=== PATIENT | male | born 1935 | race Hispanic/Latino ===

== ENCOUNTER 2017-04-03 15:21 | Inpatient (IN) | payer MEDICARE, MEDICAID ==
[2017-04-03 15:21] VITALS: PULSE 78; BMI 31.5
--- NOTE | 2017-04-03 15:27 | C.PDOC ---
History Of Present Illness 81 year old male with previous Hx of heart disease, lung disease, coronary stent and AAA repair is brought in by ALS for evaluation of AMS. Daughter states that 2 days ago at his home while standing up he lost his balance and fell down on his left side against an old cast iron stove. Patient's daughter deny that he hit his head or LOC but state that since he fell down he has been acting confused, disoriented, talking to people not in the room, and has urinary incontinence. Patient is also c/o a mild headache and abdominal discomfort with bilious vomit stating that he has not been eating, drinking or walking since he fell down. Upon arrival to the ED Pt in awake, cooperative, answering questions. Patient denies CP SOB, weakens, numbness. Time Seen by Provider: 04/03/17 15:23 Chief Complaint (Nursing): Altered Mental Status History Per: EMS, Family History/Exam Limitations: None Onset/Duration Of Symptoms: Days Current Symptoms Are (Timing): Gone Usual Baseline: Alert Oriented Use Of Anticoag/Antiplatelets: No Speech Is: Normal Severity: Mild Recent travel outside of the [place]: No Additional History Per: Patient, Family Associated Symptoms: Disoriented, Not Eating, Not Drinking, Vomiting Past Medical History Reviewed: Historical Data, Nursing Documentation, Vital Signs Vital Signs: Last Vital Signs Temp 99.3 F 04/03/17 18:14 Pulse 110 H 04/03/17 18:14 Resp 24 04/03/17 18:14 BP 149/68 04/03/17 18:14 Pulse Ox 96 04/03/17 18:14 - Medical History PMH: Anxiety, Arthritis, Asthma, Bronchitis, CAD, CHF, COPD, Diverticulitis (HX PARTIAL COLECTOMY), Emphysema, Gastritis, Hiatal Hernia, HTN, Hypercholesterolemia, Hypothyroidism, Kidney Stones, Peripheral Edema, Pneumonia , Chronic Kidney Disease, Sleep Apnea (NO C PAP), TIA (1988) Denies: Atrial Fibrillation, Cardia Arrhythmia Surgical History: CABG (1986), Cholecystectomy (1974), Coronary Stent, Endoscopy , Pacemaker - [facility] Procedures BRONCH/TRACH LAVAGE NEC (08/19/14) DRAINAGE OF LEFT MAIN BRONCHUS, ENDO, DIAGN (04/01/16) ENDOSCOPIC BRONCHIAL BX (08/19/14) INTRODUCTION OF SERUM/TOX/VACCINE INTO MUSCLE, PERC APPROACH (02/05/15) Family History: States: Unknown Family Hx - Social History Hx Tobacco Use: Yes Hx Alcohol Use: No Hx Substance Use: No - Immunization History Hx Tetanus Toxoid Vaccination: No Hx Influenza Vaccination: No Hx Pneumococcal Vaccination: No Review Of Systems Constitutional: Negative for: Fever, Chills Eyes: Negative for: Vision Change Cardiovascular: Negative for: Chest Pain Gastrointestinal: Positive for: Vomiting, Abdominal Pain Musculoskeletal: Positive for: Leg Pain Neurological: Positive for: Altered Mental Status, Headache. Negative for: Weakness, Numbness Physical Exam - Physical Exam Appears: Non-toxic, No Acute Distress Skin: Normal Color, Warm, Dry Head: Atraumatic, Normacephalic Eye(s): bilateral: Normal Inspection, PERRL, EOMI Nose: No Discharge, No Deformity Oral Mucosa: Dry Tongue: Other (Dry) Throat: Normal, No Erythema, No Exudate Neck: Normal ROM, Supple Chest: Symmetrical Cardiovascular: Rhythm Regular, Murmur Respiratory: Decreased Breath Sounds (B/L) Gastrointestinal/Abdominal: Bowel Sounds (Active), Soft, Tenderness (Diffuse), No Guarding, No Rebound Back: No CVA Tenderness Extremity: Tenderness (movement of left leg), No Pedal Edema, No Calf Tenderness , No Deformity, No Swelling Neurological/Psych: Oriented x3, Normal Speech, Normal Cognition ED Course And Treatment - Laboratory Results Result Diagrams: 04/03/17 17:17 04/03/17 16:41 Lab Interpretation: Abnormal (WBC 13.2 with left shift, LFTs and electrolytes normal. Troponin normal) ECG: Interpreted By Me, Viewed By Me ECG Rhythm: L BBB ECG Interpretation: Abnormal Interpretation Of ECG: EKG LBBB 107 BPM with wide QRS rhythm. Rate From EC Pulse Ox Interpretation: Normal - Radiology CXR: Interpreted by Me, Viewed By Me CXR Interpretation: Yes: Cardiomegaly (Stable), Other (Reticular markings somewhat increased which may be a function of early CHF although pneumonitis is not excluded and further clinical correlation is advised. Stable cardiomegaly. No pulmonary vascular prominence at this time.) - Other Rad Abdomen Obstructive series X-Ray X-Ray: Interpreted by Me, Viewed By Me, Read By Radiologist Interpretation: PROCEDURE: Radiographs of the chest and abdomen (obstructive series). HISTORY: vomiting, abdominal pain. COMPARISON: No prior. TECHNIQUE : AP radiograph of the chest, with upright and supine radiographs of the abdomen. FINDINGS: ABDOMEN AND PELVIS: Bowel: Gassiness and numerous large bowel loops which is nonspecific. Retained food material is relatively prominent within the large bowel. No bowel obstruction is not favored. Clinically correlate further. Free air: None. Bones: Unremarkable. Other findings: Paired iliac stent graft is identified in position as well as anterior abdominal wall nga at the mid inferior abdomen. Surgical sulci in the right upper quadrant abdomen. IMPRESSION: No definite bowel obstruction pattern appreciable. Gases however seen distending numerous large-bowel loops which also contained retained fecal material. Interposed aerated iliac stent graft placement. Surgical clips right upper quadrant and abdominal wall nga identified at the mid to inferior abdominal wall near the midline. - CT Scan/US Head CT Other Rad Studies (CT/US): Interpreted By Me, Read By Radiologist, Radiology Report Reviewed CT/US Interpretation: PROCEDURE: CT HEAD WITHOUT CONTRAST. HISTORY: AMS. COMPARISON: Unenhanced head CT 04/03/2016. TECHNIQUE: Axial computed tomography images were obtained through the head/brain without intravenous contrast. Radiation dose: Total exam DLP = 807.30 mGy-cm. This CT exam was performed using one or more of the following dose reduction techniques: Automated exposure control, adjustment of the mA and/or kV according to patient size, and/or use of iterative reconstruction technique. FINDINGS: HEMORRHAGE: No intracranial hemorrhage. BRAIN: Diffuse expansion of the ventriculosulcal and cisternal spaces is appreciated with white matter lucency compatible with diffuse cerebral atrophy and chronic microangiopathy. Bilateral full lamina lucencies are appreciate which could reflect interval chronic lacunar infarctions but indeterminate. There not clearly seen on the prior exam. No suspicious extra-axial fluid collection. No mass effect. VENTRICLES: Unremarkable. No hydrocephalus. CALVARIUM: Unremarkable. PARANASAL SINUSES: Unremarkable as visualized. No significant inflammatory changes. MASTOID AIR CELLS: Unremarkable as visualized. No inflammatory changes. OTHER FINDINGS: None. IMPRESSION: Small by thalamic lucencies are appreciated which are indeterminate. They could reflect interval but chronic lacunar infarctions though subacute lacunes are not excluded. No additional interval findings. Stable age related neuro degenerative changes are appreciated. Follow-up CT or MRI is advised. Reevaluation Time: 18:23 Reassessment Condition: Unchanged - Physician Consult Information Time Consulting Physician Contacted: 18:23 Physician Contacted: Johan Jamison Outcome Of Conversation: Patient is well known to him. Most of these changes are chronic. He will keep him on observation for rehydration Medical Decision Making Medical Decision Making: Plan: * Blood work ordered * EKG ordered * CXR ordered * Obstructive series X-Ray ordered * UA ordered On arrival patient was AOx3, answering questions with no gross deformities or apparent injuries. Disposition Counseled Patient/Family Regarding: Studies Performed, Diagnosis - Disposition Disposition: HOSPITALIZED Disposition Time: 18:26 Condition: STABLE - Clinical Impression Clinical Impression: Altered mental status, Abdominal pain with vomiting, Back contusion - Scribe Statement The provider has reviewed the documentation as recorded by the Scribe Dilip Hartman All medical record entries made by the Scribe were at my direction and personally dictated by me. I have reviewed the chart and agree that the record accurately reflects my personal performance of the history, physical exam, medical decision making, and the department course for this patient. I have also personally directed, reviewed, and agree with the discharge instructions and disposition.
--- NOTE | 2017-04-03 15:33 | C.PDOC ---
Time Seen by Provider: 04/03/17 15:23 Chief Complaint (Nursing): Altered Mental Status Past Medical History - Medical History PMH: Anxiety, Arthritis, Asthma, Bronchitis, CAD, CHF, COPD, Diverticulitis (HX PARTIAL COLECTOMY), Emphysema, Gastritis, Hiatal Hernia, HTN, Hypercholesterolemia, Hypothyroidism, Kidney Stones, Peripheral Edema, Pneumonia , Chronic Kidney Disease, Sleep Apnea (NO C PAP), TIA (1988) Denies: Atrial Fibrillation, Cardia Arrhythmia Surgical History: CABG (1986), Cholecystectomy (1974), Coronary Stent, Endoscopy , Pacemaker - [facility] Procedures BRONCH/TRACH LAVAGE NEC (08/19/14) DRAINAGE OF LEFT MAIN BRONCHUS, ENDO, DIAGN (04/01/16) ENDOSCOPIC BRONCHIAL BX (08/19/14) INTRODUCTION OF SERUM/TOX/VACCINE INTO MUSCLE, PERC APPROACH (02/05/15) Family History: States: Unknown Family Hx - Social History Hx Tobacco Use: Yes Hx Alcohol Use: No Hx Substance Use: No - Immunization History Hx Tetanus Toxoid Vaccination: No Hx Influenza Vaccination: No Hx Pneumococcal Vaccination: No Disposition - Disposition
--- NOTE | 2017-04-03 16:55 | CT ---
PROCEDURE: CT HEAD WITHOUT CONTRAST. HISTORY: AMS COMPARISON: Unenhanced head CT 04/03/2016 TECHNIQUE: Axial computed tomography images were obtained through the head/brain without intravenous contrast. Radiation dose: Total exam DLP = 807.30 mGy-cm. This CT exam was performed using one or more of the following dose reduction techniques: Automated exposure control, adjustment of the mA and/or kV according to patient size, and/or use of iterative reconstruction technique. FINDINGS: HEMORRHAGE: No intracranial hemorrhage. BRAIN: Diffuse expansion of the ventriculosulcal and cisternal spaces is appreciated with white matter lucency compatible with diffuse cerebral atrophy and chronic microangiopathy. Bilateral full lamina lucencies are appreciate which could reflect interval chronic lacunar infarctions but indeterminate. There not clearly seen on the prior exam. No suspicious extra-axial fluid collection. No mass effect. VENTRICLES: Unremarkable. No hydrocephalus. CALVARIUM: Unremarkable. PARANASAL SINUSES: Unremarkable as visualized. No significant inflammatory changes. MASTOID AIR CELLS: Unremarkable as visualized. No inflammatory changes. OTHER FINDINGS: None. IMPRESSION: Small by thalamic lucencies are appreciated which are indeterminate. They could reflect interval but chronic lacunar infarctions though subacute lacunes are not excluded. No additional interval findings. Stable age related neuro degenerative changes are appreciated. Follow-up CT or MRI is advised.
[2017-04-03 16:57] LABS: ALB/GLOB RATIO 1.2 (1.0-2.1); ALT/SGPT 35 U/L (21-72); AST/SGOT 21 U/L (17-59); BLOOD UREA NITROGEN 17 mg/dL (9-20); CALCIUM 8.2 mg/dl (8.6-10.4); GFR AFRICAN-AMERICAN > 60; GFR NON-AFRICAN AMERICAN > 60
--- NOTE | 2017-04-03 17:07 | RAD ---
PROCEDURE: CHEST RADIOGRAPH, 1 VIEW HISTORY: AMS COMPARISON: Portable chest 04/05/2016. FINDINGS: LUNGS: Reticular markings appear increased slightly potentially reflecting CHF. Clinically correlate. This is not definite. Alternately, there may be an element of limited but diffuse interstitial pneumonitis. PLEURA: No pneumothorax or pleural fluid seen. CARDIOVASCULAR: Cardiac size is stable with permanent cardiac pacemaker/defibrillator again evident. OSSEOUS STRUCTURES: No significant abnormalities. VISUALIZED UPPER ABDOMEN: Normal. OTHER FINDINGS: None. IMPRESSION: Reticular markings somewhat increased which may be a function of early CHF although pneumonitis is not excluded and further clinical correlation is advised. Stable cardiomegaly. No pulmonary vascular prominence at this time.
--- NOTE | 2017-04-03 17:10 | RAD ---
PROCEDURE: Radiographs of the chest and abdomen (obstructive series) HISTORY: vomiting, abdominal pain COMPARISON: No prior. TECHNIQUE: AP radiograph of the chest, with upright and supine radiographs of the abdomen. FINDINGS: ABDOMEN AND PELVIS: Bowel: Gassiness and numerous large bowel loops which is nonspecific. Retained food material is relatively prominent within the large bowel. No bowel obstruction is not favored. Clinically correlate further. Free air: None. Bones: Unremarkable. Other findings: Paired iliac stent graft is identified in position as well as anterior abdominal wall nga at the mid inferior abdomen. Surgical sulci in the right upper quadrant abdomen. IMPRESSION: No definite bowel obstruction pattern appreciable. Gases however seen distending numerous large-bowel loops which also contained retained fecal material. Interposed aerated iliac stent graft placement. Surgical clips right upper quadrant and abdominal wall nga identified at the mid to inferior abdominal wall near the midline.
[2017-04-03 17:20] LABS: BASO % 0.4 % (0.0-2.0); HEMOGLOBIN 13.5 g/dL (12.0-18.0); LYMPH # 1.1 K/uL (1.0-4.3); LYMPH % 8.3 % (20.0-40.0); MEAN CELL VOLUME 89.5 fL (80.0-94.0); MEAN CORPUSCULAR HEMOGLOBIN 29.8 pg (27.0-31.0); MEAN CORPUSCULAR HGB CONC 33.3 g/dL (33.0-37.0); MEAN PLATELET VOLUME 6.2 fL (7.2-11.7); MONO # 0.8 K/uL (0.0-0.8); NEUT # 11.3 K/uL (1.8-7.0); NEUT % 85.3 % (50.0-75.0); PLATELET COUNT 196 K/uL (130-400); RBC 4.52 Mil/uL (4.40-5.90); RED CELL DISTRIBUTION WIDTH 13.8 % (11.5-14.5); WHITE BLOOD COUNT 13.2 K/uL (4.8-10.8)
[2017-04-03 18:09] LABS: LARGE PLATELETS PRESENT; LYMPHOCYTE 6 % (20-40); MONOCYTE 3 % (0-10); NEUTROPHIL 91 % (50-75); PLATELET ESTIMATE SLIGHTLY DECREASED (NORMAL); TOTAL CELLS COUNTED 100
[2017-04-03 18:25] LABS: URINE BACTERIA RARE (<OCC); URINE BILIRUBIN NEGATIVE (NEGATIVE); URINE BLOOD 1+ (NEGATIVE); URINE CLARITY Clear (Clear); URINE COLOR Yellow (YELLOW); URINE GLUCOSE (UA) NORMAL (Normal); URINE LEUKOCYTE ESTERASE NEG Leu/uL (Negative); URINE NITRATE NEGATIVE (NEGATIVE); URINE PROTEIN 1+ mg/dL (NEGATIVE)
[2017-04-03] MEDS: Albuterol-Ipratrop 3 mg / 0.5 (3 ml) UD INH SCH (20:40)
[2017-04-03] MEDS: Acetylcysteine 20% Inhal Soln (4ml) INH SCH (20:44)
[2017-04-03] MEDS: Budesonide 0.5 mg/2 ml Inhal Susp UD INH SCH (20:44)
[2017-04-04] MEDS: Acetylcysteine 20% Inhal Soln (4ml) INH SCH ×4 (01:35→19:49)
[2017-04-04] MEDS: Albuterol-Ipratrop 3 mg / 0.5 (3 ml) UD INH SCH ×4 (01:35→19:49)
[2017-04-04 04:14] LABS: BASO # 0.1 K/uL (0.0-0.2); BASO % 0.7 % (0.0-2.0); EOS % 0.4 % (0.0-4.0); HEMOGLOBIN 12.7 g/dL (12.0-18.0); LYMPH # 1.4 K/uL (1.0-4.3); LYMPH % 14.9 % (20.0-40.0); MEAN CELL VOLUME 89.4 fL (80.0-94.0); MEAN CORPUSCULAR HEMOGLOBIN 30.5 pg (27.0-31.0); MEAN CORPUSCULAR HGB CONC 34.2 g/dL (33.0-37.0); MEAN PLATELET VOLUME 7.3 fL (7.2-11.7); MONO # 0.5 K/uL (0.0-0.8); MONO % 5.1 % (0.0-10.0); NEUT # 7.4 K/uL (1.8-7.0); NEUT % 78.9 % (50.0-75.0); NRBC % 0.1 % (0.0-2.0); RBC 4.14 Mil/uL (4.40-5.90); RED CELL DISTRIBUTION WIDTH 13.8 % (11.5-14.5); WHITE BLOOD COUNT 9.4 K/uL (4.8-10.8)
[2017-04-04 04:57] LABS: ALB/GLOB RATIO 0.9 (1.0-2.1); ALBUMIN 3.6 g/dL (3.5-5.0); ALT/SGPT 25 U/L (21-72); AST/SGOT 40 U/L (17-59); BLOOD UREA NITROGEN 17 mg/dL (9-20); CK-MB 0.76 ng/mL (0.0-3.38); GFR AFRICAN-AMERICAN > 60; GFR NON-AFRICAN AMERICAN > 60
[2017-04-04] MEDS: Budesonide 0.5 mg/2 ml Inhal Susp UD INH SCH ×2 (07:31→19:49)
[2017-04-04] MEDS: Oxycodone/Acetaminophen 5/325 mg Tab PO PRN (08:15)
[2017-04-04] MEDS: Pantoprazole 20 mg EC Tab PO SCH (09:56)
--- NOTE | 2017-04-04 18:56 | CP.PCM.HP ---
History of Present Illness - History of Present Illness History of Present Illness: Chief complaint: Altered mental status and fall History of present illness: 81 year-old male with history of severe COPD, hypertension, hypercholesterolemia , CAD, status post ACD implantation, history of possible COPD with the obstructive sleep apnea brought by the today with the frequent fall and seeing things and hallucinations. Patient had many episodes of fall prior to this evening. according to the , he was not feeling well, he started hallucinating, and the family was not able to walk, incontinence, and also frequent falls. He has not eating well. And he was not by himselfso patient's brought him to the emergency room. Recently patient was also not able to walk and not able to get up from the bed for 3 full days. Is also complaining of some constipation. He does not have any chills but the complaining of fever, according to the patient's he is having worsening cough, recently, congested lungs. And associated with that he had a frequent falls, and he recently had a small head injury. He was walking and fell on his back Past medical history: CAD, hypertension, stent, ACD, COPD and obstructive sleep apnea Past surgical history: Patient has a AICD implantation and also had a frequent bronchoscopy Allergies: Allergic to ciprofloxacin and penicillin tetanus antitoxin Personal history patient is to be heavy smoker, denies any drugs, currently not a smoker. Using a brace at home Review of system: Patient is currently having increasing headache, episodes of anxiety, episodes of confusion, and also sometimes disorientation present, according to the patient's he is having progressively worsening cough, wheezing, associated with shortness of breath. Also had a fever. On examination: Vital signs reviewed, patient is sitting up No neck vein distention noted diffuse bilateral decreased air entry noted CVS regular heart sound, no murmur noted Abdomen soft, nontender. Extremities no pedal edema patient is alert,confused. CAT scan of the head no evidence of any bleeding. Chest x-ray nonspecific. Labs nonspecific. Assessment/recommendation: 81 year-old male with a history of CAD hypertension hypercholesterolemia ACD implantation COPD possible obstructive sleep apnea recurrent chronic bronchitis now came to the emergency room for worsening altered mental status, recent frequent falls. We'll place the patient on corticosteroid bronchodilators antibiotic. We will get a repeat CAT scan of the head in the morning. DVT and GI prophylaxis will follow the patient. we'll rule out any fractures. Pain control. DVT and GI prophylaxis. Physical therapy. I will follow the patient Frequent falls, ambulation training Present on Admission - Present on Admission Any Indicators Present on Admission: No History of DVT/PE: No History of Uncontrolled Diabetes: No Urinary Catheter: No Decubitus Ulcer Present: No Past Patient History - Infectious Disease Hx of Infectious Diseases: None - Past Medical History & Family History Past Medical History?: Yes - Past Social History Smoking Status: Light Smoker < 10 Cigarettes Daily - CARDIAC Hx Congestive Heart Failure: Yes Hx Hypercholesterolemia: Yes Hx Hypertension: Yes - PULMONARY Hx Chronic Obstructive Pulmonary Disease (COPD): Yes - NEUROLOGICAL Hx Transient Ischemic Attacks (TIA): Yes (1988) - HEENT Hx HEENT Problems: Yes Hx Cataracts: Yes 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) Hx Difficulty Chewing: No - RENAL Hx Chronic Kidney Disease: Yes Hx Kidney Stones: Yes - ENDOCRINE/METABOLIC Hx Hypothyroidism: Yes - HEMATOLOGICAL/ONCOLOGICAL Hx Blood Disorders: Yes Other/Comment: polycythemia vera - INTEGUMENTARY Hx Dermatological Problems: Yes Other/Comment: PRURITIS - MUSCULOSKELETAL/RHEUMATOLOGICAL Hx Arthritis: Yes (B/L KNEES) - GASTROINTESTINAL Hx Diverticulitis: Yes (HX PARTIAL COLECTOMY) Hx Gastritis: Yes - GENITOURINARY/GYNECOLOGICAL Hx Genitourinary Disorders: Yes Hx Incontinence: Yes Hx Prostate Problems: Yes - PSYCHIATRIC Hx Anxiety: Yes Hx Substance Use: No - SURGICAL HISTORY Hx Cholecystectomy: Yes (1974) Hx Coronary Artery Bypass Graft: Yes (1986) Hx Coronary Stent: Yes - ANESTHESIA Hx Anesthesia: Yes Hx Anesthesia Reactions: No Hx Malignant Hyperthermia: No Meds Allergies/Adverse Reactions: Allergies Allergy/AdvReac Type Severity Reaction Status Date / Time ciprofloxacin HCl Allergy Severe ITCHING Verified 02/24/16 21:20 [From Cipro] Penicillins Allergy Severe ITCHING Verified 02/24/16 21:19 tetanus and diphtheria Allergy Severe hives Verified 02/24/16 21:20 toxoids Results - Vital Signs Recent Vital Signs: Last Vital Signs Temp 98.1 F 04/04/17 16:00 Pulse 100 H 04/04/17 16:00 Resp 20 04/04/17 16:00 BP 136/78 04/04/17 16:00 Pulse Ox 93 L 04/04/17 16:00 - Labs Result Diagrams: 04/04/17 04:11 04/04/17 04:11 Labs: Laboratory Results - last 24 hr 04/04/17 04/04/17 04:11 04:11 WBC 9.4 RBC 4.14 L Hgb 12.7 Hct 37.0 MCV 89.4 MCH 30.5 MCHC 34.2 RDW 13.8 Plt Count 171 MPV 7.3 Neut % (Auto) 78.9 H Lymph % (Auto) 14.9 L Bureau % (Auto) 5.1 Eos % (Auto) 0.4 Baso % (Auto) 0.7 Neut # 7.4 H Lymph # 1.4 Bureau # 0.5 Eos # 0.0 Baso # 0.1 Sodium 138 Potassium 4.1 Chloride 101 Carbon Dioxide 31 H Anion Gap 10 BUN 17 Creatinine 0.7 L Est GFR ( Amer) > 60 Est GFR (Non-Af Amer) > 60 Random Glucose 107 Calcium 8.0 L Total Bilirubin 1.4 H AST 40 ALT 25 Alkaline Phosphatase 121 Total Creatine Kinase 67 CK-MB (Mass) 0.76 Troponin I 0.0190 Total Protein 7.7 Albumin 3.6 Globulin 4.1 H Albumin/Globulin Ratio 0.9 L
--- NOTE | 2017-04-04 23:15 | CARD ---
APPROVED REPORT EKG Measurement Heart [id number] <Conclusion> Sinus rhythm Left bundle branch block Abnormal ECG
[2017-04-05] MEDS: Acetylcysteine 20% Inhal Soln (4ml) INH SCH ×4 (01:21→20:52)
[2017-04-05] MEDS: Albuterol-Ipratrop 3 mg / 0.5 (3 ml) UD INH SCH ×4 (01:21→20:52)
[2017-04-05] MEDS: Budesonide 0.5 mg/2 ml Inhal Susp UD INH SCH ×2 (07:42→20:53)
--- NOTE | 2017-04-05 08:26 | RAD ---
PROCEDURE: HISTORY: s/p fall at home COMPARISON: 02/24/2016 TECHNIQUE: AP view of the pelvis and applicable frog leg views obtained. FINDINGS: Generalized osteopenia. Bilateral superolateral hip joint space narrowing. Bilateral superolateral and bilateral inferomedial osseous hypertrophic changes -each hip. Sclerotic osseous hypertrophy inferior lumbar spine with intervening disc space narrowing. Left marginal osteophytosis predominates. Multiple midline asked distends aorto bi femoral inferred. A pelvic embolization coils similar-appearing right hemipelvic surgical vfcge-[id number] insert midline lflowue-dmdklla-kxwocbygm left hemipelvic clip similar-appearing Extensive bilateral groin arterial vascular calcifications. SI joints and pubic symphysis unremarkable. Gross fracture or dislocation appreciated IMPRESSION: No gross fracture or dislocation appreciated. Osteopenia and bilateral hip osteoarthrosis. If clinically indicated, consider more sensitive evaluation with CT or MRI
--- NOTE | 2017-04-05 08:29 | RAD ---
PROCEDURE: HISTORY: s/p fall COMPARISON: None TECHNIQUE: Three views FINDINGS: Battery pack projects over the left axilla. Midline sternal wires partially visualized. Generalized osteopenia. Acromioclavicular and glenohumeral joint space narrowing with mild osseous hypertrophy Humeral head high-riding. No fracture or dislocation appreciated. Eft extra-articular soft tissues on IMPRESSION: No fracture or dislocation. Generalized osteopenia Acromioclavicular and glenohumeral arthrosis High-riding humeral head - rotator cuff pathology inferred
--- NOTE | 2017-04-05 09:14 | RAD ---
PROCEDURE: Radiographs of the Lumbar Spine. HISTORY: s/p fall COMPARISON: [employer] image and from a CT lumbar spine study 04/03/2016 FINDINGS: BONES: Interval L1 vertebral body compression deformity suggested since 04/03/2016. The low current loss of height is estimated at 50 percent of patient's prior normal height. The other diffuse lumbar spondylotic changes mixed osteopenic and subchondral sclerotic changes and marginal osteophytes of the more inferior lumbar spine are similar appearing a diffuse disc space narrowing and Schmorl's node indentations are also similar-appearing DISC SPACES: Diffuse disc space narrowing OTHER FINDINGS: Extensive vascular stents aorta and each common iliac. Right hemipelvic coils extensive postsurgical clips nga suggested -postsurgical changes appear similar. Moderate stool retention IMPRESSION: Interval L1 vertebral body compression deformity suggested since 04/03/2016. The low current loss of height is estimated at 50 percent of patient's prior normal height. Other pathologies -findings similar .
[2017-04-05] MEDS: Pantoprazole 20 mg EC Tab PO SCH (10:44)
[2017-04-05] MEDS: Oxycodone/Acetaminophen 5/325 mg Tab PO PRN ×2 (10:47→21:51)
[2017-04-05 23:42] VITALS: RESP 20
[2017-04-06] MEDS: Albuterol-Ipratrop 3 mg / 0.5 (3 ml) UD INH SCH ×4 (02:45→19:23)
[2017-04-06] MEDS: Acetylcysteine 20% Inhal Soln (4ml) INH SCH ×3 (02:45→19:24)
[2017-04-06] MEDS: Budesonide 0.5 mg/2 ml Inhal Susp UD INH SCH ×2 (07:32→19:23)
[2017-04-06 07:33] LABS: BASO % 0.2 % (0.0-2.0); EOS % 0.3 % (0.0-4.0); HEMOGLOBIN 13.1 g/dL (12.0-18.0); LYMPH % 11.1 % (20.0-40.0); MEAN CELL VOLUME 89.4 fL (80.0-94.0); MEAN CORPUSCULAR HEMOGLOBIN 30.2 pg (27.0-31.0); MEAN CORPUSCULAR HGB CONC 33.8 g/dL (33.0-37.0); MEAN PLATELET VOLUME 6.9 fL (7.2-11.7); MONO # 0.5 K/uL (0.0-0.8); MONO % 5.7 % (0.0-10.0); NEUT # 7.1 K/uL (1.8-7.0); NEUT % 82.7 % (50.0-75.0); RBC 4.33 Mil/uL (4.40-5.90); RED CELL DISTRIBUTION WIDTH 13.5 % (11.5-14.5); WHITE BLOOD COUNT 8.6 K/uL (4.8-10.8)
[2017-04-06 08:01] LABS: ALB/GLOB RATIO 1.2 (1.0-2.1); ALBUMIN 3.4 g/dL (3.5-5.0); ALT/SGPT 29 U/L (21-72); AST/SGOT 15 U/L (17-59); BLOOD UREA NITROGEN 12 mg/dL (9-20); CALCIUM 8.3 mg/dl (8.6-10.4); GFR AFRICAN-AMERICAN > 60; GFR NON-AFRICAN AMERICAN > 60
--- NOTE | 2017-04-06 08:38 | RAD ---
HISTORY: pna COMPARISON: No prior. FINDINGS: LUNGS: Trace atelectasis likely at the left base laterally with remaining lung hamilton history of airspace disease. Reticular markings of diminished bilaterally. PLEURA: No significant pleural effusion identified, no pneumothorax apparent. CARDIOVASCULAR: Cardiomegaly again evident with pacemaker/ implanted defibrillator again noted in position. Mild CHF pattern appears diminished. OSSEOUS STRUCTURES: No significant abnormalities. VISUALIZED UPPER ABDOMEN: Upper portion of an aortic stent graft is appreciated OTHER FINDINGS: None. IMPRESSION: Improving CHF pattern. Limited atelectasis left base laterally. No definite additional airspace disease in the interval.
[2017-04-06] MEDS: Oxycodone/Acetaminophen 5/325 mg Tab PO PRN (09:47)
[2017-04-06] MEDS: Tolterodine 2 mg ER Cap PO SCH (09:48)
[2017-04-06] MEDS: Pantoprazole 20 mg EC Tab PO SCH (09:48)
[2017-04-06] MEDS ORDERED: Potassium Chloride 20 mEq/15 ml LIQ UD PO ONE (18:00)
[2017-04-07] MEDS: Acetylcysteine 20% Inhal Soln (4ml) INH SCH ×3 (02:53→13:43)
[2017-04-07] MEDS: Albuterol-Ipratrop 3 mg / 0.5 (3 ml) UD INH SCH ×3 (02:53→13:43)
[2017-04-07] MEDS: Budesonide 0.5 mg/2 ml Inhal Susp UD INH SCH (07:38)
[2017-04-07 07:39] LABS: SQUAMOUS EPITHIAL < 1 /hpf (0-5); URINE BACTERIA RARE (<OCC); URINE BILIRUBIN NEGATIVE (NEGATIVE); URINE BLOOD NEGATIVE (NEGATIVE); URINE CLARITY Hazy (Clear); URINE COLOR Amber (YELLOW); URINE GLUCOSE (UA) NORMAL (Normal); URINE HYALINE CAST 0-2 /lpf (0-2); URINE LEUKOCYTE ESTERASE TRACE Leu/uL (Negative); URINE NITRATE NEGATIVE (NEGATIVE); URINE PROTEIN 1+ mg/dL (NEGATIVE)
[2017-04-07] MEDS: Pantoprazole 20 mg EC Tab PO SCH (11:35)
[2017-04-07] MEDS: Tolterodine 2 mg ER Cap PO SCH (12:08)
[2017-04-07 15:32] VITALS: BP 123/70; PULSE 102; TEMP 98; O2SAT 97
--- NOTE | 2017-04-07 17:43 | PCM.HF ---
Heart Failure Core Measure - Heart Failure Ejection Fraction: Less Than 40 % (EF 30-35%) JANINE Inhibitor Prescribed: No Contraindication/Reason for not providing: CKD Beta-Donal Prescribed: Metoprolol Succinate Angiotensin II Receptor Donal Prescribed: No Contraindication/Reason for not providing: CKD AnticoagulationTherapy for Atrial Fibrillation/Atrialflutter: No Contraindication/Reason for not providing: SR Aldosterone Antagonist Prescribed: No Contraindication/Reason for not providing: CKD Hydralazine Nitrate Prescribed: No Contraindication/Reason for not providing: ckd Implantable Cardioverter Defibrillator Therapy: Yes Cardiac Resynchronization Therapy Prescribed: No Contraindication/Reason for not providing: has pacemaker - Follow up Will be discharged to: Home Follow Up Date (must be within 7 days from discharge): 04/11/17 Follow Up Time: 09:00
--- NOTE | 2017-04-07 17:44 | CP.PCM.PN ---
Subjective - Date & Time of Evaluation Date of Evaluation: 04/07/17 Time of Evaluation: 11:00 - Subjective Subjective: Awake, alert, has difficulty with ambulation, NAD. Objective - Vital Signs/Intake and Output Vital Signs (last 24 hours): Temp Pulse Resp BP Pulse Ox 98 F 102 H 20 123/70 97 04/07/17 15:29 04/07/17 15:29 04/07/17 15:29 04/07/17 15:29 04/07/17 15:29 Intake and Output: 04/07/17 04/07/17 06:59 18:59 Intake Total 240 Balance 240 - Medications Medications: Current Medications Acetylcysteine (Acetylcysteine 20%) 4 ml INH RQ6 [facility] Last Admin: 04/07/17 13:43 Dose: 4 ml Albuterol/Ipratropium (Duoneb 3 Mg/0.5 Mg (3 Ml) Ud) 3 ml INH RQ6 NATALIE Last Admin: 04/07/17 13:43 Dose: 3 ml Alprazolam (Xanax) 1 mg PO DAILY [facility] Last Admin: 04/07/17 12:08 Dose: 1 mg Budesonide (Pulmicort Respules) 0.5 mg INH RQ12 NATALIE Last Admin: 04/07/17 07:38 Dose: Not Given Gabapentin (Neurontin) 100 mg PO TID [facility] Last Admin: 04/07/17 14:33 Dose: 100 mg Heparin Sodium (Porcine) (Heparin) 5,000 units SC Q8 NATALIE Last Admin: 04/07/17 14:34 Dose: 5,000 units Lactulose (Enulose) 20 gm PO HS [facility] Last Admin: 04/06/17 21:21 Dose: 20 gm Pantoprazole Sodium (Protonix Ec Tab) 20 mg PO DAILY [facility] Last Admin: 04/07/17 11:35 Dose: 20 mg Pramipexole Dihydrochloride (Mirapex) 0.125 mg PO HS [facility] Last Admin: 04/06/17 21:30 Dose: 0.125 mg Roflumilast (Daliresp) 500 mcg PO DAILY [facility] Last Admin: 04/07/17 11:34 Dose: 500 mcg Rosuvastatin Calcium (Crestor) 10 mg PO HS [facility] Last Admin: 04/06/17 21:28 Dose: 10 mg Tolterodine Tartrate (Detrol La) 2 mg PO DAILY [facility] Last Admin: 04/07/17 12:08 Dose: 2 mg - Labs Labs: 04/06/17 07:10 04/06/17 07:10 Assessment and Plan - Assessment and Plan (Free Text) Assessment: Patient is seen and examined. Awake, alert , with difficulty with ambulation. Has chronic breathing difficulties secondary to COPD. Patient is refusing to go to rehab. Discussed with DR Jamison, plan to discharge home with spouse. Advised to follow up in the office in 1 week. Home care and home PT is arranged. Continue with nebulizer treatments at home.
--- NOTE | 2017-05-02 17:23 | CP.PCM.PN ---
Subjective - Date & Time of Evaluation Date of Evaluation: 04/05/17 Time of Evaluation: 17:28 - Subjective Subjective: Patient is currently awake and responding He is able to eat Family of bedside He able to stand up. Having an hard time, for miving Denies any chest pain Vital signs reviewed No neck vein distention noted Chest bilateral rales CVS regular heart sound, no murmur noted Abdomen soft, nontender. 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 History of surgical, AICD COPD exacerbation. Continue with bronchodilator, inhaled corticosteroid. Antibiotic. Follow-up the patient Objective - Vital Signs/Intake and Output Vital Signs (last 24 hours): Temp Pulse Resp BP Pulse Ox 98 F 102 H 20 123/70 97 04/07/17 15:29 04/07/17 15:29 04/07/17 15:29 04/07/17 15:29 04/07/17 15:29 - Labs Labs: 04/06/17 07:10 04/06/17 07:10
--- NOTE | 2017-05-02 17:23 | CP.PCM.PN ---
Subjective - Date & Time of Evaluation Date of Evaluation: 04/06/17 Time of Evaluation: 17:29 - Subjective Subjective: Patient is currently awake and responding He is able to eat Family of bedside He able to stand up. Having an hard time, for miving Denies any chest pain Vital signs reviewed No neck vein distention noted Chest bilateral rales CVS regular heart sound, no murmur noted Abdomen soft, nontender. 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 History of surgical, AICD COPD exacerbation. Continue with bronchodilator, inhaled corticosteroid. Antibiotic. Follow-up the patient Objective - Vital Signs/Intake and Output Vital Signs (last 24 hours): Temp Pulse Resp BP Pulse Ox 98 F 102 H 20 123/70 97 04/07/17 15:29 04/07/17 15:29 04/07/17 15:29 04/07/17 15:29 04/07/17 15:29 - Labs Labs: 04/06/17 07:10 04/06/17 07:10
--- NOTE | 2017-05-02 17:24 | CP.PCM.DIS ---
Provider - Provider Date of Admission: 04/04/17 16:11 Attending physician: Johan Jamison MD Time Spent in preparation of Discharge (in minutes): 45 Hospital Course - Lab Results Lab Results: Micro Results 04/07/17 06:30 Urine Urine Culture - Final Coagulase Neg Staphylococcus Most Recent Lab Values WBC 8.6 K/uL (4.8-10.8) 04/06/17 07:10 RBC 4.33 Mil/uL (4.40-5.90) L 04/06/17 07:10 Hgb 13.1 g/dL (12.0-18.0) 04/06/17 07:10 Hct 38.7 % (35.0-51.0) 04/06/17 07:10 MCV 89.4 fL (80.0-94.0) 04/06/17 07:10 MCH 30.2 pg (27.0-31.0) 04/06/17 07:10 MCHC 33.8 g/dL (33.0-37.0) 04/06/17 07:10 RDW 13.5 % (11.5-14.5) 04/06/17 07:10 Plt Count 211 K/uL (130-400) 04/06/17 07:10 MPV 6.9 fL (7.2-11.7) L 04/06/17 07:10 Neut % (Auto) 82.7 % (50.0-75.0) H 04/06/17 07:10 Lymph % (Auto) 11.1 % (20.0-40.0) L 04/06/17 07:10 [place] % (Auto) 5.7 % (0.0-10.0) 04/06/17 07:10 Eos % (Auto) 0.3 % (0.0-4.0) 04/06/17 07:10 Baso % (Auto) 0.2 % (0.0-2.0) 04/06/17 07:10 Neut # 7.1 K/uL (1.8-7.0) H 04/06/17 07:10 Lymph # 1.0 K/uL (1.0-4.3) 04/06/17 07:10 [place] # 0.5 K/uL (0.0-0.8) 04/06/17 07:10 Eos # 0.0 K/uL (0.0-0.7) 04/06/17 07:10 Baso # 0.0 K/uL (0.0-0.2) 04/06/17 07:10 Neutrophils % (Manual) 91 % (50-75) H 04/03/17 17:17 Lymphocytes % (Manual) 6 % (20-40) L 04/03/17 17:17 Monocytes % (Manual) 3 % (0-10) 04/03/17 17:17 Platelet Estimate Slightly decreased (NORMAL) L 04/03/17 17:17 Large Platelets Present 04/03/17 17:17 Sodium 139 mmol/L (132-148) 04/06/17 07:10 Potassium 3.4 mmol/L (3.6-5.2) L 04/06/17 07:10 Chloride 101 mmol/L (98-107) 04/06/17 07:10 Carbon Dioxide 29 mmol/L (22-30) 04/06/17 07:10 Anion Gap 12 (10-20) 04/06/17 07:10 BUN 12 mg/dL (9-20) 04/06/17 07:10 Creatinine 0.8 mg/dL (0.8-1.5) 04/06/17 07:10 Est GFR ( Amer) > 60 04/06/17 07:10 Est GFR (Non-Af Amer) > 60 04/06/17 07:10 Random Glucose 109 mg/dL (75-110) 04/06/17 07:10 Calcium 8.3 mg/dl (8.6-10.4) L 04/06/17 07:10 Total Bilirubin 0.7 mg/dL (0.2-1.3) 04/06/17 07:10 AST 15 U/L (17-59) L D 04/06/17 07:10 ALT 29 U/L (21-72) 04/06/17 07:10 Alkaline Phosphatase 118 U/L (38-126) 04/06/17 07:10 Total Creatine Kinase 67 U/L (55-170) 04/04/17 04:11 CK-MB (Mass) 0.76 ng/mL (0.0-3.38) 04/04/17 04:11 Troponin I 0.0190 ng/mL (0.00-0.120) 04/04/17 04:11 Total Protein 6.2 g/dL (6.3-8.3) L 04/06/17 07:10 Albumin 3.4 g/dL (3.5-5.0) L 04/06/17 07:10 Globulin 2.9 gm/dL (2.2-3.9) 04/06/17 07:10 Albumin/Globulin Ratio 1.2 (1.0-2.1) 04/06/17 07:10 Urine Color Kathy (YELLOW) 04/07/17 07:17 Urine Clarity Hazy (Clear) 04/07/17 07:17 Urine pH 6.0 (5.0-8.0) 04/07/17 07:17 Ur Specific [place] 1.026 (1.003-1.030) 04/07/17 07:17 Urine Protein 1+ mg/dL (NEGATIVE) H 04/07/17 07:17 Urine Glucose (UA) Normal mg/dL (Normal) 04/07/17 07:17 Urine Ketones Negative mg/dL (NEGATIVE) 04/07/17 07:17 Urine Blood Negative (NEGATIVE) 04/07/17 07:17 Urine Nitrate Negative (NEGATIVE) 04/07/17 07:17 Urine Bilirubin Negative (NEGATIVE) 04/07/17 07:17 Urine Urobilinogen 4.0 mg/dL (0.2-1.0) 04/07/17 07:17 Ur Leukocyte Esterase Trace [place]/uL (Negative) 04/07/17 07:17 Urine WBC (Auto) 17 /hpf (0-5) H 04/07/17 07:17 Urine RBC (Auto) 1 /hpf (0-3) 04/07/17 07:17 Ur Squamous Epith Cells < 1 /hpf (0-5) 04/07/17 07:17 Ur Transition Epith Cell < 1 /hpf (0-3) 04/03/17 18:09 Urine Bacteria Rare (<OCC) 04/07/17 07:17 Hyaline Casts 0-2 /lpf (0-2) 04/07/17 07:17 - Hospital Course Hospital Course: Chief complaint: Altered mental status and fall History of present illness: 81 year-old male with history of severe COPD, hypertension, hypercholesterolemia , CAD, status post ACD implantation, history of possible COPD with the obstructive sleep apnea brought by the today with the frequent fall and seeing things and hallucinations. Patient had many episodes of fall prior to this evening. according to the , he was not feeling well, he started hallucinating, and the family was not able to walk, incontinence, and also frequent falls. He has not eating well. And he was not by himselfso patient's brought him to the emergency room. Recently patient was also not able to walk and not able to get up from the bed for 3 full days. Is also complaining of some constipation. He does not have any chills but the complaining of fever, according to the patient's he is having worsening cough, recently, congested lungs. And associated with that he had a frequent falls, and he recently had a small head injury. He was walking and fell on his back Past medical history: CAD, hypertension, stent, ACD, COPD and obstructive sleep apnea Past surgical history: Patient has a AICD implantation and also had a frequent bronchoscopy Allergies: Allergic to ciprofloxacin and penicillin tetanus antitoxin Personal history patient is to be heavy smoker, denies any drugs, currently not a smoker. Using a brace at home Review of system: Patient is currently having increasing headache, episodes of anxiety, episodes of confusion, and also sometimes disorientation present, according to the patient's he is having progressively worsening cough, wheezing, associated with shortness of breath. Also had a fever. On examination: Vital signs reviewed, patient is sitting up No neck vein distention noted diffuse bilateral decreased air entry noted CVS regular heart sound, no murmur noted Abdomen soft, nontender. Extremities no pedal edema patient is alert,confused. CAT scan of the head no evidence of any bleeding. Chest x-ray nonspecific. Labs nonspecific. Assessment/recommendation: 81 year-old male with a history of CAD hypertension hypercholesterolemia ACD implantation COPD possible obstructive sleep apnea recurrent chronic bronchitis now came to the emergency room for worsening altered mental status, recent frequent falls. We'll place the patient on corticosteroid bronchodilators antibiotic. We will get a repeat CAT scan of the head in the morning. DVT and GI prophylaxis will follow the patient. we'll rule out any fractures. Pain control. DVT and GI prophylaxis. Physical therapy. Course in the hospital pt placed on 1:1 observation placed on antibiotic, bipap nebulizers slowly got better multiple skeletal xrays showing no acute fracture, except L1 vertebral compression fracture noted. Pain medication. Patient was advised to go for rehabilitation, but the patient refused. Patient is adamant in going home. He will be discharged home. Will follow the patient. Final diagnosis: COPD exacerbation. Recurrent fall, acute lumbar fracture, Coronary artery disease, heart failure. She'll continue the current treatment Discharge Plan - Discharge Medications Prescriptions: Albuterol/Ipratropium [Duoneb 3 mg/0.5 mg (3 ml) UD] 3 ml INH RQ6 #50 neb - Follow Up Plan Condition: STABLE Disposition: HOME/ ROUTINE Instructions: Albuterol (By breathing), Acetylcysteine (By breathing), Heart Failure (DC), Acute Abdominal Pain (DC), Altered Mental Status (GEN) Referrals: Johan Jamison MD [Staff Provider] -
== END 2017-04-07 18:01 | disposition home or self-care (01) | DRG 191 ==
LOC: C.ER 15:21 → C.9E 18:20 → C.3T 19:08 → OBSVTOIN 04-04 16:11
PROVIDERS: ADMIT Internal Medicine; ATTEND Internal Medicine
DX: J44.1 Chronic obstructive pulmonary disease with (acute) exacerbation (principal); I13.0 Hypertensive heart and chronic kidney disease with heart failure and stage 1 through stage 4 chronic kidney disease, or unspecified chronic kidney disease; I50.9 Heart failure, unspecified; S32.019A Unspecified fracture of first lumbar vertebra, initial encounter for closed fracture; Z95.1 Presence of aortocoronary bypass graft; R41.82 Altered mental status, unspecified; E03.9 Hypothyroidism, unspecified; E78.00 Pure hypercholesterolemia, unspecified; G47.33 Obstructive sleep apnea (adult) (pediatric); I25.10 Atherosclerotic heart disease of native coronary artery without angina pectoris; K59.00 Constipation, unspecified; L29.9 Pruritus, unspecified; N18.9 Chronic kidney disease, unspecified; R29.6 Repeated falls; Z86.73 Personal history of transient ischemic attack (TIA), and cerebral infarction without residual deficits; Z87.442 Personal history of urinary calculi; Z87.891 Personal history of nicotine dependence; Z95.5 Presence of coronary angioplasty implant and graft; Z95.810 Presence of automatic (implantable) cardiac defibrillator; W19.XXXA Unspecified fall, initial encounter; Y93.01 Activity, walking, marching and hiking

== ENCOUNTER 2017-04-11 17:07 | Inpatient (IN) | payer MEDICARE, MEDICAID ==
[2017-04-11 17:07] VITALS: PULSE 78
--- NOTE | 2017-04-11 17:17 | C.PDOC ---
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 Patient is poor historian, history per family. Patient is on oxygen 2L at home. Patient has had chronic complaints of lower back pain for several months. Chronic back pain is unchanged from prior. Family notes increased swelling to the right hand since recent hospital discharge. Patient also had chills and subjective fever. Family denies vomiting, diarrhea, or other complaints at this time. LIMITED DUE TO POOR HISTORIAN HX PER FAMILY, PT INCR SOB TODAY. ON HOME O2 2L. DENIES CP, COUGH, ABD PAIN. CO CHRONIC LOWER BACK PAIN X SEV MONTHS, CURRENT BACK PAIN UNCH FROM PRIOR. history of severe COPD, hypertension, hypercholesterolemia, CAD, status post ACD implantation, history of possible COPD with the obstructive sleep apnea FAMILY NOTES INCR SWELLING R HAND SINCE RECENT HOSPITAL DC. +REDNESS ON HAND. + CHILLS, SUBJ FEVER EXAM MILD DIST NONTOXIC HEENT NEG LUNGS +TACHYPNEA +BRONCHIAL CONGESTION ?BASILAR RALES, POOR EFFORT CV RRR BACK ATRAUM NO FOCAL TEND. ABD NEG NEURO NO FOCAL DEF. (SesarSuma) History Per: Family History/Exam Limitations: other (patient is poor historian ) Current Symptoms Are (Timing): Still Present Associated Symptoms: Fever (subjective) Reports Recently: Treated By A Physician Recent travel outside of the [place]: No Additional History Per: Prior Records <Suma Kaba - Last Filed: 04/11/17 18:42> <Francesco Connolly - Last Filed: 04/12/17 04:16> Time Seen by Provider: 04/11/17 17:16 Past Medical History Reviewed: Historical Data, Nursing Documentation, Vital Signs - Medical History PMH: Anxiety, Arthritis (B/L KNEES), Asthma, Bronchitis, CAD, CHF, COPD, Diverticulitis (HX PARTIAL COLECTOMY), Emphysema, Gastritis, Hiatal Hernia, HTN , Hypercholesterolemia, Hypothyroidism, Kidney Stones, Peripheral Edema, Pneumonia, Chronic Kidney Disease, Sleep Apnea (NO C PAP), TIA (1988) Surgical History: CABG (1986), Cholecystectomy (1974), Coronary Stent, Endoscopy , Pacemaker Family History: States: Unknown Family Hx - Social History Hx Tobacco Use: Yes Hx Alcohol Use: No Hx Substance Use: No - Immunization History Hx Tetanus Toxoid Vaccination: No Hx Influenza Vaccination: No Hx Pneumococcal Vaccination: No <SesarSuma Pleitez Last Filed: 04/11/17 18:42> Vital Signs: Last Vital Signs Temp 99.1 F 04/12/17 00:00 Pulse 95 H 04/12/17 00:00 Resp 20 04/12/17 00:00 BP 113/64 04/12/17 00:00 Pulse Ox 94 L 04/12/17 00:00 - [facility] Procedures BRONCH/TRACH LAVAGE NEC (08/19/14) DRAINAGE OF LEFT MAIN BRONCHUS, ENDO, DIAGN (04/01/16) ENDOSCOPIC BRONCHIAL BX (08/19/14) INTRODUCTION OF SERUM/TOX/VACCINE INTO MUSCLE, PERC APPROACH (02/05/15) Review Of Systems Review Of Systems: ROS cannot be obtained secondary to pt's inabilty to answer questions. (patient poor historian) <SesarSuma - Last Filed: 04/11/17 18:42> Physical Exam - Physical Exam Appears: Non-toxic, In Acute Distress (mild distress) Skin: Warm, Dry, No Rash Head: Atraumatic, Normacephalic, No Tenderness Eye(s): bilateral: Normal Inspection, PERRL, EOMI Ear(s): Bilateral: Normal Oral Mucosa: Moist Throat: Normal, No Erythema, No Exudate Neck: Supple Chest: Symmetrical, No Deformity Cardiovascular: Rhythm Regular, No Murmur Respiratory: Rales (basilar), Other (poor effort, tachypnea, +bronchial congestion? ) Gastrointestinal/Abdominal: Soft, No Tenderness, No Distention, No Guarding, No Rebound Back: Other (atrumatic with no focal deficits) Neurological/Psych: Other (no focal deficits) <Suma Kaba Maik Last Filed: 04/11/17 18:42> ED Course And Treatment - Laboratory Results Result Diagrams: 04/11/17 17:59 04/11/17 17:59 ECG: Interpreted By Me, Viewed By Me ECG Rhythm: L BBB ECG Interpretation: No Acute Changes Interpretation Of ECG: UNCH 04/03/17 Rate From EC <Suma Kaba - Last Filed: 04/11/17 18:42> - Laboratory Results Result Diagrams: 04/11/17 17:59 04/11/17 17:59 <Juan Miguel Connollyrosita Duane - Last Filed: 04/12/17 04:16> Progress - Data Reviewed Data Reviewed: Lab, Diagnostic imaging, EKG, Old records <Suma Kaba - Last Filed: 04/11/17 18:42> <ConnollyJuan Miguelrosita Duane - Last Filed: 04/12/17 04:16> - Re-Evaluation Re-evaluation Note: 04/11/17 17:30 D/W DR PEÑA AWARE OF ER FINDINGS WILL ADMIT (Suma Kaba) Disposition Counseled Patient/Family Regarding: Studies Performed, Diagnosis - Disposition Disposition Time: 18:43 - POA Present On Arrival: None <Suma Kaba - Last Filed: 04/11/17 18:42> <ConnollyFrancesco stevens Duane - Last Filed: 04/12/17 04:16> - Disposition Disposition: HOSPITALIZED Condition: STABLE - Clinical Impression Clinical Impression: Cellulitis, Chronic back pain, Pneumonia - Scribe Statement The provider has reviewed the documentation as recorded by the Scribe <Suma Kaba - Last Filed: 04/11/17 18:42> <Connolly,Tomreno Zepeda - Last Filed: 04/12/17 04:16> - Scribe Statement Fariha Rubalcava All medical record entries made by the Scribe were at my direction and personally dictated by me. I have reviewed the chart and agree that the record accurately reflects my personal performance of the history, physical exam, medical decision making, and the department course for this patient. I have also personally directed, reviewed, and agree with the discharge instructions and disposition. (Suma Kaba) Decision To Admit - Pt Status Changed To: Hospital Disposition Of: Inpatient - Admit Certification Admit to Inpatient:: After my assessment, the patient will require hospitalization for at least two midnights. This is because of the severity of symptoms shown, intensity of services needed, and/or the medical risk in this patient being treated as an outpatient. - InPatient: Physician Admission Certification: I certify that this patient requires 2 or more midnights of care for the following reason:: see note - . Bed Request Type: Regular Admitting Physician: Johan Peña <Suma Kaba - Last Filed: 04/11/17 18:42> <Francesco Connolly - Last Filed: 04/12/17 04:16> - . Patient Diagnosis: Cellulitis, Chronic back pain, Pneumonia
[2017-04-11 17:31] VITALS: BMI 29.0
[2017-04-11] MEDS ORDERED: Oxycodone/Acetaminophen 5/325 mg Tab PO STA (17:33)
[2017-04-11] MEDS ORDERED: Lidocaine 5% Patch TD STA (17:33)
[2017-04-11] MEDS ORDERED: Lidocaine 5% Patch TD ONE (17:42)
[2017-04-11 18:02] LABS: VENOUS BLOOD GAS BASE EXCESS 4.7 mmol/L (0.0-2.0); VENOUS BLOOD GAS PCO2 51 mmHg (40-60); VENOUS BLOOD PH 7.39 (7.32-7.43)
[2017-04-11 18:04] LABS: BASO % 0.5 % (0.0-2.0); EOS # 0.1 K/uL (0.0-0.7); EOS % 1.2 % (0.0-4.0); HEMATOCRIT 39.5 % (35.0-51.0); LYMPH # 1.3 K/uL (1.0-4.3); LYMPH % 15.4 % (20.0-40.0); MEAN CELL VOLUME 88.8 fL (80.0-94.0); MEAN CORPUSCULAR HEMOGLOBIN 30.5 pg (27.0-31.0); MEAN CORPUSCULAR HGB CONC 34.4 g/dL (33.0-37.0); MEAN PLATELET VOLUME 7.1 fL (7.2-11.7); MONO # 0.5 K/uL (0.0-0.8); MONO % 5.5 % (0.0-10.0); NRBC % 0.1 % (0.0-2.0); RED CELL DISTRIBUTION WIDTH 13.1 % (11.5-14.5); WHITE BLOOD COUNT 8.5 K/uL (4.8-10.8)
[2017-04-11 18:26] LABS: BLOOD UREA NITROGEN 15 mg/dL (9-20); CALCIUM 8.7 mg/dl (8.6-10.4); CARBON DIOXIDE 30 mmol/L (22-30); CHLORIDE 97 mmol/L (98-107); GFR AFRICAN-AMERICAN > 60; GLUCOSE,RANDOM 104 mg/dL (75-110); SODIUM 133 mmol/L (132-148)
[2017-04-11] MEDS ORDERED: Azithromycin 500 MG in Sodium Chloride 0.9% 250 ML IV STA (18:40)
--- NOTE | 2017-04-11 19:04 | RAD ---
HISTORY: SOB COMPARISON: Chest x-ray performed 04/06/17 TECHNIQUE: Chest, one view. FINDINGS: The patient's chin obscures evaluation of the right lung apex. Examination limited by habitus. LUNGS: Bilateral interstitial markings may reflect infection or edema. Right hilar/ infrahilar patchy opacities may reflect pneumonia. Correlate clinically. Please note that chest x-ray has limited sensitivity for the detection of pulmonary masses. PLEURA: No significant pleural effusion identified. No definite pneumothorax . CARDIOVASCULAR: Median sternotomy wires. Cardiomegaly. Single lead left-sided AICD. OSSEOUS STRUCTURES: Degenerative changes. VISUALIZED UPPER ABDOMEN: Unremarkable. OTHER FINDINGS: None. IMPRESSION: Bilateral interstitial markings may reflect infection or edema. Right hilar/ infrahilar patchy opacities may reflect pneumonia. Correlate clinically. Median sternotomy wires. Cardiomegaly. Single lead left-sided AICD.
[2017-04-11] MEDS: MethylPREDNISolone 40 mg Vial IVP SCH ×2 (19:53→22:10)
[2017-04-11] MEDS ORDERED: Albuterol-Ipratrop 3 mg / 0.5 (3 ml) UD INH SCH (20:00)
--- NOTE | 2017-04-11 20:26 | CT ---
EXAM: CT Chest Without Intravenous Contrast EXAM DATE/TIME: 04/11/2017 7:17 PM CLINICAL HISTORY: 81 years old, male; Condition or disease; Lung condition and disease; Pneumonia; Additional info: Pneumnonia TECHNIQUE: Axial computed tomography images of the chest without intravenous contrast. All CT scans at this facility use one or more dose reduction techniques, viz.: automated exposure control; ma/kV adjustment per patient size (including targeted exams where dose is matched to indication; i.e. head); or iterative reconstruction technique. Coronal and sagittal reformatted images were created and reviewed. COMPARISON: Prior images are not available for review. FINDINGS: Artifacts: Motion artifact degrades image quality. Lungs and pleural spaces: Trachea and main bronchi are patent.There is minimal apical pleural thickening bilaterally. There is no pneumothorax. There is cyst formation and scarring in the right middle lobe. There are patchy opacities at both lung bases. There is dependent atelectasis bilaterally. There are calcified pleural plaques at the left base. There is pleural thickening bilaterally. There are no effusions. Heart and vasculature: Heart size is at the upper limits of normal. There is pericardial calcification. There are coronary artery calcifications and/or stents.Aorta and main pulmonary artery are normal in caliber.There are vascular calcifications. Mediastinum: Thyroid is not optimally demonstrated. There is a calcification in the left lobe. There are incompletely imaged nodules in the right lobe. Gland extends into the upper mediastinum. The esophagus is unremarkable. There is a hiatal hernia. There are mildly prominent mediastinal nodes.Estefani are not optimally evaluated without contrast material. Bones/joints: There are degenerative changes in the osseus structures. There are postsurgical changes of median sternotomy. There is a subcutaneous lower right rib fracture. There are compression deformities C7, T1, T2, T4, T7 and T12. There is mild superior endplate deformity L1. There are bridging osteophytes and syndesmophytes greatest in the lower thoracic spine. Soft tissues: See above. Upper abdomen: There are no acute abnormalities in the visualized portion of the abdomen. Pancreas is atrophic. Portion of an endograft is seen in the infrarenal abdominal aorta. Gallbladder is absent. There is a left renal cyst Tubes, lines and devices: There is streak artifact from a pacemaker in the left chest wall. There is streak artifact from pacemaker leads. IMPRESSION: Mild cardiomegaly and atherosclerotic disease status post bypass surgery; patchy airspace disease at both lung bases infiltrate and/or atelectasis/scarring; calcified and noncalcified pleural plaques left greater than right; thyroid nodules, similar findings described in prior report
[2017-04-11] MEDS: Albuterol-Ipratrop 3 mg / 0.5 (3 ml) UD INH SCH (21:04)
--- NOTE | 2017-04-11 22:09 | CP.PCM.CON ---
History of Present Illness - History of Present Illness History of Present Illness: Infectious disease consultation; HPI; 81 year old male with a history pf severe COPD, HTN, hypercholestrerolemia, CAD , status post ACD implantation, history of possible COPD with obstructive sleep apnea presents to the ED with complaints of increased shortness of breath today. Patient is on oxygen 2L at home. Patient has had chronic complaints of lower back pain for several months. Chronic back pain is unchanged from prior. Family Pt also noted to have increased swelling to the right hand since recent hospital discharge. As reported patient also had chills and subjective fever. Family denies vomiting, diarrhea, or other complaints at this time. Patient a poor historian. 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 PATIENT WAS GIVEN iv ZITHROMAX 500 MG ONCE , AND CLINDAMYCIN 600 MG ONCE ,AND VANCOMYCIN 1 G EVERY 24 HOURLY STARTED NOTED INFECTIOUS DISEASE CONSULTATION REQUESTED BY PMD, FOR THE ABOVE COMPLAINTS PATIENT HAS MULTIPLE ALLERGIES. PATIENT UNDERWENT CT CHEST WITHOUT CONTRAST IN THE ER AND WAS FOUND TO HAVE PATCHY AIRSPACE DISEASE AT BOTH LUNG BASES/INFILTRATE AND/OR ATELECTASIS/ SCARRING. CALCIFIED PLEURAL PLAQUE L>R. THYROID NODULES ALSO SEEN. CHEST X-RAY SHOWS RIGHT HILAR/INFRAHILARG OPACITIES REFLECTING PNEUMONIA. PMH: Anxiety, Arthritis (B/L KNEES), Asthma, Bronchitis, CAD, CHF, COPD, Diverticulitis (HX PARTIAL COLECTOMY), Emphysema, Gastritis, Hiatal Hernia, HTN , Hypercholesterolemia, Hypothyroidism, Kidney Stones, Peripheral Edema, Pneumonia, Chronic Kidney Disease, Sleep Apnea (NO C PAP), TIA (1988) Surgical History: CABG (1986), Cholecystectomy (1974), Coronary Stent, Endoscopy , Pacemaker ALLERGY; CIPROFLOXACIN, PENICILLIN, TETANUS AND DIPHTHERIA RIGHT TOXOIDS. PATIENT HAS TOLERATED MAXIPEME IN JUNE 2016 REPORTED BY PHARMACY. - [facility] Procedures BRONCH/TRACH LAVAGE NEC (08/19/14) DRAINAGE OF LEFT MAIN BRONCHUS, ENDO, DIAGN (04/01/16) ENDOSCOPIC BRONCHIAL BX (08/19/14) INTRODUCTION OF SERUM/TOX/VACCINE INTO MUSCLE, PERC APPROACH (02/05/15) Family History: States: Unknown Family Hx - Social History Hx Tobacco Use: Yes Hx Alcohol Use: No Hx Substance Use: No - Immunization History Hx Tetanus Toxoid Vaccination: No Hx Influenza Vaccination: No Hx Pneumococcal Vaccination: No Review Of Systems Review Of Systems: ROS cannot be obtained secondary to pt's inabilty to answer questions. (patient poor historian) Review of Systems - Constitutional Constitutional: Chills, Fever - EENT Eyes: absent: Change in Vision - Cardiovascular Cardiovascular: Dyspnea, Dyspnea on Exertion. absent: Chest Pain - Respiratory Respiratory: Cough, Chest Congestion - Gastrointestinal Gastrointestinal: absent: Abdominal Pain, Nausea, Vomiting - Genitourinary Genitourinary: absent: Dysuria - Musculoskeletal Musculoskeletal: Joint Swelling (RT. HAND PAIN AND SWELLING WITH CELLULITUS.) - Neurological Neurological: absent: Headaches, Paresthesias - Hematologic/Lymphatic Hematologic: As Per HPI. absent: Easy Bruising Past Patient History - Infectious Disease Hx of Infectious Diseases: None - Past Medical History & Family History Past Medical History?: Yes - Past Social History Smoking Status: Light Smoker < 10 Cigarettes Daily - CARDIAC Hx Cardiac Disorders: Yes Hx Congestive Heart Failure: Yes Hx Hypercholesterolemia: Yes Hx Hypertension: Yes Hx Pacemaker: Yes Hx Peripheral Edema: Yes - PULMONARY Hx Respiratory Disorders: Yes Hx Asthma: Yes Hx Bronchitis: Yes Hx Chronic Obstructive Pulmonary Disease (COPD): Yes Hx Emphysema: Yes Hx Pneumonia: Yes Hx Sleep Apnea: Yes (NO C PAP) - NEUROLOGICAL Hx Neurological Disorder: Yes Hx Transient Ischemic Attacks (TIA): Yes (1988) - HEENT Hx HEENT Problems: Yes Hx Cataracts: Yes 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) Hx Difficulty Chewing: No - RENAL Hx Chronic Kidney Disease: Yes Hx Kidney Stones: Yes - ENDOCRINE/METABOLIC Hx Endocrine Disorders: Yes Hx Hypothyroidism: Yes - HEMATOLOGICAL/ONCOLOGICAL Hx Blood Disorders: Yes Other/Comment: polycythemia vera - INTEGUMENTARY Hx Dermatological Problems: Yes Other/Comment: PRURITIS - MUSCULOSKELETAL/RHEUMATOLOGICAL Hx Musculoskeletal Disorders: Yes Hx Arthritis: Yes (B/L KNEES) Hx Falls: Yes - GASTROINTESTINAL Hx Gastrointestinal Disorders: Yes Hx Diverticulitis: Yes (HX PARTIAL COLECTOMY) Hx Gastritis: Yes - GENITOURINARY/GYNECOLOGICAL Hx Genitourinary Disorders: Yes Hx Incontinence: Yes Hx Prostate Problems: Yes - PSYCHIATRIC Hx Psychophysiologic Disorder: Yes Hx Anxiety: Yes Hx Substance Use: No - SURGICAL HISTORY Hx Surgeries: Yes Hx Cholecystectomy: Yes (1974) Hx Coronary Artery Bypass Graft: Yes (1986) Hx Coronary Stent: Yes - ANESTHESIA Hx Anesthesia: Yes Hx Anesthesia Reactions: No Hx Malignant Hyperthermia: No Has any member of the family had a problem w/ anesthesia?: No Meds Allergies/Adverse Reactions: Allergies Allergy/AdvReac Type Severity Reaction Status Date / Time ciprofloxacin HCl Allergy Severe ITCHING Verified 04/11/17 17:31 [From Cipro] Penicillins Allergy Severe ITCHING Verified 04/11/17 17:31 tetanus and diphtheria Allergy Severe hives Verified 04/11/17 17:31 toxoids - Medications Medications: Current Medications Albuterol/Ipratropium (Duoneb 3 Mg/0.5 Mg (3 Ml) Ud) 3 ml INH RQ6 [facility] Last Admin: 04/11/17 21:04 Dose: 3 ml Albuterol/Ipratropium (Duoneb 3 Mg/0.5 Mg (3 Ml) Ud) 3 ml INH RQ6 [facility] Alprazolam (Xanax) 1 mg PO DAILY [facility] Home Med (Acetaminophen/Oxycodone Hydr [Percocet 10/325 Mg Tab]) 1 tab PO BID [facility] Vancomycin/Sodium Chloride (Vancomycin 1 Gm/Ns 200 Ml) 1 gm in 200 mls @ 133 mls/hr IVPB ONCE ONE Stop: 04/12/17 11:30 Ketorolac Tromethamine (Toradol) 30 mg IVP Q12 [facility] Stop: 04/13/17 22:01 Methylprednisolone (Solu-Medrol) 40 mg IVP Q12 [facility] Last Admin: 04/11/17 19:53 Dose: 40 mg Metoprolol Succinate (Toprol Xl) 50 mg PO DAILY [facility] Pantoprazole Sodium (Protonix Ec Tab) 40 mg PO DAILY [facility] Pramipexole Dihydrochloride (Mirapex) 0.125 mg PO DAILY [facility] Roflumilast (Daliresp) 500 mcg PO DAILY [facility] Rosuvastatin Calcium (Crestor) 10 mg PO HS [facility] Last Admin: 04/11/17 22:08 Dose: 10 mg Tolterodine Tartrate (Detrol La) 2 mg PO DAILY [facility] Physical Exam - Head Exam Head Exam: NORMAL INSPECTION - Eye Exam Eye Exam: EOMI, PERRL - ENT Exam ENT Exam: Normal Oropharynx - Neck Exam Neck exam: Positive for: Normal Inspection - Respiratory Exam Respiratory Exam: Rhonchi (BILATERALLY.) - Cardiovascular Exam Cardiovascular Exam: REGULAR RHYTHM, +S1, +S2 - GI/Abdominal Exam GI & Abdominal Exam: Normal Bowel Sounds, Soft. absent: Organomegaly - Extremities Exam Extremities exam: Positive for: pedal edema, pedal pulses present. Negative for : calf tenderness - Neurological Exam Neurological exam: Alert, CN II-XII Intact, Oriented x3, Reflexes Normal - Psychiatric Exam Psychiatric exam: Normal Mood - Skin Skin Exam: Normal Color, Warm Results - Vital Signs Recent Vital Signs: Last Vital Signs Temp 98.2 F 04/11/17 20:00 Pulse 76 04/11/17 21:09 Resp 18 04/11/17 20:00 BP 143/83 04/11/17 20:00 Pulse Ox 96 04/11/17 20:00 - Labs Result Diagrams: 04/12/17 06:51 04/12/17 06:51 Labs: Laboratory Results - last 24 hr 04/11/17 04/11/17 04/11/17 17:59 17:59 18:00 WBC 8.5 RBC 4.45 Hgb 13.6 Hct 39.5 MCV 88.8 MCH 30.5 MCHC 34.4 RDW 13.1 Plt Count 357 D MPV 7.1 L Neut % (Auto) 77.4 H Lymph % (Auto) 15.4 L [place] % (Auto) 5.5 Eos % (Auto) 1.2 Baso % (Auto) 0.5 Neut # 6.6 Lymph # 1.3 [place] # 0.5 Eos # 0.1 Baso # 0.0 pO2 21 L VBG pH 7.39 VBG pCO2 51 VBG HCO3 26.9 VBG Total CO2 32.5 H VBG O2 Sat (Calc) 36.2 L VBG Base Excess 4.7 H VBG Potassium 4.1 Glucose 101 Lactate 1.1 Sodium 133 134.0 Potassium 4.0 Chloride 97 L 101.0 Carbon Dioxide 30 Anion Gap 9 L BUN 15 Creatinine 0.8 Est GFR ( Amer) > 60 Est GFR (Non-Af Amer) > 60 Random Glucose 104 Calcium 8.7 Troponin I 0.0320 NT-Pro-B Natriuret Pep 337 Venous Blood Potassium 4.1 - Imaging and Cardiology Chest x-ray Status: Report reviewed by me (CHEST X-RAY RIGHT HILAR/INFRAHILAR PATCHY CONSOLIDATIONS REFLECT PNEUMONIA.) Assessment & Plan (1) Pneumonia Assessment and Plan: PANCULTURES. sPUTUM gRAM STAIN AND CULTURE.. CONTINUE iv VANCOMYCIN 1 G EVERY 24 HOURLY ORDERED. 04/11/17. ADD iv mAXIPIME 1 G EVERY 12 HOURLY FOR GRAM-NEGATIVE COVERAGE. 04/11/17. REPORTED BY PHARMACIST PATIENT HAS TOLERATED iv mAXIPIME IN june 2016. DISCUSSED WITH STAFF TO GIVE THE FIRST DOSE OVER 90 MINUTES AND OBSERVE FOR ANY REACTIONS, ITCHING, RASH, HYPOTENSION, OR SEIZURES. nOTIFY SOON POSSIBLE AND DISCONTINUED DRUG IT HAPPENS. Status: Acute (2) Cellulitis Assessment and Plan: PATIENT DOES HAVE CELLULITIS OF THE RIGHT HAND WHICH IS SWOLLEN AND TENDER TO TOUCH. ? VENIPUNCTURE SITE VS GOUTY ARTHRITIS. MONITOR URIC ACID LEVELS.. aGREE WITH STARTING iv VANCOMYCIN 1 G EVERY 24 HOURLY. vANCO TROUGH LEVEL PRIOR TO THE FOURTH DOSE. mONITOR RENAL FUNCTIONS. Status: Acute (3) Chronic back pain Assessment and Plan: PATIENT HAS HISTORY OF CHRONIC BACK PAIN. PER PMD Status: Acute
[2017-04-11] MEDS ORDERED: Cefepime IV 1 gm in Dextrose 1 GM/50 ML BAG IVPB ONE (23:00)
[2017-04-12] MEDS: Albuterol-Ipratrop 3 mg / 0.5 (3 ml) UD INH SCH ×4 (01:42→19:19)
[2017-04-12 06:51] LABS: ABG ALLEN TEST POS; ARTERIAL BLOOD HGB O2 SAT 95.2 % (95.0-98.0); CARBOXYHEMOGLOBIN 1.7 % (0.5-1.5); DRAW SITE LR; HHB 1.8 % (0.0-5.0); METHEMOGLOBIN 1.3 % (0.0-3.0)
--- NOTE | 2017-04-12 07:20 | CP.PCM.CON ---
History of Present Illness - History of Present Illness History of Present Illness: CONSULT DICTATED CAUDA EQUANA vS PARASAGITTAL PATHOLOGY CAT THX AND L/S SPINE CAT HEAD BLADDER SONO EEG DVT PROPHYLAXIS Past Patient History - Infectious Disease Hx of Infectious Diseases: None - Past Medical History & Family History Past Medical History?: Yes - Past Social History Smoking Status: Light Smoker < 10 Cigarettes Daily - CARDIAC Hx Cardiac Disorders: Yes Hx Congestive Heart Failure: Yes Hx Hypercholesterolemia: Yes Hx Hypertension: Yes Hx Pacemaker: Yes Hx Peripheral Edema: Yes - PULMONARY Hx Respiratory Disorders: Yes Hx Asthma: Yes Hx Bronchitis: Yes Hx Chronic Obstructive Pulmonary Disease (COPD): Yes Hx Emphysema: Yes Hx Pneumonia: Yes Hx Sleep Apnea: Yes (NO C PAP) - NEUROLOGICAL Hx Neurological Disorder: Yes Hx Transient Ischemic Attacks (TIA): Yes (1988) - HEENT Hx HEENT Problems: Yes Hx Cataracts: Yes 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) Hx Difficulty Chewing: No - RENAL Hx Chronic Kidney Disease: Yes Hx Kidney Stones: Yes - ENDOCRINE/METABOLIC Hx Endocrine Disorders: Yes Hx Hypothyroidism: Yes - HEMATOLOGICAL/ONCOLOGICAL Hx Blood Disorders: Yes Other/Comment: polycythemia vera - INTEGUMENTARY Hx Dermatological Problems: Yes Other/Comment: PRURITIS - MUSCULOSKELETAL/RHEUMATOLOGICAL Hx Musculoskeletal Disorders: Yes Hx Arthritis: Yes (B/L KNEES) Hx Falls: Yes - GASTROINTESTINAL Hx Gastrointestinal Disorders: Yes Hx Diverticulitis: Yes (HX PARTIAL COLECTOMY) Hx Gastritis: Yes - GENITOURINARY/GYNECOLOGICAL Hx Genitourinary Disorders: Yes Hx Incontinence: Yes Hx Prostate Problems: Yes - PSYCHIATRIC Hx Psychophysiologic Disorder: Yes Hx Anxiety: Yes Hx Substance Use: No - SURGICAL HISTORY Hx Surgeries: Yes Hx Cholecystectomy: Yes (1974) Hx Coronary Artery Bypass Graft: Yes (1986) Hx Coronary Stent: Yes - ANESTHESIA Hx Anesthesia: Yes Hx Anesthesia Reactions: No Hx Malignant Hyperthermia: No Has any member of the family had a problem w/ anesthesia?: No Meds Allergies/Adverse Reactions: Allergies Allergy/AdvReac Type Severity Reaction Status Date / Time ciprofloxacin HCl Allergy Severe ITCHING Verified 04/11/17 17:31 [From Cipro] Penicillins Allergy Severe ITCHING Verified 04/11/17 17:31 tetanus and diphtheria Allergy Severe hives Verified 04/11/17 17:31 toxoids - Medications Medications: Current Medications Albuterol/Ipratropium (Duoneb 3 Mg/0.5 Mg (3 Ml) Ud) 3 ml INH RQ6 [facility] Last Admin: 04/12/17 01:42 Dose: Not Given Alprazolam (Xanax) 1 mg PO DAILY [facility] Vancomycin/Sodium Chloride (Vancomycin 1 Gm/Ns 200 Ml) 1 gm in 200 mls @ 133 mls/hr IVPB ONCE ONE Stop: 04/12/17 11:30 Cefepime HCl (Maxipime Iv 1 Gm Premix) 1 gm in 50 mls @ 100 mls/hr IVPB Q12H [facility] Ketorolac Tromethamine (Toradol) 30 mg IVP Q12 [facility] Stop: 04/13/17 22:01 Last Admin: 04/11/17 22:08 Dose: 30 mg Methylprednisolone (Solu-Medrol) 40 mg IVP Q12 [facility] Last Admin: 04/11/17 22:10 Dose: 40 mg Metoprolol Succinate (Toprol Xl) 50 mg PO DAILY [facility] Oxycodone/Acetaminophen (Percocet 5/325 Mg Tab) 1 tab PO Q8 PRN Stop: 04/14/17 22:29 Pantoprazole Sodium (Protonix Ec Tab) 40 mg PO DAILY [facility] Pramipexole Dihydrochloride (Mirapex) 0.125 mg PO DAILY [facility] Roflumilast (Daliresp) 500 mcg PO DAILY [facility] Rosuvastatin Calcium (Crestor) 10 mg PO HS [facility] Last Admin: 04/11/17 22:08 Dose: 10 mg Tolterodine Tartrate (Detrol La) 2 mg PO DAILY [facility] Results - Vital Signs Recent Vital Signs: Last Vital Signs Temp 97.6 F 04/12/17 07:10 Pulse 82 04/12/17 07:10 Resp 18 04/12/17 07:10 BP 154/85 H 04/12/17 07:10 Pulse Ox 95 04/12/17 07:10 - Labs Result Diagrams: 04/11/17 17:59 04/11/17 17:59 Labs: Laboratory Results - last 24 hr 04/11/17 04/11/17 04/11/17 17:59 17:59 18:00 WBC 8.5 RBC 4.45 Hgb 13.6 Hct 39.5 MCV 88.8 MCH 30.5 MCHC 34.4 RDW 13.1 Plt Count 357 D MPV 7.1 L Neut % (Auto) 77.4 H Lymph % (Auto) 15.4 L [place] % (Auto) 5.5 Eos % (Auto) 1.2 Baso % (Auto) 0.5 Neut # 6.6 Lymph # 1.3 Putnam # 0.5 Eos # 0.1 Baso # 0.0 Puncture Site pCO2 pO2 21 L HCO3 ABG pH ABG Total CO2 ABG O2 Saturation ABG Base Excess ABG Hemoglobin ABG Carboxyhemoglobin POC ABG HHb (Measured) ABG Methemoglobin Hua Test VBG pH 7.39 VBG pCO2 51 VBG HCO3 26.9 VBG Total CO2 32.5 H VBG O2 Sat (Calc) 36.2 L VBG Base Excess 4.7 H VBG Potassium 4.1 A-a O2 Difference Respiratory Index Hgb O2 Saturation Glucose 101 Lactate 1.1 Liter Flow FiO2 Sodium 133 134.0 Potassium 4.0 Chloride 97 L 101.0 Carbon Dioxide 30 Anion Gap 9 L BUN 15 Creatinine 0.8 Est GFR ( Amer) > 60 Est GFR (Non-Af Amer) > 60 Random Glucose 104 Calcium 8.7 Troponin I 0.0320 NT-Pro-B Natriuret Pep 337 Venous Blood Potassium 4.1 04/12/17 06:45 WBC RBC Hgb Hct MCV MCH MCHC RDW Plt Count MPV Neut % (Auto) Lymph % (Auto) [place] % (Auto) Eos % (Auto) Baso % (Auto) Neut # Lymph # Putnam # Eos # Baso # Puncture Site Lr pCO2 36 pO2 112 H HCO3 24.3 ABG pH 7.42 ABG Total CO2 24.5 ABG O2 Saturation 98.1 H ABG Base Excess -0.7 ABG Hemoglobin 12.8 ABG Carboxyhemoglobin 1.7 H POC ABG HHb (Measured) 1.8 ABG Methemoglobin 1.3 Hua Test Pos VBG pH VBG pCO2 VBG HCO3 VBG Total CO2 VBG O2 Sat (Calc) VBG Base Excess VBG Potassium A-a O2 Difference 71.0 Respiratory Index 0.6 Hgb O2 Saturation 95.2 Glucose Lactate Liter Flow 3.0 FiO2 32.0 Sodium Potassium Chloride Carbon Dioxide Anion Gap BUN Creatinine Est GFR ( Amer) Est GFR (Non-Af Amer) Random Glucose Calcium Troponin I NT-Pro-B Natriuret Pep Venous Blood Potassium
[2017-04-12 07:21] LABS: ALB/GLOB RATIO 0.8 (1.0-2.1); ALKALINE PHOSPHATASE 130 U/L (38-126); ALT/SGPT 32 U/L (21-72); AST/SGOT 18 U/L (17-59); BASO % 0.2 % (0.0-2.0); BILIRUBIN,TOTAL 0.5 mg/dL (0.2-1.3); BLOOD UREA NITROGEN 19 mg/dL (9-20); CALCIUM 8.8 mg/dl (8.6-10.4); CARBON DIOXIDE 28 mmol/L (22-30); CHLORIDE 102 mmol/L (98-107); GFR AFRICAN-AMERICAN > 60; GLUCOSE,RANDOM 159 mg/dL (75-110); HEMATOCRIT 40.3 % (35.0-51.0); LYMPH # 0.7 K/uL (1.0-4.3); LYMPH % 10.6 % (20.0-40.0); MEAN CELL VOLUME 88.4 fL (80.0-94.0); MEAN CORPUSCULAR HEMOGLOBIN 30.2 pg (27.0-31.0); MEAN CORPUSCULAR HGB CONC 34.2 g/dL (33.0-37.0); MEAN PLATELET VOLUME 7.1 fL (7.2-11.7); MONO # 0.1 K/uL (0.0-0.8); NRBC % 0.1 % (0.0-2.0); POTASSIUM 4.4 mmol/L (3.6-5.2); RED CELL DISTRIBUTION WIDTH 13.2 % (11.5-14.5); SODIUM 140 mmol/L (132-148); TOTAL PROTEIN 7.9 g/dL (6.3-8.3)
[2017-04-12 07:44] LABS: PROSTATE SPECIFIC ANTIGEN 0.174 ng/mL (0.00-4.0)
--- NOTE | 2017-04-12 09:57 | CT ---
PROCEDURE: CT HEAD WITHOUT CONTRAST. HISTORY: ROMMEL STROKE COMPARISON: None available. TECHNIQUE: Axial computed tomography images were obtained through the head/brain without intravenous contrast. Three-dimensional volume rendering Radiation dose: Total exam DLP = 1009.71 mGy-cm. This CT exam was performed using one or more of the following dose reduction techniques: Automated exposure control, adjustment of the mA and/or kV according to patient size, and/or use of iterative reconstruction technique. FINDINGS: HEMORRHAGE: No intracranial hemorrhage. BRAIN: No mass effect or edema. Cortical atrophy, periventricular small vessel disease evidence of old distal laminectomy and lacune or infarcts identified. Cerebellar atrophy noted. VENTRICLES: Unremarkable. No hydrocephalus. CALVARIUM: Unremarkable. PARANASAL SINUSES: Unremarkable as visualized. No significant inflammatory changes. MASTOID AIR CELLS: Unremarkable as visualized. No inflammatory changes. OTHER FINDINGS: None. IMPRESSION: No acute intracranial abnormalities. No significant findings to account for the clinical presentation. No significant interval change compared to the prior examination(s).
[2017-04-12] MEDS ORDERED: Vancomycin 1 gm/NS 200 ml 1 GM/200 ML BAG IVPB ONE (10:00)
--- NOTE | 2017-04-12 10:06 | CT ---
PROCEDURE: CT Thoracic Spine without contrast HISTORY: met COMPARISON: None. TECHNIQUE: Axial computed tomography images were obtained of the thoracic spine without intravenous contrast. Coronal and sagittal reformatted images were created and reviewed. Radiation dose: Total exam DLP = 1153.94 mGy-cm. This CT exam was performed using one or more of the following dose reduction techniques: Automated exposure control, adjustment of the mA and/or kV according to patient size, and/or use of iterative reconstruction technique. FINDINGS: VERTEBRAE: Incompletely visualized fracture L1 vertebral body. No evidence of thoracic vertebral body fracture. DISCS/SPINAL CANAL/NEURAL FORAMINA: Multilevel degenerative changes primarily disc space narrowing, marginal and to lesser extent non marginal osteophyte formation lower lumbar spine.. PARASPINAL SOFT TISSUES: No significant paravertebral soft tissue masses. Simple cyst left kidney measures 2.2 cm.. OTHER FINDINGS: Incompletely visualized left lower lobe infiltrate, of right lower lobe and right upper lobe infiltrates.. 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 IMPRESSION: Multilevel degenerative change without thoracic vertebral body fracture. Loss of height of the L1 vertebral body age indeterminate fracture without appreciable impression upon the spinal canal. Bilateral pulmonary infiltrates consistent with clinically suspected pneumonia. Additional benign and/or incidental findings described above.
[2017-04-12] MEDS: Pantoprazole 40 mg EC Tab PO SCH (10:43)
[2017-04-12] MEDS: Tolterodine 2 mg ER Cap PO SCH (10:44)
[2017-04-12] MEDS: Metoprolol Succinate 50 mg XL Tab PO SCH (10:44)
[2017-04-12] MEDS: MethylPREDNISolone 40 mg Vial IVP SCH ×2 (10:45→21:47)
[2017-04-12] MEDS: Cefepime IV 1 gm in Dextrose 1 GM/50 ML BAG IVPB SCH ×2 (12:54→22:00)
--- NOTE | 2017-04-12 14:35 | CT ---
PROCEDURE: CT Lumbar Spine without contrast HISTORY: met COMPARISON: Lumbar spine radiographs 04/04/2017. TECHNIQUE: Axial computed tomography images were obtained of the lumbar spine without the use of intravenous contrast. Coronal and sagittal reformatted images were created and reviewed. Radiation dose: Total exam DLP = 1643.41 mGy-cm. This CT exam was performed using one or more of the following dose reduction techniques: Automated exposure control, adjustment of the mA and/or kV according to patient size, and/or use of iterative reconstruction technique. FINDINGS: VERTEBRAE: A dextroscoliotic lumbar spinal deformity is again appreciated with advanced multilevel degenerative disc changes appreciated diffusely. Marked disc height loss is seen at L3-4 and L5-S1 once again with vacuum disc changes seen at all levels. There is a mild anterior wedge compression fracture L1 with likely limited herniation of the intervertebral disc through the inferior endplate somewhat. Diffuse osteopenia suggests osteoporosis. This leads to a mild inhomogeneity the bone density throughout the exam with no definite focal lytic or blastic destructive bony lesion appreciated. MRI or nuclear bone scan are more sensitive for metastatic disease than CT an should be considered if there is clinical concern for bony metastatic disease. No spondylolisthesis is appreciated once again with multilevel facet joint degenerative arthropathy again evident. An aortic iliac stent graft is seen in the abdominal aorta once again with embolic material identified at the right internal iliac arterial system as well. A markedly distended urinary bladder is partially captured in the pelvis with an enlarged prostate gland. Incidental note is also made of left renal cysts. Direct prevertebral paraspinal soft tissues appear unremarkable. DISCS/SPINAL CANAL/NEURAL FORAMINA: L1-2: Limited disc bulging is encountered without significant stenosis. Mild facet arthropathy appears symmetric. No neural foraminal stenosis. L2-3: The lateral recesses are encroached, slightly greater the left and right sides, by limited disc bulging and moderate facet joint degenerative change. [id number] bilateral degenerative neural foraminal stenoses are identified. L3-4: A moderate to severe central canal stenosis results from a disc osteophyte complex combining with prominent facet joint degenerative arthropathy with the stenosis slightly greater the right than left sides due to scoliosis. Mild right and moderate severe left neural foraminal stenoses are identified on degenerative basis. L4-5: A moderate central canal stenosis (greater at the right than left sides) results from [id number] generalized disc bulging combining with gross facet arthropathy. Severe right and moderate to severe left neural foraminal stenoses are degenerative. L5-S1: A mild central canal stenosis is degenerative caused by disc osteophyte complex combining with facet joint arthropathy with moderate to severe right but mild left degenerative neural foraminal stenoses identified. OTHER FINDINGS: None. IMPRESSION: 1. Stable mild compression fracture of L1 is again appreciated previously demonstrated prior lumbar spine radiographs of 04/04/2017 but not apparent in lumbar spine CT 04/03/2016. No significant stenosis results from this fracture. Diffuse osteopenia suggests osteoporosis. No focal bony destructive lesion appreciable. If metastatic disease remains of clinical question follow-up nuclear bone scan or MRI is recommended for further characterization as both of more sensitive than CT for identifying bony metastases. 2. Multilevel degenerative central canal stenoses and neural foraminal stenoses which are variable in part due to dextroscoliotic lumbar spinal deformity and seen worst at the L3-4 level where there is a moderate to severe central canal stenosis once again.
--- NOTE | 2017-04-12 16:01 | CON ---
DATE: 04/12/2017 LOCATION: The patient's room number 356, bed A. ATTENDING PHYSICIAN: Johan Jamison MD. REASON FOR THE CONSULTATION: Back pain and leg weakness. CHIEF COMPLAINT: The patient was brought in to [facility] with history of lower back pain. From neurological point of view, I was called in to evaluate him for further management. HISTORY OF PRESENT ILLNESS: Mr. Johnathan Zuniga is an 81-year-old right-handed male presenting with lower back pain and leg weakness. No history of fall. No history of trauma. Following admission, the patient did have CT of the chest, which showed evidence of some structural damage of the lumbar spine. From neurological point of view, I was called in. From the history, no witnessed fall. No history of involuntary movement. No history of bowel and bladder incontinence at home. PAST MEDICAL HISTORY: Significant for coronary artery disease, status post defibrillator; hypertension; COPD. REVIEW OF SYSTEMS: A 12-point systems had been reviewed. From neuro, back pain and leg weakness. MEDICATIONS: Crestor, Daliresp, Detrol, Maxipime, Mirapex, Percocet, Solu-Medrol, Toprol. PHYSICAL EXAMINATION: VITAL SIGNS: Blood pressure 154/85, mean arterial pressure of 108, respiratory rate 18, temperature 97.6. NECK: Supple. No carotid bruits. HEART: Heart sounds are tachycardic. EXTREMITIES: Both lower extremities are externally rotated. NEUROLOGICAL EXAMINATION: The patient is examined in the presence of a mobile heavy equipment mechanic. The patient is lethargic, tachypneic. Perspiration is also noted all over his body. The patient verbally sluggishly respond to his name. Respond to pain symmetrically on both sides. Eyes are closed. On opening the eyelid, pupils reactive to light. Extraocular movement, rolling conjugate gaze noted. No facial asymmetry. No facial sensory deficit. Motor examination: He moves all 4 extremities. Respond to pain appropriately. Deep tendon reflexes are absent. Plantars are mute. Both legs are externally rotated. Sensory examination: As stated, responds to pain symmetrically on both sides. Coordination and gait deferred at this time. WORKUP: WBC 8.5, hemoglobin 13.6, hematocrit 39.5, platelet 357. Blood gas done with pH 7.42, pO2 112 with 2 L nasal cannula and pCO2 of 36, oxygen saturation was 98.1, bicarbonate of 24.5. Sodium 133, potassium 4.0, chloride 97, bicarbonate 30, anion gap 9, BUN 15, creatinine 0.8, GFR more than 60, glucose 104, BNP 3137. EKG shows right bundle-branch block. CAT scan showed pathological fracture over L1 and the thoracic vertebra as well. CONCLUSION: 1. Mr. Johnathan Zuniga is presenting with global cerebral dysfunction manifesting with new onset of increasing lethargicness with both the legs were externally rotated with possible urinary incontinence, all suggestive of bilateral cerebral dysfunction. This is probably a parasagittal or anterior cerebral artery distributed ischemic process versus space-occupying lesion. 2. 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 3. The patient also showed evidence of significant peripheral neuropathy. RECOMMENDATIONS: 1. The patient should have a CT of the thoracic spine and lumbosacral spine. 2. Bladder sonogram. 3. DVT prophylaxis. The patient's condition gets worse, critical care evaluation is needed because of his new lethargicness. The patient will be followed closely with you. Omar Alvares MD
--- NOTE | 2017-04-12 16:23 | NM ---
PROCEDURE: Whole Body Bone Scan HISTORY: Pneumonia, cellulitis. COMPARISON: April 12, 2017. CT lumbar spine TECHNIQUE: Following administration of 24.6 miCu of Tc MDP multiplanar whole body images were obtained. FINDINGS: Evidence for bony metastatic disease: Abnormal increased uptake is L1 consistent with previously documented L1 fracture. Degenerative uptake: Degenerative changes mid thoracic spine. Degenerative changes thoracic spine. Thoracolumbar scoliosis likely accounts for the degenerative changes. Degenerative changes both knees. Osteoarthritic changes both wrists. Physiologic uptake: Normal physiologic activity in the kidneys. Other findings: None. IMPRESSION: No evidence of bony metastatic disease. Increased uptake L1 consistent with previously identified fracture L1 vertebral body. Multilevel degenerative changes thoracolumbar spine.
--- NOTE | 2017-04-12 17:46 | CP.PCM.HP ---
History of Present Illness - History of Present Illness History of Present Illness: Chief complaint: shortness of breath, cough. History of present illness: 81 year-old male with history of severe COPD, hypertension, hypercholesterolemia , CAD, status post ACD implantation, history of possible COPD with the obstructive sleep apnea brought by Came to the emergency room today with increasing shortness of breath, and also congested lungs. Patient in the house was seen by visiting nurse, who recommended to go to the emergency room because of increasing SOB. Patient was having increasing cough, increasing shortness of breath, and also confusion. Currently, no emergency room patient is having increasing cough, congested lungs , and not able to cough it out. Patient also not feeling well, complaining of pain in the lower back, radiating to the left hip. Severe pain noted. He was also having some difficulty in going to the bathroom. Patient was not able to stand up and walk, increasing weakness noted. This was recently hospitalized, and he did not want to stay at the time, he was adamant to go home, and he was also given option to go to the rehabitation, but the patient refused Also complaining of right hand pain, swelling, and tenderness pain Past medical history: CAD, hypertension, stent, ACD, COPD and obstructive sleep apnea Past surgical history: Patient has a AICD implantation and also had a frequent bronchoscopy Allergies: Allergic to ciprofloxacin and penicillin tetanus antitoxin Personal history patient is to be heavy smoker, denies any drugs, currently not a smoker. Using a brace at home Review of system: Patient is currently having increasing headache, episodes of anxiety, episodes of confusion, and also sometimes disorientation present, according to the patient's he is having progressively worsening cough, wheezing, associated with shortness of breath. Also had a fever. On examination: Vital signs reviewed, patient is sitting up No neck vein distention noted diffuse bilateral decreased air entry noted CVS regular heart sound, no murmur noted Abdomen soft, nontender. Extremities no pedal edema patient is alert,confused. Patient is having right thumb tenderness, swelling and redness, also tenderness in the index finger MTP joint, associate with the redness. Patient underwent a multiple imaging studies. Labs reviewed. X-ray congested lungs noted, prominent bronchopneumonia changes noted Assessment/recommendation: 81 year-old male with a history of CAD hypertension hypercholesterolemia ACD implantation COPD possible obstructive sleep apnea recurrent chronic bronchitis now came to the emergency room for worsening altered mental status, recent frequent falls. We'll place the patient on corticosteroid bronchodilators antibiotic. We will get a repeat CAT scan of the head in the morning. DVT and GI prophylaxis will follow the patient. we'll rule out any fractures. Pain control. DVT and GI prophylaxis. Physical therapy. I will follow the patient Frequent falls, ambulation training underlaying cellulitis, right hand cannot be ruled out, possible gouty attack. to start the patient NSAIDs, prednisone, uric acid level Present on Admission - Present on Admission Any Indicators Present on Admission: No History of DVT/PE: No History of Uncontrolled Diabetes: No Urinary Catheter: No Decubitus Ulcer Present: No Past Patient History - Infectious Disease Hx of Infectious Diseases: None - Past Medical History & Family History Past Medical History?: Yes - Past Social History Smoking Status: Light Smoker < 10 Cigarettes Daily - CARDIAC Hx Cardiac Disorders: Yes Hx Congestive Heart Failure: Yes Hx Hypercholesterolemia: Yes Hx Hypertension: Yes Hx Pacemaker: Yes Hx Peripheral Edema: Yes - PULMONARY Hx Respiratory Disorders: Yes Hx Asthma: Yes Hx Bronchitis: Yes Hx Chronic Obstructive Pulmonary Disease (COPD): Yes Hx Emphysema: Yes Hx Pneumonia: Yes Hx Sleep Apnea: Yes (NO C PAP) - NEUROLOGICAL Hx Neurological Disorder: Yes Hx Transient Ischemic Attacks (TIA): Yes (1988) - HEENT Hx HEENT Problems: Yes Hx Cataracts: Yes 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) Hx Difficulty Chewing: No - RENAL Hx Chronic Kidney Disease: Yes Hx Kidney Stones: Yes - ENDOCRINE/METABOLIC Hx Endocrine Disorders: Yes Hx Hypothyroidism: Yes - HEMATOLOGICAL/ONCOLOGICAL Hx Blood Disorders: Yes Other/Comment: polycythemia vera - INTEGUMENTARY Hx Dermatological Problems: Yes Other/Comment: PRURITIS - MUSCULOSKELETAL/RHEUMATOLOGICAL Hx Musculoskeletal Disorders: Yes Hx Arthritis: Yes (B/L KNEES) Hx Falls: Yes - GASTROINTESTINAL Hx Gastrointestinal Disorders: Yes Hx Diverticulitis: Yes (HX PARTIAL COLECTOMY) Hx Gastritis: Yes - GENITOURINARY/GYNECOLOGICAL Hx Genitourinary Disorders: Yes Hx Incontinence: Yes Hx Prostate Problems: Yes - PSYCHIATRIC Hx Psychophysiologic Disorder: Yes Hx Anxiety: Yes Hx Substance Use: No - SURGICAL HISTORY Hx Surgeries: Yes Hx Cholecystectomy: Yes (1974) Hx Coronary Artery Bypass Graft: Yes (1986) Hx Coronary Stent: Yes - ANESTHESIA Hx Anesthesia: Yes Hx Anesthesia Reactions: No Hx Malignant Hyperthermia: No Has any member of the family had a problem w/ anesthesia?: No Meds Allergies/Adverse Reactions: Allergies Allergy/AdvReac Type Severity Reaction Status Date / Time ciprofloxacin HCl Allergy Severe ITCHING Verified 04/11/17 17:31 [From Cipro] Penicillins Allergy Severe ITCHING Verified 04/11/17 17:31 tetanus and diphtheria Allergy Severe hives Verified 04/11/17 17:31 toxoids Results - Vital Signs Recent Vital Signs: Last Vital Signs Temp 97.9 F 04/12/17 16:00 Pulse 92 H 04/12/17 16:00 Resp 20 04/12/17 16:00 BP 110/66 04/12/17 16:00 Pulse Ox 97 04/12/17 16:00 - Labs Result Diagrams: 04/12/17 06:51 04/12/17 06:51 Labs: Laboratory Results - last 24 hr 04/11/17 04/11/17 04/11/17 17:59 17:59 18:00 WBC 8.5 RBC 4.45 Hgb 13.6 Hct 39.5 MCV 88.8 MCH 30.5 MCHC 34.4 RDW 13.1 Plt Count 357 D MPV 7.1 L Neut % (Auto) 77.4 H Lymph % (Auto) 15.4 L [place] % (Auto) 5.5 Eos % (Auto) 1.2 Baso % (Auto) 0.5 Neut # 6.6 Lymph # 1.3 [place] # 0.5 Eos # 0.1 Baso # 0.0 Puncture Site pCO2 pO2 21 L HCO3 ABG pH ABG Total CO2 ABG O2 Saturation ABG Base Excess ABG Hemoglobin ABG Carboxyhemoglobin POC ABG HHb (Measured) ABG Methemoglobin Hua Test VBG pH 7.39 VBG pCO2 51 VBG HCO3 26.9 VBG Total CO2 32.5 H VBG O2 Sat (Calc) 36.2 L VBG Base Excess 4.7 H VBG Potassium 4.1 A-a O2 Difference Respiratory Index Hgb O2 Saturation Glucose 101 Lactate 1.1 Liter Flow FiO2 Sodium 133 134.0 Potassium 4.0 Chloride 97 L 101.0 Carbon Dioxide 30 Anion Gap 9 L BUN 15 Creatinine 0.8 Est GFR ( Amer) > 60 Est GFR (Non-Af Amer) > 60 Random Glucose 104 Calcium 8.7 Total Bilirubin AST ALT Alkaline Phosphatase Troponin I 0.0320 NT-Pro-B Natriuret Pep 337 Total Protein Albumin Globulin Albumin/Globulin Ratio Prostate Specific Ag Venous Blood Potassium 4.1 04/12/17 04/12/17 04/12/17 06:45 06:51 06:51 WBC 7.0 RBC 4.56 Hgb 13.8 Hct 40.3 MCV 88.4 MCH 30.2 MCHC 34.2 RDW 13.2 Plt Count 348 MPV 7.1 L Neut % (Auto) 88.2 H Lymph % (Auto) 10.6 L [place] % (Auto) 1.0 Eos % (Auto) 0.0 Baso % (Auto) 0.2 Neut # 6.2 Lymph # 0.7 L [place] # 0.1 Eos # 0.0 Baso # 0.0 Puncture Site Lr pCO2 36 pO2 112 H HCO3 24.3 ABG pH 7.42 ABG Total CO2 24.5 ABG O2 Saturation 98.1 H ABG Base Excess -0.7 ABG Hemoglobin 12.8 ABG Carboxyhemoglobin 1.7 H POC ABG HHb (Measured) 1.8 ABG Methemoglobin 1.3 Hua Test Pos VBG pH VBG pCO2 VBG HCO3 VBG Total CO2 VBG O2 Sat (Calc) VBG Base Excess VBG Potassium A-a O2 Difference 71.0 Respiratory Index 0.6 Hgb O2 Saturation 95.2 Glucose Lactate Liter Flow 3.0 FiO2 32.0 Sodium 140 Potassium 4.4 Chloride 102 Carbon Dioxide 28 Anion Gap 15 BUN 19 Creatinine 0.8 Est GFR ( Amer) > 60 Est GFR (Non-Af Amer) > 60 Random Glucose 159 H Calcium 8.8 Total Bilirubin 0.5 AST 18 ALT 32 Alkaline Phosphatase 130 H Troponin I NT-Pro-B Natriuret Pep Total Protein 7.9 Albumin 3.6 Globulin 4.3 H Albumin/Globulin Ratio 0.8 L Prostate Specific Ag 0.174 Venous Blood Potassium
[2017-04-12 21:49] LABS: RBC URINE 3 /hpf (0-3); URINE BACTERIA RARE (<OCC); URINE BILIRUBIN NEGATIVE (NEGATIVE); URINE BLOOD NEGATIVE (NEGATIVE); URINE COLOR Yellow (YELLOW); URINE GLUCOSE (UA) NORMAL (Normal); URINE KETONE NEGATIVE (NEGATIVE); URINE LEUKOCYTE ESTERASE TRACE Leu/uL (Negative); URINE PROTEIN 1+ mg/dL (NEGATIVE); URINE UROBILINOGEN NORMAL mg/dL (0.2-1.0); WBC URINE 45 /hpf (0-5)
--- NOTE | 2017-04-12 22:14 | CP.PCM.PN ---
Subjective - Date & Time of Evaluation Date of Evaluation: 04/12/17 Time of Evaluation: 22:14 - Subjective Subjective: afebrile, LESS SHORT OF BREATH STATES CANNOT BRING OUT EXPECTORANT BUT FEELS CONGESTED. Still complains of pain right hand which is swollen and cellulitic Patient's right third knuckle swollen and erythematous. Patient unable to make a fist. PATIENT SEEN BY NEUROLOGIST AND MULTIPLE TESTS BEING PERFORMED Objective - Vital Signs/Intake and Output Vital Signs (last 24 hours): Temp Pulse Resp BP Pulse Ox 97.9 F 95 H 20 110/66 97 04/12/17 16:00 04/12/17 17:41 04/12/17 16:00 04/12/17 16:00 04/12/17 17:41 Intake and Output: 04/12/17 04/13/17 18:59 06:59 Intake Total 850 Balance 850 - Medications Medications: Current Medications Acetylcysteine (Acetylcysteine 20%) 4 ml INH RQ6 [facility] Albuterol/Ipratropium (Duoneb 3 Mg/0.5 Mg (3 Ml) Ud) 3 ml INH RQ6 [facility] Last Admin: 04/12/17 19:19 Dose: 3 ml Alprazolam (Xanax) 1 mg PO DAILY [facility] Last Admin: 04/12/17 10:44 Dose: 1 mg Heparin Sodium (Porcine) (Heparin) 5,000 units SC Q12 [facility] Cefepime HCl (Maxipime Iv 1 Gm Premix) 1 gm in 50 mls @ 100 mls/hr IVPB Q12H [facility] Last Admin: 04/12/17 22:00 Dose: 100 mls/hr Ketorolac Tromethamine (Toradol) 30 mg IVP Q12 [facility] Stop: 04/13/17 22:01 Last Admin: 04/12/17 21:48 Dose: 30 mg Methylprednisolone (Solu-Medrol) 40 mg IVP Q12 [facility] Last Admin: 04/12/17 21:47 Dose: 40 mg Metoprolol Succinate (Toprol Xl) 50 mg PO DAILY [facility] Last Admin: 04/12/17 10:44 Dose: 50 mg Oxycodone/Acetaminophen (Percocet 5/325 Mg Tab) 1 tab PO Q8 PRN Stop: 04/14/17 22:29 Pantoprazole Sodium (Protonix Ec Tab) 40 mg PO DAILY [facility] Last Admin: 04/12/17 10:43 Dose: 40 mg Pramipexole Dihydrochloride (Mirapex) 0.125 mg PO DAILY [facility] Last Admin: 04/12/17 14:28 Dose: 0.125 mg Roflumilast (Daliresp) 500 mcg PO DAILY [facility] Last Admin: 04/12/17 10:44 Dose: 500 mcg Rosuvastatin Calcium (Crestor) 10 mg PO HS [facility] Last Admin: 04/12/17 21:56 Dose: 10 mg Tolterodine Tartrate (Detrol La) 2 mg PO DAILY [facility] Last Admin: 04/12/17 10:44 Dose: 2 mg - Labs Labs: 04/12/17 06:51 04/12/17 06:51 - Constitutional Appears: No Acute Distress - Head Exam Head Exam: NORMAL INSPECTION - Eye Exam Eye Exam: EOMI, PERRL - ENT Exam ENT Exam: Normal Oropharynx - Neck Exam Neck Exam: Normal Inspection. absent: Meningismus - Respiratory Exam Respiratory Exam: Rhonchi (BILATERAL RHONCHI.) - Cardiovascular Exam Cardiovascular Exam: Tachycardia, REGULAR RHYTHM, +S1, +S2 - GI/Abdominal Exam GI & Abdominal Exam: Soft, Normal Bowel Sounds. absent: Organomegaly - Extremities Exam Extremities Exam: Pedal Edema (1+). absent: Calf Tenderness Additional comments: RT RIGHT HAND SWOLLEN AND WARM TO TOUCH RIGHT KNUCKLE THIRD FINGER SWOLLEN AND TENDER TO MOVEMENT. UNABLE TO MAKE A FIST. - Neurological Exam Neurological Exam: Awake, CN II-XII Intact, Oriented x3 - Psychiatric Exam Psychiatric exam: Normal Mood - Skin Skin Exam: Normal Color Assessment and Plan (1) Pneumonia Assessment & Plan: CONTINUE iv VANCOMYCIN 1 G EVERY 24 HOURLY ORDERED. 04/11/17. ADD iv mAXIPIME 1 G EVERY 12 HOURLY FOR GRAM-NEGATIVE COVERAGE. 04/11/17. patient tolerating IV Maxipime without any reactions. Patient states he is feeling much better. Patient's was at bedside. Status: Acute (2) Cellulitis Assessment & Plan: right hand cellulitis. Slightly improved from before. Right hand third finger knuckle still swollen with a purplish hue. Patient unable to make a fist. Will get x-rays of the right hand rule out fracture. URIC ACID HAS BEEN ORDERED POSSIBLE GOUTY ARTHRITIS. pATIENT STARTED ON IBUPROFEN BY pmd. Status: Acute (3) Chronic back pain Assessment & Plan: NEURO CONSULT NOTED. PATIENT FOR WHOLE-BODY SCAN, THORACIC O LUMBAR SPINE CT TO RULE OUT CAUDA EQUINA/VS SPINAL CANAL STENOSIS. Status: Acute
[2017-04-13] MEDS: Vancomycin 1 gm/NS 200 ml 1 GM/200 ML BAG IVPB SCH ×2 (00:38→23:55)
[2017-04-13] MEDS: Oxycodone/Acetaminophen 5/325 mg Tab PO PRN (00:39)
[2017-04-13] MEDS: Albuterol-Ipratrop 3 mg / 0.5 (3 ml) UD INH SCH ×4 (01:45→20:00)
[2017-04-13] MEDS: Acetylcysteine 20% Inhal Soln (4ml) INH SCH ×3 (01:45→20:00)
[2017-04-13 08:23] LABS: BASO % 0.3 % (0.0-2.0); HEMATOCRIT 35.6 % (35.0-51.0); LYMPH # 0.9 K/uL (1.0-4.3); LYMPH % 6.9 % (20.0-40.0); MEAN CELL VOLUME 87.9 fL (80.0-94.0); MEAN CORPUSCULAR HEMOGLOBIN 30.2 pg (27.0-31.0); MEAN CORPUSCULAR HGB CONC 34.4 g/dL (33.0-37.0); MONO # 0.3 K/uL (0.0-0.8); MONO % 2.6 % (0.0-10.0); PLATELET COUNT 382 K/uL (130-400); RED CELL DISTRIBUTION WIDTH 13.3 % (11.5-14.5); WHITE BLOOD COUNT 13.2 K/uL (4.8-10.8)
[2017-04-13 08:51] LABS: ALB/GLOB RATIO 1.1 (1.0-2.1); ALKALINE PHOSPHATASE 119 U/L (38-126); ALT/SGPT 31 U/L (21-72); AST/SGOT 16 U/L (17-59); BILIRUBIN,TOTAL 0.4 mg/dL (0.2-1.3); BLOOD UREA NITROGEN 29 mg/dL (9-20); CALCIUM 8.2 mg/dl (8.6-10.4); CARBON DIOXIDE 26 mmol/L (22-30); CHLORIDE 102 mmol/L (98-107); GFR AFRICAN-AMERICAN > 60; GLUCOSE,RANDOM 130 mg/dL (75-110); SODIUM 136 mmol/L (132-148); TOTAL PROTEIN 5.9 g/dL (6.3-8.3); URIC ACID 4.5 mg/dL (3.5-8.5)
[2017-04-13 09:58] LABS: NEUTROPHIL 92 % (50-75); TOTAL CELLS COUNTED 100
[2017-04-13] MEDS: Cefepime IV 1 gm in Dextrose 1 GM/50 ML BAG IVPB SCH ×2 (10:20→22:37)
[2017-04-13] MEDS: Tolterodine 2 mg ER Cap PO SCH (10:21)
[2017-04-13] MEDS: Metoprolol Succinate 50 mg XL Tab PO SCH (10:21)
[2017-04-13] MEDS: Pantoprazole 40 mg EC Tab PO SCH (10:21)
[2017-04-13] MEDS: MethylPREDNISolone 40 mg Vial IVP SCH ×2 (10:21→21:31)
--- NOTE | 2017-04-13 13:56 | RAD ---
PROCEDURE: Right Hand Radiographs. HISTORY: FRACTURE RT HAND. COMPARISON: None. FINDINGS: BONES: There is no acute displaced fracture or bone destruction. Bone alignment is normal. There is diffuse bone demineralization. JOINTS: There is severe degenerative osteoarthrosis at the 1st RESIDENTIAL joint with near complete loss of joint space and subarticular sclerosis. There is moderate degenerative osteoarthrosis at the 1st MCP and interphalangeal joints. SOFT TISSUES: Normal. OTHER FINDINGS: Atherosclerotic vascular calcifications are. IMPRESSION: Present no acute displaced fracture or bone destruction. Severe degenerative osteoarthrosis at the 1st RESIDENTIAL joint and moderate degenerative osteoarthrosis at the 1st MCP and interphalangeal joints.
[2017-04-13 17:53] LABS: INR 1.2
--- NOTE | 2017-04-13 22:45 | CP.PCM.PN ---
Subjective - Date & Time of Evaluation Date of Evaluation: 04/13/17 Time of Evaluation: 22:45 - Subjective Subjective: afebrile, Still congested. Less short of breath. Right hand swelling improving slowly. Cellulitis improving. C/O CHRONIC BACK PAIN. X-ray right hand noted no acute fractures. SEVERE DEGENERATIVE OSTEOARTHROSIS ISTMCC JT AND MODERATE OSTEOARTHROSIS INTERPHALANGEAL JOINTS. Objective - Vital Signs/Intake and Output Vital Signs (last 24 hours): Temp Pulse Resp BP Pulse Ox 98.2 F 84 20 128/75 98 04/13/17 16:00 04/13/17 16:00 04/13/17 16:00 04/13/17 16:00 04/13/17 16:00 Intake and Output: 04/13/17 04/14/17 18:59 06:59 Intake Total 650 Balance 650 - Medications Medications: Current Medications Acetylcysteine (Acetylcysteine 20%) 4 ml INH RQ6 [facility] Last Admin: 04/13/17 20:00 Dose: 4 ml Albuterol/Ipratropium (Duoneb 3 Mg/0.5 Mg (3 Ml) Ud) 3 ml INH RQ6 [facility] Last Admin: 04/13/17 20:00 Dose: 3 ml Alprazolam (Xanax) 1 mg PO DAILY [facility] Last Admin: 04/13/17 10:21 Dose: 1 mg Heparin Sodium (Porcine) (Heparin) 5,000 units SC Q12 [facility] Heparin Sodium (Porcine) (Heparin) 5,000 units SC Q12 [facility] Last Admin: 04/13/17 21:30 Dose: 5,000 units Cefepime HCl (Maxipime Iv 1 Gm Premix) 1 gm in 50 mls @ 100 mls/hr IVPB Q12H [facility] Last Admin: 04/13/17 22:37 Dose: 100 mls/hr Vancomycin/Sodium Chloride (Vancomycin 1 Gm/Ns 200 Ml) 1 gm in 200 mls @ 133.333 mls/hr IVPB Q24H [facility] Stop: 04/17/17 23:46 Last Admin: 04/13/17 00:38 Dose: 133.333 mls/hr Methylprednisolone (Solu-Medrol) 40 mg IVP Q12 [facility] Last Admin: 04/13/17 21:31 Dose: 40 mg Metoprolol Succinate (Toprol Xl) 50 mg PO DAILY [facility] Last Admin: 04/13/17 10:21 Dose: 50 mg Oxycodone/Acetaminophen (Percocet 5/325 Mg Tab) 1 tab PO Q8 PRN Stop: 04/14/17 22:29 Last Admin: 04/13/17 00:39 Dose: 1 tab Pantoprazole Sodium (Protonix Ec Tab) 40 mg PO DAILY [facility] Last Admin: 04/13/17 10:21 Dose: 40 mg Pramipexole Dihydrochloride (Mirapex) 0.125 mg PO DAILY [facility] Last Admin: 04/13/17 10:21 Dose: 0.125 mg Roflumilast (Daliresp) 500 mcg PO DAILY [facility] Last Admin: 04/13/17 10:21 Dose: 500 mcg Rosuvastatin Calcium (Crestor) 10 mg PO HS [facility] Last Admin: 04/13/17 21:29 Dose: 10 mg Tolterodine Tartrate (Detrol La) 2 mg PO DAILY [facility] Last Admin: 04/13/17 10:21 Dose: 2 mg - Labs Labs: 04/13/17 08:10 04/13/17 08:10 PT 13.6 SECONDS (9.7-12.2) H 04/12/17 17:26 INR 1.2 04/12/17 17:26 APTT 26 SECONDS (21-34) 04/12/17 17:26 - Constitutional Appears: No Acute Distress - Head Exam Head Exam: NORMAL INSPECTION - Eye Exam Eye Exam: PERRL - ENT Exam ENT Exam: Normal Oropharynx - Neck Exam Neck Exam: Normal Inspection - Respiratory Exam Respiratory Exam: Rhonchi (BILATERALLY) - Cardiovascular Exam Cardiovascular Exam: REGULAR RHYTHM, +S1, +S2 - GI/Abdominal Exam GI & Abdominal Exam: Soft, Normal Bowel Sounds. absent: Organomegaly - Extremities Exam Extremities Exam: absent: Calf Tenderness, Pedal Edema - Neurological Exam Neurological Exam: Alert, Awake, CN II-XII Intact, Oriented x3 - Psychiatric Exam Psychiatric exam: Normal Mood - Skin Skin Exam: Normal Color Assessment and Plan (1) Pneumonia Assessment & Plan: CONTINUE iv VANCOMYCIN 1 G EVERY 24 HOURLY ORDERED. 04/11/17. ON iv mAXIPIME 1 G EVERY 12 HOURLY FOR GRAM-NEGATIVE COVERAGE. 04/11/17. patient tolerating IV Maxipime without any reactions. Patient states he is feeling much better Status: Acute (2) Cellulitis Assessment & Plan: IMPROVING ON ANTIBIOTICS. Status: Acute (3) Chronic back pain Assessment & Plan: NEUROLOGY WORKUP IN PROGRESS. WE WILL REVIEW RADIOLOGY. Status: Acute
--- NOTE | 2017-04-13 23:11 | CP.PCM.PN ---
Subjective - Date & Time of Evaluation Date of Evaluation: 04/13/17 Time of Evaluation: 23:10 - Subjective Subjective: pt is having cough more no chest pain very weak Objective - Vital Signs/Intake and Output Vital Signs (last 24 hours): Temp Pulse Resp BP Pulse Ox 98.2 F 84 20 128/75 98 04/13/17 16:00 04/13/17 16:00 04/13/17 16:00 04/13/17 16:00 04/13/17 16:00 Intake and Output: 04/13/17 04/14/17 18:59 06:59 Intake Total 650 Balance 650 chest rales noted regular hs - Medications Medications: Current Medications Acetylcysteine (Acetylcysteine 20%) 4 ml INH RQ6 [facility] Last Admin: 04/13/17 20:00 Dose: 4 ml Albuterol/Ipratropium (Duoneb 3 Mg/0.5 Mg (3 Ml) Ud) 3 ml INH RQ6 [facility] Last Admin: 04/13/17 20:00 Dose: 3 ml Alprazolam (Xanax) 1 mg PO DAILY [facility] Last Admin: 04/13/17 10:21 Dose: 1 mg Heparin Sodium (Porcine) (Heparin) 5,000 units SC Q12 [facility] Heparin Sodium (Porcine) (Heparin) 5,000 units SC Q12 [facility] Last Admin: 04/13/17 21:30 Dose: 5,000 units Cefepime HCl (Maxipime Iv 1 Gm Premix) 1 gm in 50 mls @ 100 mls/hr IVPB Q12H [facility] Last Admin: 04/13/17 22:37 Dose: 100 mls/hr Vancomycin/Sodium Chloride (Vancomycin 1 Gm/Ns 200 Ml) 1 gm in 200 mls @ 133.333 mls/hr IVPB Q24H [facility] Stop: 04/17/17 23:46 Last Admin: 04/13/17 00:38 Dose: 133.333 mls/hr Methylprednisolone (Solu-Medrol) 40 mg IVP Q12 [facility] Last Admin: 04/13/17 21:31 Dose: 40 mg Metoprolol Succinate (Toprol Xl) 50 mg PO DAILY [facility] Last Admin: 04/13/17 10:21 Dose: 50 mg Oxycodone/Acetaminophen (Percocet 5/325 Mg Tab) 1 tab PO Q8 PRN Stop: 04/14/17 22:29 Last Admin: 04/13/17 00:39 Dose: 1 tab Pantoprazole Sodium (Protonix Ec Tab) 40 mg PO DAILY [facility] Last Admin: 04/13/17 10:21 Dose: 40 mg Pramipexole Dihydrochloride (Mirapex) 0.125 mg PO DAILY [facility] Last Admin: 04/13/17 10:21 Dose: 0.125 mg Roflumilast (Daliresp) 500 mcg PO DAILY [facility] Last Admin: 04/13/17 10:21 Dose: 500 mcg Rosuvastatin Calcium (Crestor) 10 mg PO HS [facility] Last Admin: 04/13/17 21:29 Dose: 10 mg Tolterodine Tartrate (Detrol La) 2 mg PO DAILY [facility] Last Admin: 04/13/17 10:21 Dose: 2 mg - Labs Labs: 04/13/17 08:10 04/13/17 08:10 PT 13.6 SECONDS (9.7-12.2) H 04/12/17 17:26 INR 1.2 04/12/17 17:26 APTT 26 SECONDS (21-34) 04/12/17 17:26 Assessment and Plan (1) Cellulitis Assessment & Plan: cellulitis continue current treatment Status: Acute (2) Pneumonia Status: Acute
[2017-04-14] MEDS: Oxycodone/Acetaminophen 5/325 mg Tab PO PRN ×2 (01:32→09:52)
[2017-04-14] MEDS: Acetylcysteine 20% Inhal Soln (4ml) INH SCH ×3 (01:50→20:03)
[2017-04-14] MEDS: Albuterol-Ipratrop 3 mg / 0.5 (3 ml) UD INH SCH ×3 (01:50→20:03)
[2017-04-14] MEDS: Pantoprazole 40 mg EC Tab PO SCH (09:43)
[2017-04-14] MEDS: MethylPREDNISolone 40 mg Vial IVP SCH ×2 (09:44→22:50)
[2017-04-14] MEDS: Metoprolol Succinate 50 mg XL Tab PO SCH (09:52)
[2017-04-14] MEDS: Tolterodine 2 mg ER Cap PO SCH (10:41)
[2017-04-14] MEDS: Cefepime IV 1 gm in Dextrose 1 GM/50 ML BAG IVPB SCH ×2 (12:00→22:50)
--- NOTE | 2017-04-14 13:19 | CARD ---
APPROVED REPORT EKG Measurement Heart [id number] <Conclusion> Normal sinus rhythm Left bundle branch block Abnormal ECG
--- NOTE | 2017-04-14 22:53 | CP.PCM.PN ---
Subjective - Date & Time of Evaluation Date of Evaluation: 04/14/17 Time of Evaluation: 22:53 - Subjective Subjective: AFEBRILE, STATES HE FEELS BETTER lESS SHORT OF BREATH. CLINICALLY IMPROVING. ON iv ANTIBIOTICS. Objective - Vital Signs/Intake and Output Vital Signs (last 24 hours): Temp Pulse Resp BP Pulse Ox 98.1 F 79 20 147/72 97 04/14/17 16:00 04/14/17 16:00 04/14/17 16:00 04/14/17 16:00 04/14/17 16:00 Intake and Output: 04/14/17 04/15/17 18:59 06:59 Intake Total 170 Balance 170 - Medications Medications: Current Medications Acetylcysteine (Acetylcysteine 20%) 4 ml INH RQ6 [facility] Last Admin: 04/14/17 20:03 Dose: 4 ml Albuterol/Ipratropium (Duoneb 3 Mg/0.5 Mg (3 Ml) Ud) 3 ml INH RQ6 [facility] Last Admin: 04/14/17 20:03 Dose: 3 ml Alprazolam (Xanax) 1 mg PO DAILY [facility] Last Admin: 04/14/17 09:43 Dose: 1 mg Heparin Sodium (Porcine) (Heparin) 5,000 units SC Q12 [facility] Heparin Sodium (Porcine) (Heparin) 5,000 units SC Q12 [facility] Last Admin: 04/14/17 22:49 Dose: 5,000 units Cefepime HCl (Maxipime Iv 1 Gm Premix) 1 gm in 50 mls @ 100 mls/hr IVPB Q12H [facility] Last Admin: 04/14/17 22:50 Dose: 100 mls/hr Vancomycin/Sodium Chloride (Vancomycin 1 Gm/Ns 200 Ml) 1 gm in 200 mls @ 133.333 mls/hr IVPB Q24H [facility] Stop: 04/17/17 23:46 Last Admin: 04/13/17 23:55 Dose: 133.333 mls/hr Methylprednisolone (Solu-Medrol) 40 mg IVP Q12 [facility] Last Admin: 04/14/17 22:50 Dose: 40 mg Metoprolol Succinate (Toprol Xl) 50 mg PO DAILY [facility] Last Admin: 04/14/17 09:52 Dose: 50 mg Pantoprazole Sodium (Protonix Ec Tab) 40 mg PO DAILY [facility] Last Admin: 04/14/17 09:43 Dose: 40 mg Pramipexole Dihydrochloride (Mirapex) 0.125 mg PO DAILY [facility] Last Admin: 04/14/17 09:45 Dose: 0.125 mg Roflumilast (Daliresp) 500 mcg PO DAILY [facility] Last Admin: 04/14/17 09:45 Dose: 500 mcg Rosuvastatin Calcium (Crestor) 10 mg PO HS [facility] Last Admin: 04/14/17 22:50 Dose: 10 mg Tolterodine Tartrate (Detrol La) 2 mg PO DAILY [facility] Last Admin: 04/14/17 10:41 Dose: 2 mg - Labs Labs: 04/13/17 08:10 04/13/17 08:10 PT 13.6 SECONDS (9.7-12.2) H 04/12/17 17:26 INR 1.2 04/12/17 17:26 APTT 26 SECONDS (21-34) 04/12/17 17:26 - Constitutional Appears: No Acute Distress - Head Exam Head Exam: NORMAL INSPECTION - Eye Exam Eye Exam: EOMI, PERRL - ENT Exam ENT Exam: Normal Oropharynx - Neck Exam Neck Exam: Normal Inspection - Respiratory Exam Respiratory Exam: Rhonchi (BILATERALLY.) - Cardiovascular Exam Cardiovascular Exam: REGULAR RHYTHM, +S1, +S2 - GI/Abdominal Exam GI & Abdominal Exam: Soft, Normal Bowel Sounds - Extremities Exam Extremities Exam: Normal Capillary Refill. absent: Calf Tenderness, Pedal Edema Additional comments: RIGHT HAND SWELLING MUCH IMPROVED AND BETTER. - Neurological Exam Neurological Exam: Awake, CN II-XII Intact, Oriented x3 - Skin Skin Exam: Normal Color, Warm Assessment and Plan (1) Pneumonia Assessment & Plan: CONTINUE iv VANCOMYCIN 1 G EVERY 24 HOURLY ORDERED. 04/11/17. ON iv mAXIPIME 1 G EVERY 12 HOURLY FOR GRAM-NEGATIVE COVERAGE. 04/11/17. patient tolerating IV Maxipime without any reactions. Patient states he is feeling much better Status: Acute (2) Cellulitis Assessment & Plan: improving on antibiotics.. Status: Acute (3) Chronic back pain Assessment & Plan: Patient is chronic back pain w/u as per NEUROLOGY IN PROGRESS Status: Acute
[2017-04-15] MEDS: Vancomycin 1 gm/NS 200 ml 1 GM/200 ML BAG IVPB SCH (00:35)
[2017-04-15] MEDS ORDERED: Oxycodone/Acetaminophen 5/325 mg Tab PO ONE (00:53)
[2017-04-15] MEDS: Albuterol-Ipratrop 3 mg / 0.5 (3 ml) UD INH SCH ×4 (01:24→19:23)
[2017-04-15] MEDS: Acetylcysteine 20% Inhal Soln (4ml) INH SCH ×3 (01:24→19:22)
[2017-04-15] MEDS: MethylPREDNISolone 40 mg Vial IVP SCH (09:43)
[2017-04-15] MEDS: Pantoprazole 40 mg EC Tab PO SCH (09:43)
[2017-04-15] MEDS: Metoprolol Succinate 50 mg XL Tab PO SCH (09:43)
[2017-04-15 09:51] VITALS: RESP 20
[2017-04-15] MEDS: Tolterodine 2 mg ER Cap PO SCH (10:40)
[2017-04-15] MEDS: Cefepime IV 1 gm in Dextrose 1 GM/50 ML BAG IVPB SCH (10:47)
[2017-04-15 16:28] VITALS: BP 128/58; PULSE 86; TEMP 97.4; O2SAT 94
--- NOTE | 2017-04-15 18:06 | CP.PCM.PN ---
Subjective - Date & Time of Evaluation Date of Evaluation: 04/15/17 Time of Evaluation: 18:06 Objective - Vital Signs/Intake and Output Vital Signs (last 24 hours): Temp Pulse Resp BP Pulse Ox 97.4 F L 86 20 128/58 L 94 L 04/15/17 16:27 04/15/17 16:27 04/15/17 16:27 04/15/17 16:27 04/15/17 16:27 Intake and Output: 04/15/17 04/15/17 06:59 18:59 Intake Total 410 670 Balance 410 670 - Medications Medications: Current Medications Acetylcysteine (Acetylcysteine 20%) 4 ml INH RQ6 [facility] Last Admin: 04/15/17 07:35 Dose: Not Given Albuterol/Ipratropium (Duoneb 3 Mg/0.5 Mg (3 Ml) Ud) 3 ml INH RQ6 [facility] Last Admin: 04/15/17 13:34 Dose: 3 ml Alprazolam (Xanax) 1 mg PO DAILY [facility] Last Admin: 04/15/17 10:40 Dose: 1 mg Heparin Sodium (Porcine) (Heparin) 5,000 units SC Q12 [facility] Last Admin: 04/15/17 09:43 Dose: 5,000 units Cefepime HCl (Maxipime Iv 1 Gm Premix) 1 gm in 50 mls @ 100 mls/hr IVPB Q12H [facility] Last Admin: 04/15/17 10:47 Dose: 100 mls/hr Vancomycin/Sodium Chloride (Vancomycin 1 Gm/Ns 200 Ml) 1 gm in 200 mls @ 133.333 mls/hr IVPB Q24H [facility] Stop: 04/17/17 23:46 Last Admin: 04/15/17 00:35 Dose: 133.333 mls/hr Methylprednisolone (Solu-Medrol) 40 mg IVP Q12 [facility] Last Admin: 04/15/17 09:43 Dose: 40 mg Metoprolol Succinate (Toprol Xl) 50 mg PO DAILY [facility] Last Admin: 04/15/17 09:43 Dose: 50 mg Pantoprazole Sodium (Protonix Ec Tab) 40 mg PO DAILY [facility] Last Admin: 04/15/17 09:43 Dose: 40 mg Pramipexole Dihydrochloride (Mirapex) 0.125 mg PO DAILY [facility] Last Admin: 04/15/17 09:43 Dose: 0.125 mg Roflumilast (Daliresp) 500 mcg PO DAILY [facility] Last Admin: 04/15/17 09:43 Dose: 500 mcg Rosuvastatin Calcium (Crestor) 10 mg PO HS [facility] Last Admin: 04/14/17 22:50 Dose: 10 mg Tolterodine Tartrate (Detrol La) 2 mg PO DAILY [facility] Last Admin: 04/15/17 10:40 Dose: 2 mg - Labs Labs: 04/13/17 08:10 04/13/17 08:10 PT 13.6 SECONDS (9.7-12.2) H 04/12/17 17:26 INR 1.2 04/12/17 17:26 APTT 26 SECONDS (21-34) 04/12/17 17:26 Assessment and Plan (1) Pneumonia Status: Acute (2) Cellulitis Status: Acute (3) Chronic back pain Status: Acute
--- NOTE | 2017-04-15 21:38 | CP.PCM.DIS ---
Provider - Provider Date of Admission: 04/11/17 18:44 Attending physician: Johan Jamison MD Diagnosis - Discharge Diagnosis (1) Cellulitis Status: Acute (2) Pneumonia Status: Acute Hospital Course - Lab Results Lab Results: Micro Results 04/11/17 17:30 Blood Blood Culture - Preliminary NO GROWTH AFTER 4 DAYS 04/11/17 18:00 Blood Blood Culture - Preliminary NO GROWTH AFTER 4 DAYS 04/12/17 21:43 Sputum Gram Stain - Final 04/12/17 21:43 Sputum Sputum Culture - Final NORMAL ORAL CANDIS 04/11/17 21:43 Urine Urine Culture - Final Enterococcus Faecalis Most Recent Lab Values WBC 13.2 K/uL (4.8-10.8) H D 04/13/17 08:10 RBC 4.05 Mil/uL (4.40-5.90) L 04/13/17 08:10 Hgb 12.3 g/dL (12.0-18.0) 04/13/17 08:10 Hct 35.6 % (35.0-51.0) 04/13/17 08:10 MCV 87.9 fL (80.0-94.0) 04/13/17 08:10 MCH 30.2 pg (27.0-31.0) 04/13/17 08:10 MCHC 34.4 g/dL (33.0-37.0) 04/13/17 08:10 RDW 13.3 % (11.5-14.5) 04/13/17 08:10 Plt Count 382 K/uL (130-400) 04/13/17 08:10 MPV 7.0 fL (7.2-11.7) L 04/13/17 08:10 Neut % (Auto) 90.2 % (50.0-75.0) H 04/13/17 08:10 Lymph % (Auto) 6.9 % (20.0-40.0) L 04/13/17 08:10 [place] % (Auto) 2.6 % (0.0-10.0) 04/13/17 08:10 Eos % (Auto) 0.0 % (0.0-4.0) 04/13/17 08:10 Baso % (Auto) 0.3 % (0.0-2.0) 04/13/17 08:10 Neut # 11.9 K/uL (1.8-7.0) H 04/13/17 08:10 Lymph # 0.9 K/uL (1.0-4.3) L 04/13/17 08:10 [place] # 0.3 K/uL (0.0-0.8) 04/13/17 08:10 Eos # 0.0 K/uL (0.0-0.7) 04/13/17 08:10 Baso # 0.0 K/uL (0.0-0.2) 04/13/17 08:10 Neutrophils % (Manual) 92 % (50-75) H 04/13/17 08:10 Band Neutrophils % 1 % (0-2) 04/13/17 08:10 Lymphocytes % (Manual) 5 % (20-40) L 04/13/17 08:10 Monocytes % (Manual) 2 % (0-10) 04/13/17 08:10 Platelet Estimate Normal (NORMAL) 04/13/17 08:10 RBC Morphology Normal 04/13/17 08:10 PT 13.6 SECONDS (9.7-12.2) H 04/12/17 17:26 INR 1.2 04/12/17 17:26 APTT 26 SECONDS (21-34) 04/12/17 17:26 Puncture Site Lr 04/12/17 06:45 pCO2 36 mm/Hg (35-45) 04/12/17 06:45 pO2 112 mm/Hg (80-100) H 04/12/17 06:45 HCO3 24.3 mmol/L (21-28) 04/12/17 06:45 ABG pH 7.42 (7.35-7.45) 04/12/17 06:45 ABG Total CO2 24.5 mmol/L (22-28) 04/12/17 06:45 ABG O2 Saturation 98.1 % (95-98) H 04/12/17 06:45 ABG Base Excess -0.7 mmol/L (-2.0-3.0) 04/12/17 06:45 ABG Hemoglobin 12.8 g/dL (11.7-17.4) 04/12/17 06:45 ABG Carboxyhemoglobin 1.7 % (0.5-1.5) H 04/12/17 06:45 POC ABG HHb (Measured) 1.8 % (0.0-5.0) 04/12/17 06:45 ABG Methemoglobin 1.3 % (0.0-3.0) 04/12/17 06:45 Hua Test Pos 04/12/17 06:45 VBG pH 7.39 (7.32-7.43) 04/11/17 18:00 VBG pCO2 51 mmHg (40-60) 04/11/17 18:00 VBG HCO3 26.9 mmol/L 04/11/17 18:00 VBG Total CO2 32.5 mmol/L (22-28) H 04/11/17 18:00 VBG O2 Sat (Calc) 36.2 % (40-65) L 04/11/17 18:00 VBG Base Excess 4.7 mmol/L (0.0-2.0) H 04/11/17 18:00 VBG Potassium 4.1 mmol/L (3.6-5.2) 04/11/17 18:00 A-a O2 Difference 71.0 mm/Hg 04/12/17 06:45 Respiratory Index 0.6 04/12/17 06:45 Hgb O2 Saturation 95.2 % (95.0-98.0) 04/12/17 06:45 Sodium 134.0 mmol/l (132-148) 04/11/17 18:00 Chloride 101.0 mmol/L (98-107) 04/11/17 18:00 Glucose 101 mg/dl (75-110) 04/11/17 18:00 Lactate 1.1 mmol/L (0.7-2.1) 04/11/17 18:00 Liter Flow 3.0 04/12/17 06:45 FiO2 32.0 % 04/12/17 06:45 Sodium 136 mmol/L (132-148) 04/13/17 08:10 Potassium 4.0 mmol/L (3.6-5.2) 04/13/17 08:10 Chloride 102 mmol/L (98-107) 04/13/17 08:10 Carbon Dioxide 26 mmol/L (22-30) 04/13/17 08:10 Anion Gap 11 (10-20) 04/13/17 08:10 BUN 29 mg/dL (9-20) H 04/13/17 08:10 Creatinine 0.8 mg/dL (0.8-1.5) 04/13/17 08:10 Est GFR ( Amer) > 60 04/13/17 08:10 Est GFR (Non-Af Amer) > 60 04/13/17 08:10 Random Glucose 130 mg/dL (75-110) H 04/13/17 08:10 Uric Acid 4.5 mg/dL (3.5-8.5) 04/13/17 08:10 Calcium 8.2 mg/dl (8.6-10.4) L 04/13/17 08:10 Ionized Calcium 5.5 mg/dL (4.80-5.60) 04/12/17 06:51 Total Bilirubin 0.4 mg/dL (0.2-1.3) 04/13/17 08:10 AST 16 U/L (17-59) L 04/13/17 08:10 ALT 31 U/L (21-72) 04/13/17 08:10 Alkaline Phosphatase 119 U/L (38-126) 04/13/17 08:10 Troponin I 0.0320 ng/mL (0.00-0.120) 04/11/17 17:59 NT-Pro-B Natriuret Pep 337 pg/mL (0-900) 04/11/17 17:59 Total Protein 5.9 g/dL (6.3-8.3) L 04/13/17 08:10 Albumin 3.1 g/dL (3.5-5.0) L 04/13/17 08:10 Globulin 2.8 gm/dL (2.2-3.9) 04/13/17 08:10 Albumin/Globulin Ratio 1.1 (1.0-2.1) 04/13/17 08:10 Prostate Specific Ag 0.174 ng/mL (0.00-4.0) 04/12/17 06:51 Venous Blood Potassium 4.1 mmol/L (3.6-5.2) 04/11/17 18:00 Urine Color Yellow (YELLOW) 04/11/17 21:39 Urine Clarity Hazy (Clear) 04/11/17 21:39 Urine pH 6.0 (5.0-8.0) 04/11/17 21:39 Ur Specific [place] 1.025 (1.003-1.030) 04/11/17 21:39 Urine Protein 1+ mg/dL (NEGATIVE) H 04/11/17 21:39 Urine Glucose (UA) Normal mg/dL (Normal) 04/11/17 21:39 Urine Ketones Negative mg/dL (NEGATIVE) 04/11/17 21:39 Urine Blood Negative (NEGATIVE) 04/11/17 21:39 Urine Nitrate Negative (NEGATIVE) 04/11/17 21:39 Urine Bilirubin Negative (NEGATIVE) 04/11/17 21:39 Urine Urobilinogen Normal mg/dL (0.2-1.0) 04/11/17 21:39 Ur Leukocyte Esterase Trace Giovanna/uL (Negative) 04/11/17 21:39 Urine WBC (Auto) 45 /hpf (0-5) H 04/11/17 21:39 Urine RBC (Auto) 3 /hpf (0-3) 04/11/17 21:39 Ur Squamous Epith Cells 10 /hpf (0-5) H 04/11/17 21:39 Urine Bacteria Rare (<OCC) 04/11/17 21:39 Serum Immunofixation Not detected (Not Detected) 04/12/17 06:51 Urine Immunofixation Not detected (Not Detected) 04/12/17 06:59 JANAK 6 Profile Negative (NEGATIVE) 04/13/17 08:10 Anti-Staphylolysin O Negative (NEGATIVE) 04/13/17 08:10 - Hospital Course Hospital Course: pt signed AMA Discharge Exam - Head Exam Head Exam: NORMAL INSPECTION Discharge Plan - Follow Up Plan Condition: STABLE Disposition: AGAINST MEDICAL ADVICE
== END 2017-04-15 20:50 | disposition left against medical advice (07) | DRG 190 ==
LOC: C.ER 17:07 → C.9E 18:44 → C.3T 19:52
PROVIDERS: ADMIT Internal Medicine; ATTEND Internal Medicine
DX: J44.0 Chronic obstructive pulmonary disease with (acute) lower respiratory infection (principal); J18.9 Pneumonia, unspecified organism; I13.0 Hypertensive heart and chronic kidney disease with heart failure and stage 1 through stage 4 chronic kidney disease, or unspecified chronic kidney disease; G62.9 Polyneuropathy, unspecified; G93.89 Other specified disorders of brain; I50.9 Heart failure, unspecified; L03.113 Cellulitis of right upper limb; D45 Polycythemia vera; I25.10 Atherosclerotic heart disease of native coronary artery without angina pectoris; E78.00 Pure hypercholesterolemia, unspecified; G47.33 Obstructive sleep apnea (adult) (pediatric); F17.210 Nicotine dependence, cigarettes, uncomplicated; E03.9 Hypothyroidism, unspecified; N18.9 Chronic kidney disease, unspecified; M10.9 Gout, unspecified; R29.6 Repeated falls; G89.29 Other chronic pain; M54.5 Low back pain; M19.041 Primary osteoarthritis, right hand; Z99.81 Dependence on supplemental oxygen; Z95.1 Presence of aortocoronary bypass graft; Z95.810 Presence of automatic (implantable) cardiac defibrillator; Z90.49 Acquired absence of other specified parts of digestive tract; Z86.73 Personal history of transient ischemic attack (TIA), and cerebral infarction without residual deficits

== ENCOUNTER 2017-04-27 12:03 | Inpatient (IN) | payer MEDICARE, MEDICAID ==
[2017-04-27 12:03] VITALS: PULSE 78
[2017-04-27 12:09] VITALS: BMI 26.6
[2017-04-27 12:27] LABS: VENOUS BLOOD GAS BASE EXCESS 4.1 mmol/L (0.0-2.0); VENOUS BLOOD GAS PCO2 41 mmHg (40-60); VENOUS BLOOD GAS PO2 50 mm/Hg (30-55); VENOUS BLOOD PH 7.45 (7.32-7.43)
[2017-04-27 12:40] LABS: BASO % 0.2 % (0.0-2.0); EOS % 0.1 % (0.0-4.0); LYMPH # 0.7 K/uL (1.0-4.3); LYMPH % 3.8 % (20.0-40.0); MEAN CELL VOLUME 88.8 fL (80.0-94.0); MEAN CORPUSCULAR HEMOGLOBIN 29.9 pg (27.0-31.0); MEAN CORPUSCULAR HGB CONC 33.6 g/dL (33.0-37.0); MEAN PLATELET VOLUME 6.7 fL (7.2-11.7); MONO # 0.4 K/uL (0.0-0.8); MONO % 2.2 % (0.0-10.0); NEUT # 16.5 K/uL (1.8-7.0); NEUT % 93.7 % (50.0-75.0); RBC 4.94 Mil/uL (4.40-5.90); RED CELL DISTRIBUTION WIDTH 14.2 % (11.5-14.5); WHITE BLOOD COUNT 17.6 K/uL (4.8-10.8)
[2017-04-27 12:41] LABS: HEMOGLOBIN 14.8 g/dL (12.0-18.0); PLATELET COUNT 234 K/uL (130-400)
[2017-04-27 12:43] LABS: INR 1.3
[2017-04-27 12:50] LABS: ALB/GLOB RATIO 1.1 (1.0-2.1); ALBUMIN 3.8 g/dL (3.5-5.0); ALT/SGPT 31 U/L (21-72); AST/SGOT 19 U/L (17-59); BLOOD UREA NITROGEN 12 mg/dL (9-20); CALCIUM 8.8 mg/dl (8.6-10.4); GFR AFRICAN-AMERICAN > 60; GFR NON-AFRICAN AMERICAN > 60
[2017-04-27 12:59] LABS: B-TYPE NATRIURETIC PEPTIDE 555 pg/mL (0-900)
[2017-04-27 13:06] LABS: BANDS 1 % (0-2); LYMPHOCYTE 5 % (20-40); MONOCYTE 1 % (0-10); NEUTROPHIL 93 % (50-75); TOTAL CELLS COUNTED 100
[2017-04-27 13:07] LABS: PLATELET ESTIMATE NORMAL (NORMAL)
[2017-04-27 13:32] LABS: SQUAMOUS EPITHIAL < 1 /hpf (0-5); URINE BILIRUBIN NEGATIVE (NEGATIVE); URINE BLOOD NEGATIVE (NEGATIVE); URINE CLARITY Clear (Clear); URINE COLOR Yellow (YELLOW); URINE GLUCOSE (UA) NORMAL (Normal); URINE LEUKOCYTE ESTERASE NEG Leu/uL (Negative); URINE NITRATE NEGATIVE (NEGATIVE); URINE PROTEIN NEGATIVE (NEGATIVE); URINE UROBILINOGEN NORMAL mg/dL (0.2-1.0)
--- NOTE | 2017-04-27 13:43 | RAD ---
PROCEDURE: CHEST RADIOGRAPH, 1 VIEW HISTORY: SOB COMPARISON: Portable chest 04/11/2017. FINDINGS: LUNGS: Reticular markings are further reduced trace probable atelectasis on the medial right base. No left-sided consolidation. PLEURA: No pneumothorax or pleural fluid seen. CARDIOVASCULAR: Pacemaker is again seen with cardiac silhouette stable. No pulmonary vascular derangement appreciated. OSSEOUS STRUCTURES: No significant abnormalities. VISUALIZED UPPER ABDOMEN: Normal. OTHER FINDINGS: None. IMPRESSION: Diminished interstitial pulmonary changes with residual limited patchiness at the right base medially possibly reflective of atelectasis though infiltrate is not excluded here.
--- NOTE | 2017-04-27 14:14 | C.PDOC ---
History Of Present Illness Patient BIBA for evaluation of SOB, generalized weakness, fever/chills x 4 days. As per , patient has not gotten out of bed for the past several days , has decreased PO intake. PMhx of COPD, CHF, CAD with stents, hyperlipidemia, HTN, pneumonia. He denies chest pain, dysuria/hematuria, vomiting/diarrhea. Time Seen by Provider: 04/27/17 12:05 Chief Complaint (Nursing): Shortness Of Breath History Per: Patient, EMS, Family ( at bedside ) History/Exam Limitations: clinical condition Onset/Duration Of Symptoms: Days (4) Current Symptoms Are (Timing): Still Present Current Respiratory Medications: See Home Med List Severity: Moderate Past Medical History Reviewed: Historical Data, Nursing Documentation, Vital Signs Vital Signs: Last Vital Signs Temp 100.1 F H 04/27/17 16:24 Pulse 114 H 04/27/17 17:20 Resp 16 04/27/17 17:20 BP 127/63 04/27/17 17:20 Pulse Ox 96 04/27/17 18:06 - Medical History PMH: Anxiety, Arthritis (B/L KNEES), Asthma, Bronchitis, CAD, CHF, COPD, Diverticulitis (HX PARTIAL COLECTOMY), Emphysema, Gastritis, Hiatal Hernia, HTN , Hypercholesterolemia, Hypothyroidism, Kidney Stones, Peripheral Edema, Pneumonia, Chronic Kidney Disease, Sleep Apnea (NO C PAP), TIA (1988) Surgical History: CABG (1986), Cholecystectomy (1974), Coronary Stent, Endoscopy , Pacemaker - [facility] Procedures BRONCH/TRACH LAVAGE NEC (08/19/14) DRAINAGE OF LEFT MAIN BRONCHUS, ENDO, DIAGN (04/01/16) ENDOSCOPIC BRONCHIAL BX (08/19/14) INTRODUCTION OF SERUM/TOX/VACCINE INTO MUSCLE, PERC APPROACH (02/05/15) Family History: States: No Known Family Hx - Social History Hx Tobacco Use: Yes Hx Alcohol Use: No Hx Substance Use: No - Immunization History Hx Tetanus Toxoid Vaccination: No Hx Influenza Vaccination: No Hx Pneumococcal Vaccination: No Review Of Systems Except As Marked, All Systems Reviewed And Found Negative. Constitutional: Positive for: Fever, Chills, Weakness, Malaise Cardiovascular: Negative for: Chest Pain, Palpitations Respiratory: Positive for: Cough, Shortness of Breath Gastrointestinal: Negative for: Nausea, Vomiting, Abdominal Pain, Diarrhea Genitourinary: Negative for: Dysuria, Hematuria Physical Exam - Physical Exam Appears: Non-toxic, In Acute Distress (in moderate respiratory distress ) Skin: Normal Color, Warm, Dry Eye(s): bilateral: Normal Inspection Oral Mucosa: Moist Cardiovascular: Rhythm Regular (tachycardic ) Respiratory: Accessory Muscle Use (moderate ), Rales (diffuse rales B/L), No Rhonchi, Wheezing (scattered mild wheezing B/L) Gastrointestinal/Abdominal: Normal Exam, Bowel Sounds, Soft, No Tenderness Extremity: Pedal Edema (+ 1 pitting edema B/L LEs), No Calf Tenderness Pulses: Left Dorsalis Pedis: Normal, Right Dorsalis Pedis: Normal Neurological/Psych: Oriented x3 ED Course And Treatment - Laboratory Results Result Diagrams: 04/27/17 12:30 04/27/17 12:30 ECG: Interpreted By Me, Viewed By Me (sinus tachycardia 135 bpm, normal axis, LBBB, no acute ST changes) ECG Interpretation: Abnormal O2 Sat by Pulse Oximetry: 96 (RA) Pulse Ox Interpretation: Normal - Other Rad CXR X-Ray: Viewed By Me, Read By Radiologist Interpretation: Accession No. : [id number]. Patient Name / ID : KATARZYNA LUJAN / [id number]. Exam Date : 04/27/2017 12:34:05 ( Approved ). Study Comment : Sex / Age : M / 81Y. Creator : Filippo Valero MD. Dictator : Filippo Valero MD. Straddle Carrier Operator : Tie Maker : Filippo Valero MD. Approver2 : Report Date : 04/27/2017 13:41:46. My Comment : . PROCEDURE: CHEST RADIOGRAPH, 1 VIEW. HISTORY: SOB. COMPARISON: Portable chest 2016. FINDINGS: LUNGS: Reticular markings are further reduced trace probable atelectasis on the medial right base. No left-sided consolidation. PLEURA: No pneumothorax or pleural fluid seen. CARDIOVASCULAR: Pacemaker is again seen with cardiac silhouette stable. No pulmonary vascular derangement appreciated. OSSEOUS STRUCTURES: No significant abnormalities. VISUALIZED UPPER ABDOMEN: Normal. OTHER FINDINGS: None. IMPRESSION: Diminished interstitial pulmonary changes with residual limited patchiness at the right base medially possibly reflective of atelectasis though infiltrate is not excluded here. Progress Note: Patient placed on Bipap emergently and given SL nitro. Rectal temp elevated, PO tylenol given. Blood work, CXR, EKG, UA ordered and reviewed. IV rocephin, IV azithromycin given for possible pneumonia. Reevaluation Time: 16:00 Reassessment Condition: Improved (Patient appears significantly improved, no longer in respiratory distress/having accessory muscle use. (+) rales B/L on exam.) - Physician Consult Information Physician Contacted: Johan Jamison Outcome Of Conversation: Discussed patient with PMD, agrees with admission for chf/copd exacerbation, dyspnea, pneumonia, leukocytosis, respiratory distress. Disposition - Disposition Disposition: HOSPITALIZED Disposition Time: 16:09 Condition: FAIR - Clinical Impression Clinical Impression: Dyspnea, Respiratory distress, Pneumonia, CHF exacerbation, Leukocytosis, COPD exacerbation Decision To Admit - Pt Status Changed To: Hospital Disposition Of: Inpatient - Admit Certification Admit to Inpatient:: After my assessment, the patient will require hospitalization for at least two midnights. This is because of the severity of symptoms shown, intensity of services needed, and/or the medical risk in this patient being treated as an outpatient. - InPatient: Physician Admission Certification: I certify that this patient requires 2 or more midnights of care for the following reason:: see notes - . Bed Request Type: Telemetry Admitting Physician: Johan Jamison Patient Diagnosis: Dyspnea, Respiratory distress, Pneumonia, CHF exacerbation, Fluid overload, Leukocytosis
[2017-04-27] MEDS ORDERED: cefTRIAXone IV 1 gm in Dextros 50 ML IV STA (14:48)
[2017-04-27] MEDS ORDERED: Azithromycin 500 MG in Sodium Chloride 0.9% 250 ML IVPB STA (14:48)
[2017-04-27] MEDS ORDERED: Albuterol-Ipratrop 3 mg / 0.5 (3 ml) UD INH SCH (20:00)
[2017-04-28] MEDS: Albuterol-Ipratrop 3 mg / 0.5 (3 ml) UD INH SCH ×4 (02:15→19:39)
[2017-04-28] MEDS ORDERED: Metoprolol Succinate 50 mg XL Tab PO SCH (10:00)
[2017-04-28] MEDS: Enoxaparin 40 mg Syringe SC SCH (10:34)
[2017-04-28] MEDS: MethylPREDNISolone 40 mg Vial IVP SCH ×2 (10:35→17:27)
[2017-04-28] MEDS: Tolterodine 4 mg ER Cap PO SCH (10:36)
[2017-04-28] MEDS: Azithromycin 500 MG in Sodium Chloride 0.9% 250 ML IVPB SCH (11:25)
[2017-04-28] MEDS ORDERED: Oxycodone/Acetaminophen 5/325 mg Tab PO PRN (14:54)
--- NOTE | 2017-04-28 15:32 | CP.PCM.HP ---
History of Present Illness - History of Present Illness History of Present Illness: Chief complaint: sob and ams and severe congested lungs History of present illness: 81 year-old male with history of severe COPD, hypertension, hypercholesterolemia , CAD, status post ACD implantation, history of possible COPD with the obstructive sleep apnea brought by Came to the emergency room today with increasing shortness of breath, and also congested lungs and not having BM, not eating well, and in ed pt was sleepy and with congested lungs he was given lasix and bipap and antibiotic as pt was having fever. pt was hospitalised few times with falls and copd exacerbation but refused to go to [facility] and left AMA Past medical history: CAD, hypertension, stent, ACD, COPD and obstructive sleep apnea Past surgical history: Patient has a AICD implantation and also had a frequent bronchoscopy Allergies: Allergic to ciprofloxacin and penicillin tetanus antitoxin Personal history patient is to be heavy smoker, denies any drugs, currently not a smoker. Using a brace at home Review of system: Patient is currently having increasing headache, episodes of anxiety, episodes of confusion, and also sometimes disorientation present, according to the patient's he is having progressively worsening cough, wheezing, associated with shortness of breath. Also had a fever. On examination: Vital signs reviewed, patient is sitting up No neck vein distention noted diffuse bilateral decreased air entry noted CVS regular heart sound, no murmur noted Abdomen soft, nontender. Extremities no pedal edema patient is alert,confused. arm swelling minimal labs reviewed X-ray congested lungs noted, prominent bronchopneumonia changes noted Assessment/recommendation: 81 year-old male with a history of CAD hypertension hypercholesterolemia ACD implantation COPD possible obstructive sleep apnea recurrent chronic bronchitis now came to the emergency room for worsening altered mental status, recent frequent falls. We'll place the patient on corticosteroid bronchodilators antibiotic. continue antibiotic bipap cultures will f/u Past Patient History - Infectious Disease Hx of Infectious Diseases: None - Past Medical History & Family History Past Medical History?: Yes - Past Social History Smoking Status: Former Smoker - CARDIAC Hx Cardiac Disorders: Yes Hx Congestive Heart Failure: Yes Hx Hypercholesterolemia: Yes Hx Hypertension: Yes - PULMONARY Hx Asthma: Yes Hx Bronchitis: Yes Hx Chronic Obstructive Pulmonary Disease (COPD): Yes Hx Emphysema: Yes Hx Pneumonia: Yes Hx Sleep Apnea: Yes (NO C PAP) - NEUROLOGICAL Hx Transient Ischemic Attacks (TIA): Yes (1988) - HEENT Hx HEENT Problems: Yes Hx Cataracts: Yes 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) Hx Difficulty Chewing: No - RENAL Hx Chronic Kidney Disease: Yes Hx Kidney Stones: Yes - ENDOCRINE/METABOLIC Hx Hypothyroidism: Yes - HEMATOLOGICAL/ONCOLOGICAL Hx Blood Disorders: Yes Other/Comment: polycythemia vera - INTEGUMENTARY Hx Dermatological Problems: Yes Other/Comment: PRURITIS - MUSCULOSKELETAL/RHEUMATOLOGICAL Hx Arthritis: Yes (B/L KNEES) - GASTROINTESTINAL Hx Diverticulitis: Yes (HX PARTIAL COLECTOMY) Hx Gastritis: Yes - GENITOURINARY/GYNECOLOGICAL Hx Genitourinary Disorders: Yes Hx Incontinence: Yes Hx Prostate Problems: Yes - PSYCHIATRIC Hx Anxiety: Yes Hx Substance Use: No - SURGICAL HISTORY Hx Cholecystectomy: Yes (1974) Hx Coronary Artery Bypass Graft: Yes (1986) Hx Coronary Stent: Yes - ANESTHESIA Hx Anesthesia: Yes Hx Anesthesia Reactions: No Hx Malignant Hyperthermia: No Has any member of the family had a problem w/ anesthesia?: No Meds Allergies/Adverse Reactions: Allergies Allergy/AdvReac Type Severity Reaction Status Date / Time ciprofloxacin HCl Allergy Severe ITCHING Verified 04/11/17 17:31 [From Cipro] Penicillins Allergy Severe ITCHING Verified 04/11/17 17:31 tetanus and diphtheria Allergy Severe hives Verified 04/11/17 17:31 toxoids Results - Vital Signs Recent Vital Signs: Last Vital Signs Temp 98.2 F 04/28/17 10:00 Pulse 80 04/28/17 10:00 Resp 20 04/28/17 10:00 BP 132/73 04/28/17 10:00 Pulse Ox 96 04/28/17 10:00 - Labs Result Diagrams: 04/27/17 12:30 04/27/17 12:30 Labs: Laboratory Results - last 24 hr 04/27/17 04/28/17 04/28/17 21:19 06:03 11:18 POC Glucose (mg/dL) 119 H 134 H 169 H
--- NOTE | 2017-04-28 15:48 | CARD ---
APPROVED REPORT EKG Measurement Heart [id number] <Conclusion> Wide QRS tachycardia Left bundle branch block Abnormal ECG
[2017-04-28] MEDS ORDERED: Metoprolol Succinate 25 mg XL Tab PO ONE (21:57)
--- NOTE | 2017-04-28 22:39 | CP.PCM.PN ---
Subjective - Date & Time of Evaluation Date of Evaluation: 04/28/17 Time of Evaluation: 22:38 - Subjective Subjective: pt this am awake responding no distress episodes of tachy cardia pt has AICD will watch blood culture GPC stap negative will add vanco id and cardiology eval will keep bipap for rehab eval Objective - Vital Signs/Intake and Output Vital Signs (last 24 hours): Temp Pulse Resp BP Pulse Ox 98.3 F 114 H 22 123/69 95 04/28/17 15:39 04/28/17 17:33 04/28/17 15:39 04/28/17 15:39 04/28/17 17:33 Intake and Output: 04/28/17 04/29/17 18:59 06:59 Intake Total 400 Balance 400 - Medications Medications: Current Medications Albuterol/Ipratropium (Duoneb 3 Mg/0.5 Mg (3 Ml) Ud) 3 ml INH RQ6 [facility] Last Admin: 04/28/17 19:39 Dose: 3 ml Docusate Sodium (Colace) 100 mg PO BID [facility] Last Admin: 04/28/17 17:27 Dose: 100 mg Enoxaparin Sodium (Lovenox) 40 mg SC DAILY [facility] Last Admin: 04/28/17 10:34 Dose: 40 mg Ceftriaxone Sodium 1 gm/ (Sodium Chloride) 100 mls @ 100 mls/hr IVPB DAILY [facility] Last Admin: 04/28/17 10:19 Dose: 100 mls/hr Azithromycin 500 mg/ Sodium (Chloride) 250 mls @ 250 mls/hr IVPB DAILY [facility] Last Admin: 04/28/17 11:25 Dose: 250 mls/hr Methylprednisolone (Solu-Medrol) 40 mg IVP BID [facility] Last Admin: 04/28/17 17:27 Dose: 40 mg Metoprolol Succinate (Toprol Xl) 50 mg PO BID [facility] Oxycodone/Acetaminophen (Percocet 5/325 Mg Tab) 1 tab PO Q6H PRN PRN Reason: Pain, moderate (4-7) Stop: 05/01/17 14:55 Pantoprazole Sodium (Protonix Inj) 40 mg IVP DAILY [facility] Last Admin: 04/28/17 10:35 Dose: 40 mg Pramipexole Dihydrochloride (Mirapex) 0.125 mg PO HS [facility] Last Admin: 04/28/17 21:35 Dose: 0.125 mg Roflumilast (Daliresp) 500 mcg PO DAILY [facility] Last Admin: 04/28/17 10:36 Dose: 500 mcg Rosuvastatin Calcium (Crestor) 10 mg PO HS [facility] Last Admin: 04/28/17 21:35 Dose: 10 mg Tolterodine Tartrate (Detrol La) 4 mg PO DAILY [facility] Last Admin: 04/28/17 10:36 Dose: 4 mg - Labs Labs: 04/27/17 12:30 04/27/17 12:30 PT 15.0 SECONDS (9.7-12.2) H 04/27/17 12:30 INR 1.3 04/27/17 12:30 APTT 28 SECONDS (21-34) 04/27/17 12:30
[2017-04-28 23:49] LABS: CK-MB 0.55 ng/mL (0.0-3.38); TROPONIN I 0.022 ng/mL (0.00-0.120)
[2017-04-29] MEDS: Albuterol-Ipratrop 3 mg / 0.5 (3 ml) UD INH SCH ×4 (02:01→19:15)
[2017-04-29 07:15] LABS: LYMPH # 0.9 K/uL (1.0-4.3); MEAN PLATELET VOLUME 6.9 fL (7.2-11.7); MONO # 0.4 K/uL (0.0-0.8); NEUT # 10.8 K/uL (1.8-7.0)
[2017-04-29 07:32] LABS: BASO % 0.4 % (0.0-2.0); LYMPH % 7.7 % (20.0-40.0); MEAN CORPUSCULAR HEMOGLOBIN 30.6 pg (27.0-31.0); MEAN CORPUSCULAR HGB CONC 34.8 g/dL (33.0-37.0); MONO % 3.1 % (0.0-10.0); NEUT % 88.8 % (50.0-75.0); PLATELET COUNT 201 K/uL (130-400); RBC 3.97 Mil/uL (4.40-5.90); WHITE BLOOD COUNT 12.1 K/uL (4.8-10.8)
[2017-04-29 07:34] LABS: HEMOGLOBIN 12.2 g/dL (12.0-18.0)
[2017-04-29 08:23] LABS: ALB/GLOB RATIO 1.1 (1.0-2.1); ALBUMIN 3.1 g/dL (3.5-5.0); ALT/SGPT 16 U/L (21-72); AST/SGOT 16 U/L (17-59); BLOOD UREA NITROGEN 19 mg/dL (9-20); CALCIUM 7.9 mg/dl (8.6-10.4); GFR AFRICAN-AMERICAN > 60; GFR NON-AFRICAN AMERICAN > 60
[2017-04-29 08:47] VITALS: RESP 20
--- NOTE | 2017-04-29 08:59 | RAD ---
HISTORY: routine COMPARISON: 04/27/2017 FINDINGS: LUNGS: No active pulmonary disease. PLEURA: No significant pleural effusion identified, no pneumothorax apparent. CARDIOVASCULAR: Normal heart size. AICD. Sternotomy wires. OSSEOUS STRUCTURES: No significant abnormalities. VISUALIZED UPPER ABDOMEN: Normal. OTHER FINDINGS: None. IMPRESSION: No active disease.
[2017-04-29 09:06] LABS: LYMPHOCYTE 10 % (20-40); MONOCYTE 6 % (0-10); NEUTROPHIL 84 % (50-75); PLATELET ESTIMATE NORMAL (NORMAL); TOTAL CELLS COUNTED 100
[2017-04-29 09:46] LABS: MAGNESIUM 1.7 mg/dL (1.6-2.3)
[2017-04-29] MEDS ORDERED: Perflutren Lipid Microsphere 1.5 ML SUS IV ONE (10:19)
[2017-04-29] MEDS: Azithromycin 500 MG in Sodium Chloride 0.9% 250 ML IVPB SCH (11:00)
[2017-04-29] MEDS: Enoxaparin 40 mg Syringe SC SCH (11:00)
[2017-04-29] MEDS: Metoprolol Succinate 50 mg XL Tab PO SCH ×2 (11:00→17:48)
[2017-04-29] MEDS: Tolterodine 4 mg ER Cap PO SCH (11:00)
[2017-04-29] MEDS: MethylPREDNISolone 40 mg Vial IVP SCH ×2 (11:00→17:51)
[2017-04-29] MEDS: Potassium Chloride 20 mEq ER Tab PO SCH (11:00)
--- NOTE | 2017-04-29 14:37 | CARD ---
APPROVED REPORT EKG Measurement Heart [id number] <Conclusion> Sinus tachycardia with occasional premature ventricular complexes Left bundle branch block Abnormal ECG
[2017-04-29] MEDS: Oxycodone/Acetaminophen 5/325 mg Tab PO PRN ×2 (14:43→22:26)
[2017-04-29] MEDS ORDERED: Potassium Chloride 20 mEq ER Tab PO ONE (16:00)
[2017-04-29] MEDS ORDERED: Potassium Chloride 20 mEq ER Tab PO SCH (16:00)
--- NOTE | 2017-04-29 17:12 | CP.PCM.PN ---
Subjective - Date & Time of Evaluation Date of Evaluation: 04/29/17 Time of Evaluation: 10:00 - Subjective Subjective: pateint seen today , states sob improved , denies any chest pain, palpitations , dizziness ,N/V/D , c/o back pain and insomnia Objective - Vital Signs/Intake and Output Vital Signs (last 24 hours): Temp Pulse Resp BP Pulse Ox 97.2 F L 109 H 20 128/69 96 04/29/17 15:00 04/29/17 16:00 04/29/17 15:00 04/29/17 15:00 04/29/17 15:00 Intake and Output: 04/29/17 04/29/17 06:59 18:59 Intake Total 400 530 Output Total 700 Balance -300 530 - Medications Medications: Current Medications Albuterol/Ipratropium (Duoneb 3 Mg/0.5 Mg (3 Ml) Ud) 3 ml INH RQ6 [facility] Last Admin: 04/29/17 13:16 Dose: 3 ml Docusate Sodium (Colace) 100 mg PO BID [facility] Last Admin: 04/29/17 11:00 Dose: 100 mg Enoxaparin Sodium (Lovenox) 40 mg SC DAILY [facility] Last Admin: 04/29/17 11:00 Dose: 40 mg Ceftriaxone Sodium 1 gm/ (Sodium Chloride) 100 mls @ 100 mls/hr IVPB DAILY [facility] Last Admin: 04/29/17 11:00 Dose: 100 mls/hr Azithromycin 500 mg/ Sodium (Chloride) 250 mls @ 250 mls/hr IVPB DAILY [facility] Last Admin: 04/29/17 11:00 Dose: 250 mls/hr Methylprednisolone (Solu-Medrol) 40 mg IVP BID [facility] Last Admin: 04/29/17 11:00 Dose: 40 mg Metoprolol Succinate (Toprol Xl) 50 mg PO BID [facility] Last Admin: 04/29/17 11:00 Dose: 50 mg Oxycodone/Acetaminophen (Percocet 5/325 Mg Tab) 1 tab PO Q4 PRN PRN Reason: Pain, moderate (4-7) Stop: 05/02/17 16:01 Last Admin: 04/29/17 14:43 Dose: 1 tab Pantoprazole Sodium (Protonix Inj) 40 mg IVP DAILY [facility] Last Admin: 04/29/17 11:00 Dose: 40 mg Potassium Chloride (K-Dur 20 Meq Er Tab) 40 meq PO DAILY [facility] Stop: 04/30/17 10:01 Last Admin: 04/29/17 11:00 Dose: 40 meq Pramipexole Dihydrochloride (Mirapex) 0.125 mg PO HS [facility] Last Admin: 04/28/17 21:35 Dose: 0.125 mg Roflumilast (Daliresp) 500 mcg PO DAILY [facility] Last Admin: 04/29/17 11:00 Dose: 500 mcg Rosuvastatin Calcium (Crestor) 10 mg PO HS [facility] Last Admin: 04/28/17 21:35 Dose: 10 mg Tamsulosin HCl (Flomax) 0.4 mg PO BID [facility] - Labs Labs: 04/29/17 07:01 04/29/17 07:01 PT 15.0 SECONDS (9.7-12.2) H 04/27/17 12:30 INR 1.3 04/27/17 12:30 APTT 28 SECONDS (21-34) 04/27/17 12:30 Assessment and Plan - Assessment and Plan (Free Text) Assessment: A/P 81 yr old mlae admitted with SOB, generalized weakness, fever/chills x 4 days overnight pt has voiding difficulty and straight cath done Patient hasn,t voids since am, bladder slightly distended, voulme 2 69 ml , pt has no urge to voids As per pateint pt has problems voiding at home and is his urologist D/W Dr. Nielson , recommends to start flomax bid and not to insert owens cath social work refereed patient to [facility] as per Patient request The above plan discussed with Dr. Jamison and agrees
--- NOTE | 2017-04-29 18:45 | CP.PCM.PN ---
Subjective - Date & Time of Evaluation Date of Evaluation: 04/29/17 Time of Evaluation: 18:45 Objective - Vital Signs/Intake and Output Vital Signs (last 24 hours): Temp Pulse Resp BP Pulse Ox 97.2 F L 109 H 20 128/69 96 04/29/17 15:00 04/29/17 16:00 04/29/17 15:00 04/29/17 15:00 04/29/17 15:00 Intake and Output: 04/29/17 04/29/17 06:59 18:59 Intake Total 400 530 Output Total 700 Balance -300 530 - Medications Medications: Current Medications Albuterol/Ipratropium (Duoneb 3 Mg/0.5 Mg (3 Ml) Ud) 3 ml INH RQ6 [facility] Last Admin: 04/29/17 13:16 Dose: 3 ml Aspirin (Ecotrin) 81 mg PO DAILY [facility] Docusate Sodium (Colace) 100 mg PO BID [facility] 234 [facility] Last Admin: 04/29/17 17:48 Dose: 100 mg Enoxaparin Sodium (Lovenox) 40 mg SC DAILY [facility] Last Admin: 04/29/17 11:00 Dose: 40 mg Ceftriaxone Sodium 1 gm/ (Sodium Chloride) 100 mls @ 100 mls/hr IVPB DAILY [facility]S [facility] Last Admin: 04/29/17 11:00 Dose: 100 mls/hr Azithromycin 500 mg/ Sodium (Chloride) 250 mls @ 250 mls/hr IVPB DAILY [facility] 234 [facility]S [facility] Last Admin: 04/29/17 11:00 Dose: 250 mls/hr Losartan Potassium (Cozaar) 25 mg PO DAILY [facility] 234 [facility]S [facility] Methylprednisolone (Solu-Medrol) 40 mg IVP BID [facility] 234 [facility]S [facility] Last Admin: 04/29/17 17:51 Dose: 40 mg Metoprolol Succinate (Toprol Xl) 50 mg PO BID [facility] 234 [facility]S [facility] Last Admin: 04/29/17 17:48 Dose: 50 mg Oxycodone/Acetaminophen (Percocet 5/325 Mg Tab) 1 tab PO Q4 PRN PRN Reason: Pain, moderate (4-7) Stop: 05/02/17 16:01 Last Admin: 04/29/17 14:43 Dose: 1 tab Pantoprazole Sodium (Protonix Inj) 40 mg IVP DAILY [facility] Last Admin: 04/29/17 11:00 Dose: 40 mg Potassium Chloride (K-Dur 20 Meq Er Tab) 40 meq PO DAILY [facility] 234 [facility]S [facility] Stop: 04/30/17 10:01 Last Admin: 04/29/17 11:00 Dose: 40 meq Pramipexole Dihydrochloride (Mirapex) 0.125 mg PO HS [facility] Last Admin: 04/28/17 21:35 Dose: 0.125 mg Roflumilast (Daliresp) 500 mcg PO DAILY [facility] 234 [facility]S [facility] Last Admin: 04/29/17 11:00 Dose: 500 mcg Rosuvastatin Calcium (Crestor) 10 mg PO HS [facility] 234 [facility]S AT [facility] Last Admin: 04/28/17 21:35 Dose: 10 mg Tamsulosin HCl (Flomax) 0.4 mg PO BID [facility] 234 [facility]S [facility] Last Admin: 04/29/17 17:48 Dose: 0.4 mg - Labs Labs: 04/29/17 07:01 04/29/17 07:01 PT 15.0 SECONDS (9.7-12.2) H 04/27/17 12:30 INR 1.3 04/27/17 12:30 APTT 28 SECONDS (21-34) 04/27/17 12:30
--- NOTE | 2017-04-29 20:43 | CARD ---
APPROVED REPORT EXAM: Two-dimensional and M-mode echocardiogram with Doppler and color Doppler. Other Information Quality : GoodRhythm : INDICATION Infection:Rule out subacute bacterial endocarditis 2D DIMENSIONS IVSd0.9 (0.7-1.1cm)LVDd5.1 (3.9-5.9cm) PWd0.8 (0.7-1.1cm)LVDs4.4 (2.5-4.0cm) FS (%) 14.2 %LVEF (%)30.1 (>50%) M-Mode DIMENSIONS Left Atrium (MM)4.15 (2.5-4.0cm)Aortic Root3.69 (2.2-3.7cm) Aortic Cusp Exc.2.26 (1.5-2.0cm) Aortic Valve AI P 1/2 [id number] Mitral Valve MV E Fdnxcamc375.9cm/sE/A ratio0.0 TDI E/Lateral E'0.0E/Medial E'0.0 Tricuspid Valve TR Peak [id number]/sTR Peak Gr.[id number] LEFT VENTRICLE The Left Ventricle is mildly dilated. There is normal left ventricular wall thickness. The systolic function is moderately impaired. The Ejection Fraction is 30-35%. There is global hypokinesis of the left ventricle.more towards apex No left ventricle thrombus noted on this study. There is no ventricular septal defect visualized. There is no left ventricular aneurysm. There is no mass noted in the left ventricle. RIGHT VENTRICLE The right ventricle is normal size. There is normal right ventricular wall thickness. The right ventricular systolic function is normal. There is a pacemaker lead in the right ventricle. ATRIA The left atrium is mildly dilated. The right atrium size is normal. The interatrial septum is intact with no evidence for an atrial septal defect. AORTIC VALVE The aortic valve is normal in structure and function. There is mild aortic regurgitation. There is no aortic valvular stenosis. There is no aortic valvular vegetation. MITRAL VALVE The mitral valve is normal in structure and function. There is no evidence of mitral valve prolapse. There is no mitral valve stenosis. Mitral regurgitation is mild. TRICUSPID VALVE The tricuspid valve is normal in structure and function. There is mild tricuspid regurgitation. Right ventricular systolic pressure is estimated at 30-40 mmHg. There is no tricuspid valve prolapse or vegetation. There is no tricuspid valve stenosis. PULMONIC VALVE The pulmonary valve is normal in structure and function. There is no pulmonic valvular regurgitation. There is no pulmonic valvular stenosis. GREAT VESSELS The aortic root is normal in size. The ascending aorta is normal in size. The pulmonary artery is normal. The IVC is normal in size and collapses >50% with inspiration. PERICARDIAL EFFUSION The pericardium appears normal. There is no pleural effusion. <Conclusion> The systolic function is moderately impaired. The Ejection Fraction is 30-35%. The left atrium is mildly dilated. There is mild aortic regurgitation. Mitral regurgitation is mild.
[2017-04-30] MEDS: Albuterol-Ipratrop 3 mg / 0.5 (3 ml) UD INH SCH ×3 (02:11→13:03)
[2017-04-30] MEDS: Oxycodone/Acetaminophen 5/325 mg Tab PO PRN ×2 (03:55→17:39)
[2017-04-30 06:19] LABS: BASO % 0.3 % (0.0-2.0); HEMOGLOBIN 12.2 g/dL (12.0-18.0); LYMPH # 0.7 K/uL (1.0-4.3); LYMPH % 10.2 % (20.0-40.0); MEAN CELL VOLUME 88.3 fL (80.0-94.0); MEAN CORPUSCULAR HEMOGLOBIN 30.8 pg (27.0-31.0); MEAN CORPUSCULAR HGB CONC 34.9 g/dL (33.0-37.0); MEAN PLATELET VOLUME 6.7 fL (7.2-11.7); MONO # 0.2 K/uL (0.0-0.8); MONO % 3.1 % (0.0-10.0); NEUT # 6.4 K/uL (1.8-7.0); NEUT % 86.4 % (50.0-75.0); RBC 3.96 Mil/uL (4.40-5.90); RED CELL DISTRIBUTION WIDTH 13.5 % (11.5-14.5); WHITE BLOOD COUNT 7.4 K/uL (4.8-10.8)
[2017-04-30 06:45] LABS: BLOOD UREA NITROGEN 24 mg/dL (9-20); CALCIUM 7.9 mg/dl (8.6-10.4); GFR AFRICAN-AMERICAN > 60; GFR NON-AFRICAN AMERICAN > 60
[2017-04-30] MEDS: Enoxaparin 40 mg Syringe SC SCH (09:15)
[2017-04-30] MEDS: MethylPREDNISolone 40 mg Vial IVP SCH (09:15)
[2017-04-30] MEDS: Metoprolol Succinate 50 mg XL Tab PO SCH ×2 (09:16→17:39)
[2017-04-30] MEDS: Potassium Chloride 20 mEq ER Tab PO SCH (09:16)
[2017-04-30] MEDS: Azithromycin 500 MG in Sodium Chloride 0.9% 250 ML IVPB SCH (09:39)
--- NOTE | 2017-04-30 14:30 | CP.PCM.PN ---
Subjective - Date & Time of Evaluation Date of Evaluation: 04/30/17 Time of Evaluation: 14:28 - Subjective Subjective: PT CLEARED FOR D/C TO [facility] TODAY. ALL D/C PLAN DISCUSSED WITH THE PT AND AT BEDSIDE. PT STATES HE FEELS GOOD TODAY AND OFFERS NO COMPLAINTS. CXR REVIEWED WITH PT AND AND NEGATIVE (SEE REPORT) HOWEVER PT CONTINUES TO HAVE MILD RHONCHI B/L. WILL CONTINUE PO ZITHRO; AUGMENTIN HELD 2/2 ALLERGY TO PCN. PREDNISONE TAPER TO BE CONTINUED AT [facility] WELL. TO ARRANGE TRANSPORTATION. NO FURTHER ORDERS AND PT WILL BE FOLLOWED AT [facility] BY DR. NAT. SIMMONS UNDER THE SERVICE OF DR. PEÑA WHILE AT [facility]---CALL DR. PEÑA FOR ADMITTING ORDERS AND WITH BED ASSIGNMENT. CONTINUE MEDICATIONS PER THE MED REC FORM. ZITHROMAX TO BE CONTINUED AT 500 MG PO DAILY X5 DAYS (START 05/01/17 AND LAST DOSE TO BE GIVEN ON 05/05/17). PREDNISONE TAPER FOLLOWS: PREDNISONE 20 MG 1 TAB PO BID X3 DAYS THEN 20 MG PO QD X3 DAYS THEN 10 MG PO QD X3 DAYS. PLEASE ALLOW TO STAY WITH PT DURING NEW YEARS IVONNE IF POSSIBLE. FOR FURTHER ORDERS, CONTACT DR. PEÑA. Objective - Vital Signs/Intake and Output Vital Signs (last 24 hours): Temp Pulse Resp BP Pulse Ox 97.7 F 94 H 20 131/73 100 04/30/17 07:00 04/30/17 13:00 04/30/17 07:00 04/30/17 07:00 04/30/17 07:00 Intake and Output: 04/30/17 04/30/17 06:59 18:59 Intake Total 400 Output Total 250 Balance 150 - Medications Medications: Current Medications Albuterol/Ipratropium (Duoneb 3 Mg/0.5 Mg (3 Ml) Ud) 3 ml INH RQ6 [facility] Last Admin: 04/30/17 13:03 Dose: 3 ml Aspirin (Ecotrin) 81 mg PO DAILY [facility] Last Admin: 04/30/17 09:15 Dose: 81 mg Docusate Sodium (Colace) 100 mg PO BID [facility] Last Admin: 04/30/17 09:16 Dose: 100 mg Enoxaparin Sodium (Lovenox) 40 mg SC DAILY [facility] Last Admin: 04/30/17 09:15 Dose: 40 mg Ceftriaxone Sodium 1 gm/ (Sodium Chloride) 100 mls @ 100 mls/hr IVPB DAILY [facility] Last Admin: 04/30/17 09:00 Dose: 100 mls/hr Azithromycin 500 mg/ Sodium (Chloride) 250 mls @ 250 mls/hr IVPB DAILY [facility] Last Admin: 04/30/17 09:39 Dose: 250 mls/hr Losartan Potassium (Cozaar) 25 mg PO DAILY [facility] Last Admin: 04/30/17 09:16 Dose: 25 mg Methylprednisolone (Solu-Medrol) 40 mg IVP BID [facility] Last Admin: 04/30/17 09:15 Dose: 40 mg Metoprolol Succinate (Toprol Xl) 50 mg PO BID [facility] Last Admin: 04/30/17 09:16 Dose: 50 mg Oxycodone/Acetaminophen (Percocet 5/325 Mg Tab) 1 tab PO Q4 PRN PRN Reason: Pain, moderate (4-7) Stop: 05/02/17 16:01 Last Admin: 04/30/17 03:55 Dose: 1 tab Pantoprazole Sodium (Protonix Ec Tab) 40 mg PO DAILY [facility] Pramipexole Dihydrochloride (Mirapex) 0.125 mg PO HS [facility] Last Admin: 04/29/17 21:28 Dose: 0.125 mg Roflumilast (Daliresp) 500 mcg PO DAILY [facility] Last Admin: 04/30/17 11:00 Dose: 500 mcg Rosuvastatin Calcium (Crestor) 10 mg PO HS [facility] Last Admin: 04/29/17 21:28 Dose: 10 mg Tamsulosin HCl (Flomax) 0.4 mg PO BID [facility] Last Admin: 04/30/17 09:16 Dose: 0.4 mg - Labs Labs: 04/30/17 06:14 04/30/17 06:14 PT 15.0 SECONDS (9.7-12.2) H 04/27/17 12:30 INR 1.3 04/27/17 12:30 APTT 28 SECONDS (21-34) 04/27/17 12:30
--- NOTE | 2017-04-30 14:36 | CP.PCM.CON ---
History of Present Illness - History of Present Illness History of Present Illness: Patient seen and evaluated Consulted for Acute on Chronic systolic CHF Patient feels much better after IV lasix Hx of CAD and s/p AICD Will add ASA 81 and Cozaar 25 daily for the regimen Past Patient History - Infectious Disease Hx of Infectious Diseases: None - Past Medical History & Family History Past Medical History?: Yes - Past Social History Smoking Status: Former Smoker - CARDIAC Hx Cardiac Disorders: Yes Hx Congestive Heart Failure: Yes Hx Hypercholesterolemia: Yes Hx Hypertension: Yes - PULMONARY Hx Asthma: Yes Hx Bronchitis: Yes Hx Chronic Obstructive Pulmonary Disease (COPD): Yes Hx Emphysema: Yes Hx Pneumonia: Yes Hx Sleep Apnea: Yes (NO C PAP) - NEUROLOGICAL Hx Transient Ischemic Attacks (TIA): Yes (1988) - HEENT Hx HEENT Problems: Yes Hx Cataracts: Yes 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) Hx Difficulty Chewing: No - RENAL Hx Chronic Kidney Disease: Yes Hx Kidney Stones: Yes - ENDOCRINE/METABOLIC Hx Hypothyroidism: Yes - HEMATOLOGICAL/ONCOLOGICAL Hx Blood Disorders: Yes Other/Comment: polycythemia vera - INTEGUMENTARY Hx Dermatological Problems: Yes Other/Comment: PRURITIS - MUSCULOSKELETAL/RHEUMATOLOGICAL Hx Arthritis: Yes (B/L KNEES) - GASTROINTESTINAL Hx Diverticulitis: Yes (HX PARTIAL COLECTOMY) Hx Gastritis: Yes - GENITOURINARY/GYNECOLOGICAL Hx Genitourinary Disorders: Yes Hx Incontinence: Yes Hx Prostate Problems: Yes - PSYCHIATRIC Hx Anxiety: Yes Hx Substance Use: No - SURGICAL HISTORY Hx Cholecystectomy: Yes (1974) Hx Coronary Artery Bypass Graft: Yes (1986) Hx Coronary Stent: Yes - ANESTHESIA Hx Anesthesia: Yes Hx Anesthesia Reactions: No Hx Malignant Hyperthermia: No Has any member of the family had a problem w/ anesthesia?: No Meds Home Medications: Home Medication List Medication Instructions Recorded Confirmed Type Aspirin [Ecotrin] 81 mg PO DAILY tabec 04/30/17 Rx Azithromycin [Zithromax] 500 mg PO DAILY 5 Days tablet 04/30/17 Rx Docusate [Colace] 100 mg PO BID cap 04/30/17 Rx Losartan [Cozaar] 25 mg PO DAILY tab 04/30/17 Rx Metoprolol Succinate [Toprol XL] 50 mg PO BID tab 04/30/17 Rx Tamsulosin [Flomax] 0.4 mg PO BID cap 12/30/17 Rx predniSONE [predniSONE Tab] 20 mg PO DAILY 9 Days tab 04/30/17 Rx Allergies/Adverse Reactions: Allergies Allergy/AdvReac Type Severity Reaction Status Date / Time ciprofloxacin HCl Allergy Severe ITCHING Verified 04/11/17 17:31 [From Cipro] Penicillins Allergy Severe ITCHING Verified 04/11/17 17:31 tetanus and diphtheria Allergy Severe hives Verified 04/11/17 17:31 toxoids - Medications Medications: Current Medications Albuterol/Ipratropium (Duoneb 3 Mg/0.5 Mg (3 Ml) Ud) 3 ml INH RQ6 [facility] Last Admin: 04/30/17 13:03 Dose: 3 ml Aspirin (Ecotrin) 81 mg PO DAILY [facility] Last Admin: 04/30/17 09:15 Dose: 81 mg Docusate Sodium (Colace) 100 mg PO BID [facility] Last Admin: 04/30/17 09:16 Dose: 100 mg Enoxaparin Sodium (Lovenox) 40 mg SC DAILY [facility] Last Admin: 04/30/17 09:15 Dose: 40 mg Ceftriaxone Sodium 1 gm/ (Sodium Chloride) 100 mls @ 100 mls/hr IVPB DAILY [facility] Last Admin: 04/30/17 09:00 Dose: 100 mls/hr Azithromycin 500 mg/ Sodium (Chloride) 250 mls @ 250 mls/hr IVPB DAILY [facility] Last Admin: 04/30/17 09:39 Dose: 250 mls/hr Losartan Potassium (Cozaar) 25 mg PO DAILY [facility] Last Admin: 04/30/17 09:16 Dose: 25 mg Methylprednisolone (Solu-Medrol) 40 mg IVP BID [facility] Last Admin: 04/30/17 09:15 Dose: 40 mg Metoprolol Succinate (Toprol Xl) 50 mg PO BID [facility] Last Admin: 04/30/17 09:16 Dose: 50 mg Oxycodone/Acetaminophen (Percocet 5/325 Mg Tab) 1 tab PO Q4 PRN PRN Reason: Pain, moderate (4-7) Stop: 05/02/17 16:01 Last Admin: 04/30/17 03:55 Dose: 1 tab Pantoprazole Sodium (Protonix Ec Tab) 40 mg PO DAILY [facility] Pramipexole Dihydrochloride (Mirapex) 0.125 mg PO HS [facility] Last Admin: 04/29/17 21:28 Dose: 0.125 mg Roflumilast (Daliresp) 500 mcg PO DAILY [facility] Last Admin: 04/30/17 11:00 Dose: 500 mcg Rosuvastatin Calcium (Crestor) 10 mg PO HS [facility] Last Admin: 04/29/17 21:28 Dose: 10 mg Tamsulosin HCl (Flomax) 0.4 mg PO BID [facility] Last Admin: 04/30/17 09:16 Dose: 0.4 mg Results - Vital Signs Recent Vital Signs: Last Vital Signs Temp 97.7 F 04/30/17 07:00 Pulse 94 H 04/30/17 13:00 Resp 20 04/30/17 07:00 BP 131/73 04/30/17 07:00 Pulse Ox 100 04/30/17 07:00 - Labs Result Diagrams: 04/30/17 06:14 04/30/17 06:14 Labs: Laboratory Results - last 24 hr 04/29/17 04/29/17 04/30/17 16:40 21:11 06:12 WBC RBC Hgb Hct MCV MCH MCHC RDW Plt Count MPV Neut % (Auto) Lymph % (Auto) [place] % (Auto) Eos % (Auto) Baso % (Auto) Neut # Lymph # [place] # Eos # Baso # Sodium Potassium Chloride Carbon Dioxide Anion Gap BUN Creatinine Est GFR ( Amer) Est GFR (Non-Af Amer) POC Glucose (mg/dL) 121 H 135 H 110 Random Glucose Calcium 04/30/17 04/30/17 06:14 06:14 WBC 7.4 RBC 3.96 L Hgb 12.2 Hct 35.0 MCV 88.3 MCH 30.8 MCHC 34.9 RDW 13.5 Plt Count 188 MPV 6.7 L Neut % (Auto) 86.4 H Lymph % (Auto) 10.2 L [place] % (Auto) 3.1 Eos % (Auto) 0.0 Baso % (Auto) 0.3 Neut # 6.4 Lymph # 0.7 L [place] # 0.2 Eos # 0.0 Baso # 0.0 Sodium 131 L Potassium 3.8 Chloride 98 Carbon Dioxide 29 Anion Gap 8 L BUN 24 H Creatinine 0.8 Est GFR ( Amer) > 60 Est GFR (Non-Af Amer) > 60 POC Glucose (mg/dL) Random Glucose 118 H Calcium 7.9 L
[2017-04-30 15:58] VITALS: BP 129/73; PULSE 100; TEMP 97.5; O2SAT 95
--- NOTE | 2017-04-30 21:57 | CP.PCM.PN ---
Subjective - Date & Time of Evaluation Date of Evaluation: 04/30/17 Time of Evaluation: 08:10 - Subjective Subjective: Patient seen and evaluated Denies chest pain and dyspnea Chronic systolic CHF CAD s/p CABG s/p AICD To be transferred to Rehab today Objective - Vital Signs/Intake and Output Vital Signs (last 24 hours): Temp Pulse Resp BP Pulse Ox 97.5 F L 100 H 20 129/73 95 04/30/17 15:56 04/30/17 15:56 04/30/17 15:56 04/30/17 15:56 04/30/17 15:56 Intake and Output: 04/30/17 05/01/17 18:59 06:59 Intake Total 400 Output Total 250 Balance 150 - Labs Labs: 04/30/17 06:14 04/30/17 06:14 PT 15.0 SECONDS (9.7-12.2) H 04/27/17 12:30 INR 1.3 04/27/17 12:30 APTT 28 SECONDS (21-34) 04/27/17 12:30
[2017-05-01] MEDS ORDERED: Pantoprazole 40 mg EC Tab PO SCH (10:00)
--- NOTE | 2017-05-03 12:42 | PCM.HF ---
Heart Failure Core Measure - Heart Failure Ejection Fraction: Less Than 40 % JANINE Inhibitor Prescribed: No Contraindication/Reason for not providing: on arb Beta-Donal Prescribed: Metoprolol Succinate Angiotensin II Receptor Donal Prescribed: Yes AnticoagulationTherapy for Atrial Fibrillation/Atrialflutter: No Contraindication/Reason for not providing: no afib Aldosterone Antagonist Prescribed: No Contraindication/Reason for not providing: CKD Hydralazine Nitrate Prescribed: No Contraindication/Reason for not providing: CKD Implantable Cardioverter Defibrillator Therapy: Yes Contraindication/Reason for not providing: HAS PPM Cardiac Resynchronization Therapy Prescribed: No Contraindication/Reason for not providing: HAS PPM - Follow up Will be discharged to: [facility] ([facility] [place] [place]) Follow Up Date (must be within 7 days from discharge): 05/03/17 Follow Up Time: 09:00
== END 2017-04-30 17:55 | DRG 291 ==
LOC: C.ER 12:03 → C.9E 16:09 → C.6T 17:13
PROVIDERS: ADMIT Internal Medicine; ATTEND Internal Medicine
PROC: 5A09457 Assistance with Respiratory Ventilation, 24-96 Consecutive Hours, Continuous Positive Airway Pressure (ICD-10-PCS; principal; 2017-04-27)
DX: I13.0 Hypertensive heart and chronic kidney disease with heart failure and stage 1 through stage 4 chronic kidney disease, or unspecified chronic kidney disease (principal); I50.23 Acute on chronic systolic (congestive) heart failure; J18.9 Pneumonia, unspecified organism; J44.0 Chronic obstructive pulmonary disease with (acute) lower respiratory infection; D45 Polycythemia vera; Z95.1 Presence of aortocoronary bypass graft; I25.10 Atherosclerotic heart disease of native coronary artery without angina pectoris; E78.00 Pure hypercholesterolemia, unspecified; E03.9 Hypothyroidism, unspecified; N18.9 Chronic kidney disease, unspecified; Z87.891 Personal history of nicotine dependence; Z88.0 Allergy status to penicillin; R29.6 Repeated falls; Z86.73 Personal history of transient ischemic attack (TIA), and cerebral infarction without residual deficits

== ENCOUNTER 2018-05-18 14:32 | Inpatient (IN) | payer MEDICARE, MEDICAID | END 2018-05-20 17:30 | disposition left against medical advice (07) | LOC: C.ER 14:32 → C.9E 16:53 → C.5S 19:06 ==

== ENCOUNTER 2018-07-23 01:11 | Inpatient (IN) | payer MEDICARE, MEDICAID ==
[2018-07-23 01:16] VITALS: PULSE 78; BMI 26.6
--- NOTE | 2018-07-23 02:13 | C.PDOC ---
History Of Present Illness 82 year old male with extensive past medical history presents to the emergency department via ambulance, accompanied by , for evaluation of fever and decreased appetite for the last 5 days. As per , patient had fallen two wee ks ago, injuring his right leg and right shoulder. states that patient didn't walk much before the injury but isn't walking at all anymore. She reports vomiting but denies hematemesis and head trauma. Time Seen by Provider: 07/23/18 01:30 Chief Complaint (Nursing): Altered Mental Status History Per: Family () History/Exam Limitations: Clinical Condition Onset/Duration Of Symptoms: Days (5) Current Symptoms Are (Timing): Still Present Usual Baseline: Non-verbal Associated Symptoms: Fever, Not Eating, Vomiting Past Medical History Reviewed: Historical Data, Nursing Documentation, Vital Signs Vital Signs: Last Vital Signs Temp 103.2 F H 07/23/18 01:24 Pulse 118 H 07/23/18 01:22 Resp 20 07/23/18 01:22 BP 129/71 07/23/18 01:22 Pulse Ox 92 L 07/23/18 01:22 - Medical History PMH: Anxiety, Arthritis (B/L KNEES), Asthma, Bronchitis, CAD, CHF, COPD ([place],), Diverticulitis (HX PARTIAL COLECTOMY), Emphysema, Gastritis, Hiatal Hernia, HTN, Hypercholesterolemia, Hypothyroidism, Kidney Stones, Peripheral Edema, Pneumonia, Chronic Kidney Disease, Sleep Apnea (NO C PAP), TIA (1988) Denies: Atrial Fibrillation, Cardia Arrhythmia Surgical History: CABG (1986), Cholecystectomy (1974), Coronary Stent, En doscopy, Pacemaker - [facility] Procedures ASSISTANCE WITH RESPIRATORY VENTILATION, 24-96 HRS, CPAP (04/27/17) BRONCH/TRACH LAVAGE NEC (08/19/14) DRAINAGE OF LEFT MAIN BRONCHUS, ENDO, DIAGN (04/01/16) ENDOSCOPIC BRONCHIAL BX (08/19/14) INTRODUCTION OF SERUM/TOX/VACCINE INTO MUSCLE, PERC APPROACH (02/05/15) Family History: States: No Known Family Hx - Social History Hx Tobacco Use: Yes Hx Alcohol Use: No Hx Substance Use: No - Immunization History Hx Tetanus Toxoid Vaccination: No Hx Influenza Vaccination: No Hx Pneumococcal Vaccination: No Review Of Systems Except As Marked, All Systems Reviewed And Found Negative. Constitutional: Positive for: Fever. Negative for: Chills Gastrointestinal: Positive for: Vomiting, Other (decreased appetite). Negative for: Nausea, Abdominal Pain Genitourinary: Negative for: Dysuria Musculoskeletal: Negative for: Neck Pain Physical Exam - Physical Exam Appears: Chronically Ill Skin: Normal Color, Warm, Dry Head: Atraumatic, Normacephalic Eye(s): bilateral: Normal Inspection, PERRL, EOMI Oral Mucosa: Dry Teeth: Edentulous Neck: Normal, Supple Chest: Symmetrical, No Tenderness Cardiovascular: Rhythm Regular (tachycardic), No Murmur Respiratory: Decreased Breath Sounds, Rhonchi (diffuse rhonchi) Gastrointestinal/Abdominal: Soft, No Tenderness, No Guarding, No Rebound Extremity: No Normal ROM (decreased ROM due to pain at right leg and right shoulder), Tenderness (tenderness to palpation at anterior right shoulder), No Pedal Edema Neurological/Psych: No Normal Speech, Other (awake and alert, nonverbal) ED Course And Treatment - Laboratory Results Result Diagrams: 07/31/18 06:13 07/31/18 06:12 O2 Sat by Pulse Oximetry: 92 (RA) Pulse Ox Interpretation: Abnormal Medical Decision Making Medical Decision Making: Plan: VBG CT Abdomen and Pelvis CT Head EKG Chemistry CBC CXR Glucose POC Tylenol 650mg PO Blood Culture Urine Culture XR Right Hip XR Right Shoulder Urinalysis Spoke to Dr. Jamison 06:00, accepted the patient for admission. Disposition - Disposition Disposition: HOSPITALIZED Disposition Time: 06:00 Condition: STABLE - Clinical Impression Clinical Impression: Altered mental status, Pneumonia - Scribe Statement The provider has reviewed the documentation as recorded by the Scribe (Bandar Boone) Provider Attestation: All medical record entries made by the Scribe were at my direction and personally dictated by me. I have reviewed the chart and agree that the record accurately reflects my personal performance of the history, physical exam, medical decision making, and the department course for this patient. I have also personally directed, reviewed, and agree with the discharge instructions and disposition.
[2018-07-23 02:18] LABS: BASO % 0.3 % (0.0-2.0); HEMOGLOBIN 11.5 g/dL (12.0-18.0); LYMPH # 0.8 K/uL (1.0-4.3); LYMPH % 8.9 % (20.0-40.0); MEAN CELL VOLUME 87.5 fL (80.0-94.0); MEAN CORPUSCULAR HEMOGLOBIN 29.3 pg (27.0-31.0); MEAN CORPUSCULAR HGB CONC 33.5 g/dL (33.0-37.0); MEAN PLATELET VOLUME 6.8 fL (7.2-11.7); MONO # 0.6 K/uL (0.0-0.8); MONO % 7.1 % (0.0-10.0); NEUT # 7.1 K/uL (1.8-7.0); NEUT % 83.7 % (50.0-75.0); PLATELET COUNT 250 K/uL (130-400); RED CELL DISTRIBUTION WIDTH 14.7 % (11.5-14.5); WHITE BLOOD COUNT 8.5 K/uL (4.8-10.8)
[2018-07-23 02:33] LABS: ALB/GLOB RATIO 0.9 (1.0-2.1); ALBUMIN 3.4 g/dL (3.5-5.0); AST/SGOT 16 U/L (17-59); BLOOD UREA NITROGEN 19 mg/dL (9-20); CALCIUM 8.6 mg/dl (8.6-10.4); GFR NON-AFRICAN AMERICAN > 60; LIPASE 37 U/L (23-300)
[2018-07-23 02:34] LABS: ALT/SGPT < 6 U/L (21-72)
[2018-07-23 02:44] LABS: B-TYPE NATRIURETIC PEPTIDE 1430 pg/mL (0-900)
[2018-07-23 03:00] LABS: LYMPHOCYTE 5 % (20-40); MONOCYTE 6 % (0-10); NEUTROPHIL 88 % (50-75); REACTIVE LYMPHOCYTES 1 % (0-0); TOTAL CELLS COUNTED 100
[2018-07-23 03:01] LABS: PLATELET ESTIMATE NORMAL (NORMAL)
[2018-07-23 03:09] LABS: VENOUS BLOOD GAS BASE EXCESS 2.2 mmol/L (0.0-2.0); VENOUS BLOOD GAS PCO2 43 mmHg (40-60); VENOUS BLOOD GAS PO2 54 mm/Hg (30-55); VENOUS BLOOD PH 7.41 (7.32-7.43)
[2018-07-23] MEDS ORDERED: Vancomycin 1 gm/NS 200 ml 1 GM/200 ML BAG IVPB STA (03:27)
[2018-07-23] MEDS ORDERED: Vancomycin 1 GM 1 GM/250 ML BAG IVPB ONE (03:39)
[2018-07-23 04:04] LABS: SQUAMOUS EPITHIAL < 1 /hpf (0-5); URINE BACTERIA MANY (<OCC); URINE BILIRUBIN NEGATIVE (NEGATIVE); URINE BLOOD 1+ (NEGATIVE); URINE CLARITY Hazy (Clear); URINE COLOR Amber (YELLOW); URINE GLUCOSE (UA) NORMAL (Normal); URINE LEUKOCYTE ESTERASE NEG Leu/uL (Negative); URINE PROTEIN 2+ mg/dL (NEGATIVE)
[2018-07-23] MEDS ORDERED: Albuterol 0.083% Inhal Sol (2.5 mg/3 mL) UD ONE (04:19)
[2018-07-23] MEDS ORDERED: Albuterol 0.083% Inhal Sol (2.5 mg/3 mL) UD INH STA (04:25)
[2018-07-23] MEDS: Sodium Chloride 0.9% 1,000 ML IV SCH ×2 (06:02→21:33)
[2018-07-23] MEDS ORDERED: Oxycodone/Acetaminophen 5/325 mg Tab PO PRN (08:59)
[2018-07-23] MEDS ORDERED: ROPINIROLE HCL 0.5 MG PO SCH (10:00)
[2018-07-23] MEDS: Metoprolol Succinate 50 mg XL Tab PO SCH ×2 (10:22→18:00)
[2018-07-23] MEDS: Pantoprazole 40 mg EC Tab PO SCH (10:22)
[2018-07-23] MEDS: Albuterol-Ipratrop 3 mg / 0.5 (3 ml) UD INH SCH ×2 (13:30→19:31)
--- NOTE | 2018-07-23 17:17 | CT ---
Date of service: 07/23/2018 PROCEDURE: CT HEAD WITHOUT CONTRAST. HISTORY: AMS COMPARISON: 04/12/2017 TECHNIQUE: Axial computed tomography images were obtained through the head/brain without intravenous contrast. Radiation dose: Total exam DLP = 1021.54 mGy-cm. This CT exam was performed using one or more of the following dose reduction techniques: Automated exposure control, adjustment of the mA and/or kV according to patient size, and/or use of iterative reconstruction technique. FINDINGS: HEMORRHAGE: No intracranial hemorrhage. BRAIN: No mass effect or edema. Moderate age-appropriate diffuse atrophy. Moderate patchy and confluent periventricular and deep/subcortical white matter lucency consistent with microvascular white matter ischemic change. Old left thalamic lacunar infarct. No evidence of acute infarct. VENTRICLES: Unremarkable. No hydrocephalus. CALVARIUM: Unremarkable. PARANASAL SINUSES: Unremarkable as visualized. No significant inflammatory changes. MASTOID AIR CELLS: Unremarkable as visualized. No inflammatory changes. OTHER FINDINGS: None. IMPRESSION: No intracranial mass, hemorrhage or evidence of acute infarct. Atrophy and chronic white matter ischemic change. Old left thalamic lacunar infarct. The preliminary findings for this examination were reported by [facility] at 3:31 a.m. on 07/23/2018. There is concurrence of this report with the preliminary findings.
--- NOTE | 2018-07-23 17:29 | CT ---
Date of service: 07/23/2018 PROCEDURE: CT Abdomen and Pelvis without intravenous contrast HISTORY: vomiting COMPARISON: None. TECHNIQUE: Without contrast.. Contrast dose: 0 Radiation dose: Total exam DLP = 1138.26 mGy-cm. This CT exam was performed using one or more of the following dose reduction techniques: Automated exposure control, adjustment of the mA and/or kV according to patient size, and/or use of iterative reconstruction technique. FINDINGS: LOWER THORAX: Left lower lobe consolidation. Punctate calcifications are seen in both lower lobes consistent with old granulomatous disease. There is a small pneumatocele in the lateral segment right middle lobe. Small hiatal hernia. Mild cardiomegaly. AICD. LIVER: Unremarkable. No gross lesion or ductal dilatation. GALLBLADDER AND BILE DUCTS: Status post cholecystectomy PANCREAS: Unremarkable. No gross lesion or ductal dilatation. SPLEEN: Normal size, contour. No mass. Calcified granuloma. ADRENALS: Unremarkable. No mass. KIDNEYS AND URETERS: 2.6 cm left upper pole renal cortical cyst. 2.9 cm left lower pole renal cortical cyst. No right renal mass. No renal calculus or hydronephrosis. VASCULATURE: No abdominal aortic aneurysm. Status post aorto bi-iliac stent. There is atheromatous calcification of the abdominal aorta. BOWEL: Unremarkable. No obstruction. No gross mural thickening. APPENDIX: Not identified. No secondary findings. PERITONEUM: Unremarkable. No free fluid. No free air. LYMPH NODES: Unremarkable. No enlarged lymph nodes. BLADDER: Suboptimally distended. Grossly normal. REPRODUCTIVE: Normal prostate. BONES: Compression deformities of the T11 and L1 vertebral bodies, age indeterminate. Fracture right inferior pubic ramus and fracture at junction of inferior pubic ramus with pubic symphysis. Fracture of right superior pubic ramus with the right acetabulum. Small amount of callus seen about these fractures indicating likely not acute. OTHER FINDINGS: None. IMPRESSION: Multiple pelvic fractures, likely nonacute. Compression fractures of T11 and L1 vertebral bodies, indeterminate age. Left lower lobe consolidation. No other acute abnormalities. Minor findings as above. Not identified. No secondary findings. The preliminary findings for this examination were reported by [facility] at 4:21 a.m. on 07/23/2018.. There is discordance of this report with the preliminary findings. Pelvic fractures described above were not described in the preliminary report of this examination.
--- NOTE | 2018-07-23 18:04 | RAD ---
PROCEDURE: Right Hip Radiographs. HISTORY: injury COMPARISON: None. TECHNIQUE: 2 views obtained. FINDINGS: BONES: Normal. No fracture. JOINTS: Normal. SOFT TISSUES: Normal. OTHER FINDINGS: None. IMPRESSION: Normal radiographs of right hip.
--- NOTE | 2018-07-23 18:04 | RAD ---
Date of service: 07/23/2018 PROCEDURE: Radiographs of the Right Shoulder HISTORY: injury COMPARISON: Not available FINDINGS: BONES: No acute fracture. JOINTS: There is superior subluxation of the humeral head at the glenohumeral articulation consistent with chronic rotator cuff insufficiency. There is remodeling of the underside of the acromion. SOFT TISSUES: Normal. OTHER FINDINGS: None. IMPRESSION: No acute fracture.
--- NOTE | 2018-07-23 18:05 | RAD ---
Date of service: 07/23/2018 PROCEDURE: CHEST RADIOGRAPH, 1 VIEW HISTORY: AMS COMPARISON: 05/18/2018 FINDINGS: LUNGS: Extensive opacity at left base, likely lower lobe.. Possible pneumonia. No abnormal right-sided opacity. PLEURA: No pneumothorax or pleural fluid seen. CARDIOVASCULAR: No aortic atherosclerotic calcification present. Normal heart size. AICD. Sternotomy wires. OSSEOUS STRUCTURES: No significant abnormalities. VISUALIZED UPPER ABDOMEN: Normal. OTHER FINDINGS: None. IMPRESSION: Suspected left lower lobe pneumonia.
--- NOTE | 2018-07-23 18:53 | CP.PCM.HP ---
History of Present Illness - History of Present Illness History of Present Illness: Chief complaint: fall and has fever History of present illness: 82 year-old male with history of severe COPD, hypertension, hypercholesterolemia, CAD, status post AICD implantation, history of possible COPD with the obstructive sleep apnea brought by the today with the fever and fall. Pt was trying to reach something at home slipped and fell on the floor. He was unable to get up and called EMS. Patient had many episodes of fall prior to this fall. He was also c/o cough for 10 days, with scanty mucous, rales with cough. 2 days he has intermittant fever, with recent high grade fever on arrival to ER. IN ER evaluated for lactate with normal leve. according to the , he was not feeling well, he was not able to walk, incontinence, and also frequent falls. He has not eating well. And he was not by him self so patient's brought him to the emergency room. Recently patient was also not able to walk and not able to get up from the bed. Is also complaining of some constipation. He does have chills with the fever, according to the patient's he is having worsening cough, recently, congested lungs. Past medical history: CAD, hypertension, stent, ACD, COPD and obstructive sleep apnea Past surgical history: Patient has a AICD implantation and also had a frequent bronchoscopy Allergies: Allergic to ciprofloxacin and penicillin tetanus antitoxin Personal history patient is to be heavy smoker, denies any drugs, currently not a smoker. Using a brace at home Review of system: no appetite Patient is currently having increasing headache, episodes of anxiety, episodes of confusion, and also sometimes disorientation present, according to the patient's he is having progressively worsening cough, wheezing, associated with shortness of breath. Also had a fever. On examination: Vital signs reviewed, fever now better No neck vein distention noted diffuse bilateral decreased air entry noted CVS regular heart sound, no murmur noted Abdomen soft, nontender. Extremities no pedal edema patient is alert,oriented. CAT scan of the head no evidence of any bleeding. Chest x-ray rt LL pna noted pelvic CT negative no fractures noted Labs nonspecific. Assessment/recommendation: 81 year-old male with a history of CAD hypertension hypercholesterolemia ACD implantation COPD possible obstructive sleep apnea recurrent chronic bronchitis now came to the emergency room fall and new PNeumonia non specific with copd exacerbation. We'll place the patient onbronchodilators antibiotic. DVT and GI prophylaxis will follow the patient. we'll rule out any fractures get the official report Pain control. DVT and GI prophylaxis. Physical therapy. I will follow the patient fall precautions, ambulation training Present on Admission - Present on Admission Any Indicators Present on Admission: No History of DVT/PE: No History of Uncontrolled Diabetes: No Urinary Catheter: No Decubitus Ulcer Present: No Decubitus Ulcer Stage: Unstageable (sacrum) Past Patient History - Infectious Disease Hx of Infectious Diseases: None - Past Medical History & Family History Past Medical History?: Yes - Past Social History Smoking Status: Unknown If Ever Smoked - CARDIAC Hx Atrial Fibrillation: No Hx Cardia Arrhythmia: No Hx Congestive Heart Failure: Yes Hx Hypercholesterolemia: Yes Hx Hypertension: Yes Hx Pacemaker: Yes Hx Peripheral Edema: Yes - PULMONARY Hx Asthma: Yes Hx Bronchitis: Yes Hx Chronic Obstructive Pulmonary Disease (COPD): Yes ([place],) Hx Emphysema: Yes Hx Pneumonia: Yes Hx Sleep Apnea: Yes (NO C PAP) - NEUROLOGICAL Hx Transient Ischemic Attacks (TIA): Yes (1988) - HEENT Hx HEENT Problems: Yes Hx Cataracts: Yes 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) Hx Difficulty Chewing: No - RENAL Hx Chronic Kidney Disease: Yes Hx Kidney Stones: Yes - ENDOCRINE/METABOLIC Hx Hypothyroidism: Yes - HEMATOLOGICAL/ONCOLOGICAL Hx Blood Disorders: Yes Other/Comment: polycythemia vera - INTEGUMENTARY Hx Dermatological Problems: Yes Other/Comment: PRURITIS - MUSCULOSKELETAL/RHEUMATOLOGICAL Hx Arthritis: Yes (B/L KNEES) Hx Falls: Yes - GASTROINTESTINAL Hx Diverticulitis: Yes (HX PARTIAL COLECTOMY) Hx Gastritis: Yes - GENITOURINARY/GYNECOLOGICAL Hx Genitourinary Disorders: Yes Hx Incontinence: Yes Hx Prostate Problems: Yes - PSYCHIATRIC Hx Anxiety: Yes Hx Substance Use: No - SURGICAL HISTORY Hx Cholecystectomy: Yes (1974) Hx Coronary Artery Bypass Graft: Yes (1986) Hx Coronary Stent: Yes - ANESTHESIA Hx Anesthesia: Yes Hx Anesthesia Reactions: No Hx Malignant Hyperthermia: No Meds Allergies/Adverse Reactions: Allergies Allergy/AdvReac Type Severity Reaction Status Date / Time ciprofloxacin HCl Allergy Severe ITCHING Verified 04/11/17 17:31 [From Cipro] Penicillins Allergy Severe ITCHING Verified 04/11/17 17:31 tetanus and diphtheria Allergy Severe hives Verified 04/11/17 17:31 toxoids Results - Vital Signs Recent Vital Signs: Last Vital Signs Temp 98.7 F 07/23/18 16:08 Pulse 97 H 07/23/18 16:08 Resp 18 07/23/18 16:08 BP 99/67 L 07/23/18 16:08 Pulse Ox 96 07/23/18 16:08 - Labs Result Diagrams: 07/23/18 02:16 07/23/18 02:16 Labs: Laboratory Results - last 24 hr 07/23/18 07/23/18 07/23/18 01:19 02:16 02:16 WBC 8.5 D RBC 3.90 L Hgb 11.5 L Hct 34.1 L MCV 87.5 MCH 29.3 MCHC 33.5 RDW 14.7 H Plt Count 250 MPV 6.8 L Neut % (Auto) 83.7 H Lymph % (Auto) 8.9 L Shannon % (Auto) 7.1 Eos % (Auto) 0.0 Baso % (Auto) 0.3 Neut # (Auto) 7.1 H Lymph # (Auto) 0.8 L Shannon # (Auto) 0.6 Eos # (Auto) 0.0 Baso # (Auto) 0.0 Neutrophils % (Manual) 88 H Lymphocytes % (Manual) 5 L Reactive Lymphs % 1 H Monocytes % (Manual) 6 Platelet Estimate Normal pO2 VBG pH VBG pCO2 VBG HCO3 VBG Total CO2 VBG O2 Sat (Calc) VBG Base Excess VBG Potassium Glucose Lactate Sodium 135 Potassium 3.8 Chloride 102 Carbon Dioxide 28 Anion Gap 9 L BUN 19 Creatinine 0.9 Est GFR ( Amer) > 60 Est GFR (Non-Af Amer) > 60 POC Glucose (mg/dL) 135 H Random Glucose 126 H D Lactic Acid Calcium 8.6 Total Bilirubin 0.8 AST 16 L D ALT < 6 L D Alkaline Phosphatase 124 Ammonia Troponin I 0.0810 NT-Pro-B Natriuret Pep 1430 H Total Protein 7.1 Albumin 3.4 L Globulin 3.8 Albumin/Globulin Ratio 0.9 L Lipase 37 Venous Blood Potassium Urine Color Urine Clarity Urine pH Ur Specific [place] Urine Protein Urine Glucose (UA) Urine Ketones Urine Blood Urine Nitrate Urine Bilirubin Urine Urobilinogen Ur Leukocyte Esterase Urine WBC (Auto) Urine RBC (Auto) Ur Squamous Epith Cells Urine Bacteria 07/23/18 07/23/18 07/23/18 02:16 02:59 03:57 WBC RBC Hgb Hct MCV MCH MCHC RDW Plt Count MPV Neut % (Auto) Lymph % (Auto) Shannon % (Auto) Eos % (Auto) Baso % (Auto) Neut # (Auto) Lymph # (Auto) Shannon # (Auto) Eos # (Auto) Baso # (Auto) Neutrophils % (Manual) Lymphocytes % (Manual) Reactive Lymphs % Monocytes % (Manual) Platelet Estimate pO2 54 VBG pH 7.41 VBG pCO2 43 VBG HCO3 26.4 VBG Total CO2 28.6 H VBG O2 Sat (Calc) 91.0 H VBG Base Excess 2.2 H VBG Potassium 3.6 Glucose 113 H Lactate 1.3 Sodium 135.0 Potassium Chloride 107.0 Carbon Dioxide Anion Gap BUN Creatinine Est GFR ( Amer) Est GFR (Non-Af Amer) POC Glucose (mg/dL) Random Glucose Lactic Acid Calcium Total Bilirubin AST ALT Alkaline Phosphatase Ammonia 10 Troponin I NT-Pro-B Natriuret Pep Total Protein Albumin Globulin Albumin/Globulin Ratio Lipase Venous Blood Potassium 3.6 Urine Color Kathy Urine Clarity Hazy Urine pH 5.0 Ur Specific [place] 1.023 Urine Protein 2+ H Urine Glucose (UA) Normal Urine Ketones Negative Urine Blood 1+ H Urine Nitrate Negative Urine Bilirubin Negative Urine Urobilinogen 4.0 Ur Leukocyte Esterase Neg Urine WBC (Auto) 2 Urine RBC (Auto) 22 H Ur Squamous Epith Cells < 1 Urine Bacteria Many H 07/23/18 07/23/18 07/23/18 05:48 11:06 16:26 WBC RBC Hgb Hct MCV MCH MCHC RDW Plt Count MPV Neut % (Auto) Lymph % (Auto) [place] % (Auto) Eos % (Auto) Baso % (Auto) Neut # (Auto) Lymph # (Auto) [place] # (Auto) Eos # (Auto) Baso # (Auto) Neutrophils % (Manual) Lymphocytes % (Manual) Reactive Lymphs % Monocytes % (Manual) Platelet Estimate pO2 VBG pH VBG pCO2 VBG HCO3 VBG Total CO2 VBG O2 Sat (Calc) VBG Base Excess VBG Potassium Glucose Lactate Sodium Potassium Chloride Carbon Dioxide Anion Gap BUN Creatinine Est GFR ( Amer) Est GFR (Non-Af Amer) POC Glucose (mg/dL) 142 H 130 H Random Glucose Lactic Acid 1.5 Calcium Total Bilirubin AST ALT Alkaline Phosphatase Ammonia Troponin I NT-Pro-B Natriuret Pep Total Protein Albumin Globulin Albumin/Globulin Ratio Lipase Venous Blood Potassium Urine Color Urine Clarity Urine pH Ur Specific [place] Urine Protein Urine Glucose (UA) Urine Ketones Urine Blood Urine Nitrate Urine Bilirubin Urine Urobilinogen Ur Leukocyte Esterase Urine WBC (Auto) Urine RBC (Auto) Ur Squamous Epith Cells Urine Bacteria
[2018-07-23] MEDS: Acetylcysteine 20% Inhal Soln (4ml) INH SCH (19:31)
[2018-07-24] MEDS: Acetylcysteine 20% Inhal Soln (4ml) INH SCH ×4 (01:34→19:26)
[2018-07-24] MEDS: Albuterol-Ipratrop 3 mg / 0.5 (3 ml) UD INH SCH ×4 (01:34→19:26)
[2018-07-24] MEDS ORDERED: Sodium Chloride 0.9% 1,000 ML IV SCH (06:31)
[2018-07-24 07:50] LABS: BASO % 0.4 % (0.0-2.0); EOS % 0.4 % (0.0-4.0); HEMOGLOBIN 10.9 g/dL (12.0-18.0); LYMPH % 11.9 % (20.0-40.0); MEAN CORPUSCULAR HEMOGLOBIN 28.8 pg (27.0-31.0); MEAN CORPUSCULAR HGB CONC 32.2 g/dL (33.0-37.0); MEAN PLATELET VOLUME 7.3 fL (7.2-11.7); MONO # 0.5 K/uL (0.0-0.8); MONO % 6.1 % (0.0-10.0); NEUT # 6.7 K/uL (1.8-7.0); NEUT % 81.2 % (50.0-75.0); NRBC % 0.1 % (0.0-2.0); RBC 3.78 Mil/uL (4.40-5.90); RED CELL DISTRIBUTION WIDTH 15.1 % (11.5-14.5); WHITE BLOOD COUNT 8.2 K/uL (4.8-10.8)
[2018-07-24 07:57] LABS: ALB/GLOB RATIO 0.9 (1.0-2.1); ALT/SGPT < 6 U/L (21-72); AST/SGOT 24 U/L (17-59); BLOOD UREA NITROGEN 18 mg/dL (9-20); CALCIUM 8.4 mg/dl (8.6-10.4); GFR NON-AFRICAN AMERICAN > 60
[2018-07-24 08:02] LABS: MEAN CELL VOLUME 89.5 fL (80.0-94.0)
--- NOTE | 2018-07-24 09:05 | CP.PCM.PN ---
Subjective - Date & Time of Evaluation Date of Evaluation: 07/24/18 Time of Evaluation: 09:02 - Subjective Subjective: Patient today this morning much confused than yesterday. But vital signs are stable. Not eating well. Has poor appetite. Having difficulty in moving the upper extremities On examination: Vital signs are stable otherwise. Chest bilateral wheezing and rales noted Regular heart sounds Repeat chest x-ray today showing evidence of bilateral increasing CHF pattern, and also infiltrative changes noted Currently on IV vancomycin and doxycycline. Physical therapy recommended. Continue with IV antibiotic. Feed with assistance. Bedside assistance. Glucose monitoring. Recommended rehab and will follow the patient Objective - Vital Signs/Intake and Output Vital Signs (last 24 hours): Temp Pulse Resp BP Pulse Ox 98.6 F 92 H 20 115/66 96 07/24/18 08:49 07/24/18 08:49 07/24/18 08:49 07/24/18 08:49 07/24/18 08:49 Intake and Output: 07/24/18 07/24/18 06:59 18:59 Intake Total 0 Output Total 100 Balance -100 - Medications Medications: Current Medications Acetylcysteine (Acetylcysteine 20%) 4 ml INH Q6H NATALIE Last Admin: 07/24/18 01:34 Dose: 4 ml Albuterol/Ipratropium (Duoneb 3 Mg/0.5 Mg (3 Ml) Ud) 3 ml INH RQ6 NATALIE Last Admin: 07/24/18 01:34 Dose: 3 ml Aspirin (Ecotrin) 81 mg PO DAILY NATALIE Last Admin: 07/23/18 10:22 Dose: 81 mg Docusate Sodium (Colace) 100 mg PO BID NATALIE Last Admin: 07/23/18 17:05 Dose: 100 mg Home Med (Ropinirole Hcl [Ropinirole Hcl]) 0.5 mg PO DAILY [facility] Doxycycline Hyclate 100 mg/ (Sodium Chloride) 100 mls @ 100 mls/hr IVPB Q12H NATALIE; Protocol Last Admin: 07/23/18 21:21 Dose: 100 mls/hr Vancomycin HCl 500 mg/ Sodium (Chloride) 100 mls @ 67 mls/hr IVPB Q12H NATALIE; Protocol Last Admin: 07/23/18 21:21 Dose: 67 mls/hr Sodium Chloride (Sodium Chloride 0.9%) 1,000 mls @ 45 mls/hr IV .[id number] [facility] Last Admin: 07/24/18 06:49 Dose: 45 mls/hr Losartan Potassium (Cozaar) 25 mg PO DAILY [facility] Last Admin: 07/23/18 10:22 Dose: 25 mg Oxycodone/Acetaminophen (Percocet 5/325 Mg Tab) 1 tab PO Q6H PRN PRN Reason: Pain, severe (8-10) Stop: 07/26/18 09:00 Last Admin: 07/23/18 11:30 Dose: 1 tab Pantoprazole Sodium (Protonix Ec Tab) 40 mg PO DAILY [facility] Last Admin: 07/23/18 10:22 Dose: 40 mg Roflumilast (Daliresp) 500 mcg PO DAILY [facility] Last Admin: 07/23/18 10:26 Dose: Not Given Rosuvastatin Calcium (Crestor) 10 mg PO HS [facility] Last Admin: 07/23/18 21:34 Dose: 10 mg Tamsulosin HCl (Flomax) 0.4 mg PO BID [facility] Last Admin: 07/23/18 17:06 Dose: 0.4 mg - Labs Labs: 07/24/18 07:15 07/24/18 07:15
[2018-07-24] MEDS: Pantoprazole 40 mg EC Tab PO SCH (09:29)
--- NOTE | 2018-07-24 09:35 | CARD ---
APPROVED REPORT Date of service: 07/23/2018 EKG Measurement Heart [id number] <Conclusion> Sinus tachycardia with occasional premature ventricular complexes Left bundle branch block Abnormal ECG
[2018-07-24] MEDS ORDERED: Metoprolol Succinate 50 mg XL Tab PO SCH (10:00)
--- NOTE | 2018-07-24 11:52 | RAD ---
Date of service: 07/24/2018 HISTORY: pna COMPARISON: No prior. TECHNIQUE: 1 view obtained. FINDINGS: LUNGS: Patchy bilateral mid to lower lobe infiltrates with suspected bilateral effusions PLEURA: As above no pneumothorax apparent. CARDIOVASCULAR: [id number] aortic atherosclerotic calcification present. Heart size unchanged. Sternotomy wires and single lead pacemaker/defibrillator. No pulmonary vascular congestion. OSSEOUS STRUCTURES: No significant abnormalities. VISUALIZED UPPER ABDOMEN: Normal. OTHER FINDINGS: None. IMPRESSION: Patchy bilateral lower lobe infiltrates with suspected bilateral effusions
--- NOTE | 2018-07-24 23:42 | CP.PCM.CON ---
History of Present Illness - History of Present Illness History of Present Illness: Patient seen and evaluated CAD, CHF s/p PPM Admitted for dyspnea Check ECHO CC: Dyspnea/Resp failure. Acute on Chronic systolic CHF This is an 82 y o male with PMhx COPD, HTN, HLD, CAD, s/p AICD implantation, TIA, who presented to the ED brought in by his s/p fall and with c/o fever. As per chart review, pt was trying to reach something at home, slipped and fell on floor. Pt at time was unable to get up, and EMS was called. Pt has reported hx of multiple recent falls prior to fall that led to this current admission. Currently being treated for aspiration PNA with Vanco/Doxycycline/Aztreonam. 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 Per staff, pt was tachypneic, using accessory muscles of respiration, upper airway secretions noted. Pt desaturated to 80s on 4 L NC. Pt was placed on 100% non-rebreather mask with little improvement in clinical status. Decision was made to intubate pt at bedside. Further ROS unobtainable from pt at time due to respiratory distress. Per staff, pt was scheduled to have bronchoscopy tomorrow for removal of aspirate in lungs. PMhx: as noted above PSurgHx: s/p AICD placement, hx frequent bronchoscopies Allergies: Cipro, PCN, tetanus and diphtheria toxoids Current meds: reviewed as per JUN Fam hx: unknown Soc hx: former heavy smoker; no drug use; uses brace at home PMD: Dr. Jamison Review of Systems - Review of Systems Systems not reviewed;Unavailable: Respiratory Distress Physical Exam - Constitutional Appears: In Acute Distress Additional comments: Demonstrating accessory muscle use and labored breathing on exam with venti mask - Head Exam Head Exam: ATRAUMATIC, NORMOCEPHALIC - Eye Exam Eye Exam: EOMI, Normal appearance, PERRL - ENT Exam ENT Exam: Mucous Membranes Moist - Respiratory Exam Respiratory Exam: Rales, Respiratory Distress - Cardiovascular Exam Cardiovascular Exam: Tachycardia, +S1, +S2. absent: Gallop, Rubs, Systolic Murmur - GI/Abdominal Exam GI & Abdominal Exam: Normal Bowel Sounds, Soft. absent: Distended, Organomegaly, Tenderness - Extremities Exam Extremities exam: Positive for: normal capillary refill, normal inspection, pedal pulses present. Negative for: tenderness - Neurological Exam Neurological exam: Altered - Skin Skin Exam: Dry, Intact, Warm Assessment & Plan - Assessment and Plan (Free Text) Assessment: This is an 82 y o male with PMhx COPD, HTN, HLD, CAD, s/p AICD implantation, TIA, who presented to the ED brought in by his s/p fall and with c/o fever. As per chart review, pt was trying to reach something at home, slipped and fell on floor. Pt at time was unable to get up, and EMS was called. Pt has reported hx of multiple recent falls prior to fall that led to this current admission. Currently being treated for aspiration PNA with Vanco/Doxycycline/Aztreonam. 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 Accepted to ICU service for further monitoring. Acute respiratory distress likely 2/2 aspiration PNA. Currently intubated and sedated in ICU at this time. Plan: Neuro: -Intubated and sedated on Propofol drip -Cont to monitor -Head CT on admission 07/23: No intracranial mass, hemorrhage or evidence of acute infarct. Atrophy and chronic white matter ischemic change. 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 -Hip/pelvis/shoulder XRs neg for acute fx Cardio: -Hx HTN, HLD, CAD, s/p AICD implantation -ASA -Cozaar 25 mg PO daily -Toprol XL 50 mg PO daily -Crestor daily Pulm: -Acute respiratory distress likely 2/2 aspiration PNA -On Doxycycline/Vanco, s/p Aztreonam x1 during LOOP DRIER OPERATOR -Intubated and sedated on Propofol -Hx COPD, TIA -Duonebs q4h -S/p Solu-Medrol 40 mg IVP x1 during LOOP DRIER OPERATOR -On Mucomyst q6h -Recent CXR today: Cardiomegaly and worsening pulmonary venous congestion c ompatible with CHF. Interval increase L pleural effusion. -Daliresp -Cont to monitor GI: -NPO -IVF at 75 cc/hr -CT abd/pelvis on admission: Multiple pelvic fractures, likely nonacute. Compression fxs of T11 and L1 vertebral bodies, indeterminate age. L lower lobe consolidation. No other acute abnormalities. -Protonix -Colace bid -No acute issues at this time Heme: -H/H 10.2/31.6, cont to trend ID: -Aspiration PNA -Anbx as noted above -CXR findings as noted above -febrile to 100.4 -Blood and urine cxs NGTD Renal: -Bun/Cr wnl -Trend I's/O's PPX: -Protonix, Heparin Acute Chronic systolic CHF will optimize CHF therapy 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) Hx Difficulty Chewing: No - RENAL Hx Chronic Kidney Disease: Yes Hx Kidney Stones: Yes - ENDOCRINE/METABOLIC Hx Hypothyroidism: Yes - HEMATOLOGICAL/ONCOLOGICAL Hx Blood Disorders: Yes Other/Comment: polycythemia vera - INTEGUMENTARY Hx Dermatological Problems: Yes Other/Comment: PRURITIS - MUSCULOSKELETAL/RHEUMATOLOGICAL Hx Arthritis: Yes - GASTROINTESTINAL Hx Diverticulitis: Yes (HX PARTIAL COLECTOMY) Hx Gastritis: Yes - GENITOURINARY/GYNECOLOGICAL Hx Genitourinary Disorders: Yes Hx Incontinence: Yes Hx Prostate Problems: Yes - PSYCHIATRIC Hx Anxiety: Yes Hx Substance Use: No - SURGICAL HISTORY Hx Cholecystectomy: Yes (1974) Hx Coronary Artery Bypass Graft: Yes (1986) Hx Coronary Stent: Yes - ANESTHESIA Hx Anesthesia: Yes Hx Anesthesia Reactions: No Hx Malignant Hyperthermia: No Meds Allergies/Adverse Reactions: Allergies Allergy/AdvReac Type Severity Reaction Status Date / Time ciprofloxacin HCl Allergy Severe ITCHING Verified 04/11/17 17:31 [From Cipro] Penicillins Allergy Severe ITCHING Verified 04/11/17 17:31 tetanus and diphtheria Allergy Severe hives Verified 04/11/17 17:31 toxoids - Medications Medications: Current Medications Acetylcysteine (Acetylcysteine 20%) 4 ml INH Q6H NATALIE Last Admin: 07/24/18 19:26 Dose: 4 ml Albuterol/Ipratropium (Duoneb 3 Mg/0.5 Mg (3 Ml) Ud) 3 ml INH RQ6 NATALIE Last Admin: 07/24/18 19:26 Dose: 3 ml Aspirin (Ecotrin) 81 mg PO DAILY NATALIE Last Admin: 07/24/18 09:29 Dose: 81 mg Docusate Sodium (Colace) 100 mg PO BID [facility] Last Admin: 07/24/18 17:36 Dose: 100 mg Heparin Sodium (Porcine) (Heparin) 5,000 units SC Q12 [facility] Last Admin: 07/24/18 21:22 Dose: 5,000 units Doxycycline Hyclate 100 mg/ (Sodium Chloride) 100 mls @ 100 mls/hr IVPB Q12H NATALIE; Protocol Last Admin: 07/24/18 21:18 Dose: 100 mls/hr Vancomycin HCl 500 mg/ Sodium (Chloride) 100 mls @ 67 mls/hr IVPB Q12H NATALIE; P rotocol Last Admin: 07/24/18 21:36 Dose: 67 mls/hr Losartan Potassium (Cozaar) 25 mg PO DAILY [facility] Last Admin: 07/24/18 09:29 Dose: 25 mg Metoprolol Succinate (Toprol Xl) 50 mg PO DAILY [facility] Last Admin: 07/24/18 09:29 Dose: 50 mg Oxycodone/Acetaminophen (Percocet 5/325 Mg Tab) 1 tab PO Q6H PRN PRN Reason: Pain, severe (8-10) Stop: 07/26/18 09:00 Last Admin: 07/23/18 11:30 Dose: 1 tab Pantoprazole Sodium (Protonix Ec Tab) 40 mg PO DAILY [facility] Last Admin: 07/24/18 09:29 Dose: 40 mg Roflumilast (Daliresp) 500 mcg PO DAILY [facility] Last Admin: 07/24/18 09:29 Dose: 500 mcg Rosuvastatin Calcium (Crestor) 10 mg PO HS [facility] Last Admin: 07/24/18 21:22 Dose: 10 mg Tamsulosin HCl (Flomax) 0.4 mg PO BID [facility] Last Admin: 07/24/18 17:36 Dose: 0.4 mg Results - Vital Signs Recent Vital Signs: Last Vital Signs Temp 98.1 F 07/24/18 16:00 Pulse 96 H 07/24/18 18:00 Resp 20 07/24/18 16:00 BP 105/63 07/24/18 16:00 Pulse Ox 96 07/24/18 16:00 - Labs Result Diagrams: 07/29/18 06:30 07/29/18 06:30 Labs: Laboratory Results - last 24 hr 07/24/18 07/24/18 07/24/18 05:56 07:15 07:15 WBC 8.2 RBC 3.78 L Hgb 10.9 L Hct 33.8 L MCV 89.5 D MCH 28.8 MCHC 32.2 L RDW 15.1 H Plt Count 240 MPV 7.3 Neut % (Auto) 81.2 H Lymph % (Auto) 11.9 L [place] % (Auto) 6.1 Eos % (Auto) 0.4 Baso % (Auto) 0.4 Neut # (Auto) 6.7 Lymph # (Auto) 1.0 [place] # (Auto) 0.5 Eos # (Auto) 0.0 Baso # (Auto) 0.0 Sodium 134 Potassium 4.1 Chloride 101 Carbon Dioxide 26 Anion Gap 11 BUN 18 Creatinine 0.8 Est GFR ( Amer) > 60 Est GFR (Non-Af Amer) > 60 POC Glucose (mg/dL) 98 Random Glucose 88 D Calcium 8.4 L Phosphorus 3.6 Magnesium 2.1 Total Bilirubin 0.7 AST 24 ALT < 6 L Alkaline Phosphatase 115 Total Protein 6.3 Albumin 3.0 L Globulin 3.3 Albumin/Globulin Ratio 0.9 L 07/24/18 07/24/18 07/24/18 13:03 17:07 21:46 WBC RBC Hgb Hct MCV MCH MCHC RDW Plt Count MPV Neut % (Auto) Lymph % (Auto) [place] % (Auto) Eos % (Auto) Baso % (Auto) Neut # (Auto) Lymph # (Auto) [place] # (Auto) Eos # (Auto) Baso # (Auto) Sodium Potassium Chloride Carbon Dioxide Anion Gap BUN Creatinine Est GFR ( Amer) Est GFR (Non-Af Amer) POC Glucose (mg/dL) 133 H 124 H 140 H Random Glucose Calcium Phosphorus Magnesium Total Bilirubin AST ALT Alkaline Phosphatase Total Protein Albumin Globulin Albumin/Globulin Ratio
[2018-07-25] MEDS: Albuterol-Ipratrop 3 mg / 0.5 (3 ml) UD INH SCH ×4 (01:42→19:28)
[2018-07-25] MEDS: Acetylcysteine 20% Inhal Soln (4ml) INH SCH ×4 (01:42→19:27)
--- NOTE | 2018-07-25 07:38 | CP.PCM.PN ---
Subjective - Date & Time of Evaluation Date of Evaluation: 07/25/18 Time of Evaluation: 07:36 - Subjective Subjective: Patient is now sleeping but is arousable. He is responding to verbal commands. But he is having congested in the lungs. Crackles significantly noted. But there is no secretions in the oral cavity noted He went on suction no secretions noted. Mostly patient has possibly in the tracheal bronchial secretions but unable to clear. The pain medication is on hold now. On examination: Vital signs otherwise stable. Blood pressure slightly on the low side. Chest good air entry. Regular heart sounds Nontender abdomen. Status patient labs reviewed I also reviewed the x-ray of the chest which was done yesterday no significant changes I suggested will add IV fluid normal saline with a dextrose. Monitor closely. Aspiration precautions recommended. Patient is currently on doxycycline. Possible aspiration pneumonia Objective - Vital Signs/Intake and Output Vital Signs (last 24 hours): Temp Pulse Resp BP Pulse Ox 98 F 97 H 20 95/55 L 94 L 07/25/18 04:30 07/25/18 04:30 07/25/18 04:30 07/25/18 04:30 07/25/18 04:30 Intake and Output: 07/25/18 07/25/18 06:59 18:59 Intake Total 680 Balance 680 - Medications Medications: Current Medications Acetylcysteine (Acetylcysteine 20%) 4 ml INH Q6H [facility] Last Admin: 07/25/18 01:42 Dose: 4 ml Albuterol/Ipratropium (Duoneb 3 Mg/0.5 Mg (3 Ml) Ud) 3 ml INH RQ6 [facility] Last Admin: 07/25/18 01:42 Dose: 3 ml Aspirin (Ecotrin) 81 mg PO DAILY [facility] Last Admin: 07/24/18 09:29 Dose: 81 mg Docusate Sodium (Colace) 100 mg PO BID [facility] Last Admin: 07/24/18 17:36 Dose: 100 mg Heparin Sodium (Porcine) (Heparin) 5,000 units SC Q12 [facility] Last Admin: 07/24/18 21:22 Dose: 5,000 units Doxycycline Hyclate 100 mg/ (Sodium Chloride) 100 mls @ 100 mls/hr IVPB Q12H [facility]; Protocol Last Admin: 07/24/18 21:18 Dose: 100 mls/hr Vancomycin HCl 500 mg/ Sodium (Chloride) 100 mls @ 67 mls/hr IVPB Q12H [facility]; Protocol Last Admin: 07/24/18 21:36 Dose: 67 mls/hr Dextrose/Sodium Chloride (Dextrose 5%/0.9% Ns 1000 Ml) 1,000 mls @ 40 mls/hr IV .Q24H [facility] Losartan Potassium (Cozaar) 25 mg PO DAILY [facility] Last Admin: 07/24/18 09:29 Dose: 25 mg Metoprolol Succinate (Toprol Xl) 50 mg PO DAILY [facility] Last Admin: 07/24/18 09:29 Dose: 50 mg Oxycodone/Acetaminophen (Percocet 5/325 Mg Tab) 1 tab PO Q6H PRN PRN Reason: Pain, severe (8-10) Stop: 07/26/18 09:00 Last Admin: 07/23/18 11:30 Dose: 1 tab Pantoprazole Sodium (Protonix Ec Tab) 40 mg PO DAILY [facility] Last Admin: 07/24/18 09:29 Dose: 40 mg Roflumilast (Daliresp) 500 mcg PO DAILY [facility] Last Admin: 07/24/18 09:29 Dose: 500 mcg Rosuvastatin Calcium (Crestor) 10 mg PO HS [facility] Last Admin: 07/24/18 21:22 Dose: 10 mg Tamsulosin HCl (Flomax) 0.4 mg PO BID [facility] Last Admin: 07/24/18 17:36 Dose: 0.4 mg - Labs Labs: 07/24/18 07:15 07/24/18 07:15
[2018-07-25] MEDS ORDERED: Dextrose 5%/0.9% NS 1,000 ML IV SCH (07:45)
[2018-07-25] MEDS ORDERED: Metoprolol Succinate 50 mg XL Tab PO SCH (10:15)
[2018-07-25] MEDS: Pantoprazole 40 mg EC Tab PO SCH (10:21)
[2018-07-25] MEDS ORDERED: MethylPREDNISolone 40 mg Vial IVP ONE (16:00)
[2018-07-25] MEDS ORDERED: Sodium Chloride 0.9% 500 ML IV ONE ×2 (16:02→16:44)
[2018-07-25] MEDS ORDERED: Aztreonam 1 GM in Sodium Chloride 0.9% 100 ML IVPB ONE (16:04)
[2018-07-25] MEDS ORDERED: Albuterol-Ipratrop 3 mg / 0.5 (3 ml) UD INH STA (16:04)
[2018-07-25] MEDS ORDERED: Sodium Chloride 0.9% 250 ML IV ONE (16:08)
--- NOTE | 2018-07-25 16:12 | PCM.RRT ---
<Celso Calabrese - Last Filed: 07/25/18 16:26> [address] Nurses Assessment - Situation Date: 07/25/[address] was called: 16:[address] Responder Arrival Time:: 16:[address] Location:: Med/Surg (551B) Room Number: [address] Reason for Call: Respiratory Distress (tachypnea, use of accessory muscles for respiration, upper airway secretions), O2 Saturation below 90% (80s on 4L NC) [address] Called By: RN - IV IV Inserted during [address]?: Yes New IV Insertion Tolerance: Excellent - Respiratory [address] Delivery Method: Non Rebreather @% (100%) Secretions Suctioned?: Yes - Medication Medications Administered During [address]: Potassium chloride 20 meq IVPB, Aztreonam 1g IVPB - Diagnostic Test Ordered Chest X-Ray: Yes (increased pulmonary edema, redemonstration of LLL infiltrate) - Stat Labs Ordered [address] Stat Labs Ordered: CBC, BMP, LACTIC ACID - Vital Signs Vital Signs: 96/52 93% on 100% NRB 106HR 26 RR - Madelyn Coma Scale Coma Scale Eye Opening: Spontaneous Coma Scale Motor: Obeys Commands Movement Coma Scale Verbal: Confused/able to answer Coma Scale Total: 14 - Sepsis Screen Part 1 Sepsis Screen Part 1: Hypotensive - Time [address] Ended Time [address] Ended: 16:20 - Vital Signs at end of [address] Vital Signs at end of [address]: 100/50 100% on 100% NRB 104HR 26 RR - Recommendations 5) [address] Level of Care Recommendations: Transfer to ICU Notifications: Consultations (Dr. Vyas, ICU, consulted) <Kathleen Page V - Last Filed: 07/25/18 17:28> [address] Nurses Assessment - Vital Signs Vital Signs: Rapid Response Vital Sign Blood Pressure 96/52 Pulse Rate 107 Respiratory Rate 42 Temperature 100.4 F Oxygen Saturation 82 - Vital Signs at end of [address] Vital Signs at end of [address]: Rapid Response End Vital Sign Blood Pressure 100/54 Pulse Rate 106 Respiratory Rate 40 O2 Sat by Pulse Oximetry 98 Attending/Attestation - Attestation I have personally seen and examined this patient.: Yes I have fully participated in the care of the patient.: Yes I have reviewed all pertinent clinical information, including history, physical exam and plan: Yes Notes (Text): Brief hospitalist note [address]: hypoxia and tachypnea. 82 year old male with pmhx of cabg, chf (35%), copd, emphysema admitted to the hospital for treatment for aspiration pneumonia. noted patient hypoxic at 88% on nasal cannula; patient placed on nonway breather improved to 97-98% however, patient remained tachypnic, associated belly breathing and lethargic. patient noted audible secretions; left side decrease beathhe sound, rale, and rhonchi; Respiratory therapist attempt to suction but no secretions noted. Patient completed chest xray at bedside; noted congestion. Blood work not drawn earlier today; ordered at bedside; drawn at bedside at time of rapid. ABG w shock; not acidosis; no co2 retention; lactic acid 1.4 with low potassium 2.8. Per nurse, patient noted lethargic, and tachypnea is new compared to yesteday when she had the patient. Patient has not eaten today. ICU given worsening tachpneia, respiratory distress. Reviewed code status; full per EMR. no family present at bedside. I spoke with patient allow for intubation. Patient transferred to ICU for acute respiratory failure; requiring intubation. I left a message for his to call back. I spoke with Dr. Jamison regarding [address] who will speak with the .
[2018-07-25 16:14] LABS: ABG ALLEN TEST POS; ARTERIAL BLOOD GAS HCO3 27.3 mmol/L (21-28); ARTERIAL BLOOD GAS O2 SAT 99.6 % (95-98); ARTERIAL BLOOD GAS PCO2 39 mm/Hg (35-45); ARTERIAL BLOOD GAS PH 7.45 (7.35-7.45); ARTERIAL BLOOD GAS PO2 95 mm/Hg (80-100); ARTERIAL BLOOD GAS TCO2 28.3 mmol/L (22-28)
[2018-07-25 16:19] LABS: BASO % 0.4 % (0.0-2.0); HEMOGLOBIN 10.2 g/dL (12.0-18.0); LYMPH # 0.3 K/uL (1.0-4.3); LYMPH % 4.2 % (20.0-40.0); MEAN CORPUSCULAR HEMOGLOBIN 28.1 pg (27.0-31.0); MEAN CORPUSCULAR HGB CONC 32.3 g/dL (33.0-37.0); MEAN PLATELET VOLUME 6.9 fL (7.2-11.7); MONO # 0.2 K/uL (0.0-0.8); MONO % 3.1 % (0.0-10.0); NEUT # 7.4 K/uL (1.8-7.0); NEUT % 92.3 % (50.0-75.0); PLATELET COUNT 242 K/uL (130-400); RBC 3.63 Mil/uL (4.40-5.90); RED CELL DISTRIBUTION WIDTH 14.6 % (11.5-14.5)
[2018-07-25 16:24] LABS: MEAN CELL VOLUME 87.2 fL (80.0-94.0)
--- NOTE | 2018-07-25 16:27 | RAD ---
Date of service: 07/25/2018 HISTORY: sob COMPARISON: 07/24/2018 TECHNIQUE: 1 view obtained. FINDINGS: LUNGS: Lung volumes slightly shallow as before. Vague patchy small bilateral airspace opacities along with coarse pulmonary venous congestive changes are inferred. Interval increased pulmonary venous congestion.. No interval dense consolidation seen. An interval increase left pleural effusion is suggested PLEURA: Interval increase left pleural effusion suggested., no pneumothorax apparent. CARDIOVASCULAR: There is presence of aortic atherosclerotic calcification on x-ray. Cardiomegaly-similar interval increased pulmonary venous congestion. Position/ configuration of pacemaker Midline sternotomy OSSEOUS STRUCTURES: Midline sternotomy. Thoracic spondylosis. Bilateral shoulder arthrosis. VISUALIZED UPPER ABDOMEN: Normal. OTHER FINDINGS: None. IMPRESSION: Cardiomegaly and worsening pulmonary venous congestion compatible with CHF. Interval increase left pleural effusion. Other findings as above.
[2018-07-25 16:32] LABS: ALB/GLOB RATIO 0.9 (1.0-2.1); ALBUMIN 2.7 g/dL (3.5-5.0); ALT/SGPT 8 U/L (21-72); AST/SGOT 15 U/L (17-59); BLOOD UREA NITROGEN 18 mg/dL (9-20); CALCIUM 8.5 mg/dl (8.6-10.4); GFR NON-AFRICAN AMERICAN > 60
[2018-07-25] MEDS ORDERED: Etomidate 20 mg/10ml Inj IV ONE (16:43)
--- NOTE | 2018-07-25 17:02 | CP.PCM.CON ---
<Gaurav Jordan - Last Filed: 07/25/18 17:14> History of Present Illness - History of Present Illness History of Present Illness: ICU Consult Note for Dr. Vyas This is an 82 y o male with PMhx COPD, HTN, HLD, CAD, s/p AICD implantation, TIA, who presented to the ED brought in by his s/p fall and with c/o fever. As per chart review, pt was trying to reach something at home, slipped and fell on floor. Pt at time was unable to get up, and EMS was called. Pt has reported hx of multiple recent falls prior to fall that led to this current admission. Currently being treated for aspiration PNA with Vanco/Doxycycline/Aztreonam. Reason for ICU consult was for [facility] for respiratory distress. Per staff, pt was tachypneic, using accessory muscles of respiration, upper airway secretions noted. Pt desaturated to 80s on 4 L NC. Pt was placed on 100% non-rebreather mask with little improvement in clinical status. Decision was made to intubate pt at bedside. Further ROS unobtainable from pt at time due to respiratory distress. Per staff, pt was scheduled to have bronchoscopy tomorrow for removal of aspirate in lungs. PMhx: as noted above PSurgHx: s/p AICD placement, hx frequent bronchoscopies Allergies: Cipro, PCN, tetanus and diphtheria toxoids Current meds: reviewed as per [facility] hx: unknown Soc hx: former heavy smoker; no drug use; uses brace at home PMD: Dr. 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) Hx Difficulty Chewing: No - RENAL Hx Chronic Kidney Disease: Yes Hx Kidney Stones: Yes - ENDOCRINE/METABOLIC Hx Hypothyroidism: Yes - HEMATOLOGICAL/ONCOLOGICAL Hx Blood Disorders: Yes Other/Comment: polycythemia vera - INTEGUMENTARY Hx Dermatological Problems: Yes Other/Comment: PRURITIS - MUSCULOSKELETAL/RHEUMATOLOGICAL Hx Arthritis: Yes - GASTROINTESTINAL Hx Diverticulitis: Yes (HX PARTIAL COLECTOMY) Hx Gastritis: Yes - GENITOURINARY/GYNECOLOGICAL Hx Genitourinary Disorders: Yes Hx Incontinence: Yes Hx Prostate Problems: Yes - PSYCHIATRIC Hx Anxiety: Yes Hx Substance Use: No - SURGICAL HISTORY Hx Cholecystectomy: Yes (1974) Hx Coronary Artery Bypass Graft: Yes (1986) Hx Coronary Stent: Yes - ANESTHESIA Hx Anesthesia: Yes Hx Anesthesia Reactions: No Hx Malignant Hyperthermia: No Meds Allergies/Adverse Reactions: Allergies Allergy/AdvReac Type Severity Reaction Status Date / Time ciprofloxacin HCl Allergy Severe ITCHING Verified 04/11/17 17:31 [From Cipro] Penicillins Allergy Severe ITCHING Verified 04/11/17 17:31 tetanus and diphtheria Allergy Severe hives Verified 04/11/17 17:31 toxoids - Medications Medications: Current Medications Acetylcysteine (Acetylcysteine 20%) 4 ml INH RQ6 [facility] Albuterol/Ipratropium (Duoneb 3 Mg/0.5 Mg (3 Ml) Ud) 3 ml INH RQ6 [facility] Last Admin: 07/25/18 13:30 Dose: 3 ml Aspirin (Ecotrin) 81 mg PO DAILY [facility] Last Admin: 07/25/18 10:22 Dose: 81 mg Docusate Sodium (Colace) 100 mg PO BID [facility] Last Admin: 07/25/18 10:22 Dose: 100 mg Heparin Sodium (Porcine) (Heparin) 5,000 units SC Q12 [facility] Last Admin: 07/25/18 10:22 Dose: 5,000 units Doxycycline Hyclate 100 mg/ (Sodium Chloride) 100 mls @ 100 mls/hr IVPB Q12H [facility]; Protocol Last Admin: 07/25/18 10:22 Dose: 100 mls/hr Vancomycin HCl 500 mg/ Sodium (Chloride) 100 mls @ 67 mls/hr IVPB Q12H [facility]; Protocol Last Admin: 07/25/18 10:22 Dose: 67 mls/hr Dextrose/Sodium Chloride (Dextrose 5%/0.9% Ns 1000 Ml) 1,000 mls @ 40 mls/hr IV .Q24H [facility] Aztreonam 1 gm/ Sodium (Chloride) 100 mls @ 100 mls/hr IVPB ONCE ONE; Protocol Stop: 07/25/18 17:03 Potassium Chloride (Potassium Chloride 20 Meq/100 Ml) 20 meq in 100 mls @ 50 mls/hr IVPB ONCE ONE Stop: 07/25/18 18:17 Propofol (Diprivan) 1,000 mg in 100 mls @ 2.245 mls/hr IV .Q24H PRN; Protocol PRN Reason: TITRATE PER MD ORDER Sodium Chloride (Sodium Chloride 0.9%) 500 mls @ 500 mls/hr IV .Q1H ONE Stop: 07/25/18 17:43 Losartan Potassium (Cozaar) 25 mg PO DAILY [facility] Last Admin: 07/24/18 09:29 Dose: 25 mg Metoprolol Succinate (Toprol Xl) 50 mg PO DAILY [facility] Last Admin: 07/25/18 10:21 Dose: 50 mg Oxycodone/Acetaminophen (Percocet 5/325 Mg Tab) 1 tab PO Q6H PRN PRN Reason: Pain, severe (8-10) Stop: 07/26/18 09:00 Last Admin: 07/23/18 11:30 Dose: 1 tab Pantoprazole Sodium (Protonix Ec Tab) 40 mg PO DAILY [facility] Last Admin: 07/25/18 10:21 Dose: 40 mg Roflumilast (Daliresp) 500 mcg PO DAILY [facility] Last Admin: 07/25/18 10:21 Dose: 500 mcg Rosuvastatin Calcium (Crestor) 10 mg PO HS [facility] Last Admin: 07/24/18 21:22 Dose: 10 mg Tamsulosin HCl (Flomax) 0.4 mg PO BID [facility] Last Admin: 07/25/18 10:21 Dose: 0.4 mg Physical Exam - Constitutional Appears: In Acute Distress Additional comments: Demonstrating accessory muscle use and labored breathing on exam with venti mask - Head Exam Head Exam: ATRAUMATIC, NORMOCEPHALIC - Eye Exam Eye Exam: EOMI, Normal appearance, PERRL - ENT Exam ENT Exam: Mucous Membranes Moist - Respiratory Exam Respiratory Exam: Rales, Respiratory Distress - Cardiovascular Exam Cardiovascular Exam: Tachycardia, +S1, +S2. absent: Gallop, Rubs, Systolic Murmur - GI/Abdominal Exam GI & Abdominal Exam: Normal Bowel Sounds, Soft. absent: Distended, Organomegaly, Tenderness - Extremities Exam Extremities exam: Positive for: normal capillary refill, normal inspection, pedal pulses present. Negative for: tenderness - Neurological Exam Neurological exam: Altered - Skin Skin Exam: Dry, Intact, Warm Results - Vital Signs Recent Vital Signs: Last Vital Signs Temp 99.0 F 07/25/18 13:00 Pulse 98 H 07/25/18 13:00 Resp 18 07/25/18 13:00 BP 115/72 07/25/18 13:00 Pulse Ox 95 07/25/18 13:00 - Labs Result Diagrams: 07/25/18 16:11 07/25/18 16:11 Labs: Laboratory Results - last 24 hr 07/24/18 07/24/18 07/25/18 17:07 21:46 06:16 WBC RBC Hgb Hct MCV MCH MCHC RDW Plt Count MPV Neut % (Auto) Lymph % (Auto) [place] % (Auto) Eos % (Auto) Baso % (Auto) Neut # (Auto) Lymph # (Auto) [place] # (Auto) Eos # (Auto) Baso # (Auto) Puncture Site pCO2 pO2 HCO3 ABG pH ABG Total CO2 ABG O2 Saturation ABG Base Excess Hua Test ABG Potassium A-a O2 Difference Respiratory Index Sodium Chloride Glucose Lactate Liter Flow FiO2 Potassium Carbon Dioxide Anion Gap BUN Creatinine Est GFR ( Amer) Est GFR (Non-Af Amer) POC Glucose (mg/dL) 124 H 140 H 102 Random Glucose Lactic Acid Calcium Total Bilirubin AST ALT Alkaline Phosphatase Total Protein Albumin Globulin Albumin/Globulin Ratio Arterial Blood Potassium 07/25/18 07/25/18 07/25/18 11:46 16:10 16:11 WBC 8.0 RBC 3.63 L Hgb 10.2 L Hct 31.6 L MCV 87.2 D MCH 28.1 MCHC 32.3 L RDW 14.6 H Plt Count 242 MPV 6.9 L Neut % (Auto) 92.3 H Lymph % (Auto) 4.2 L [place] % (Auto) 3.1 Eos % (Auto) 0.0 Baso % (Auto) 0.4 Neut # (Auto) 7.4 H Lymph # (Auto) 0.3 L [place] # (Auto) 0.2 Eos # (Auto) 0.0 Baso # (Auto) 0.0 Puncture Site Rra pCO2 39 pO2 95 HCO3 27.3 ABG pH 7.45 ABG Total CO2 28.3 H ABG O2 Saturation 99.6 H ABG Base Excess 3.0 Hua Test Pos ABG Potassium 2.8 L A-a O2 Difference 569.0 Respiratory Index 6.0 Sodium 137.0 Chloride 107.0 Glucose 129 H Lactate 1.4 Liter Flow 15.0 FiO2 100.0 Potassium Carbon Dioxide Anion Gap BUN Creatinine Est GFR ( Amer) Est GFR (Non-Af Amer) POC Glucose (mg/dL) 116 H Random Glucose Lactic Acid Calcium Total Bilirubin AST ALT Alkaline Phosphatase Total Protein Albumin Globulin Albumin/Globulin Ratio Arterial Blood Potassium 2.8 L 07/25/18 07/25/18 16:11 16:11 WBC RBC Hgb Hct MCV MCH MCHC RDW Plt Count MPV Neut % (Auto) Lymph % (Auto) [place] % (Auto) Eos % (Auto) Baso % (Auto) Neut # (Auto) Lymph # (Auto) [place] # (Auto) Eos # (Auto) Baso # (Auto) Puncture Site pCO2 pO2 HCO3 ABG pH ABG Total CO2 ABG O2 Saturation ABG Base Excess Hua Test ABG Potassium A-a O2 Difference Respiratory Index Sodium 135 Chloride 102 Glucose Lactate Liter Flow FiO2 Potassium 3.2 L Carbon Dioxide 28 Anion Gap 9 L BUN 18 Creatinine 0.7 L Est GFR ( Amer) > 60 Est GFR (Non-Af Amer) > 60 POC Glucose (mg/dL) Random Glucose 139 H D Lactic Acid 1.6 Calcium 8.5 L Total Bilirubin 0.4 AST 15 L D ALT 8 L D Alkaline Phosphatase 116 Total Protein 5.9 L Albumin 2.7 L Globulin 3.1 Albumin/Globulin Ratio 0.9 L Arterial Blood Potassium Assessment & Plan - Assessment and Plan (Free Text) Assessment: This is an 82 y o male with PMhx COPD, HTN, HLD, CAD, s/p AICD implantation, TIA, who presented to the ED brought in by his s/p fall and with c/o fever. As per chart review, pt was trying to reach something at home, slipped and fell on floor. Pt at time was unable to get up, and EMS was called. Pt has reported hx of multiple recent falls prior to fall that led to this current admission. Currently being treated for aspiration PNA with Vanco/Doxycycline/Aztreonam. Reason for ICU consult was for [facility] for respiratory distress. Accepted to ICU service for further monitoring. Acute respiratory distress likely 2/2 aspiration PNA. Currently intubated and sedated in ICU at this time. Plan: Neuro: -Intubated and sedated on Propofol drip -Cont to monitor -Head CT on admission 07/23: No intracranial mass, hemorrhage or evidence of acute infarct. Atrophy and chronic white matter ischemic change. 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 -Hip/pelvis/shoulder XRs neg for acute fx Cardio: -Hx HTN, HLD, CAD, s/p AICD implantation -Cardiology (Dr. Bains) consulted, recs appreciated -ASA -Cozaar 25 mg PO daily -Toprol XL 50 mg PO daily -Crestor daily Pulm: -Acute respiratory distress likely 2/2 aspiration PNA -On Doxycycline/Vanco, s/p Aztreonam x1 during [facility] -Intubated and sedated on Propofol -Hx COPD, TIA -Duonebs q4h -S/p Solu-Medrol 40 mg IVP x1 during [facility] -On Mucomyst q6h -Recent CXR today: Cardiomegaly and worsening pulmonary venous congestion compatible with CHF. Interval increase L pleural effusion. -Daliresp -Cont to monitor GI: -NPO -IVF at 75 cc/hr -CT abd/pelvis on admission: Multiple pelvic fractures, likely nonacute. Compression fxs of T11 and L1 vertebral bodies, indeterminate age. L lower lobe consolidation. No other acute abnormalities. -Protonix -Colace bid -No acute issues at this time Heme: -H/H 10.2/31.6, cont to trend ID: -Aspiration PNA -Anbx as noted above -CXR findings as noted above -febrile to 100.4 -Blood and urine cxs NGTD Renal: -Bun/Cr wnl -Trend I's/O's PPX: -Protonix, Heparin Pt seen, examined with, and plan discussed with Dr. Vyas, attending physician. Gaurav Jordan DO PGY-1, Aircraft Engine Specialist Pager #[phone] <Young Vyas - Last Filed: 07/25/18 18:35> Meds - Medications Medications: Current Medications Acetylcysteine (Acetylcysteine 20%) 4 ml INH RQ6 [facility] Albuterol/Ipratropium (Duoneb 3 Mg/0.5 Mg (3 Ml) Ud) 3 ml INH RQ4 [facility] Aspirin (Ecotrin) 81 mg PO DAILY [facility] Last Admin: 07/25/18 10:22 Dose: 81 mg Docusate Sodium (Colace) 100 mg PO BID [facility] Last Admin: 07/25/18 17:21 Dose: Not Given Heparin Sodium (Porcine) (Heparin) 5,000 units SC Q12 [facility] Last Admin: 07/25/18 10:22 Dose: 5,000 units Doxycycline Hyclate 100 mg/ (Sodium Chloride) 100 mls @ 100 mls/hr IVPB Q12H [facility]; Protocol Last Admin: 07/25/18 10:22 Dose: 100 mls/hr Vancomycin HCl 500 mg/ Sodium (Chloride) 100 mls @ 67 mls/hr IVPB Q12H [facility]; Protocol Last Admin: 07/25/18 10:22 Dose: 67 mls/hr Propofol (Diprivan) 1,000 mg in 100 mls @ 2.245 mls/hr IV .Q24H PRN; Protocol PRN Reason: TITRATE PER MD ORDER Last Titration: 07/25/18 17:27 Dose: 25 mcg/kg/min, 11.226 mls/hr Dextrose/Sodium Chloride (Dextrose 5%/0.9% Ns 1000 Ml) 1,000 mls @ 75 mls/hr IV .[id number] [facility] Last Admin: 07/25/18 17:21 Dose: 75 mls/hr Losartan Potassium (Cozaar) 25 mg PO DAILY [facility] Last Admin: 07/24/18 09:29 Dose: 25 mg Metoprolol Succinate (Toprol Xl) 50 mg PO DAILY [facility] Last Admin: 07/25/18 10:21 Dose: 50 mg Oxycodone/Acetaminophen (Percocet 5/325 Mg Tab) 1 tab PO Q6H PRN PRN Reason: Pain, severe (8-10) Stop: 07/26/18 09:00 Last Admin: 07/23/18 11:30 Dose: 1 tab Pantoprazole Sodium (Protonix Ec Tab) 40 mg PO DAILY [facility] Last Admin: 07/25/18 10:21 Dose: 40 mg Roflumilast (Daliresp) 500 mcg PO DAILY [facility] Last Admin: 07/25/18 10:21 Dose: 500 mcg Rosuvastatin Calcium (Crestor) 10 mg PO HS [facility] Last Admin: 07/24/18 21:22 Dose: 10 mg Tamsulosin HCl (Flomax) 0.4 mg PO BID [facility] Last Admin: 07/25/18 10:21 Dose: 0.4 mg Results - Vital Signs Recent Vital Signs: Last Vital Signs Temp 100.4 F H 07/25/18 15:30 Pulse 110 H 07/25/18 15:30 Resp 42 H 07/25/18 15:50 BP 109/57 L 07/25/18 15:30 Pulse Ox 92 L 07/25/18 15:50 - Labs Result Diagrams: 07/25/18 16:11 07/25/18 16:11 Labs: Laboratory Results - last 24 hr 07/24/18 07/25/18 07/25/18 21:46 06:16 11:46 WBC RBC Hgb Hct MCV MCH MCHC RDW Plt Count MPV Neut % (Auto) Lymph % (Auto) [place] % (Auto) Eos % (Auto) Baso % (Auto) Neut # (Auto) Lymph # (Auto) [place] # (Auto) Eos # (Auto) Baso # (Auto) Neutrophils % (Manual) Band Neutrophils % Lymphocytes % (Manual) Monocytes % (Manual) Platelet Estimate Microcytosis (manual) Rouleaux Puncture Site pCO2 pO2 HCO3 ABG pH ABG Total CO2 ABG O2 Saturation ABG Base Excess Hua Test ABG Potassium A-a O2 Difference Respiratory Index Sodium Chloride Glucose Lactate Liter Flow FiO2 Potassium Carbon Dioxide Anion Gap BUN Creatinine Est GFR ( Amer) Est GFR (Non-Af Amer) POC Glucose (mg/dL) 140 H 102 116 H Random Glucose Lactic Acid Calcium Total Bilirubin AST ALT Alkaline Phosphatase Total Protein Albumin Globulin Albumin/Globulin Ratio Arterial Blood Potassium 07/25/18 07/25/18 07/25/18 16:10 16:11 16:11 WBC 8.0 RBC 3.63 L Hgb 10.2 L Hct 31.6 L MCV 87.2 D MCH 28.1 MCHC 32.3 L RDW 14.6 H Plt Count 242 MPV 6.9 L Neut % (Auto) 92.3 H Lymph % (Auto) 4.2 L [place] % (Auto) 3.1 Eos % (Auto) 0.0 Baso % (Auto) 0.4 Neut # (Auto) 7.4 H Lymph # (Auto) 0.3 L [place] # (Auto) 0.2 Eos # (Auto) 0.0 Baso # (Auto) 0.0 Neutrophils % (Manual) 92 H Band Neutrophils % 1 Lymphocytes % (Manual) 4 L Monocytes % (Manual) 3 Platelet Estimate Normal Microcytosis (manual) Slight Rouleaux Slight Puncture Site Rra pCO2 39 pO2 95 HCO3 27.3 ABG pH 7.45 ABG Total CO2 28.3 H ABG O2 Saturation 99.6 H ABG Base Excess 3.0 Hua Test Pos ABG Potassium 2.8 L A-a O2 Difference 569.0 Respiratory Index 6.0 Sodium 137.0 135 Chloride 107.0 102 Glucose 129 H Lactate 1.4 Liter Flow 15.0 FiO2 100.0 Potassium 3.2 L Carbon Dioxide 28 Anion Gap 9 L BUN 18 Creatinine 0.7 L Est GFR ( Amer) > 60 Est GFR (Non-Af Amer) > 60 POC Glucose (mg/dL) Random Glucose 139 H D Lactic Acid Calcium 8.5 L Total Bilirubin 0.4 AST 15 L D ALT 8 L D Alkaline Phosphatase 116 Total Protein 5.9 L Albumin 2.7 L Globulin 3.1 Albumin/Globulin Ratio 0.9 L Arterial Blood Potassium 2.8 L 07/25/18 16:11 WBC RBC Hgb Hct MCV MCH MCHC RDW Plt Count MPV Neut % (Auto) Lymph % (Auto) [place] % (Auto) Eos % (Auto) Baso % (Auto) Neut # (Auto) Lymph # (Auto) [place] # (Auto) Eos # (Auto) Baso # (Auto) Neutrophils % (Manual) Band Neutrophils % Lymphocytes % (Manual) Monocytes % (Manual) Platelet Estimate Microcytosis (manual) Rouleaux Puncture Site pCO2 pO2 HCO3 ABG pH ABG Total CO2 ABG O2 Saturation ABG Base Excess Hua Test ABG Potassium A-a O2 Difference Respiratory Index Sodium Chloride Glucose Lactate Liter Flow FiO2 Potassium Carbon Dioxide Anion Gap BUN Creatinine Est GFR ( Amer) Est GFR (Non-Af Amer) POC Glucose (mg/dL) Random Glucose Lactic Acid 1.6 Calcium Total Bilirubin AST ALT Alkaline Phosphatase Total Protein Albumin Globulin Albumin/Globulin Ratio Arterial Blood Potassium Attending/Attestation - Attestation I have personally seen and examined this patient.: Yes I have fully participated in the care of the patient.: Yes I have reviewed all pertinent clinical information: Yes Notes (Text): 07/25/18 18:34 Patient seen and examined 82-year-old male transferred to intensive care unit for respiratory distress and congestion Patient intubated with copious secretions through the ET tube Ventilator support Tracheal aspirate for culture and sensitivity Continue antibiotics Follow-up ABG and chest x-ray Possible bronchoscopy
[2018-07-25] MEDS: Propofol 10 mg/ml 1,000 MG/100 ML VIAL IV PRN ×2 (17:18→23:24)
[2018-07-25] MEDS: Dextrose 5%/0.9% NS 1,000 ML IV SCH (17:21)
--- NOTE | 2018-07-25 17:54 | RAD ---
HISTORY: confirm ET tube placement COMPARISON: Chest x-ray performed 07/25/18 TECHNIQUE: Chest, one view. FINDINGS: Endotracheal tube and nasogastric tube. LUNGS: Biapical pleural thickening. Persistent pulmonary venous congestion and bilateral central vascular prominence. Edema like pattern. No definite pneumothorax. CARDIOVASCULAR: Median sternotomy wires. Left-sided AICD. Heart size appears top normal. Atherosclerotic calcifications of the aorta. OSSEOUS STRUCTURES: Degenerative changes. Osseous demineralization. High-riding humeral heads may be seen in the setting of chronic rotator cuff injury. Acromioclavicular arthropathy. VISUALIZED UPPER ABDOMEN: Right upper quadrant surgical clips. Partially imaged vascular stent. OTHER FINDINGS: None. IMPRESSION: NG tube. Endotracheal tube terminates approximately 3.3 cm above the chandrika. Biapical pleural thickening. Persistent pulmonary venous congestion and bilateral central vascular prominence. Edema like pattern. Left-sided AICD.
[2018-07-25 18:20] LABS: BANDS 1 % (0-2); LYMPHOCYTE 4 % (20-40); MONOCYTE 3 % (0-10); NEUTROPHIL 92 % (50-75); PLATELET ESTIMATE NORMAL (NORMAL); TOTAL CELLS COUNTED 100
[2018-07-25 18:21] LABS: MICROCYTOSIS SLIGHT; ROULEAUX FORMATION SLIGHT
[2018-07-25 19:28] LABS: ABG ALLEN TEST UNABLE; ARTERIAL BLOOD GAS HCO3 25.2 mmol/L (21-28); ARTERIAL BLOOD GAS O2 SAT 99.2 % (95-98); ARTERIAL BLOOD GAS PCO2 37 mm/Hg (35-45); ARTERIAL BLOOD GAS PH 7.43 (7.35-7.45); ARTERIAL BLOOD GAS PO2 188 mm/Hg (80-100); ARTERIAL BLOOD GAS TCO2 25.7 mmol/L (22-28)
--- NOTE | 2018-07-25 22:19 | CP.PCM.PN ---
Subjective - Date & Time of Evaluation Date of Evaluation: 07/25/18 Time of Evaluation: 22:18 - Subjective Subjective: Patient in the afternoon had an episode of respiratory distress, patient was not able to oxygenate, attempted with BiPAP, but the patient become more lethargic. Patient is intubated, and placed on the ventilator. Patient is currently in the intensive care unit. I spoke to the patient's in detail. Thick secretions from the endotracheal tube noted. Patient also has a x-ray evidence of pneumonia in the left lower lung. I spoke to , will do the bronchoscopy tomorrow, I spoke to the patient's . Currently on antibiotic. Bronchodilators. Mucomyst. Continue to support. Weaning as tolerated Objective - Vital Signs/Intake and Output Vital Signs (last 24 hours): Temp Pulse Resp BP Pulse Ox 100.1 F H 102 H 16 96/47 L 97 07/25/18 20:00 07/25/18 21:00 07/25/18 21:00 07/25/18 20:34 07/25/18 21:00 Intake and Output: 07/25/18 07/26/18 18:59 06:59 Intake Total 772 308 Output Total 0 0 Balance 772 308 - Medications Medications: Current Medications Acetylcysteine (Acetylcysteine 20%) 4 ml INH RQ6 [facility] Last Admin: 07/25/18 19:27 Dose: 4 ml Albuterol/Ipratropium (Duoneb 3 Mg/0.5 Mg (3 Ml) Ud) 3 ml INH RQ4 [facility] Last Admin: 07/25/18 19:28 Dose: 3 ml Aspirin (Ecotrin) 81 mg PO DAILY [facility] Last Admin: 07/25/18 10:22 Dose: 81 mg Docusate Sodium (Colace) 100 mg PO BID [facility] Last Admin: 07/25/18 17:21 Dose: Not Given Heparin Sodium (Porcine) (Heparin) 5,000 units SC Q12 [facility] Last Admin: 07/25/18 21:41 Dose: 5,000 units Doxycycline Hyclate 100 mg/ (Sodium Chloride) 100 mls @ 100 mls/hr IVPB Q12H [facility]; Protocol Last Admin: 07/25/18 21:41 Dose: 100 mls/hr Vancomycin HCl 500 mg/ Sodium (Chloride) 100 mls @ 67 mls/hr IVPB Q12H [facility]; Protocol Last Admin: 07/25/18 10:22 Dose: 67 mls/hr Propofol (Diprivan) 1,000 mg in 100 mls @ 2.245 mls/hr IV .Q24H PRN; Protocol PRN Reason: TITRATE PER MD ORDER Last Titration: 07/25/18 17:27 Dose: 25 mcg/kg/min, 11.226 mls/hr Dextrose/Sodium Chloride (Dextrose 5%/0.9% Ns 1000 Ml) 1,000 mls @ 75 mls/hr IV .[id number] [facility] Last Admin: 07/25/18 17:21 Dose: 75 mls/hr Losartan Potassium (Cozaar) 25 mg PO DAILY [facility] Last Admin: 07/24/18 09:29 Dose: 25 mg Metoprolol Succinate (Toprol Xl) 50 mg PO DAILY [facility] Last Admin: 07/25/18 10:21 Dose: 50 mg Oxycodone/Acetaminophen (Percocet 5/325 Mg Tab) 1 tab PO Q6H PRN PRN Reason: Pain, severe (8-10) Stop: 07/26/18 09:00 Last Admin: 07/23/18 11:30 Dose: 1 tab Pantoprazole Sodium (Protonix Ec Tab) 40 mg PO DAILY [facility] Last Admin: 07/25/18 10:21 Dose: 40 mg Roflumilast (Daliresp) 500 mcg PO DAILY [facility] Last Admin: 07/25/18 10:21 Dose: 500 mcg Rosuvastatin Calcium (Crestor) 10 mg PO HS [facility] Last Admin: 07/25/18 21:41 Dose: 10 mg Tamsulosin HCl (Flomax) 0.4 mg PO BID [facility] Last Admin: 07/25/18 19:29 Dose: Not Given - Labs Labs: 07/25/18 16:11 07/25/18 16:11
[2018-07-26] MEDS: Albuterol-Ipratrop 3 mg / 0.5 (3 ml) UD INH SCH ×7 (00:35→19:14)
[2018-07-26] MEDS: Acetylcysteine 20% Inhal Soln (4ml) INH SCH ×4 (03:34→19:08)
[2018-07-26 06:02] LABS: ABG ALLEN TEST POS; ARTERIAL BLOOD GAS HCO3 23.4 mmol/L (21-28); ARTERIAL BLOOD GAS HEMOGLOBIN 8.7 g/dL (11.7-17.4); ARTERIAL BLOOD GAS O2 SAT 99.4 % (95-98); ARTERIAL BLOOD GAS PCO2 33 mm/Hg (35-45); ARTERIAL BLOOD GAS PH 7.43 (7.35-7.45); ARTERIAL BLOOD GAS PO2 129 mm/Hg (80-100); ARTERIAL BLOOD GAS TCO2 22.9 mmol/L (22-28)
[2018-07-26 06:34] LABS: BASO % 0.1 % (0.0-2.0); HEMOGLOBIN 9.8 g/dL (12.0-18.0); LYMPH # 0.3 K/uL (1.0-4.3); LYMPH % 3.9 % (20.0-40.0); MEAN CELL VOLUME 87.3 fL (80.0-94.0); MEAN CORPUSCULAR HEMOGLOBIN 28.8 pg (27.0-31.0); MEAN PLATELET VOLUME 7.2 fL (7.2-11.7); MONO # 0.1 K/uL (0.0-0.8); MONO % 1.7 % (0.0-10.0); NEUT # 7.6 K/uL (1.8-7.0); NEUT % 94.3 % (50.0-75.0); PLATELET COUNT 258 K/uL (130-400); RBC 3.39 Mil/uL (4.40-5.90); RED CELL DISTRIBUTION WIDTH 14.7 % (11.5-14.5)
[2018-07-26 06:45] LABS: ALB/GLOB RATIO 0.9 (1.0-2.1); ALBUMIN 2.6 g/dL (3.5-5.0); ALT/SGPT 7 U/L (21-72); AST/SGOT 14 U/L (17-59); BLOOD UREA NITROGEN 18 mg/dL (9-20); CALCIUM 8.7 mg/dl (8.6-10.4); GFR NON-AFRICAN AMERICAN > 60
[2018-07-26] MEDS: Dextrose 5%/0.9% NS 1,000 ML IV SCH ×3 (06:46→20:12)
--- NOTE | 2018-07-26 07:29 | CP.CCUPN ---
<JulianGaurav - Last Filed: 07/26/18 16:35> CCU Subjective - Physician Review Subjective (Free Text): ICU Progress Note for Dr. Vyas Pt seen and examined at bedside. Currently intubated and sedated on Propofol. Further HPI and ROS unobtainable due to pt's current clinical status. Plan for b ronchoscopy today. CCU Objective - Vital Signs / Intake & Output Vital Signs (Last 4 hours): Vital Signs Temp Pulse Resp BP Pulse Ox 07/26/18 07:00 85 18 97 07/26/18 06:34 86 19 122/61 96 07/26/18 05:34 94 H 22 120/59 L 94 L 07/26/18 05:00 94 H 17 98 07/26/18 04:34 92 H 18 127/59 L 98 07/26/18 04:00 98.7 F 07/26/18 03:34 96 H 23 136/55 L 98 Intake and Output (Last 8hrs): Intake & Output 07/25/18 07/26/18 07/26/18 22:59 06:59 14:59 Intake Total 1251 858 86 Output Total 0 550 Balance 1251 308 86 Intake: IV 25 75 Intake, IV Amount 1166 713 86 Left Forearm 900 625 75 Left forearm 1 200 Right Forearm 66 88 11 Tube Feeding 40 Other 60 30 Output: Urine 0 550 Condom 0 0 Straight 550 Other: # Bowel Movements 0 - Physical Exam Head: Positive for: Atraumatic, Normocephalic Pupils: Positive for: PERRL Conjunctiva: Positive for: Normal Mouth: Positive for: Moist Mucous Membranes Respiratory/Chest: Positive for: Rales. Negative for: Respiratory Distress, Accessory Muscle Use Cardiovascular: Positive for: Normal S1, S2, Tachycardic. Negative for: Murmurs, Rub, Gallop Abdomen: Positive for: Normal Bowel Sounds. Negative for: Tenderness, Distention, Mass/Organomegaly Lower Extremity: Positive for: NORMAL PULSES, Neurovascularly Intact, Capillary Refill < 2 s. Negative for: Edema Neurological: Positive for: Other (intubated and sedated) Skin: Positive for: Warm, Dry Psychiatric: Positive for: Other (intubated and sedated) - Medications Active Medications: Active Medications Generic Name Dose Route Start Last Admin Trade Name Freq PRN Reason Stop Dose Admin Acetylcysteine 4 ml 07/25/18 20:00 07/26/18 03:34 Acetylcysteine 20% INH 4 ml RQ6 NATALIE Administration Albuterol/Ipratropium 3 ml 07/25/18 20:00 07/26/18 03:34 Duoneb 3 Mg/0.5 Mg (3 Ml) Ud INH 3 ml RQ4 NATALIE Administration Aspirin 81 mg 07/23/18 10:00 07/25/18 10:22 Ecotrin PO 81 mg DAILY NATALIE Administration Docusate Sodium 100 mg 07/23/18 10:00 07/25/18 17:21 Colace PO Not Given BID NATALIE Heparin Sodium (Porcine) 5,000 units 07/24/18 10:00 07/25/18 21:41 Heparin SC 5,000 units Q12 NATALIE Administration Doxycycline Hyclate 100 mg/ 100 mls @ 100 mls/hr 07/23/18 22:00 07/25/18 21:41 Sodium Chloride IVPB 100 mls/hr Q12H NATALIE Administration Protocol Vancomycin HCl 500 mg/ Sodium 100 mls @ 67 mls/hr 07/23/18 22:00 07/25/18 22:56 Chloride IVPB 67 mls/hr Q12H NATALIE Administration Protocol Propofol 1,000 mg in 100 mls @ 2.245 mls/hr 07/25/18 16:42 07/25/18 23:24 Diprivan IV 25 mcg/kg/min .Q24H PRN 11.226 mls/hr TITRATE PER MD ORDER Administration Protocol 5 MCG/KG/MIN Dextrose/Sodium Chloride 1,000 mls @ 75 mls/hr 07/25/18 17:06 07/26/18 06:46 Dextrose 5%/0.9% Ns 1000 Ml IV Not Given .[id number] [facility] Losartan Potassium 25 mg 07/23/18 10:00 07/24/18 09:29 Cozaar PO 25 mg DAILY NATALIE Administration Metoprolol Succinate 50 mg 07/25/18 10:15 07/25/18 10:21 Toprol Xl PO 50 mg DAILY NATALIE Administration Oxycodone/Acetaminophen 1 tab 07/23/18 08:59 07/23/18 11:30 Percocet 5/325 Mg Tab PO 07/26/18 09:00 1 tab Q6H PRN Administration Pain, severe (8-10) Pantoprazole Sodium 40 mg 07/23/18 10:00 07/25/18 10:21 Protonix Ec Tab PO 40 mg DAILY NATALIE Administration Roflumilast 500 mcg 07/23/18 10:00 07/25/18 10:21 Daliresp PO 500 mcg DAILY NATALIE Administration Rosuvastatin Calcium 10 mg 07/23/18 22:00 07/25/18 21:41 Crestor PO 10 mg HS NATALIE Administration Tamsulosin HCl 0.4 mg 07/23/18 10:00 07/25/18 19:29 Flomax PO Not Given BID NATALIE - Patient Studies Lab Studies: Microbiology Studies 07/23/18 08:28 Blood Culture - Preliminary Blood NO GROWTH AFTER 48 HOURS 07/23/18 08:28 Blood Culture - Preliminary Blood NO GROWTH AFTER 48 HOURS Lab Studies 07/26/18 07/26/18 07/26/18 Range/Units 06:24 06:22 06:22 WBC 8.0 (4.8-10.8) K/uL RBC 3.39 L (4.40-5.90) Mil/uL Hgb 9.8 L (12.0-18.0) g/dL Hct 29.6 L (35.0-51.0) % MCV 87.3 (80.0-94.0) fL MCH 28.8 (27.0-31.0) pg MCHC 33.0 (33.0-37.0) g/dL RDW 14.7 H (11.5-14.5) % Plt Count 258 (130-400) K/uL MPV 7.2 (7.2-11.7) fL Neut % (Auto) 94.3 H (50.0-75.0) % Lymph % (Auto) 3.9 L (20.0-40.0) % [place] % (Auto) 1.7 (0.0-10.0) % Eos % (Auto) 0.0 (0.0-4.0) % Baso % (Auto) 0.1 (0.0-2.0) % Neut # (Auto) 7.6 H (1.8-7.0) K/uL Lymph # (Auto) 0.3 L (1.0-4.3) K/uL [place] # (Auto) 0.1 (0.0-0.8) K/uL Eos # (Auto) 0.0 (0.0-0.7) K/uL Baso # (Auto) 0.0 (0.0-0.2) K/uL Neutrophils % (Manual) (50-75) % Band Neutrophils % (0-2) % Lymphocytes % (Manual) (20-40) % Monocytes % (Manual) (0-10) % Platelet Estimate (NORMAL) Microcytosis (manual) Rouleaux Puncture Site pCO2 (35-45) mm/Hg pO2 (80-100) mm/Hg HCO3 (21-28) mmol/L ABG pH (7.35-7.45) ABG Total CO2 (22-28) mmol/L ABG O2 Saturation (95-98) % ABG Base Excess (-2.0-3.0) mmol/L ABG Hemoglobin (11.7-17.4) g/dL ABG Carboxyhemoglobin (0.5-1.5) % POC ABG HHb (Measured) (0.0-5.0) % ABG Methemoglobin (0.0-3.0) % Hua Test ABG Potassium (3.6-5.2) mmol/L A-a O2 Difference mm/Hg Respiratory Index Hgb O2 Saturation (95.0-98.0) % Sodium 138 (132-148) mmol/l Chloride 105 (98-107) mmol/L Glucose (75-110) mg/dl Lactate (0.7-2.1) mmol/L Liter Flow Vent Mode Mechanical Rate FiO2 % Tidal Volume PEEP Potassium 3.4 L (3.6-5.2) mmol/L Carbon Dioxide 28 (22-30) mmol/L Anion Gap 9 L (10-20) BUN 18 (9-20) mg/dL Creatinine 0.7 L (0.8-1.5) mg/dL Est GFR ( Amer) > 60 Est GFR (Non-Af Amer) > 60 POC Glucose (mg/dL) (65-110) mg/dL Random Glucose 156 H (75-110) mg/dL Lactic Acid (0.7-2.1) mmol/L Calcium 8.7 (8.6-10.4) mg/dl Phosphorus 2.8 (2.5-4.5) mg/dL Magnesium 2.1 (1.6-2.3) mg/dL Total Bilirubin 0.2 (0.2-1.3) mg/dL AST 14 L (17-59) U/L ALT 7 L (21-72) U/L Alkaline Phosphatase 127 H (38-126) U/L Total Protein 5.7 L (6.3-8.3) g/dL Albumin 2.6 L (3.5-5.0) g/dL Globulin 3.1 (2.2-3.9) gm/dL Albumin/Globulin Ratio 0.9 L (1.0-2.1) Procalcitonin (0.19-0.49) NG/ML Arterial Blood Potassium (3.6-5.2) mmol/L 07/26/18 07/25/18 07/25/18 Range/Units 05:18 19:10 16:11 WBC (4.8-10.8) K/uL RBC (4.40-5.90) Mil/uL Hgb (12.0-18.0) g/dL Hct (35.0-51.0) % MCV (80.0-94.0) fL MCH (27.0-31.0) pg MCHC (33.0-37.0) g/dL RDW (11.5-14.5) % Plt Count (130-400) K/uL MPV (7.2-11.7) fL Neut % (Auto) (50.0-75.0) % Lymph % (Auto) (20.0-40.0) % [place] % (Auto) (0.0-10.0) % Eos % (Auto) (0.0-4.0) % Baso % (Auto) (0.0-2.0) % Neut # (Auto) (1.8-7.0) K/uL Lymph # (Auto) (1.0-4.3) K/uL [place] # (Auto) (0.0-0.8) K/uL Eos # (Auto) (0.0-0.7) K/uL Baso # (Auto) (0.0-0.2) K/uL Neutrophils % (Manual) (50-75) % Band Neutrophils % (0-2) % Lymphocytes % (Manual) (20-40) % Monocytes % (Manual) (0-10) % Platelet Estimate (NORMAL) Microcytosis (manual) Rouleaux Puncture Site R rad Lr pCO2 33 L 37 (35-45) mm/Hg pO2 129 H 188 H (80-100) mm/Hg HCO3 23.4 25.2 (21-28) mmol/L ABG pH 7.43 7.43 (7.35-7.45) ABG Total CO2 22.9 25.7 (22-28) mmol/L ABG O2 Saturation 99.4 H 99.2 H (95-98) % ABG Base Excess -2.0 0.4 (-2.0-3.0) mmol/L ABG Hemoglobin 8.7 L 10.0 L (11.7-17.4) g/dL ABG Carboxyhemoglobin 1.5 1.5 (0.5-1.5) % POC ABG HHb (Measured) 0.6 0.8 (0.0-5.0) % ABG Methemoglobin 0.7 1.3 (0.0-3.0) % Hua Test Pos Unable ABG Potassium (3.6-5.2) mmol/L A-a O2 Difference 186.0 265.0 mm/Hg Respiratory Index 1.4 1.4 Hgb O2 Saturation 97.2 96.4 (95.0-98.0) % Sodium (132-148) mmol/l Chloride (98-107) mmol/L Glucose (75-110) mg/dl Lactate (0.7-2.1) mmol/L Liter Flow Vent Mode Prvc Prvc Mechanical Rate 16 16 FiO2 50.0 70.0 % Tidal Volume 500 500 PEEP 5 5 Potassium (3.6-5.2) mmol/L Carbon Dioxide (22-30) mmol/L Anion Gap (10-20) BUN (9-20) mg/dL Creatinine (0.8-1.5) mg/dL Est GFR ( Amer) Est GFR (Non-Af Amer) POC Glucose (mg/dL) (65-110) mg/dL Random Glucose (75-110) mg/dL Lactic Acid 1.6 (0.7-2.1) mmol/L Calcium (8.6-10.4) mg/dl Phosphorus (2.5-4.5) mg/dL Magnesium (1.6-2.3) mg/dL Total Bilirubin (0.2-1.3) mg/dL AST (17-59) U/L ALT (21-72) U/L Alkaline Phosphatase (38-126) U/L Total Protein (6.3-8.3) g/dL Albumin (3.5-5.0) g/dL Globulin (2.2-3.9) gm/dL Albumin/Globulin Ratio (1.0-2.1) Procalcitonin (0.19-0.49) NG/ML Arterial Blood Potassium (3.6-5.2) mmol/L 07/25/18 07/25/18 07/25/18 Range/Units 16:11 16:11 16:11 WBC 8.0 (4.8-10.8) K/uL RBC 3.63 L (4.40-5.90) Mil/uL Hgb 10.2 L (12.0-18.0) g/dL Hct 31.6 L (35.0-51.0) % MCV 87.2 D (80.0-94.0) fL MCH 28.1 (27.0-31.0) pg MCHC 32.3 L (33.0-37.0) g/dL RDW 14.6 H (11.5-14.5) % Plt Count 242 (130-400) K/uL MPV 6.9 L (7.2-11.7) fL Neut % (Auto) 92.3 H (50.0-75.0) % Lymph % (Auto) 4.2 L (20.0-40.0) % [place] % (Auto) 3.1 (0.0-10.0) % Eos % (Auto) 0.0 (0.0-4.0) % Baso % (Auto) 0.4 (0.0-2.0) % Neut # (Auto) 7.4 H (1.8-7.0) K/uL Lymph # (Auto) 0.3 L (1.0-4.3) K/uL [place] # (Auto) 0.2 (0.0-0.8) K/uL Eos # (Auto) 0.0 (0.0-0.7) K/uL Baso # (Auto) 0.0 (0.0-0.2) K/uL Neutrophils % (Manual) 92 H (50-75) % Band Neutrophils % 1 (0-2) % Lymphocytes % (Manual) 4 L (20-40) % Monocytes % (Manual) 3 (0-10) % Platelet Estimate Normal (NORMAL) Microcytosis (manual) Slight Rouleaux Slight Puncture Site pCO2 (35-45) mm/Hg pO2 (80-100) mm/Hg HCO3 (21-28) mmol/L ABG pH (7.35-7.45) ABG Total CO2 (22-28) mmol/L ABG O2 Saturation (95-98) % ABG Base Excess (-2.0-3.0) mmol/L ABG Hemoglobin (11.7-17.4) g/dL ABG Carboxyhemoglobin (0.5-1.5) % POC ABG HHb (Measured) (0.0-5.0) % ABG Methemoglobin (0.0-3.0) % Hua Test ABG Potassium (3.6-5.2) mmol/L A-a O2 Difference mm/Hg Respiratory Index Hgb O2 Saturation (95.0-98.0) % Sodium 135 (132-148) mmol/l Chloride 102 (98-107) mmol/L Glucose (75-110) mg/dl Lactate (0.7-2.1) mmol/L Liter Flow Vent Mode Mechanical Rate FiO2 % Tidal Volume PEEP Potassium 3.2 L (3.6-5.2) mmol/L Carbon Dioxide 28 (22-30) mmol/L Anion Gap 9 L (10-20) BUN 18 (9-20) mg/dL Creatinine 0.7 L (0.8-1.5) mg/dL Est GFR ( Amer) > 60 Est GFR (Non-Af Amer) > 60 POC Glucose (mg/dL) (65-110) mg/dL Random Glucose 139 H D (75-110) mg/dL Lactic Acid (0.7-2.1) mmol/L Calcium 8.5 L (8.6-10.4) mg/dl Phosphorus (2.5-4.5) mg/dL Magnesium (1.6-2.3) mg/dL Total Bilirubin 0.4 (0.2-1.3) mg/dL AST 15 L D (17-59) U/L ALT 8 L D (21-72) U/L Alkaline Phosphatase 116 (38-126) U/L Total Protein 5.9 L (6.3-8.3) g/dL Albumin 2.7 L (3.5-5.0) g/dL Globulin 3.1 (2.2-3.9) gm/dL Albumin/Globulin Ratio 0.9 L (1.0-2.1) Procalcitonin 0.23 (0.19-0.49) NG/ML Arterial Blood Potassium (3.6-5.2) mmol/L 07/25/18 07/25/18 07/25/18 Range/Units 16:10 11:46 06:16 WBC (4.8-10.8) K/uL RBC (4.40-5.90) Mil/uL Hgb (12.0-18.0) g/dL Hct (35.0-51.0) % MCV (80.0-94.0) fL MCH (27.0-31.0) pg MCHC (33.0-37.0) g/dL RDW (11.5-14.5) % Plt Count (130-400) K/uL MPV (7.2-11.7) fL Neut % (Auto) (50.0-75.0) % Lymph % (Auto) (20.0-40.0) % [place] % (Auto) (0.0-10.0) % Eos % (Auto) (0.0-4.0) % Baso % (Auto) (0.0-2.0) % Neut # (Auto) (1.8-7.0) K/uL Lymph # (Auto) (1.0-4.3) K/uL [place] # (Auto) (0.0-0.8) K/uL Eos # (Auto) (0.0-0.7) K/uL Baso # (Auto) (0.0-0.2) K/uL Neutrophils % (Manual) (50-75) % Band Neutrophils % (0-2) % Lymphocytes % (Manual) (20-40) % Monocytes % (Manual) (0-10) % Platelet Estimate (NORMAL) Microcytosis (manual) Rouleaux Puncture Site Rra pCO2 39 (35-45) mm/Hg pO2 95 (80-100) mm/Hg HCO3 27.3 (21-28) mmol/L ABG pH 7.45 (7.35-7.45) ABG Total CO2 28.3 H (22-28) mmol/L ABG O2 Saturation 99.6 H (95-98) % ABG Base Excess 3.0 (-2.0-3.0) mmol/L ABG Hemoglobin (11.7-17.4) g/dL ABG Carboxyhemoglobin (0.5-1.5) % POC ABG HHb (Measured) (0.0-5.0) % ABG Methemoglobin (0.0-3.0) % Hua Test Pos ABG Potassium 2.8 L (3.6-5.2) mmol/L A-a O2 Difference 569.0 mm/Hg Respiratory Index 6.0 Hgb O2 Saturation (95.0-98.0) % Sodium 137.0 (132-148) mmol/l Chloride 107.0 (98-107) mmol/L Glucose 129 H (75-110) mg/dl Lactate 1.4 (0.7-2.1) mmol/L Liter Flow 15.0 Vent Mode Mechanical Rate FiO2 100.0 % Tidal Volume PEEP Potassium (3.6-5.2) mmol/L Carbon Dioxide (22-30) mmol/L Anion Gap (10-20) BUN (9-20) mg/dL Creatinine (0.8-1.5) mg/dL Est GFR ( Amer) Est GFR (Non-Af Amer) POC Glucose (mg/dL) 116 H 102 (65-110) mg/dL Random Glucose (75-110) mg/dL Lactic Acid (0.7-2.1) mmol/L Calcium (8.6-10.4) mg/dl Phosphorus (2.5-4.5) mg/dL Magnesium (1.6-2.3) mg/dL Total Bilirubin (0.2-1.3) mg/dL AST (17-59) U/L ALT (21-72) U/L Alkaline Phosphatase (38-126) U/L Total Protein (6.3-8.3) g/dL Albumin (3.5-5.0) g/dL Globulin (2.2-3.9) gm/dL Albumin/Globulin Ratio (1.0-2.1) Procalcitonin (0.19-0.49) NG/ML Arterial Blood Potassium 2.8 L (3.6-5.2) mmol/L Laboratory Results - last 24 hr 07/25/18 07/25/18 07/25/18 06:16 11:46 16:10 WBC RBC Hgb Hct MCV MCH MCHC RDW Plt Count MPV Neut % (Auto) Lymph % (Auto) [place] % (Auto) Eos % (Auto) Baso % (Auto) Neut # (Auto) Lymph # (Auto) [place] # (Auto) Eos # (Auto) Baso # (Auto) Neutrophils % (Manual) Band Neutrophils % Lymphocytes % (Manual) Monocytes % (Manual) Platelet Estimate Microcytosis (manual) Rouleaux Puncture Site Rra pCO2 39 pO2 95 HCO3 27.3 ABG pH 7.45 ABG Total CO2 28.3 H ABG O2 Saturation 99.6 H ABG Base Excess 3.0 ABG Hemoglobin ABG Carboxyhemoglobin POC ABG HHb (Measured) ABG Methemoglobin Hua Test Pos ABG Potassium 2.8 L A-a O2 Difference 569.0 Respiratory Index 6.0 Hgb O2 Saturation Sodium 137.0 Chloride 107.0 Glucose 129 H Lactate 1.4 Liter Flow 15.0 Vent Mode Mechanical Rate FiO2 100.0 Tidal Volume PEEP Potassium Carbon Dioxide Anion Gap BUN Creatinine Est GFR ( Amer) Est GFR (Non-Af Amer) POC Glucose (mg/dL) 102 116 H Random Glucose Lactic Acid Calcium Phosphorus Magnesium Total Bilirubin AST ALT Alkaline Phosphatase Total Protein Albumin Globulin Albumin/Globulin Ratio Procalcitonin Arterial Blood Potassium 2.8 L 07/25/18 07/25/18 07/25/18 16:11 16:11 16:11 WBC 8.0 RBC 3.63 L Hgb 10.2 L Hct 31.6 L MCV 87.2 D MCH 28.1 MCHC 32.3 L RDW 14.6 H Plt Count 242 MPV 6.9 L Neut % (Auto) 92.3 H Lymph % (Auto) 4.2 L [place] % (Auto) 3.1 Eos % (Auto) 0.0 Baso % (Auto) 0.4 Neut # (Auto) 7.4 H Lymph # (Auto) 0.3 L [place] # (Auto) 0.2 Eos # (Auto) 0.0 Baso # (Auto) 0.0 Neutrophils % (Manual) 92 H Band Neutrophils % 1 Lymphocytes % (Manual) 4 L Monocytes % (Manual) 3 Platelet Estimate Normal Microcytosis (manual) Slight Rouleaux Slight Puncture Site pCO2 pO2 HCO3 ABG pH ABG Total CO2 ABG O2 Saturation ABG Base Excess ABG Hemoglobin ABG Carboxyhemoglobin POC ABG HHb (Measured) ABG Methemoglobin Hua Test ABG Potassium A-a O2 Difference Respiratory Index Hgb O2 Saturation Sodium 135 Chloride 102 Glucose Lactate Liter Flow Vent Mode Mechanical Rate FiO2 Tidal Volume PEEP Potassium 3.2 L Carbon Dioxide 28 Anion Gap 9 L BUN 18 Creatinine 0.7 L Est GFR ( Amer) > 60 Est GFR (Non-Af Amer) > 60 POC Glucose (mg/dL) Random Glucose 139 H D Lactic Acid Calcium 8.5 L Phosphorus Magnesium Total Bilirubin 0.4 AST 15 L D ALT 8 L D Alkaline Phosphatase 116 Total Protein 5.9 L Albumin 2.7 L Globulin 3.1 Albumin/Globulin Ratio 0.9 L Procalcitonin 0.23 Arterial Blood Potassium 07/25/18 07/25/18 07/26/18 16:11 19:10 05:18 WBC RBC Hgb Hct MCV MCH MCHC RDW Plt Count MPV Neut % (Auto) Lymph % (Auto) [place] % (Auto) Eos % (Auto) Baso % (Auto) Neut # (Auto) Lymph # (Auto) [place] # (Auto) Eos # (Auto) Baso # (Auto) Neutrophils % (Manual) Band Neutrophils % Lymphocytes % (Manual) Monocytes % (Manual) Platelet Estimate Microcytosis (manual) Rouleaux Puncture Site Lr R rad pCO2 37 33 L pO2 188 H 129 H HCO3 25.2 23.4 ABG pH 7.43 7.43 ABG Total CO2 25.7 22.9 ABG O2 Saturation 99.2 H 99.4 H ABG Base Excess 0.4 -2.0 ABG Hemoglobin 10.0 L 8.7 L ABG Carboxyhemoglobin 1.5 1.5 POC ABG HHb (Measured) 0.8 0.6 ABG Methemoglobin 1.3 0.7 Hua Test Unable Pos ABG Potassium A-a O2 Difference 265.0 186.0 Respiratory Index 1.4 1.4 Hgb O2 Saturation 96.4 97.2 Sodium Chloride Glucose Lactate Liter Flow Vent Mode Prvc Prvc Mechanical Rate 16 16 FiO2 70.0 50.0 Tidal Volume 500 500 PEEP 5 5 Potassium Carbon Dioxide Anion Gap BUN Creatinine Est GFR ( Amer) Est GFR (Non-Af Amer) POC Glucose (mg/dL) Random Glucose Lactic Acid 1.6 Calcium Phosphorus Magnesium Total Bilirubin AST ALT Alkaline Phosphatase Total Protein Albumin Globulin Albumin/Globulin Ratio Procalcitonin Arterial Blood Potassium 07/26/18 07/26/18 07/26/18 06:22 06:22 06:24 WBC 8.0 RBC 3.39 L Hgb 9.8 L Hct 29.6 L MCV 87.3 MCH 28.8 MCHC 33.0 RDW 14.7 H Plt Count 258 MPV 7.2 Neut % (Auto) 94.3 H Lymph % (Auto) 3.9 L [place] % (Auto) 1.7 Eos % (Auto) 0.0 Baso % (Auto) 0.1 Neut # (Auto) 7.6 H Lymph # (Auto) 0.3 L [place] # (Auto) 0.1 Eos # (Auto) 0.0 Baso # (Auto) 0.0 Neutrophils % (Manual) Band Neutrophils % Lymphocytes % (Manual) Monocytes % (Manual) Platelet Estimate Microcytosis (manual) Rouleaux Puncture Site pCO2 pO2 HCO3 ABG pH ABG Total CO2 ABG O2 Saturation ABG Base Excess ABG Hemoglobin ABG Carboxyhemoglobin POC ABG HHb (Measured) ABG Methemoglobin Hua Test ABG Potassium A-a O2 Difference Respiratory Index Hgb O2 Saturation Sodium 138 Chloride 105 Glucose Lactate Liter Flow Vent Mode Mechanical Rate FiO2 Tidal Volume PEEP Potassium 3.4 L Carbon Dioxide 28 Anion Gap 9 L BUN 18 Creatinine 0.7 L Est GFR ( Amer) > 60 Est GFR (Non-Af Amer) > 60 POC Glucose (mg/dL) Random Glucose 156 H Lactic Acid Calcium 8.7 Phosphorus 2.8 Magnesium 2.1 Total Bilirubin 0.2 AST 14 L ALT 7 L Alkaline Phosphatase 127 H Total Protein 5.7 L Albumin 2.6 L Globulin 3.1 Albumin/Globulin Ratio 0.9 L Procalcitonin Arterial Blood Potassium Radiology Impressions: Radiology Impressions Chest X-Ray 07/25/18 16:00 IMPRESSION: Cardiomegaly and worsening pulmonary venous congestion compatible with CHF. Interval increase left pleural effusion. Other findings as above. Chest X-Ray 07/25/18 17:11 IMPRESSION: NG tube. Endotracheal tube terminates approximately 3.3 cm above the chandrika. Biapical pleural thickening. Persistent pulmonary venous congestion and bilateral central vascular prominence. Edema like pattern. Left-sided AICD. Fingerstick Blood Sugar Results: 146 Review of Systems - Review of Systems Systems not reviewed;Unavailable: Intubated Assessment/Plan - Assessment and Plan (Free Text) Assessment: 82 y o male with PMhx COPD, HTN, HLD, CAD, s/p AICD implantation, TIA, who presented to the ED brought in by his s/p fall and with c/o fever. As per chart review, pt was trying to reach something at home, slipped and fell on floor. Pt at time was unable to get up, and EMS was called. Pt has reported hx of multiple recent falls prior to fall that led to this current admission. Currently being treated for aspiration PNA with Vanco/Doxycycline/Aztreonam. 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 Acute respiratory distress likely 2/2 aspiration PNA. Currently intubated and sedated in ICU at this time. Plan for bronchoscopy today. Plan: Neuro: -Intubated and sedated on Propofol drip -Cont to monitor -Head CT on admission 07/23: No intracranial mass, hemorrhage or evidence of acute infarct. Atrophy and chronic white matter ischemic change. 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 -Hip/pelvis/shoulder XRs neg for acute fx Cardio: -Hx HTN, HLD, CAD, s/p AICD implantation -Cardiology (Dr. Bains) consulted, recs appreciated -ASA -Cozaar 25 mg PO daily -Toprol XL 50 mg PO daily -Crestor daily Pulm: -Acute respiratory distress likely 2/2 aspiration PNA -On Doxycycline/Vanco, s/p Aztreonam x1 during TE[employer] DEVELOPER -Intubated and sedated on Propofol -Hx COPD, TIA -Duonebs q4h -S/p Solu-Medrol 40 mg IVP x1 during TE[employer]ITE DEVELOPER -On Mucomyst q6h -Recent CXR today: Possible small b/l pleural effusion. Resolved congestive change. -Daliresp -Cont to monitor GI: -NPO -IVF at 75 cc/hr -Tube feeds started -CT abd/pelvis on admission: Multiple pelvic fractures, likely nonacute. Compression fxs of T11 and L1 vertebral bodies, indeterminate age. L lower lobe consolidation. No other acute abnormalities. -Protonix -Colace bid -No acute issues at this time Heme: -H/H 9.8/29.6, cont to trend ID: -Aspiration PNA -Anbx as noted above -CXR findings as noted above -Tmax 100.4 24 hrs prior -Blood and urine cxs NGTD Renal: -Bun/Cr wnl -Trend I's/O's PPX: -Protonix, Heparin -PT eval ordered Dispo: To have bronchoscopy today. Pt seen, examined with, and plan discussed with Dr. Vyas, attending physician. Gaurav Jordan DO PGY-1, Store Receiver Pager #[phone] <Young Vyas S - Last Filed: 07/26/18 16:57> CCU Subjective - Physician Review Critical Care Time Spent (in minutes): 45 CCU Objective - Vital Signs / Intake & Output Vital Signs (Last 4 hours): Vital Signs Pulse Resp Pulse Ox 07/26/18 13:00 97 H 20 98 Intake and Output (Last 8hrs): Intake & Output 07/26/18 07/26/18 07/26/18 06:59 14:59 22:59 Intake Total 858 724 84 Output Total 550 50 Balance 308 674 84 Intake: IV 75 116 84 Intake, IV Amount 713 608 Left Forearm 625 525 Right Forearm 88 83 Tube Feeding 40 Other 30 Output: Urine 550 Condom 0 Straight 550 Emesis 50 Other: # Bowel Movements 0 0 - Medications Active Medications: Active Medications Generic Name Dose Route Start Last Admin Trade Name Freq PRN Reason Stop Dose Admin Acetylcysteine 4 ml 07/25/18 20:00 07/26/18 13:05 Acetylcysteine 20% INH 4 ml RQ6 NATALIE Administration Albuterol/Ipratropium 3 ml 07/25/18 20:00 07/26/18 13:05 Duoneb 3 Mg/0.5 Mg (3 Ml) Ud INH 3 ml RQ4 NATALIE Administration Aspirin 81 mg 07/23/18 10:00 07/25/18 10:22 Ecotrin PO 81 mg DAILY NATALIE Administration Docusate Sodium 100 mg 07/23/18 10:00 07/26/18 10:00 Colace PO Not Given BID NATALIE Heparin Sodium (Porcine) 5,000 units 07/24/18 10:00 07/26/18 09:47 Heparin SC 5,000 units Q12 NATALIE Administration Doxycycline Hyclate 100 mg/ 100 mls @ 100 mls/hr 07/23/18 22:00 07/26/18 09:42 Sodium Chloride IVPB 100 mls/hr Q12H NATALIE Administration Protocol Vancomycin HCl 500 mg/ Sodium 100 mls @ 67 mls/hr 07/23/18 22:00 07/26/18 11:27 Chloride IVPB 67 mls/hr Q12H NATALIE Administration Protocol Propofol 1,000 mg in 100 mls @ 2.245 mls/hr 07/25/18 16:42 07/26/18 16:11 Diprivan IV 30 mcg/kg/min .Q24H PRN 13.472 mls/hr TITRATE PER MD ORDER Administration Protocol 5 MCG/KG/MIN Dextrose/Sodium Chloride 1,000 mls @ 75 mls/hr 07/25/18 17:06 07/26/18 09:42 Dextrose 5%/0.9% Ns 1000 Ml IV 75 mls/hr .[id number] NATALIE Administration Losartan Potassium 25 mg 07/23/18 10:00 07/24/18 09:29 Cozaar PO 25 mg DAILY NATALIE Administration Metoprolol Tartrate 25 mg 07/26/18 12:45 07/26/18 12:55 Lopressor PO 25 mg Q12H NATALIE Administration Pantoprazole Sodium 40 mg 07/26/18 10:00 07/26/18 09:46 Protonix Inj IVP 40 mg DAILY NATALIE Administration Roflumilast 500 mcg 07/23/18 10:00 07/25/18 10:21 Daliresp PO 500 mcg DAILY NATALIE Administration Rosuvastatin Calcium 10 mg 07/23/18 22:00 07/25/18 21:41 Crestor PO 10 mg HS NATALIE Administration Tamsulosin HCl 0.4 mg 07/23/18 10:00 07/26/18 10:00 Flomax PO Not Given BID NATALIE - Patient Studies Lab Studies: Microbiology Studies 07/23/18 08:28 Blood Culture - Preliminary Blood NO GROWTH AFTER 3 DAYS 07/23/18 08:28 Blood Culture - Preliminary Blood NO GROWTH AFTER 3 DAYS Lab Studies 07/26/18 07/26/18 07/26/18 Range/Units 06:24 06:22 06:22 WBC 8.0 (4.8-10.8) K/uL RBC 3.39 L (4.40-5.90) Mil/uL Hgb 9.8 L (12.0-18.0) g/dL Hct 29.6 L (35.0-51.0) % MCV 87.3 (80.0-94.0) fL MCH 28.8 (27.0-31.0) pg MCHC 33.0 (33.0-37.0) g/dL RDW 14.7 H (11.5-14.5) % Plt Count 258 (130-400) K/uL MPV 7.2 (7.2-11.7) fL Neut % (Auto) 94.3 H (50.0-75.0) % Lymph % (Auto) 3.9 L (20.0-40.0) % [place] % (Auto) 1.7 (0.0-10.0) % Eos % (Auto) 0.0 (0.0-4.0) % Baso % (Auto) 0.1 (0.0-2.0) % Neut # (Auto) 7.6 H (1.8-7.0) K/uL Lymph # (Auto) 0.3 L (1.0-4.3) K/uL [place] # (Auto) 0.1 (0.0-0.8) K/uL Eos # (Auto) 0.0 (0.0-0.7) K/uL Baso # (Auto) 0.0 (0.0-0.2) K/uL Neutrophils % (Manual) 94 H (50-75) % Band Neutrophils % (0-2) % Lymphocytes % (Manual) 3 L (20-40) % Monocytes % (Manual) 3 (0-10) % Platelet Estimate Normal (NORMAL) Polychromasia Slight Hypochromasia (manual) Slight Microcytosis (manual) Rouleaux Puncture Site pCO2 (35-45) mm/Hg pO2 (80-100) mm/Hg HCO3 (21-28) mmol/L ABG pH (7.35-7.45) ABG Total CO2 (22-28) mmol/L ABG O2 Saturation (95-98) % ABG Base Excess (-2.0-3.0) mmol/L ABG Hemoglobin (11.7-17.4) g/dL ABG Carboxyhemoglobin (0.5-1.5) % POC ABG HHb (Measured) (0.0-5.0) % ABG Methemoglobin (0.0-3.0) % Hua Test A-a O2 Difference mm/Hg Respiratory Index Hgb O2 Saturation (95.0-98.0) % Vent Mode Mechanical Rate FiO2 % Tidal Volume PEEP Sodium 138 (132-148) mmol/L Potassium 3.4 L (3.6-5.2) mmol/L Chloride 105 (98-107) mmol/L Carbon Dioxide 28 (22-30) mmol/L Anion Gap 9 L (10-20) BUN 18 (9-20) mg/dL Creatinine 0.7 L (0.8-1.5) mg/dL Est GFR ( Amer) > 60 Est GFR (Non-Af Amer) > 60 Random Glucose 156 H (75-110) mg/dL Calcium 8.7 (8.6-10.4) mg/dl Phosphorus 2.8 (2.5-4.5) mg/dL Magnesium 2.1 (1.6-2.3) mg/dL Total Bilirubin 0.2 (0.2-1.3) mg/dL AST 14 L (17-59) U/L ALT 7 L (21-72) U/L Alkaline Phosphatase 127 H (38-126) U/L Total Protein 5.7 L (6.3-8.3) g/dL Albumin 2.6 L (3.5-5.0) g/dL Globulin 3.1 (2.2-3.9) gm/dL Albumin/Globulin Ratio 0.9 L (1.0-2.1) Procalcitonin (0.19-0.49) NG/ML 07/26/18 07/25/18 07/25/18 Range/Units 05:18 19:10 16:11 WBC (4.8-10.8) K/uL RBC (4.40-5.90) Mil/uL Hgb (12.0-18.0) g/dL Hct (35.0-51.0) % MCV (80.0-94.0) fL MCH (27.0-31.0) pg MCHC (33.0-37.0) g/dL RDW (11.5-14.5) % Plt Count (130-400) K/uL MPV (7.2-11.7) fL Neut % (Auto) (50.0-75.0) % Lymph % (Auto) (20.0-40.0) % [place] % (Auto) (0.0-10.0) % Eos % (Auto) (0.0-4.0) % Baso % (Auto) (0.0-2.0) % Neut # (Auto) (1.8-7.0) K/uL Lymph # (Auto) (1.0-4.3) K/uL [place] # (Auto) (0.0-0.8) K/uL Eos # (Auto) (0.0-0.7) K/uL Baso # (Auto) (0.0-0.2) K/uL Neutrophils % (Manual) (50-75) % Band Neutrophils % (0-2) % Lymphocytes % (Manual) (20-40) % Monocytes % (Manual) (0-10) % Platelet Estimate (NORMAL) Polychromasia Hypochromasia (manual) Microcytosis (manual) Rouleaux Puncture Site R rad Lr pCO2 33 L 37 (35-45) mm/Hg pO2 129 H 188 H (80-100) mm/Hg HCO3 23.4 25.2 (21-28) mmol/L ABG pH 7.43 7.43 (7.35-7.45) ABG Total CO2 22.9 25.7 (22-28) mmol/L ABG O2 Saturation 99.4 H 99.2 H (95-98) % ABG Base Excess -2.0 0.4 (-2.0-3.0) mmol/L ABG Hemoglobin 8.7 L 10.0 L (11.7-17.4) g/dL ABG Carboxyhemoglobin 1.5 1.5 (0.5-1.5) % POC ABG HHb (Measured) 0.6 0.8 (0.0-5.0) % ABG Methemoglobin 0.7 1.3 (0.0-3.0) % Hua Test Pos Unable A-a O2 Difference 186.0 265.0 mm/Hg Respiratory Index 1.4 1.4 Hgb O2 Saturation 97.2 96.4 (95.0-98.0) % Vent Mode Prvc Prvc Mechanical Rate 16 16 FiO2 50.0 70.0 % Tidal Volume 500 500 PEEP 5 5 Sodium (132-148) mmol/L Potassium (3.6-5.2) mmol/L Chloride (98-107) mmol/L Carbon Dioxide (22-30) mmol/L Anion Gap (10-20) BUN (9-20) mg/dL Creatinine (0.8-1.5) mg/dL Est GFR ( Amer) Est GFR (Non-Af Amer) Random Glucose (75-110) mg/dL Calcium (8.6-10.4) mg/dl Phosphorus (2.5-4.5) mg/dL Magnesium (1.6-2.3) mg/dL Total Bilirubin (0.2-1.3) mg/dL AST (17-59) U/L ALT (21-72) U/L Alkaline Phosphatase (38-126) U/L Total Protein (6.3-8.3) g/dL Albumin (3.5-5.0) g/dL Globulin (2.2-3.9) gm/dL Albumin/Globulin Ratio (1.0-2.1) Procalcitonin 0.23 (0.19-0.49) NG/ML 07/25/18 Range/Units 16:11 WBC (4.8-10.8) K/uL RBC (4.40-5.90) Mil/uL Hgb (12.0-18.0) g/dL Hct (35.0-51.0) % MCV (80.0-94.0) fL MCH (27.0-31.0) pg MCHC (33.0-37.0) g/dL RDW (11.5-14.5) % Plt Count (130-400) K/uL MPV (7.2-11.7) fL Neut % (Auto) (50.0-75.0) % Lymph % (Auto) (20.0-40.0) % [place] % (Auto) (0.0-10.0) % Eos % (Auto) (0.0-4.0) % Baso % (Auto) (0.0-2.0) % Neut # (Auto) (1.8-7.0) K/uL Lymph # (Auto) (1.0-4.3) K/uL [place] # (Auto) (0.0-0.8) K/uL Eos # (Auto) (0.0-0.7) K/uL Baso # (Auto) (0.0-0.2) K/uL Neutrophils % (Manual) 92 H (50-75) % Band Neutrophils % 1 (0-2) % Lymphocytes % (Manual) 4 L (20-40) % Monocytes % (Manual) 3 (0-10) % Platelet Estimate Normal (NORMAL) Polychromasia Hypochromasia (manual) Microcytosis (manual) Slight Rouleaux Slight Puncture Site pCO2 (35-45) mm/Hg pO2 (80-100) mm/Hg HCO3 (21-28) mmol/L ABG pH (7.35-7.45) ABG Total CO2 (22-28) mmol/L ABG O2 Saturation (95-98) % ABG Base Excess (-2.0-3.0) mmol/L ABG Hemoglobin (11.7-17.4) g/dL ABG Carboxyhemoglobin (0.5-1.5) % POC ABG HHb (Measured) (0.0-5.0) % ABG Methemoglobin (0.0-3.0) % Hua Test A-a O2 Difference mm/Hg Respiratory Index Hgb O2 Saturation (95.0-98.0) % Vent Mode Mechanical Rate FiO2 % Tidal Volume PEEP Sodium (132-148) mmol/L Potassium (3.6-5.2) mmol/L Chloride (98-107) mmol/L Carbon Dioxide (22-30) mmol/L Anion Gap (10-20) BUN (9-20) mg/dL Creatinine (0.8-1.5) mg/dL Est GFR ( Amer) Est GFR (Non-Af Amer) Random Glucose (75-110) mg/dL Calcium (8.6-10.4) mg/dl Phosphorus (2.5-4.5) mg/dL Magnesium (1.6-2.3) mg/dL Total Bilirubin (0.2-1.3) mg/dL AST (17-59) U/L ALT (21-72) U/L Alkaline Phosphatase (38-126) U/L Total Protein (6.3-8.3) g/dL Albumin (3.5-5.0) g/dL Globulin (2.2-3.9) gm/dL Albumin/Globulin Ratio (1.0-2.1) Procalcitonin (0.19-0.49) NG/ML Laboratory Results - last 24 hr 07/25/18 07/25/18 07/25/18 16:11 16:11 19:10 WBC RBC Hgb Hct MCV MCH MCHC RDW Plt Count MPV Neut % (Auto) Lymph % (Auto) [place] % (Auto) Eos % (Auto) Baso % (Auto) Neut # (Auto) Lymph # (Auto) [place] # (Auto) Eos # (Auto) Baso # (Auto) Neutrophils % (Manual) 92 H Band Neutrophils % 1 Lymphocytes % (Manual) 4 L Monocytes % (Manual) 3 Platelet Estimate Normal Polychromasia Hypochromasia (manual) Microcytosis (manual) Slight Rouleaux Slight Puncture Site Lr pCO2 37 pO2 188 H HCO3 25.2 ABG pH 7.43 ABG Total CO2 25.7 ABG O2 Saturation 99.2 H ABG Base Excess 0.4 ABG Hemoglobin 10.0 L ABG Carboxyhemoglobin 1.5 POC ABG HHb (Measured) 0.8 ABG Methemoglobin 1.3 Hua Test Unable A-a O2 Difference 265.0 Respiratory Index 1.4 Hgb O2 Saturation 96.4 Vent Mode Prvc Mechanical Rate 16 FiO2 70.0 Tidal Volume 500 PEEP 5 Sodium Potassium Chloride Carbon Dioxide Anion Gap BUN Creatinine Est GFR ( Amer) Est GFR (Non-Af Amer) Random Glucose Calcium Phosphorus Magnesium Total Bilirubin AST ALT Alkaline Phosphatase Total Protein Albumin Globulin Albumin/Globulin Ratio Procalcitonin 0.23 07/26/18 07/26/18 07/26/18 05:18 06:22 06:22 WBC RBC Hgb Hct MCV MCH MCHC RDW Plt Count MPV Neut % (Auto) Lymph % (Auto) [place] % (Auto) Eos % (Auto) Baso % (Auto) Neut # (Auto) Lymph # (Auto) [place] # (Auto) Eos # (Auto) Baso # (Auto) Neutrophils % (Manual) Band Neutrophils % Lymphocytes % (Manual) Monocytes % (Manual) Platelet Estimate Polychromasia Hypochromasia (manual) Microcytosis (manual) Rouleaux Puncture Site R rad pCO2 33 L pO2 129 H HCO3 23.4 ABG pH 7.43 ABG Total CO2 22.9 ABG O2 Saturation 99.4 H ABG Base Excess -2.0 ABG Hemoglobin 8.7 L ABG Carboxyhemoglobin 1.5 POC ABG HHb (Measured) 0.6 ABG Methemoglobin 0.7 Hua Test Pos A-a O2 Difference 186.0 Respiratory Index 1.4 Hgb O2 Saturation 97.2 Vent Mode Prvc Mechanical Rate 16 FiO2 50.0 Tidal Volume 500 PEEP 5 Sodium 138 Potassium 3.4 L Chloride 105 Carbon Dioxide 28 Anion Gap 9 L BUN 18 Creatinine 0.7 L Est GFR ( Amer) > 60 Est GFR (Non-Af Amer) > 60 Random Glucose 156 H Calcium 8.7 Phosphorus 2.8 Magnesium 2.1 Total Bilirubin 0.2 AST 14 L ALT 7 L Alkaline Phosphatase 127 H Total Protein 5.7 L Albumin 2.6 L Globulin 3.1 Albumin/Globulin Ratio 0.9 L Procalcitonin 07/26/18 06:24 WBC 8.0 RBC 3.39 L Hgb 9.8 L Hct 29.6 L MCV 87.3 MCH 28.8 MCHC 33.0 RDW 14.7 H Plt Count 258 MPV 7.2 Neut % (Auto) 94.3 H Lymph % (Auto) 3.9 L [place] % (Auto) 1.7 Eos % (Auto) 0.0 Baso % (Auto) 0.1 Neut # (Auto) 7.6 H Lymph # (Auto) 0.3 L [place] # (Auto) 0.1 Eos # (Auto) 0.0 Baso # (Auto) 0.0 Neutrophils % (Manual) 94 H Band Neutrophils % Lymphocytes % (Manual) 3 L Monocytes % (Manual) 3 Platelet Estimate Normal Polychromasia Slight Hypochromasia (manual) Slight Microcytosis (manual) Rouleaux Puncture Site pCO2 pO2 HCO3 ABG pH ABG Total CO2 ABG O2 Saturation ABG Base Excess ABG Hemoglobin ABG Carboxyhemoglobin POC ABG HHb (Measured) ABG Methemoglobin Hua Test A-a O2 Difference Respiratory Index Hgb O2 Saturation Vent Mode Mechanical Rate FiO2 Tidal Volume PEEP Sodium Potassium Chloride Carbon Dioxide Anion Gap BUN Creatinine Est GFR ( Amer) Est GFR (Non-Af Amer) Random Glucose Calcium Phosphorus Magnesium Total Bilirubin AST ALT Alkaline Phosphatase Total Protein Albumin Globulin Albumin/Globulin Ratio Procalcitonin Radiology Impressions: Radiology Impressions Chest X-Ray 07/25/18 17:11 IMPRESSION: NG tube. Endotracheal tube terminates approximately 3.3 cm above the chandrika. Biapical pleural thickening. Persistent pulmonary venous congestion and bilateral central vascular prominence. Edema like pattern. Left-sided AICD. Chest X-Ray 07/26/18 06:00 IMPRESSION: Possible small bilateral pleural effusion. Resolved congestive change.. EKG/Cardiology Studies: Cardiology / EKG Studies 07/26/18 11:41 EKG [ELECTROCARDIOGRAM] Stat Comment: Mode Of Transportation: BED Reason For Exam: R/O A Fib Attending/Attestation - Attestation I have personally seen and examined this patient.: Yes I have fully participated in the care of the patient.: Yes I have reviewed all pertinent clinical information: Yes Notes (Text): 07/26/18 16:56 Patient seen and examined in the intensive care unit. Remained intubated on ventilatory support sedated on propofol Status post bronchoscopy and bronchoalveolar lavage and foreign body removed from left mainstem Continue antibiotics and follow-up culture and sensitivity NG tube feeding
--- NOTE | 2018-07-26 08:10 | CP.PCM.PN ---
Subjective - Date & Time of Evaluation Date of Evaluation: 07/25/18 Time of Evaluation: 21:15 - Subjective Subjective: CC: Dyspnea/Resp failure. Acute on Chronic systolic CHF This is an 82 y o male with PMhx COPD, HTN, HLD, CAD, s/p AICD implantation, TIA , who presented to the ED brought in by his s/p fall and with c/o fever. As per chart review, pt was trying to reach something at home, slipped and fell on floor. Pt at time was unable to get up, and EMS was called. Pt has reported hx of multiple recent falls prior to fall that led to this current admission. Currently being treated for aspiration PNA with Vanco/Doxycycline/Aztreonam. Reason for ICU consult was for EDGE STITCHER for respiratory distress. Per staff, pt was tachypneic, using accessory muscles of respiration, upper airway secretions noted. Pt desaturated to 80s on 4 L NC. Pt was placed on 100% non-rebreather mask with little improvement in clinical status. Decision was made to intubate pt at bedside. Further ROS unobtainable from pt at time due to respiratory distress. Per staff, pt was scheduled to have bronchoscopy tomorrow for removal of aspirate in lungs. PMhx: as noted above PSurgHx: s/p AICD placement, hx frequent bronchoscopies Allergies: Cipro, PCN, tetanus and diphtheria toxoids Current meds: reviewed as per [facility] hx: unknown Soc hx: former heavy smoker; no drug use; uses brace at home PMD: Dr. 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) Hx Difficulty Chewing: No - RENAL Hx Chronic Kidney Disease: Yes Hx Kidney Stones: Yes - ENDOCRINE/METABOLIC Hx Hypothyroidism: Yes - HEMATOLOGICAL/ONCOLOGICAL Hx Blood Disorders: Yes Other/Comment: polycythemia vera - INTEGUMENTARY Hx Dermatological Problems: Yes Other/Comment: PRURITIS - MUSCULOSKELETAL/RHEUMATOLOGICAL Hx Arthritis: Yes - GASTROINTESTINAL Hx Diverticulitis: Yes (HX PARTIAL COLECTOMY) Hx Gastritis: Yes - GENITOURINARY/GYNECOLOGICAL Hx Genitourinary Disorders: Yes Hx Incontinence: Yes Hx Prostate Problems: Yes - PSYCHIATRIC Hx Anxiety: Yes Hx Substance Use: No - SURGICAL HISTORY Hx Cholecystectomy: Yes (1974) Hx Coronary Artery Bypass Graft: Yes (1986) Hx Coronary Stent: Yes - ANESTHESIA Hx Anesthesia: Yes Hx Anesthesia Reactions: No Hx Malignant Hyperthermia: No Meds Allergies/Adverse Reactions: Allergies Allergy/AdvReac Type Severity Reaction Status Date / Time ciprofloxacin HCl Allergy Severe ITCHING Verified 04/11/17 17:31 [From Cipro] Penicillins Allergy Severe ITCHING Verified 04/11/17 17:31 tetanus and diphtheria Allergy Severe hives Verified 04/11/17 17:31 toxoids - Medications Medications: Current Medications Acetylcysteine (Acetylcysteine 20%) 4 ml INH RQ6 NATALIE Albuterol/Ipratropium (Duoneb 3 Mg/0.5 Mg (3 Ml) Ud) 3 ml INH RQ6 NATALIE Last Admin: 07/25/18 13:30 Dose: 3 ml Aspirin (Ecotrin) 81 mg PO DAILY NATALIE Last Admin: 07/25/18 10:22 Dose: 81 mg Docusate Sodium (Colace) 100 mg PO BID NATALIE Last Admin: 07/25/18 10:22 Dose: 100 mg Heparin Sodium (Porcine) (Heparin) 5,000 units SC Q12 NATALIE Last Admin: 07/25/18 10:22 Dose: 5,000 units Doxycycline Hyclate 100 mg/ (Sodium Chloride) 100 mls @ 100 mls/hr IVPB Q12H [facility]; Protocol Last Admin: 07/25/18 10:22 Dose: 100 mls/hr Vancomycin HCl 500 mg/ Sodium (Chloride) 100 mls @ 67 mls/hr IVPB Q12H [facility]; Protocol Last Admin: 07/25/18 10:22 Dose: 67 mls/hr Dextrose/Sodium Chloride (Dextrose 5%/0.9% Ns 1000 Ml) 1,000 mls @ 40 mls/hr IV .Q24H [facility] Aztreonam 1 gm/ Sodium (Chloride) 100 mls @ 100 mls/hr IVPB ONCE ONE; Protocol Stop: 07/25/18 17:03 Potassium Chloride (Potassium Chloride 20 Meq/100 Ml) 20 meq in 100 mls @ 50 mls/hr IVPB ONCE ONE Stop: 07/25/18 18:17 Propofol (Diprivan) 1,000 mg in 100 mls @ 2.245 mls/hr IV .Q24H PRN; Protocol PRN Reason: TITRATE PER MD ORDER Sodium Chloride (Sodium Chloride 0.9%) 500 mls @ 500 mls/hr IV .Q1H ONE Stop: 07/25/18 17:43 Losartan Potassium (Cozaar) 25 mg PO DAILY [facility] Last Admin: 07/24/18 09:29 Dose: 25 mg Metoprolol Succinate (Toprol Xl) 50 mg PO DAILY [facility] Last Admin: 07/25/18 10:21 Dose: 50 mg Oxycodone/Acetaminophen (Percocet 5/325 Mg Tab) 1 tab PO Q6H PRN PRN Reason: Pain, severe (8-10) Stop: 07/26/18 09:00 Last Admin: 07/23/18 11:30 Dose: 1 tab Pantoprazole Sodium (Protonix Ec Tab) 40 mg PO DAILY [facility] Last Admin: 07/25/18 10:21 Dose: 40 mg Roflumilast (Daliresp) 500 mcg PO DAILY [facility] Last Admin: 07/25/18 10:21 Dose: 500 mcg Rosuvastatin Calcium (Crestor) 10 mg PO HS [facility] Last Admin: 07/24/18 21:22 Dose: 10 mg Tamsulosin HCl (Flomax) 0.4 mg PO BID [facility] Last Admin: 07/25/18 10:21 Dose: 0.4 mg Physical Exam - Constitutional Appears: In Acute Distress Additional comments: Demonstrating accessory muscle use and labored breathing on exam with venti mask - Head Exam Head Exam: ATRAUMATIC, NORMOCEPHALIC - Eye Exam Eye Exam: EOMI, Normal appearance, PERRL - ENT Exam ENT Exam: Mucous Membranes Moist - Respiratory Exam Respiratory Exam: Rales, Respiratory Distress - Cardiovascular Exam Cardiovascular Exam: Tachycardia, +S1, +S2. absent: Gallop, Rubs, Systolic Murmur - GI/Abdominal Exam GI & Abdominal Exam: Normal Bowel Sounds, Soft. absent: Distended, Organomegaly, Tenderness - Extremities Exam Extremities exam: Positive for: normal capillary refill, normal inspection, pedal pulses present. Negative for: tenderness - Neurological Exam Neurological exam: Altered - Skin Skin Exam: Dry, Intact, Warm Results - Vital Signs Recent Vital Signs: Last Vital Signs Temp 99.0 F 07/25/18 13:00 Pulse 98 H 07/25/18 13:00 Resp 18 07/25/18 13:00 BP 115/72 07/25/18 13:00 Pulse Ox 95 07/25/18 13:00 - Labs Result Diagrams: 07/25/18 16:11 07/25/18 16:11 Labs: Laboratory Results - last 24 hr 07/24/18 07/24/18 07/25/18 17:07 21:46 06:16 WBC RBC Hgb Hct MCV MCH MCHC RDW Plt Count MPV Neut % (Auto) Lymph % (Auto) [place] % (Auto) Eos % (Auto) Baso % (Auto) Neut # (Auto) Lymph # (Auto) [place] # (Auto) Eos # (Auto) Baso # (Auto) Puncture Site pCO2 pO2 HCO3 ABG pH ABG Total CO2 ABG O2 Saturation ABG Base Excess Hua Test ABG Potassium A-a O2 Difference Respiratory Index Sodium Chloride Glucose Lactate Liter Flow FiO2 Potassium Carbon Dioxide Anion Gap BUN Creatinine Est GFR ( Amer) Est GFR (Non-Af Amer) POC Glucose (mg/dL) 124 H 140 H 102 Random Glucose Lactic Acid Calcium Total Bilirubin AST ALT Alkaline Phosphatase Total Protein Albumin Globulin Albumin/Globulin Ratio Arterial Blood Potassium 07/25/18 07/25/18 07/25/18 11:46 16:10 16:11 WBC 8.0 RBC 3.63 L Hgb 10.2 L Hct 31.6 L MCV 87.2 D MCH 28.1 MCHC 32.3 L RDW 14.6 H Plt Count 242 MPV 6.9 L Neut % (Auto) 92.3 H Lymph % (Auto) 4.2 L [place] % (Auto) 3.1 Eos % (Auto) 0.0 Baso % (Auto) 0.4 Neut # (Auto) 7.4 H Lymph # (Auto) 0.3 L [place] # (Auto) 0.2 Eos # (Auto) 0.0 Baso # (Auto) 0.0 Puncture Site Rra pCO2 39 pO2 95 HCO3 27.3 ABG pH 7.45 ABG Total CO2 28.3 H ABG O2 Saturation 99.6 H ABG Base Excess 3.0 Hua Test Pos ABG Potassium 2.8 L A-a O2 Difference 569.0 Respiratory Index 6.0 Sodium 137.0 Chloride 107.0 Glucose 129 H Lactate 1.4 Liter Flow 15.0 FiO2 100.0 Potassium Carbon Dioxide Anion Gap BUN Creatinine Est GFR ( Amer) Est GFR (Non-Af Amer) POC Glucose (mg/dL) 116 H Random Glucose Lactic Acid Calcium Total Bilirubin AST ALT Alkaline Phosphatase Total Protein Albumin Globulin Albumin/Globulin Ratio Arterial Blood Potassium 2.8 L 07/25/18 07/25/18 16:11 16:11 WBC RBC Hgb Hct MCV MCH MCHC RDW Plt Count MPV Neut % (Auto) Lymph % (Auto) [place] % (Auto) Eos % (Auto) Baso % (Auto) Neut # (Auto) Lymph # (Auto) [place] # (Auto) Eos # (Auto) Baso # (Auto) Puncture Site pCO2 pO2 HCO3 ABG pH ABG Total CO2 ABG O2 Saturation ABG Base Excess Hua Test ABG Potassium A-a O2 Difference Respiratory Index Sodium 135 Chloride 102 Glucose Lactate Liter Flow FiO2 Potassium 3.2 L Carbon Dioxide 28 Anion Gap 9 L BUN 18 Creatinine 0.7 L Est GFR ( Amer) > 60 Est GFR (Non-Af Amer) > 60 POC Glucose (mg/dL) Random Glucose 139 H D Lactic Acid 1.6 Calcium 8.5 L Total Bilirubin 0.4 AST 15 L D ALT 8 L D Alkaline Phosphatase 116 Total Protein 5.9 L Albumin 2.7 L Globulin 3.1 Albumin/Globulin Ratio 0.9 L Arterial Blood Potassium Assessment & Plan - Assessment and Plan (Free Text) Assessment: This is an 82 y o male with PMhx COPD, HTN, HLD, CAD, s/p AICD implantation, TIA, who presented to the ED brought in by his s/p fall and with c/o fever. As per chart review, pt was trying to reach something at home, slipped and fell on floor. Pt at time was unable to get up, and EMS was called. Pt has reported hx of multiple recent falls prior to fall that led to this current admission. Currently being treated for aspiration PNA with Vanco/Doxycycline/Aztreonam. Reason for ICU consult was for EDGE STITCHER for respiratory distress. Accepted to ICU service for further monitoring. Acute respiratory distress likely 2/2 aspiration PNA. Currently intubated and sedated in ICU at this time. Plan: Neuro: -Intubated and sedated on Propofol drip -Cont to monitor -Head CT on admission 07/23: No intracranial mass, hemorrhage or evidence of acute infarct. Atrophy and chronic white matter ischemic change. 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 -Hip/pelvis/shoulder XRs neg for acute fx Cardio: -Hx HTN, HLD, CAD, s/p AICD implantation -Cardiology (Dr. Bains) consulted, recs appreciated -ASA -Cozaar 25 mg PO daily -Toprol XL 50 mg PO daily -Crestor daily Pulm: -Acute respiratory distress likely 2/2 aspiration PNA -On Doxycycline/Vanco, s/p Aztreonam x1 during EDGE STITCHER -Intubated and sedated on Propofol -Hx COPD, TIA -Duonebs q4h -S/p Solu-Medrol 40 mg IVP x1 during EDGE STITCHER -On Mucomyst q6h -Recent CXR today: Cardiomegaly and worsening pulmonary venous congestion compatible with CHF. Interval increase L pleural effusion. -Daliresp -Cont to monitor GI: -NPO -IVF at 75 cc/hr -CT abd/pelvis on admission: Multiple pelvic fractures, likely nonacute. Compression fxs of T11 and L1 vertebral bodies, indeterminate age. L lower lobe consolidation. No other acute abnormalities. -Protonix -Colace bid -No acute issues at this time Heme: -H/H 10.2/31.6, cont to trend ID: -Aspiration PNA -Anbx as noted above -CXR findings as noted above -febrile to 100.4 -Blood and urine cxs NGTD Renal: -Bun/Cr wnl -Trend I's/O's PPX: -Protonix, Heparin Acute Chronic systolic CHF will optimize CHF therapy Objective - Vital Signs/Intake and Output Vital Signs (last 24 hours): Temp Pulse Resp BP Pulse Ox 98.7 F 85 18 122/61 97 07/26/18 04:00 07/26/18 07:00 07/26/18 07:00 07/26/18 06:34 07/26/18 07:00 Intake and Output: 07/26/18 07/26/18 06:59 18:59 Intake Total 1337 86 Output Total 550 Balance 787 86 - Medications Medications: Current Medications Acetylcysteine (Acetylcysteine 20%) 4 ml INH RQ6 [facility] Last Admin: 07/26/18 07:34 Dose: 4 ml Albuterol/Ipratropium (Duoneb 3 Mg/0.5 Mg (3 Ml) Ud) 3 ml INH RQ4 [facility] Last Admin: 07/26/18 07:34 Dose: 3 ml Aspirin (Ecotrin) 81 mg PO DAILY [facility] Last Admin: 07/25/18 10:22 Dose: 81 mg Docusate Sodium (Colace) 100 mg PO BID [facility] Last Admin: 07/25/18 17:21 Dose: Not Given Heparin Sodium (Porcine) (Heparin) 5,000 units SC Q12 [facility] Last Admin: 07/25/18 21:41 Dose: 5,000 units Doxycycline Hyclate 100 mg/ (Sodium Chloride) 100 mls @ 100 mls/hr IVPB Q12H [facility]; Protocol Last Admin: 07/25/18 21:41 Dose: 100 mls/hr Vancomycin HCl 500 mg/ Sodium (Chloride) 100 mls @ 67 mls/hr IVPB Q12H [facility]; Protocol Last Admin: 07/25/18 22:56 Dose: 67 mls/hr Propofol (Diprivan) 1,000 mg in 100 mls @ 2.245 mls/hr IV .Q24H PRN; Protocol PRN Reason: TITRATE PER MD ORDER Last Admin: 07/25/18 23:24 Dose: 25 mcg/kg/min, 11.226 mls/hr Dextrose/Sodium Chloride (Dextrose 5%/0.9% Ns 1000 Ml) 1,000 mls @ 75 mls/hr IV .[id number] [facility] Last Admin: 07/26/18 06:46 Dose: Not Given Potassium Chloride (Potassium Chloride 20 Meq/100 Ml) 20 meq in 100 mls @ 50 mls/hr IVPB Q2H [facility] Stop: 07/26/18 11:59 Losartan Potassium (Cozaar) 25 mg PO DAILY [facility] Last Admin: 07/24/18 09:29 Dose: 25 mg Metoprolol Succinate (Toprol Xl) 50 mg PO DAILY [facility] Last Admin: 07/25/18 10:21 Dose: 50 mg Oxycodone/Acetaminophen (Percocet 5/325 Mg Tab) 1 tab PO Q6H PRN PRN Reason: Pain, severe (8-10) Stop: 07/26/18 09:00 Last Admin: 07/23/18 11:30 Dose: 1 tab Pantoprazole Sodium (Protonix Ec Tab) 40 mg PO DAILY [facility] Last Admin: 07/25/18 10:21 Dose: 40 mg Roflumilast (Daliresp) 500 mcg PO DAILY [facility] Last Admin: 07/25/18 10:21 Dose: 500 mcg Rosuvastatin Calcium (Crestor) 10 mg PO HS [facility] Last Admin: 07/25/18 21:41 Dose: 10 mg Tamsulosin HCl (Flomax) 0.4 mg PO BID [facility] Last Admin: 07/25/18 19:29 Dose: Not Given - Labs Labs: 07/26/18 06:24 07/26/18 06:22
[2018-07-26 09:10] LABS: LYMPHOCYTE 3 % (20-40); MONOCYTE 3 % (0-10); NEUTROPHIL 94 % (50-75); TOTAL CELLS COUNTED 100
--- NOTE | 2018-07-26 09:10 | RAD ---
Date of service: 07/26/2018 HISTORY: intubated COMPARISON: 07/25/2018 TECHNIQUE: 1 view obtained. FINDINGS: LUNGS: No active pulmonary disease. PLEURA: Minimal hazy opacity at the costophrenic angles. Possible small bilateral pleural effusions. CARDIOVASCULAR: There is atherosclerotic calcification of the thoracic aorta. Normal cardiac size. ET tube, NG tube and AICD are grossly unchanged. Congestive change seen previously has resolved. OSSEOUS STRUCTURES: No significant abnormalities. VISUALIZED UPPER ABDOMEN: Normal. OTHER FINDINGS: None. IMPRESSION: Possible small bilateral pleural effusion. Resolved congestive change..
[2018-07-26 09:17] LABS: HYPOCHROMIC SLIGHT; PLATELET ESTIMATE NORMAL (NORMAL); POLYCHROMIC SLIGHT
[2018-07-26] MEDS: Propofol 10 mg/ml 1,000 MG/100 ML VIAL IV PRN ×2 (09:32→16:11)
[2018-07-26] MEDS ORDERED: EPINEPHrine 1 mg/ml (1:1000) Inj ONE (15:32)
[2018-07-26] MEDS ORDERED: Lidocaine Hydrochloride 15 ML INJ ONE (15:33)
--- NOTE | 2018-07-26 23:14 | CP.PCM.PN ---
Subjective - Date & Time of Evaluation Date of Evaluation: 07/26/18 Time of Evaluation: 16:20 - Subjective Subjective: Patient seen and evaluated Intubated due to respiratory failure Stable hemodynamics Physical Exam - Constitutional Appears: In Acute Distress Additional comments: Demonstrating accessory muscle use and labored breathing on exam with venti mask - Head Exam Head Exam: ATRAUMATIC, NORMOCEPHALIC - Eye Exam Eye Exam: EOMI, Normal appearance, PERRL - ENT Exam ENT Exam: Mucous Membranes Moist - Respiratory Exam Respiratory Exam: Rales, Respiratory Distress - Cardiovascular Exam Cardiovascular Exam: Tachycardia, +S1, +S2. absent: Gallop, Rubs, Systolic Murmur - GI/Abdominal Exam GI & Abdominal Exam: Normal Bowel Sounds, Soft. absent: Distended, Organomegaly, Tenderness - Extremities Exam Extremities exam: Positive for: normal capillary refill, normal inspection, peda l pulses present. Negative for: tenderness - Neurological Exam Neurological exam: Altered - Skin Skin Exam: Dry, Intact, Warm Assessment & Plan - Assessment and Plan (Free Text) Assessment: This is an 82 y o male with PMhx COPD, HTN, HLD, CAD, s/p AICD implantation, TIA, who presented to the ED brought in by his s/p fall and with c/o fever. As per chart review, pt was trying to reach something at home, slipped and fell on floor. Pt at time was unable to get up, and EMS was called. Pt has reported hx of multiple recent falls prior to fall that led to this current admission. Currently being treated for aspiration PNA with Vanco/Doxycycline/Aztreonam. Reason for ICU consult was for MATERIALS MGMT TECH for respiratory distress. Accepted to ICU service for further monitoring. Acute respiratory distress likely 2/2 aspiration PNA. Currently intubated and sedated in ICU at this time. Plan: Neuro: -Intubated and sedated on Propofol drip -Cont to monitor -Head CT on admission 07/23: No intracranial mass, hemorrhage or evidence of ac [place] infarct. Atrophy and chronic white matter ischemic change. 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 -Hip/pelvis/shoulder XRs neg for acute fx Cardio: -Hx HTN, HLD, CAD, s/p AICD implantation -Cardiology (Dr. Bains) consulted, recs appreciated -ASA -Cozaar 25 mg PO daily -Toprol XL 50 mg PO daily -Crestor daily Pulm: -Acute respiratory distress likely 2/2 aspiration PNA -On Doxycycline/Vanco, s/p Aztreonam x1 during MATERIALS MGMT TECH -Intubated and sedated on Propofol -Hx COPD, TIA -Duonebs q4h -S/p Solu-Medrol 40 mg IVP x1 during MATERIALS MGMT TECH -On Mucomyst q6h -Recent CXR today: Cardiomegaly and worsening pulmonary venous congestion compatible with CHF. Interval increase L pleural effusion. -Daliresp -Cont to monitor GI: -NPO -IVF at 75 cc/hr -CT abd/pelvis on admission: Multiple pelvic fractures, likely nonacute. Compression fxs of T11 and L1 vertebral bodies, indeterminate age. L lower lobe consolidation. No other acute abnormalities. -Protonix -Colace bid -No acute issues at this time Heme: -H/H 10.2/31.6, cont to trend ID: -Aspiration PNA -Anbx as noted above -CXR findings as noted above -febrile to 100.4 -Blood and urine cxs NGTD Renal: -Bun/Cr wnl -Trend I's/O's PPX: -Protonix, Heparin Acute Chronic systolic CHF will optimize CHF therapy Objective - Vital Signs/Intake and Output Vital Signs (last 24 hours): Temp Pulse Resp BP Pulse Ox 98.9 F 101 H 21 124/65 97 07/26/18 20:00 07/26/18 21:00 07/26/18 21:00 07/26/18 20:55 07/26/18 21:00 Intake and Output: 07/26/18 07/27/18 18:59 06:59 Intake Total 1292 367 Output Total 450 Balance 842 367 - Medications Medications: Current Medications Acetylcysteine (Acetylcysteine 20%) 4 ml INH RQ6 NATALIE Last Admin: 07/26/18 19:08 Dose: 4 ml Albuterol/Ipratropium (Duoneb 3 Mg/0.5 Mg (3 Ml) Ud) 3 ml INH RQ4 NATALIE Last Admin: 07/26/18 19:14 Dose: 3 ml Aspirin (Ecotrin) 81 mg PO DAILY [facility] Last Admin: 07/26/18 17:07 Dose: 81 mg Docusate Sodium (Colace) 100 mg PO BID NATALIE Last Admin: 07/26/18 17:07 Dose: 100 mg Heparin Sodium (Porcine) (Heparin) 5,000 units SC Q12 NATALIE Last Admin: 07/26/18 21:52 Dose: 5,000 units Doxycycline Hyclate 100 mg/ (Sodium Chloride) 100 mls @ 100 mls/hr IVPB Q12H NATALIE; Protocol Last Admin: 07/26/18 21:05 Dose: 100 mls/hr Vancomycin HCl 500 mg/ Sodium (Chloride) 100 mls @ 67 mls/hr IVPB Q12H NATALIE; Protocol Last Admin: 07/26/18 21:52 Dose: 67 mls/hr Propofol (Diprivan) 1,000 mg in 100 mls @ 2.245 mls/hr IV .Q24H PRN; Protocol PRN Reason: TITRATE PER MD ORDER Last Titration: 07/26/18 21:53 Dose: 30 mcg/kg/min, 13.472 mls/hr Dextrose/Sodium Chloride (Dextrose 5%/0.9% Ns 1000 Ml) 1,000 mls @ 75 mls/hr IV .Q40P43C [facility] Last Admin: 07/26/18 20:12 Dose: Not Given Losartan Potassium (Cozaar) 25 mg PO DAILY [facility] Last Admin: 07/24/18 09:29 Dose: 25 mg Metoprolol Tartrate (Lopressor) 25 mg PO Q12H [facility] Last Admin: 07/26/18 12:55 Dose: 25 mg Pantoprazole Sodium (Protonix Inj) 40 mg IVP DAILY [facility] Last Admin: 07/26/18 09:46 Dose: 40 mg Roflumilast (Daliresp) 500 mcg PO DAILY [facility] Last Admin: 07/26/18 17:07 Dose: 500 mcg Rosuvastatin Calcium (Crestor) 10 mg PO HS [facility] Last Admin: 07/26/18 21:52 Dose: 10 mg Tamsulosin HCl (Flomax) 0.4 mg PO BID [facility] Last Admin: 07/26/18 17:07 Dose: 0.4 mg - Labs Labs: 07/26/18 06:24 07/26/18 06:22
--- NOTE | 2018-07-26 23:19 | CARD ---
APPROVED REPORT Date of service: 07/26/2018 EXAM: Two-dimensional and M-mode echocardiogram with Doppler and color Doppler. Other Information Quality : TDSRhythm : INDICATION CVA/TIA Dyspnea Congestive Heart Failure COPD 2D DIMENSIONS IVSd0.8 (0.7-1.1cm)LVDd5.3 (3.9-5.9cm) PWd0.6 (0.7-1.1cm)LA [id number] (18-58mL) LVDs4.8 (2.5-4.0cm)FS (%) 9.1 % LVEF (%)25.0 (>50%)LVEF (Barton's)25 % M-Mode DIMENSIONS Left Atrium (MM)4.57 (2.5-4.0cm)IVSd0.66 (0.7-1.1cm) Aortic Root3.93 (2.2-3.7cm)LVDd6.13 (4.0-5.6cm) Aortic Cusp Exc.2.07 (1.5-2.0cm)PWd0.68 (0.7-1.1cm) FS (%) 14 %LVDs5.25 (2.0-3.8cm) LVEF (%)30 (>50%) Aortic Valve AI P 1/2 [id number] Mitral Valve MV E Tmjhrifu731.2cm/sMV A Daqowfoy913.4cm/sE/A ratio0.9 VAIS954.89 cm/s TDI Lateral E' Peak V5.77cm/sMedial E' Peak V4.22cm/sE/Lateral E'20.0 E/Medial E'27.3 Tricuspid Valve TR Peak [id number]/sTR Peak Gr.[id number] LEFT VENTRICLE The Left Ventricle is mildly dilated. There is normal left ventricular wall thickness. Left ventricle systolic function is severely impaired. The Ejection Fraction is 25-30%. There is global hypokinesis of the left ventricle. Transmitral Doppler flow pattern is Grade I-abnormal relaxation pattern. There is no ventricular septal defect visualized. RIGHT VENTRICLE The right ventricle is normal size. There is normal right ventricular wall thickness. There is a pacemaker lead in the right ventricle. ATRIA The left atrium is mildly dilated. The right atrium is mildly dilated. AORTIC VALVE The aortic valve is mildly to moderately calcified. The aortic valve is tri-cuspid. There is mild to moderate aortic regurgitation. There is no aortic valvular stenosis. MITRAL VALVE The mitral valve leaflets are thickened. There is no evidence of mitral valve prolapse. Mitral regurgitation is mild. ERO 0.3 cm2 TRICUSPID VALVE The tricuspid valve is normal in structure. There is mild to moderate tricuspid regurgitation. Right ventricular systolic pressure is estimated at 40-50 mmHg. There is moderate pulmonary hypertension. PULMONIC VALVE The pulmonary valve is normal in structure. There is mild pulmonic valvular regurgitation. GREAT VESSELS The aortic root is normal in size. The ascending aorta is Mildly dilated.4.2 cm The IVC is dilated. PERICARDIAL EFFUSION There is no pericardial effusion. <Conclusion> The Left Ventricle is mildly dilated. Left ventricle systolic function is severely impaired. The Ejection Fraction is 25-30%. There is global hypokinesis of the left ventricle. Transmitral Doppler flow pattern is Grade I-abnormal relaxation pattern. There is mild to moderate aortic regurgitation. Mitral regurgitation is mild. ERO 0.3 cm2 There is moderate pulmonary hypertension.
[2018-07-27] MEDS: Propofol 10 mg/ml 1,000 MG/100 ML VIAL IV PRN (00:32)
[2018-07-27] MEDS: Albuterol-Ipratrop 3 mg / 0.5 (3 ml) UD INH SCH ×7 (01:11→23:51)
[2018-07-27] MEDS: Acetylcysteine 20% Inhal Soln (4ml) INH SCH ×3 (01:11→20:45)
[2018-07-27 05:43] LABS: BASO % 0.3 % (0.0-2.0); EOS % 0.1 % (0.0-4.0); HEMOGLOBIN 9.7 g/dL (12.0-18.0); LYMPH # 0.7 K/uL (1.0-4.3); LYMPH % 8.7 % (20.0-40.0); MEAN CELL VOLUME 87.1 fL (80.0-94.0); MEAN CORPUSCULAR HEMOGLOBIN 29.5 pg (27.0-31.0); MEAN CORPUSCULAR HGB CONC 33.8 g/dL (33.0-37.0); MEAN PLATELET VOLUME 7.4 fL (7.2-11.7); MONO # 0.3 K/uL (0.0-0.8); NEUT # 6.9 K/uL (1.8-7.0); NEUT % 86.9 % (50.0-75.0); PLATELET COUNT 280 K/uL (130-400); RBC 3.31 Mil/uL (4.40-5.90); WHITE BLOOD COUNT 7.9 K/uL (4.8-10.8)
[2018-07-27] MEDS: Dextrose 5%/0.9% NS 1,000 ML IV SCH ×2 (05:48→09:00)
[2018-07-27 06:07] LABS: ABG ALLEN TEST POS; ARTERIAL BLOOD GAS HCO3 26.2 mmol/L (21-28); ARTERIAL BLOOD GAS O2 SAT 99.2 % (95-98); ARTERIAL BLOOD GAS PCO2 33 mm/Hg (35-45); ARTERIAL BLOOD GAS PH 7.48 (7.35-7.45); ARTERIAL BLOOD GAS PO2 107 mm/Hg (80-100); ARTERIAL BLOOD GAS TCO2 25.6 mmol/L (22-28)
[2018-07-27 06:39] LABS: ALB/GLOB RATIO 0.9 (1.0-2.1); ALBUMIN 2.6 g/dL (3.5-5.0); ALT/SGPT 7 U/L (21-72); AST/SGOT 23 U/L (17-59); BLOOD UREA NITROGEN 17 mg/dL (9-20); CALCIUM 8.1 mg/dl (8.6-10.4); GFR NON-AFRICAN AMERICAN > 60
[2018-07-27 08:13] LABS: LYMPHOCYTE 9 % (20-40); MONOCYTE 2 % (0-10); NEUTROPHIL 89 % (50-75); PLATELET ESTIMATE NORMAL (NORMAL); TOTAL CELLS COUNTED 100
--- NOTE | 2018-07-27 08:13 | OP ---
PROCEDURE DATE: 07/26/2018 PROCEDURE: Fiberoptic bronchoscopy with bronchoalveolar lavage. INDICATION: Recurrent pneumonia, fiberoptic bronchoscopy procedure was done. DESCRIPTION OF PROCEDURE: After obtaining consent from daughter explaining risks and benefits, which she understood, the procedure was done after the bronchoscope was passed through the ET tube into the trachea. Thick purulent secretions noted which were suction out. First the bronchoscope was passed on the right side, the right main, the right upper, the lower lobe; all appeared normal with thick secretions which were suctioned out. The bronchoscope was pulled back and passed to the left side. A foreign body in the shape of a kernel noted, which was removed with basket. Also, copious amounts of secretions were noted. Bronchoalveolar lavage was done. The patient tolerated the procedure well. No complications. Young Vyas MD
[2018-07-27 08:14] LABS: ANISOCYTOSIS SLIGHT
[2018-07-27] MEDS: Potassium Chloride 20 mEq/15 ml LIQ UD PO SCH ×2 (09:48→11:06)
--- NOTE | 2018-07-27 10:36 | RAD ---
Date of service: 07/27/2018 HISTORY: eval interval change COMPARISON: 07/26/2018. FINDINGS: The endotracheal tube terminates 1.4 cm proximal to the chandrika. The nasogastric tube terminates in the stomach. LUNGS: The lungs are well inflated. There is worsening severe pulmonary venous congestion with redistribution. There is mild interstitial pulmonary edema. PLEURA: No pleural effusions or pneumothorax. CARDIOVASCULAR: Persistent mild cardiomegaly. Stable position of left-sided AICD. No aortic atherosclerotic calcifications present. OSSEOUS STRUCTURES: Within normal limits for the patient's age. VISUALIZED UPPER ABDOMEN: Normal. OTHER FINDINGS: None. IMPRESSION: Worsening pulmonary venous congestion and interstitial pulmonary edema. Stable position of support tubes.
--- NOTE | 2018-07-27 11:57 | CP.CCUPN ---
<JulianGaurav - Last Filed: 07/27/18 17:26> CCU Subjective - Physician Review Subjective (Free Text): ICU Progress Note for Dr. Omalley Pt seen and examined at bedside. Currently intubated, weaning off sedation. Further HPI and ROS unobtainable due to pt's current clinical status. Plan for extubation today. S/p bronchoscopy yesterday which revealed foreign body aspirate. CCU Objective - Vital Signs / Intake & Output Vital Signs (Last 4 hours): Vital Signs Pulse Resp BP Pulse Ox 07/27/18 08:19 98 H 23 137/63 07/27/18 08:00 97 H 26 H 99 Intake and Output (Last 8hrs): Intake & Output 07/26/18 07/27/18 07/27/18 22:59 06:59 14:59 Intake Total 983 1076.6 256.6 Output Total 400 Balance 583 1076.6 256.6 Intake: IV 154 101 29 Intake, IV Amount 719 720.6 167.6 Left Forearm 225 Right Forearm 94 95.6 17.6 right arm 400 625 150 Tube Feeding 110 225 60 Other 30 Output: Urine 400 Straight 400 Other: # Bowel Movements 0 1 1 - Physical Exam Head: Positive for: Atraumatic, Normocephalic Pupils: Positive for: PERRL Conjunctiva: Positive for: Normal Mouth: Positive for: Moist Mucous Membranes Respiratory/Chest: Positive for: Rales. Negative for: Respiratory Distress, Accessory Muscle Use Cardiovascular: Positive for: Normal S1, S2, Tachycardic. Negative for: Murmurs, Rub, Gallop Abdomen: Positive for: Normal Bowel Sounds. Negative for: Tenderness, Distention, Mass/Organomegaly Lower Extremity: Positive for: NORMAL PULSES, Neurovascularly Intact, Capillary Refill < 2 s. Negative for: Edema Neurological: Positive for: Other (intubated and sedated) Skin: Positive for: Warm, Dry Psychiatric: Positive for: Other (intubated and sedated) - Medications Active Medications: Active Medications Generic Name Dose Route Start Last Admin Trade Name Freq PRN Reason Stop Dose Admin Acetylcysteine 4 ml 07/25/18 20:00 07/27/18 08:05 Acetylcysteine 20% INH 4 ml RQ6 NATALIE Administration Albuterol/Ipratropium 3 ml 07/25/18 20:00 07/27/18 11:06 Duoneb 3 Mg/0.5 Mg (3 Ml) Ud INH 3 ml RQ4 NATALIE Administration Aspirin 81 mg 07/23/18 10:00 07/27/18 09:49 Ecotrin PO 81 mg DAILY NTAALIE Administration Docusate Sodium 100 mg 07/23/18 10:00 07/27/18 09:49 Colace PO 100 mg BID NATALIE Administration Doxycycline Hyclate 100 mg/ 100 mls @ 100 mls/hr 07/23/18 22:00 07/27/18 09:45 Sodium Chloride IVPB 100 mls/hr Q12H NATALIE Administration Protocol Vancomycin HCl 500 mg/ Sodium 100 mls @ 67 mls/hr 07/23/18 22:00 07/26/18 21:52 Chloride IVPB 67 mls/hr Q12H NATALIE Administration Protocol Propofol 1,000 mg in 100 mls @ 2.245 mls/hr 07/25/18 16:42 07/27/18 08:49 Diprivan IV Infused .Q24H PRN Titration TITRATE PER MD ORDER Protocol 5 MCG/KG/MIN Dextrose/Sodium Chloride 1,000 mls @ 75 mls/hr 07/25/18 17:06 07/27/18 09:00 Dextrose 5%/0.9% Ns 1000 Ml IV Not Given .[id number] [facility] Losartan Potassium 25 mg 07/23/18 10:00 07/24/18 09:29 Cozaar PO 25 mg DAILY NATALIE Administration Methylprednisolone 40 mg 07/27/18 11:45 Solu-Medrol IVP BID [facility] Metoprolol Tartrate 25 mg 07/26/18 12:45 07/27/18 00:31 Lopressor PO 25 mg Q12H NATALIE Administration Pantoprazole Sodium 40 mg 07/26/18 10:00 07/27/18 09:49 Protonix Inj IVP 40 mg DAILY NATALIE Administration Roflumilast 500 mcg 07/23/18 10:00 07/27/18 09:49 Daliresp PO 500 mcg DAILY NATALIE Administration Rosuvastatin Calcium 10 mg 07/23/18 22:00 07/26/18 21:52 Crestor PO 10 mg HS NATALIE Administration Tamsulosin HCl 0.4 mg 07/23/18 10:00 07/27/18 09:48 Flomax PO 0.4 mg BID NATALIE Administration - Patient Studies Lab Studies: Microbiology Studies 07/23/18 08:28 Blood Culture - Preliminary Blood NO GROWTH AFTER 4 DAYS 07/23/18 08:28 Blood Culture - Preliminary Blood NO GROWTH AFTER 4 DAYS Lab Studies 07/27/18 07/27/18 07/27/18 Range/Units 05:38 05:37 05:37 WBC 7.9 (4.8-10.8) K/uL RBC 3.31 L (4.40-5.90) Mil/uL Hgb 9.7 L (12.0-18.0) g/dL Hct 28.8 L (35.0-51.0) % MCV 87.1 (80.0-94.0) fL MCH 29.5 (27.0-31.0) pg MCHC 33.8 (33.0-37.0) g/dL RDW 15.0 H (11.5-14.5) % Plt Count 280 (130-400) K/uL MPV 7.4 (7.2-11.7) fL Neut % (Auto) 86.9 H (50.0-75.0) % Lymph % (Auto) 8.7 L (20.0-40.0) % [place] % (Auto) 4.0 (0.0-10.0) % Eos % (Auto) 0.1 (0.0-4.0) % Baso % (Auto) 0.3 (0.0-2.0) % Neut # (Auto) 6.9 (1.8-7.0) K/uL Lymph # (Auto) 0.7 L (1.0-4.3) K/uL [place] # (Auto) 0.3 (0.0-0.8) K/uL Eos # (Auto) 0.0 (0.0-0.7) K/uL Baso # (Auto) 0.0 (0.0-0.2) K/uL Neutrophils % (Manual) 89 H (50-75) % Lymphocytes % (Manual) 9 L (20-40) % Monocytes % (Manual) 2 (0-10) % Platelet Estimate Normal (NORMAL) Anisocytosis (manual) Slight Puncture Site R rad pCO2 33 L (35-45) mm/Hg pO2 107 H (80-100) mm/Hg HCO3 26.2 (21-28) mmol/L ABG pH 7.48 H (7.35-7.45) ABG Total CO2 25.6 (22-28) mmol/L ABG O2 Saturation 99.2 H (95-98) % ABG Base Excess 1.6 (-2.0-3.0) mmol/L Hua Test Pos ABG Potassium 2.8 L (3.6-5.2) mmol/L A-a O2 Difference 208.0 mm/Hg Respiratory Index 1.9 Glucose 120 H (75-110) mg/dl Lactate 1.1 (0.7-2.1) mmol/L Vent Mode Prvc Mechanical Rate 16 FiO2 50.0 % Tidal Volume 500 PEEP 5 Sodium 139.0 137 (132-148) mmol/L Potassium 3.0 L (3.6-5.2) mmol/L Chloride 112.0 H 107 (98-107) mmol/L Carbon Dioxide 26 (22-30) mmol/L Anion Gap 7 L (10-20) BUN 17 (9-20) mg/dL Creatinine 0.6 L (0.8-1.5) mg/dL Est GFR ( Amer) > 60 Est GFR (Non-Af Amer) > 60 POC Glucose (mg/dL) (65-110) mg/dL Random Glucose 127 H (75-110) mg/dL Calcium 8.1 L (8.6-10.4) mg/dl Phosphorus 2.6 (2.5-4.5) mg/dL Magnesium 2.1 (1.6-2.3) mg/dL Total Bilirubin 0.3 (0.2-1.3) mg/dL AST 23 (17-59) U/L ALT 7 L (21-72) U/L Alkaline Phosphatase 122 (38-126) U/L Total Protein 5.6 L (6.3-8.3) g/dL Albumin 2.6 L (3.5-5.0) g/dL Globulin 3.0 (2.2-3.9) gm/dL Albumin/Globulin Ratio 0.9 L (1.0-2.1) Arterial Blood Potassium 2.8 L (3.6-5.2) mmol/L 07/27/18 07/26/18 07/26/18 Range/Units 05:02 23:44 18:01 WBC (4.8-10.8) K/uL RBC (4.40-5.90) Mil/uL Hgb (12.0-18.0) g/dL Hct (35.0-51.0) % MCV (80.0-94.0) fL MCH (27.0-31.0) pg MCHC (33.0-37.0) g/dL RDW (11.5-14.5) % Plt Count (130-400) K/uL MPV (7.2-11.7) fL Neut % (Auto) (50.0-75.0) % Lymph % (Auto) (20.0-40.0) % [place] % (Auto) (0.0-10.0) % Eos % (Auto) (0.0-4.0) % Baso % (Auto) (0.0-2.0) % Neut # (Auto) (1.8-7.0) K/uL Lymph # (Auto) (1.0-4.3) K/uL [place] # (Auto) (0.0-0.8) K/uL Eos # (Auto) (0.0-0.7) K/uL Baso # (Auto) (0.0-0.2) K/uL Neutrophils % (Manual) (50-75) % Lymphocytes % (Manual) (20-40) % Monocytes % (Manual) (0-10) % Platelet Estimate (NORMAL) Anisocytosis (manual) Puncture Site pCO2 (35-45) mm/Hg pO2 (80-100) mm/Hg HCO3 (21-28) mmol/L ABG pH (7.35-7.45) ABG Total CO2 (22-28) mmol/L ABG O2 Saturation (95-98) % ABG Base Excess (-2.0-3.0) mmol/L Hua Test ABG Potassium (3.6-5.2) mmol/L A-a O2 Difference mm/Hg Respiratory Index Glucose (75-110) mg/dl Lactate (0.7-2.1) mmol/L Vent Mode Mechanical Rate FiO2 % Tidal Volume PEEP Sodium (132-148) mmol/L Potassium (3.6-5.2) mmol/L Chloride (98-107) mmol/L Carbon Dioxide (22-30) mmol/L Anion Gap (10-20) BUN (9-20) mg/dL Creatinine (0.8-1.5) mg/dL Est GFR ( Amer) Est GFR (Non-Af Amer) POC Glucose (mg/dL) 129 H 96 120 H (65-110) mg/dL Random Glucose (75-110) mg/dL Calcium (8.6-10.4) mg/dl Phosphorus (2.5-4.5) mg/dL Magnesium (1.6-2.3) mg/dL Total Bilirubin (0.2-1.3) mg/dL AST (17-59) U/L ALT (21-72) U/L Alkaline Phosphatase (38-126) U/L Total Protein (6.3-8.3) g/dL Albumin (3.5-5.0) g/dL Globulin (2.2-3.9) gm/dL Albumin/Globulin Ratio (1.0-2.1) Arterial Blood Potassium (3.6-5.2) mmol/L Laboratory Results - last 24 hr 07/26/18 07/26/18 07/27/18 18:01 23:44 05:02 WBC RBC Hgb Hct MCV MCH MCHC RDW Plt Count MPV Neut % (Auto) Lymph % (Auto) [place] % (Auto) Eos % (Auto) Baso % (Auto) Neut # (Auto) Lymph # (Auto) [place] # (Auto) Eos # (Auto) Baso # (Auto) Neutrophils % (Manual) Lymphocytes % (Manual) Monocytes % (Manual) Platelet Estimate Anisocytosis (manual) Puncture Site pCO2 pO2 HCO3 ABG pH ABG Total CO2 ABG O2 Saturation ABG Base Excess Hua Test ABG Potassium A-a O2 Difference Respiratory Index Glucose Lactate Vent Mode Mechanical Rate FiO2 Tidal Volume PEEP Sodium Potassium Chloride Carbon Dioxide Anion Gap BUN Creatinine Est GFR ( Amer) Est GFR (Non-Af Amer) POC Glucose (mg/dL) 120 H 96 129 H Random Glucose Calcium Phosphorus Magnesium Total Bilirubin AST ALT Alkaline Phosphatase Total Protein Albumin Globulin Albumin/Globulin Ratio Arterial Blood Potassium 07/27/18 07/27/18 07/27/18 05:37 05:37 05:38 WBC 7.9 RBC 3.31 L Hgb 9.7 L Hct 28.8 L MCV 87.1 MCH 29.5 MCHC 33.8 RDW 15.0 H Plt Count 280 MPV 7.4 Neut % (Auto) 86.9 H Lymph % (Auto) 8.7 L [place] % (Auto) 4.0 Eos % (Auto) 0.1 Baso % (Auto) 0.3 Neut # (Auto) 6.9 Lymph # (Auto) 0.7 L [place] # (Auto) 0.3 Eos # (Auto) 0.0 Baso # (Auto) 0.0 Neutrophils % (Manual) 89 H Lymphocytes % (Manual) 9 L Monocytes % (Manual) 2 Platelet Estimate Normal Anisocytosis (manual) Slight Puncture Site R rad pCO2 33 L pO2 107 H HCO3 26.2 ABG pH 7.48 H ABG Total CO2 25.6 ABG O2 Saturation 99.2 H ABG Base Excess 1.6 Hua Test Pos ABG Potassium 2.8 L A-a O2 Difference 208.0 Respiratory Index 1.9 Glucose 120 H Lactate 1.1 Vent Mode Prvc Mechanical Rate 16 FiO2 50.0 Tidal Volume 500 PEEP 5 Sodium 137 139.0 Potassium 3.0 L Chloride 107 112.0 H Carbon Dioxide 26 Anion Gap 7 L BUN 17 Creatinine 0.6 L Est GFR ( Amer) > 60 Est GFR (Non-Af Amer) > 60 POC Glucose (mg/dL) Random Glucose 127 H Calcium 8.1 L Phosphorus 2.6 Magnesium 2.1 Total Bilirubin 0.3 AST 23 ALT 7 L Alkaline Phosphatase 122 Total Protein 5.6 L Albumin 2.6 L Globulin 3.0 Albumin/Globulin Ratio 0.9 L Arterial Blood Potassium 2.8 L Radiology Impressions: Radiology Impressions Chest X-Ray 07/27/18 06:00 IMPRESSION: Worsening pulmonary venous congestion and interstitial pulmonary edema. Stable position of support tubes. EKG/Cardiology Studies: Cardiology / EKG Studies 07/26/18 11:41 EKG [ELECTROCARDIOGRAM] Stat Comment: Mode Of Transportation: BED Reason For Exam: R/O A Fib Fingerstick Blood Sugar Results: 129 Review of Systems - Review of Systems Systems not reviewed;Unavailable: Intubated Assessment/Plan - Assessment and Plan (Free Text) Assessment: 82 y o male with PMhx COPD, HTN, HLD, CAD, s/p AICD implantation, TIA, who presented to the ED brought in by his s/p fall and with c/o fever. As per chart review, pt was trying to reach something at home, slipped and fell on floor. Pt at time was unable to get up, and EMS was called. Pt has reported hx of multiple recent falls prior to fall that led to this current admission. Currently being treated for aspiration PNA with Vanco/Doxycycline. 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 Acute respiratory distress likely 2/2 aspiration PNA. Currently intubated, sedation being weaned off, plan for extubation today. S/p bronchoscopy on 07/26/18 which revealed foreign body aspirate. Plan: Neuro: -Intubated, sedation being weaned off, plan for extubation today -Cont to monitor -Head CT on admission 07/23: No intracranial mass, hemorrhage or evidence of acute infarct. Atrophy and chronic white matter ischemic change. 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 -Hip/pelvis/shoulder XRs neg for acute fx Cardio: -Hx HTN, HLD, CAD, s/p AICD implantation -Cardiology (Dr. 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 Stable position of support tubes. -Daliresp -Cont to monitor -S/p bronchoscopy on 07/26/18 which revealed foreign body aspirate GI: -NPO -IVF at 75 cc/hr -Tube feeds started -CT abd/pelvis on admission: Multiple pelvic fractures, likely nonacute. Compression fxs of T11 and L1 vertebral bodies, indeterminate age. L lower lobe consolidation. No other acute abnormalities. -Protonix -Colace bid -No acute issues at this time Heme: -H/H 9.7/28.8, cont to trend ID: -Aspiration PNA -Anbx as noted above -CXR findings as noted above -Afebrile > 24 hrs -Blood and urine cxs NGTD -Bronchial cx 07/26 positive for gram-neg edgar Renal: -Bun/Cr wnl -Trend I's/O's PPX: -Protonix, Heparin -PT eval ordered -Palliative care consulted re. goals of care, recs appreciated Pt seen, examined with, and plan discussed with Dr. Omalley, attending physician. Gaurav Jordan DO PGY-1, Folder Operator Pager #[phone] <You Omalley - Last Filed: 07/27/18 18:14> CCU Objective - Vital Signs / Intake & Output Vital Signs (Last 4 hours): Vital Signs Temp Pulse BP Pulse Ox 07/27/18 16:04 98 H 133/64 07/27/18 16:00 98.4 F 99 H 100 07/27/18 15:49 93 H 137/67 07/27/18 15:34 85 136/67 07/27/18 15:19 94 H 135/66 07/27/18 15:04 93 H 135/63 07/27/18 15:00 87 100 07/27/18 14:49 95 H 136/64 100 07/27/18 14:34 91 H 125/62 07/27/18 14:19 91 H 131/64 Intake and Output (Last 8hrs): Intake & Output 07/27/18 07/27/18 07/27/18 06:59 14:59 22:59 Intake Total 1076.6 791.6 150 Output Total 775 Balance 1076.6 16.6 150 Intake: IV 101 29 Intake, IV Amount 720.6 642.6 150 Left Forearm 100 Right Forearm 95.6 17.6 right arm 625 525 150 Tube Feeding 225 120 Other 30 Output: Urine 775 Straight 775 Other: # Bowel Movements 1 1 - Medications Active Medications: Active Medications Generic Name Dose Route Start Last Admin Trade Name Freq PRN Reason Stop Dose Admin Acetylcysteine 4 ml 07/25/18 20:00 07/27/18 08:05 Acetylcysteine 20% INH 4 ml RQ6 NATALIE Administration Albuterol/Ipratropium 3 ml 07/25/18 20:00 07/27/18 16:19 Duoneb 3 Mg/0.5 Mg (3 Ml) Ud INH 3 ml RQ4 NATALIE Administration Aspirin 81 mg 07/23/18 10:00 07/27/18 09:49 Ecotrin PO 81 mg DAILY NATALIE Administration Docusate Sodium 100 mg 07/23/18 10:00 07/27/18 09:49 Colace PO 100 mg BID NATALIE Administration Doxycycline Hyclate 100 mg/ 100 mls @ 100 mls/hr 07/23/18 22:00 07/27/18 09:45 Sodium Chloride IVPB 100 mls/hr Q12H NATALIE Administration Protocol Vancomycin HCl 500 mg/ Sodium 100 mls @ 67 mls/hr 07/23/18 22:00 07/27/18 12:31 Chloride IVPB 67 mls/hr Q12H NATALIE Administration Protocol Propofol 1,000 mg in 100 mls @ 2.245 mls/hr 07/25/18 16:42 07/27/18 08:49 Diprivan IV Infused .Q24H PRN Titration TITRATE PER MD ORDER Protocol 5 MCG/KG/MIN Dextrose/Sodium Chloride 1,000 mls @ 75 mls/hr 07/25/18 17:06 07/27/18 09:00 Dextrose 5%/0.9% Ns 1000 Ml IV Not Given .[id number] NATALIE Losartan Potassium 25 mg 07/23/18 10:00 07/24/18 09:29 Cozaar PO 25 mg DAILY NATALIE Administration Methylprednisolone 40 mg 07/27/18 11:45 07/27/18 12:39 Solu-Medrol IVP 40 mg BID NATALIE Administration Metoprolol Tartrate 25 mg 07/26/18 12:45 07/27/18 12:39 Lopressor PO 25 mg Q12H NATALIE Administration Pantoprazole Sodium 40 mg 07/26/18 10:00 07/27/18 09:49 Protonix Inj IVP 40 mg DAILY NATALIE Administration Roflumilast 500 mcg 07/23/18 10:00 07/27/18 09:49 Daliresp PO 500 mcg DAILY NATALIE Administration Rosuvastatin Calcium 10 mg 07/23/18 22:00 07/26/18 21:52 Crestor PO 10 mg HS NATALIE Administration Tamsulosin HCl 0.4 mg 07/23/18 10:00 07/27/18 09:48 Flomax PO 0.4 mg BID NATALIE Administration - Patient Studies Lab Studies: Microbiology Studies 07/26/18 18:08 Fungal Culture - Preliminary Lung 07/26/18 18:08 Bronchial Culture - Preliminary Bronchial Washings Gram Negative Edgar Gram Negative Edgar#2 07/23/18 08:28 Blood Culture - Preliminary Blood NO GROWTH AFTER 4 DAYS 07/23/18 08:28 Blood Culture - Preliminary Blood NO GROWTH AFTER 4 DAYS Lab Studies 07/27/18 07/27/18 07/27/18 Range/Units 17:28 11:17 05:38 WBC (4.8-10.8) K/uL RBC (4.40-5.90) Mil/uL Hgb (12.0-18.0) g/dL Hct (35.0-51.0) % MCV (80.0-94.0) fL MCH (27.0-31.0) pg MCHC (33.0-37.0) g/dL RDW (11.5-14.5) % Plt Count (130-400) K/uL MPV (7.2-11.7) fL Neut % (Auto) (50.0-75.0) % Lymph % (Auto) (20.0-40.0) % [place] % (Auto) (0.0-10.0) % Eos % (Auto) (0.0-4.0) % Baso % (Auto) (0.0-2.0) % Neut # (Auto) (1.8-7.0) K/uL Lymph # (Auto) (1.0-4.3) K/uL [place] # (Auto) (0.0-0.8) K/uL Eos # (Auto) (0.0-0.7) K/uL Baso # (Auto) (0.0-0.2) K/uL Neutrophils % (Manual) (50-75) % Lymphocytes % (Manual) (20-40) % Monocytes % (Manual) (0-10) % Platelet Estimate (NORMAL) Anisocytosis (manual) Puncture Site R rad pCO2 33 L (35-45) mm/Hg pO2 107 H (80-100) mm/Hg HCO3 26.2 (21-28) mmol/L ABG pH 7.48 H (7.35-7.45) ABG Total CO2 25.6 (22-28) mmol/L ABG O2 Saturation 99.2 H (95-98) % ABG Base Excess 1.6 (-2.0-3.0) mmol/L Hua Test Pos ABG Potassium 2.8 L (3.6-5.2) mmol/L A-a O2 Difference 208.0 mm/Hg Respiratory Index 1.9 Glucose 120 H (75-110) mg/dl Lactate 1.1 (0.7-2.1) mmol/L Vent Mode Prvc Mechanical Rate 16 FiO2 50.0 % Tidal Volume 500 PEEP 5 Sodium 139.0 (132-148) mmol/L Potassium (3.6-5.2) mmol/L Chloride 112.0 H (98-107) mmol/L Carbon Dioxide (22-30) mmol/L Anion Gap (10-20) BUN (9-20) mg/dL Creatinine (0.8-1.5) mg/dL Est GFR ( Amer) Est GFR (Non-Af Amer) POC Glucose (mg/dL) 162 H 140 H (65-110) mg/dL Random Glucose (75-110) mg/dL Calcium (8.6-10.4) mg/dl Phosphorus (2.5-4.5) mg/dL Magnesium (1.6-2.3) mg/dL Total Bilirubin (0.2-1.3) mg/dL AST (17-59) U/L ALT (21-72) U/L Alkaline Phosphatase (38-126) U/L Total Protein (6.3-8.3) g/dL Albumin (3.5-5.0) g/dL Globulin (2.2-3.9) gm/dL Albumin/Globulin Ratio (1.0-2.1) Arterial Blood Potassium 2.8 L (3.6-5.2) mmol/L 07/27/18 07/27/18 07/27/18 Range/Units 05:37 05:37 05:02 WBC 7.9 (4.8-10.8) K/uL RBC 3.31 L (4.40-5.90) Mil/uL Hgb 9.7 L (12.0-18.0) g/dL Hct 28.8 L (35.0-51.0) % MCV 87.1 (80.0-94.0) fL MCH 29.5 (27.0-31.0) pg MCHC 33.8 (33.0-37.0) g/dL RDW 15.0 H (11.5-14.5) % Plt Count 280 (130-400) K/uL MPV 7.4 (7.2-11.7) fL Neut % (Auto) 86.9 H (50.0-75.0) % Lymph % (Auto) 8.7 L (20.0-40.0) % [place] % (Auto) 4.0 (0.0-10.0) % Eos % (Auto) 0.1 (0.0-4.0) % Baso % (Auto) 0.3 (0.0-2.0) % Neut # (Auto) 6.9 (1.8-7.0) K/uL Lymph # (Auto) 0.7 L (1.0-4.3) K/uL [place] # (Auto) 0.3 (0.0-0.8) K/uL Eos # (Auto) 0.0 (0.0-0.7) K/uL Baso # (Auto) 0.0 (0.0-0.2) K/uL Neutrophils % (Manual) 89 H (50-75) % Lymphocytes % (Manual) 9 L (20-40) % Monocytes % (Manual) 2 (0-10) % Platelet Estimate Normal (NORMAL) Anisocytosis (manual) Slight Puncture Site pCO2 (35-45) mm/Hg pO2 (80-100) mm/Hg HCO3 (21-28) mmol/L ABG pH (7.35-7.45) ABG Total CO2 (22-28) mmol/L ABG O2 Saturation (95-98) % ABG Base Excess (-2.0-3.0) mmol/L Hua Test ABG Potassium (3.6-5.2) mmol/L A-a O2 Difference mm/Hg Respiratory Index Glucose (75-110) mg/dl Lactate (0.7-2.1) mmol/L Vent Mode Mechanical Rate FiO2 % Tidal Volume PEEP Sodium 137 (132-148) mmol/L Potassium 3.0 L (3.6-5.2) mmol/L Chloride 107 (98-107) mmol/L Carbon Dioxide 26 (22-30) mmol/L Anion Gap 7 L (10-20) BUN 17 (9-20) mg/dL Creatinine 0.6 L (0.8-1.5) mg/dL Est GFR ( Amer) > 60 Est GFR (Non-Af Amer) > 60 POC Glucose (mg/dL) 129 H (65-110) mg/dL Random Glucose 127 H (75-110) mg/dL Calcium 8.1 L (8.6-10.4) mg/dl Phosphorus 2.6 (2.5-4.5) mg/dL Magnesium 2.1 (1.6-2.3) mg/dL Total Bilirubin 0.3 (0.2-1.3) mg/dL AST 23 (17-59) U/L ALT 7 L (21-72) U/L Alkaline Phosphatase 122 (38-126) U/L Total Protein 5.6 L (6.3-8.3) g/dL Albumin 2.6 L (3.5-5.0) g/dL Globulin 3.0 (2.2-3.9) gm/dL Albumin/Globulin Ratio 0.9 L (1.0-2.1) Arterial Blood Potassium (3.6-5.2) mmol/L 07/26/18 07/26/18 Range/Units 23:44 18:01 WBC (4.8-10.8) K/uL RBC (4.40-5.90) Mil/uL Hgb (12.0-18.0) g/dL Hct (35.0-51.0) % MCV (80.0-94.0) fL MCH (27.0-31.0) pg MCHC (33.0-37.0) g/dL RDW (11.5-14.5) % Plt Count (130-400) K/uL MPV (7.2-11.7) fL Neut % (Auto) (50.0-75.0) % Lymph % (Auto) (20.0-40.0) % [place] % (Auto) (0.0-10.0) % Eos % (Auto) (0.0-4.0) % Baso % (Auto) (0.0-2.0) % Neut # (Auto) (1.8-7.0) K/uL Lymph # (Auto) (1.0-4.3) K/uL [place] # (Auto) (0.0-0.8) K/uL Eos # (Auto) (0.0-0.7) K/uL Baso # (Auto) (0.0-0.2) K/uL Neutrophils % (Manual) (50-75) % Lymphocytes % (Manual) (20-40) % Monocytes % (Manual) (0-10) % Platelet Estimate (NORMAL) Anisocytosis (manual) Puncture Site pCO2 (35-45) mm/Hg pO2 (80-100) mm/Hg HCO3 (21-28) mmol/L ABG pH (7.35-7.45) ABG Total CO2 (22-28) mmol/L ABG O2 Saturation (95-98) % ABG Base Excess (-2.0-3.0) mmol/L Hua Test ABG Potassium (3.6-5.2) mmol/L A-a O2 Difference mm/Hg Respiratory Index Glucose (75-110) mg/dl Lactate (0.7-2.1) mmol/L Vent Mode Mechanical Rate FiO2 % Tidal Volume PEEP Sodium (132-148) mmol/L Potassium (3.6-5.2) mmol/L Chloride (98-107) mmol/L Carbon Dioxide (22-30) mmol/L Anion Gap (10-20) BUN (9-20) mg/dL Creatinine (0.8-1.5) mg/dL Est GFR ( Amer) Est GFR (Non-Af Amer) POC Glucose (mg/dL) 96 120 H (65-110) mg/dL Random Glucose (75-110) mg/dL Calcium (8.6-10.4) mg/dl Phosphorus (2.5-4.5) mg/dL Magnesium (1.6-2.3) mg/dL Total Bilirubin (0.2-1.3) mg/dL AST (17-59) U/L ALT (21-72) U/L Alkaline Phosphatase (38-126) U/L Total Protein (6.3-8.3) g/dL Albumin (3.5-5.0) g/dL Globulin (2.2-3.9) gm/dL Albumin/Globulin Ratio (1.0-2.1) Arterial Blood Potassium (3.6-5.2) mmol/L Laboratory Results - last 24 hr 07/26/18 07/26/1807/27/19 18:01 23:44 05:02 WBC RBC Hgb Hct MCV MCH MCHC RDW Plt Count MPV Neut % (Auto) Lymph % (Auto) [place] % (Auto) Eos % (Auto) Baso % (Auto) Neut # (Auto) Lymph # (Auto) [place] # (Auto) Eos # (Auto) Baso # (Auto) Neutrophils % (Manual) Lymphocytes % (Manual) Monocytes % (Manual) Platelet Estimate Anisocytosis (manual) Puncture Site pCO2 pO2 HCO3 ABG pH ABG Total CO2 ABG O2 Saturation ABG Base Excess Hua Test ABG Potassium A-a O2 Difference Respiratory Index Glucose Lactate Vent Mode Mechanical Rate FiO2 Tidal Volume PEEP Sodium Potassium Chloride Carbon Dioxide Anion Gap BUN Creatinine Est GFR ( Amer) Est GFR (Non-Af Amer) POC Glucose (mg/dL) 120 H 96 129 H Random Glucose Calcium Phosphorus Magnesium Total Bilirubin AST ALT Alkaline Phosphatase Total Protein Albumin Globulin Albumin/Globulin Ratio Arterial Blood Potassium 07/27/18 07/27/18 07/27/18 05:37 05:37 05:38 WBC 7.9 RBC 3.31 L Hgb 9.7 L Hct 28.8 L MCV 87.1 MCH 29.5 MCHC 33.8 RDW 15.0 H Plt Count 280 MPV 7.4 Neut % (Auto) 86.9 H Lymph % (Auto) 8.7 L [place] % (Auto) 4.0 Eos % (Auto) 0.1 Baso % (Auto) 0.3 Neut # (Auto) 6.9 Lymph # (Auto) 0.7 L [place] # (Auto) 0.3 Eos # (Auto) 0.0 Baso # (Auto) 0.0 Neutrophils % (Manual) 89 H Lymphocytes % (Manual) 9 L Monocytes % (Manual) 2 Platelet Estimate Normal Anisocytosis (manual) Slight Puncture Site R rad pCO2 33 L pO2 107 H HCO3 26.2 ABG pH 7.48 H ABG Total CO2 25.6 ABG O2 Saturation 99.2 H ABG Base Excess 1.6 Hua Test Pos ABG Potassium 2.8 L A-a O2 Difference 208.0 Respiratory Index 1.9 Glucose 120 H Lactate 1.1 Vent Mode Prvc Mechanical Rate 16 FiO2 50.0 Tidal Volume 500 PEEP 5 Sodium 137 139.0 Potassium 3.0 L Chloride 107 112.0 H Carbon Dioxide 26 Anion Gap 7 L BUN 17 Creatinine 0.6 L Est GFR ( Amer) > 60 Est GFR (Non-Af Amer) > 60 POC Glucose (mg/dL) Random Glucose 127 H Calcium 8.1 L Phosphorus 2.6 Magnesium 2.1 Total Bilirubin 0.3 AST 23 ALT 7 L Alkaline Phosphatase 122 Total Protein 5.6 L Albumin 2.6 L Globulin 3.0 Albumin/Globulin Ratio 0.9 L Arterial Blood Potassium 2.8 L 07/27/18 07/27/18 11:17 17:28 WBC RBC Hgb Hct MCV MCH MCHC RDW Plt Count MPV Neut % (Auto) Lymph % (Auto) [place] % (Auto) Eos % (Auto) Baso % (Auto) Neut # (Auto) Lymph # (Auto) [place] # (Auto) Eos # (Auto) Baso # (Auto) Neutrophils % (Manual) Lymphocytes % (Manual) Monocytes % (Manual) Platelet Estimate Anisocytosis (manual) Puncture Site pCO2 pO2 HCO3 ABG pH ABG Total CO2 ABG O2 Saturation ABG Base Excess Hua Test ABG Potassium A-a O2 Difference Respiratory Index Glucose Lactate Vent Mode Mechanical Rate FiO2 Tidal Volume PEEP Sodium Potassium Chloride Carbon Dioxide Anion Gap BUN Creatinine Est GFR ( Amer) Est GFR (Non-Af Amer) POC Glucose (mg/dL) 140 H 162 H Random Glucose Calcium Phosphorus Magnesium Total Bilirubin AST ALT Alkaline Phosphatase Total Protein Albumin Globulin Albumin/Globulin Ratio Arterial Blood Potassium Radiology Impressions: Radiology Impressions Chest X-Ray 07/27/18 06:00 IMPRESSION: Worsening pulmonary venous congestion and interstitial pulmonary edema. Stable position of support tubes. Attending/Attestation - Attestation I have personally seen and examined this patient.: Yes I have fully participated in the care of the patient.: Yes I have reviewed all pertinent clinical information: Yes Notes (Text): 07/27/18 18:06 I have seen and examined the patient. Medical records, lab studies, and imaging were reviewed by me and a management plan was formulated on multidisciplinary rounds with resident Dr. Jordan. I agree with their documented assessment and plan. Patient was tolerating PS trial, extubated. Patient still has a weak cough, needs frequent suctioning. Risk of decompensation is still high. Critical Care Time 35 minutes. Multi-disciplinary rounds were performed with house staff, nursing, speech therapy, respiratory therapy, pharmacy and nutrition with integrated input from the primary team/attending and other consulting services. The documented time is cumulative and includes review of patient data/exams/labs/chart review and examination of the patient on rounds and throughout the day; time is exclusive of any procedures or teaching time.
[2018-07-27] MEDS: MethylPREDNISolone 40 mg Vial IVP SCH ×2 (12:39→18:53)
--- NOTE | 2018-07-27 16:02 | CP.PCM.CON ---
History of Present Illness - History of Present Illness History of Present Illness: Palliative consult requested by Doctor Mcgraw for goals of care discussion. Patient is a 82 yo male BIBA with fever, decreased appetite X 5 days. Patient fail 2 days ago, injured his right shoulder and right leg. Patient has not been ambulating ever since. CXR showed LLL Pneumonia. Patient treated with Vanco and Vibramcin. XRay of right hip and right shoulder negative fractures. on 07/23/18 [employer] called for tachycardia and tachypnea. patient did not respond to face mask, was intubated and transferred to ICU. S/P bronchoscope today. PMH: COPD,HTN,CAD,AICD Soc. Hx: lives at home with , has 22 +6 stairs to climb at home, lives on 2 nd floor Fam. Hx: non significant Review of Systems - Review of Systems Systems not reviewed;Unavailable: Intubated All systems: reviewed and no additional remarkable complaints except Review of Systems: ROS obtained from nursing. Patient is on CPAP since 9 am today, doing well. 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) Hx Difficulty Chewing: No - RENAL Hx Chronic Kidney Disease: Yes Hx Kidney Stones: Yes - ENDOCRINE/METABOLIC Hx Hypothyroidism: Yes - HEMATOLOGICAL/ONCOLOGICAL Hx Blood Disorders: Yes Other/Comment: polycythemia vera - INTEGUMENTARY Hx Dermatological Problems: Yes Other/Comment: PRURITIS - MUSCULOSKELETAL/RHEUMATOLOGICAL Hx Arthritis: Yes - GASTROINTESTINAL Hx Diverticulitis: Yes (HX PARTIAL COLECTOMY) Hx Gastritis: Yes - GENITOURINARY/GYNECOLOGICAL Hx Genitourinary Disorders: Yes Hx Incontinence: Yes Hx Prostate Problems: Yes - PSYCHIATRIC Hx Anxiety: Yes Hx Substance Use: No - SURGICAL HISTORY Hx Cholecystectomy: Yes (1974) Hx Coronary Artery Bypass Graft: Yes (1986) Hx Coronary Stent: Yes - ANESTHESIA Hx Anesthesia: Yes Hx Anesthesia Reactions: No Hx Malignant Hyperthermia: No Meds Allergies/Adverse Reactions: Allergies Allergy/AdvReac Type Severity Reaction Status Date / Time ciprofloxacin HCl Allergy Severe ITCHING Verified 04/11/17 17:31 [From Cipro] Penicillins Allergy Severe ITCHING Verified 04/11/17 17:31 tetanus and diphtheria Allergy Severe hives Verified 04/11/17 17:31 toxoids - Medications Medications: Current Medications Acetylcysteine (Acetylcysteine 20%) 4 ml INH RQ6 [facility] Last Admin: 07/27/18 08:05 Dose: 4 ml Albuterol/Ipratropium (Duoneb 3 Mg/0.5 Mg (3 Ml) Ud) 3 ml INH RQ4 [facility] Last Admin: 07/27/18 11:06 Dose: 3 ml Aspirin (Ecotrin) 81 mg PO DAILY [facility] Last Admin: 07/27/18 09:49 Dose: 81 mg Docusate Sodium (Colace) 100 mg PO BID [facility] Last Admin: 07/27/18 09:49 Dose: 100 mg Doxycycline Hyclate 100 mg/ (Sodium Chloride) 100 mls @ 100 mls/hr IVPB Q12H [facility]; Protocol Last Admin: 07/27/18 09:45 Dose: 100 mls/hr Vancomycin HCl 500 mg/ Sodium (Chloride) 100 mls @ 67 mls/hr IVPB Q12H [facility]; Protocol Last Admin: 07/27/18 12:31 Dose: 67 mls/hr Propofol (Diprivan) 1,000 mg in 100 mls @ 2.245 mls/hr IV .Q24H PRN; Protocol PRN Reason: TITRATE PER MD ORDER Last Titration: 07/27/18 08:49 Dose: Infused Dextrose/Sodium Chloride (Dextrose 5%/0.9% Ns 1000 Ml) 1,000 mls @ 75 mls/hr IV .[id number] [facility] Last Admin: 07/27/18 09:00 Dose: Not Given Losartan Potassium (Cozaar) 25 mg PO DAILY [facility] Last Admin: 07/24/18 09:29 Dose: 25 mg Methylprednisolone (Solu-Medrol) 40 mg IVP BID [facility] Last Admin: 07/27/18 12:39 Dose: 40 mg Metoprolol Tartrate (Lopressor) 25 mg PO Q12H [facility] Last Admin: 07/27/18 12:39 Dose: 25 mg Pantoprazole Sodium (Protonix Inj) 40 mg IVP DAILY [facility] Last Admin: 07/27/18 09:49 Dose: 40 mg Roflumilast (Daliresp) 500 mcg PO DAILY [facility] Last Admin: 07/27/18 09:49 Dose: 500 mcg Rosuvastatin Calcium (Crestor) 10 mg PO HS [facility] Last Admin: 07/26/18 21:52 Dose: 10 mg Tamsulosin HCl (Flomax) 0.4 mg PO BID [facility] Last Admin: 07/27/18 09:48 Dose: 0.4 mg Physical Exam - Constitutional Appears: In Acute Distress, Chronically Ill - Head Exam Head Exam: ATRAUMATIC, NORMAL INSPECTION, NORMOCEPHALIC - Eye Exam Eye Exam: EOMI, Normal appearance, PERRL Pupil Exam: NORMAL ACCOMODATION, PERRL - ENT Exam ENT Exam: Mucous Membranes Dry Additional comments: ETT - Neck Exam Neck exam: Positive for: Normal Inspection - Respiratory Exam Respiratory Exam: Decreased Breath Sounds, NORMAL BREATHING PATTERN - Cardiovascular Exam Cardiovascular Exam: Tachycardia, REGULAR RHYTHM - GI/Abdominal Exam GI & Abdominal Exam: Normal Bowel Sounds, Soft - Rectal Exam Rectal Exam: Deferred - Exam Exam: NORMAL INSPECTION - Extremities Exam Extremities exam: Positive for: normal inspection, pedal edema - Back Exam Back exam: NORMAL INSPECTION - Neurological Exam Neurological exam: Alert - Psychiatric Exam Psychiatric exam: Normal Affect, Normal Mood - Skin Skin Exam: Dry, Intact, Normal Color, Warm Results - Vital Signs Recent Vital Signs: Last Vital Signs Temp 99.2 F 07/27/18 12:00 Pulse 91 H 07/27/18 14:19 Resp 24 07/27/18 11:34 BP 131/64 07/27/18 14:19 Pulse Ox 99 07/27/18 14:00 - Labs Result Diagrams: 07/27/18 05:37 07/27/18 05:37 Labs: Laboratory Results - last 24 hr 07/26/18 07/26/18 07/27/18 18:01 23:44 05:02 WBC RBC Hgb Hct MCV MCH MCHC RDW Plt Count MPV Neut % (Auto) Lymph % (Auto) [place] % (Auto) Eos % (Auto) Baso % (Auto) Neut # (Auto) Lymph # (Auto) [place] # (Auto) Eos # (Auto) Baso # (Auto) Neutrophils % (Manual) Lymphocytes % (Manual) Monocytes % (Manual) Platelet Estimate Anisocytosis (manual) Puncture Site pCO2 pO2 HCO3 ABG pH ABG Total CO2 ABG O2 Saturation ABG Base Excess Hua Test ABG Potassium A-a O2 Difference Respiratory Index Glucose Lactate Vent Mode Mechanical Rate FiO2 Tidal Volume PEEP Sodium Potassium Chloride Carbon Dioxide Anion Gap BUN Creatinine Est GFR ( Amer) Est GFR (Non-Af Amer) POC Glucose (mg/dL) 120 H 96 129 H Random Glucose Calcium Phosphorus Magnesium Total Bilirubin AST ALT Alkaline Phosphatase Total Protein Albumin Globulin Albumin/Globulin Ratio Arterial Blood Potassium 07/27/18 07/27/18 07/27/18 05:37 05:37 05:38 WBC 7.9 RBC 3.31 L Hgb 9.7 L Hct 28.8 L MCV 87.1 MCH 29.5 MCHC 33.8 RDW 15.0 H Plt Count 280 MPV 7.4 Neut % (Auto) 86.9 H Lymph % (Auto) 8.7 L [place] % (Auto) 4.0 Eos % (Auto) 0.1 Baso % (Auto) 0.3 Neut # (Auto) 6.9 Lymph # (Auto) 0.7 L [place] # (Auto) 0.3 Eos # (Auto) 0.0 Baso # (Auto) 0.0 Neutrophils % (Manual) 89 H Lymphocytes % (Manual) 9 L Monocytes % (Manual) 2 Platelet Estimate Normal Anisocytosis (manual) Slight Puncture Site R rad pCO2 33 L pO2 107 H HCO3 26.2 ABG pH 7.48 H ABG Total CO2 25.6 ABG O2 Saturation 99.2 H ABG Base Excess 1.6 Hua Test Pos ABG Potassium 2.8 L A-a O2 Difference 208.0 Respiratory Index 1.9 Glucose 120 H Lactate 1.1 Vent Mode Prvc Mechanical Rate 16 FiO2 50.0 Tidal Volume 500 PEEP 5 Sodium 137 139.0 Potassium 3.0 L Chloride 107 112.0 H Carbon Dioxide 26 Anion Gap 7 L BUN 17 Creatinine 0.6 L Est GFR ( Amer) > 60 Est GFR (Non-Af Amer) > 60 POC Glucose (mg/dL) Random Glucose 127 H Calcium 8.1 L Phosphorus 2.6 Magnesium 2.1 Total Bilirubin 0.3 AST 23 ALT 7 L Alkaline Phosphatase 122 Total Protein 5.6 L Albumin 2.6 L Globulin 3.0 Albumin/Globulin Ratio 0.9 L Arterial Blood Potassium 2.8 L Assessment & Plan - Assessment and Plan (Free Text) Assessment: Palliative consult Full Code, there is no Advance directive on chart, PPS 10 % I reviewed medical records, diagnostic studies, examined patient in the bed, discussed goals of care with . Patient is alert, makes eye contacts, nods for yes/no, intubated. Skin dry, pale, intact, pedal edema. Breathing supported by CPAP, 50 % FiO2, patient is saturating at 100 %. Heart rate 98, irregular rhythm, denies chest pain. Patient is able to move all 4 extremities. Pain denied. Goals of care discussed with patient's and daughter. is very involved in patient's care and understands his condition. She is the one who manages his appointments, pace maker checks, meds... is optimistic patient will recover, as he had done in the past. Her concern is patient's inability to climb the stairs entering the house on the 2 nd floor; there is > 20 stairs. is assisting patient with walking up to stairs. basically, she said she is pulling him by his belt and by the time she reaches the apartment with him, he needs to be given Nitroglycerin for his chest pain and tighteners. Changing apartment is not an option she said and landlord will not allow the stair lift installation. feels she needs assistance with carrying for her at home. We discussed the process of weaning and Veena GLORIA has informed me that patient reached criteria for safe extubation this afternoon. was happy to hear it. requested that patient's pace maker is being checked before patient leaves hospital. This was shared with primary RN. Code status discussed. understands DNR/DNI meaning. She is requesting FULL CODE. Impression * Acute respiratory distress 2nd to Pneumonia * Falls at home * Unsteady gait * House condition unsuitable for patient's condition * is requesting some help with care at home * is requesting FULL CODE Suggestion * Continue with weaning process * Discharge home with PT * Consider VNS * SS to discuss concerns about reaching apartment on the 2 nd floor * Patient may need walker/WC at home * FULL CODE Advance care discussion 60 min. Palliative care will sign off.
[2018-07-27 20:32] LABS: ABG ALLEN TEST PO; ARTERIAL BLOOD GAS HCO3 23.3 mmol/L (21-28); ARTERIAL BLOOD GAS O2 SAT 99.1 % (95-98); ARTERIAL BLOOD GAS PCO2 26 mm/Hg (35-45); ARTERIAL BLOOD GAS PH 7.49 (7.35-7.45); ARTERIAL BLOOD GAS PO2 122 mm/Hg (80-100); ARTERIAL BLOOD GAS TCO2 20.6 mmol/L (22-28)
[2018-07-28] MEDS: Acetylcysteine 20% Inhal Soln (4ml) INH SCH ×4 (03:04→19:08)
[2018-07-28] MEDS: Albuterol-Ipratrop 3 mg / 0.5 (3 ml) UD INH SCH ×5 (03:04→19:09)
[2018-07-28 06:10] LABS: BASO % 0.2 % (0.0-2.0); HEMOGLOBIN 9.8 g/dL (12.0-18.0); LYMPH # 0.5 K/uL (1.0-4.3); LYMPH % 6.7 % (20.0-40.0); MEAN CELL VOLUME 88.4 fL (80.0-94.0); MEAN CORPUSCULAR HEMOGLOBIN 28.9 pg (27.0-31.0); MEAN CORPUSCULAR HGB CONC 32.7 g/dL (33.0-37.0); MEAN PLATELET VOLUME 7.6 fL (7.2-11.7); MONO # 0.2 K/uL (0.0-0.8); MONO % 3.4 % (0.0-10.0); NEUT # 6.2 K/uL (1.8-7.0); NEUT % 89.7 % (50.0-75.0); NRBC % 0.1 % (0.0-2.0); PLATELET COUNT 273 K/uL (130-400); RBC 3.37 Mil/uL (4.40-5.90); RED CELL DISTRIBUTION WIDTH 14.2 % (11.5-14.5)
[2018-07-28 06:26] LABS: ALB/GLOB RATIO 0.9 (1.0-2.1); ALBUMIN 2.6 g/dL (3.5-5.0); ALT/SGPT 9 U/L (21-72); AST/SGOT 19 U/L (17-59); BLOOD UREA NITROGEN 19 mg/dL (9-20); CALCIUM 7.9 mg/dl (8.6-10.4); GFR NON-AFRICAN AMERICAN > 60
[2018-07-28 07:58] LABS: LYMPHOCYTE 6 % (20-40); MONOCYTE 3 % (0-10); NEUTROPHIL 91 % (50-75); PLATELET ESTIMATE NORMAL (NORMAL); TOTAL CELLS COUNTED 100
[2018-07-28 07:59] LABS: LARGE PLATELETS PRESENT
[2018-07-28] MEDS: MethylPREDNISolone 40 mg Vial IVP SCH ×2 (09:24→17:08)
[2018-07-28] MEDS: Dextrose 5%/0.9% NS 1,000 ML IV SCH ×3 (11:51→17:14)
--- NOTE | 2018-07-28 12:17 | RAD ---
Date of service: 07/28/2018 HISTORY: eval interval change COMPARISON: 07/27/2018 TECHNIQUE: 1 view obtained. FINDINGS: LUNGS: Patchy opacity at right base may reflect atelectasis or developing pneumonia. Follow-up is advised. No other abnormal opacity elsewhere. PLEURA: No significant pleural effusion identified, no pneumothorax apparent. CARDIOVASCULAR: There is atherosclerotic calcification of the thoracic aorta. Normal cardiac size. AICD. No congestive change. Sternotomy wires. OSSEOUS STRUCTURES: No significant abnormalities. VISUALIZED UPPER ABDOMEN: Normal. OTHER FINDINGS: None. IMPRESSION: Patchy opacity at right base. Atelectasis versus developing infiltrate. Follow-up advised.
[2018-07-29] MEDS: Albuterol-Ipratrop 3 mg / 0.5 (3 ml) UD INH SCH ×6 (00:51→19:32)
[2018-07-29] MEDS: Dextrose 5%/0.9% NS 1,000 ML IV SCH (01:06)
[2018-07-29] MEDS: Acetylcysteine 20% Inhal Soln (4ml) INH SCH ×4 (04:04→19:32)
[2018-07-29 06:41] LABS: BASO % 0.3 % (0.0-2.0); HEMOGLOBIN 9.9 g/dL (12.0-18.0); LYMPH # 0.8 K/uL (1.0-4.3); MEAN CELL VOLUME 88.6 fL (80.0-94.0); MEAN CORPUSCULAR HEMOGLOBIN 28.5 pg (27.0-31.0); MEAN CORPUSCULAR HGB CONC 32.1 g/dL (33.0-37.0); MEAN PLATELET VOLUME 7.7 fL (7.2-11.7); MONO # 0.3 K/uL (0.0-0.8); MONO % 4.3 % (0.0-10.0); NEUT # 5.2 K/uL (1.8-7.0); NEUT % 82.4 % (50.0-75.0); RBC 3.49 Mil/uL (4.40-5.90); RED CELL DISTRIBUTION WIDTH 14.6 % (11.5-14.5); WHITE BLOOD COUNT 6.3 K/uL (4.8-10.8)
[2018-07-29 07:00] LABS: ALB/GLOB RATIO 0.9 (1.0-2.1); ALBUMIN 2.4 g/dL (3.5-5.0); ALT/SGPT 14 U/L (21-72); AST/SGOT 25 U/L (17-59); BLOOD UREA NITROGEN 21 mg/dL (9-20); CALCIUM 8.1 mg/dl (8.6-10.4); GFR NON-AFRICAN AMERICAN > 60
--- NOTE | 2018-07-29 07:37 | CP.PCM.PN ---
Subjective - Date & Time of Evaluation Date of Evaluation: 07/26/18 Time of Evaluation: 07:36 - Subjective Subjective: Patient is still on ventilator at this time. He will be getting the bronchoscopy today. Possible bronchoscopic evaluation for the inspissated secretions. On examination: Currently sedated. On full support ventilation, chest good air entry, significant bilateral wheezing and rales noted. Thick secretions still noted Vital signs otherwise stable Chest x-ray left lower lung pneumonia noted We will continue the current treatment. Acute respiratory insufficiency with chronic respiratory failure, currently on ventilator. Slow weaning and will follow the patient Objective - Vital Signs/Intake and Output Vital Signs (last 24 hours): Temp Pulse Resp BP Pulse Ox 98.5 F 85 14 124/53 L 96 07/29/18 04:00 07/29/18 06:00 07/29/18 06:00 07/29/18 04:52 07/29/18 06:00 Intake and Output: 07/29/18 07/29/18 06:59 18:59 Intake Total 1025 75 Output Total 350 Balance 1025 -275 - Medications Medications: Current Medications Acetylcysteine (Acetylcysteine 20%) 4 ml INH RQ6 [facility] Last Admin: 07/29/18 07:34 Dose: 4 ml Albuterol/Ipratropium (Duoneb 3 Mg/0.5 Mg (3 Ml) Ud) 3 ml INH RQ4 [facility] Last Admin: 07/29/18 07:33 Dose: 3 ml Aspirin (Ecotrin) 81 mg PO DAILY [facility] Last Admin: 07/28/18 09:25 Dose: 81 mg Docusate Sodium (Colace) 100 mg PO BID [facility] Last Admin: 07/28/18 17:08 Dose: Not Given Doxycycline Hyclate 100 mg/ (Sodium Chloride) 100 mls @ 100 mls/hr IVPB Q12H [facility]; Protocol Last Admin: 07/28/18 22:00 Dose: 100 mls/hr Vancomycin HCl 500 mg/ Sodium (Chloride) 100 mls @ 67 mls/hr IVPB Q12H [facility]; Protocol Last Admin: 07/28/18 22:00 Dose: 67 mls/hr Dextrose/Sodium Chloride (Dextrose 5%/0.9% Ns 1000 Ml) 1,000 mls @ 75 mls/hr IV .[id number] [facility] Last Admin: 07/29/18 01:06 Dose: Not Given Losartan Potassium (Cozaar) 25 mg PO DAILY [facility] Last Admin: 07/24/18 09:29 Dose: 25 mg Methylprednisolone (Solu-Medrol) 40 mg IVP BID [facility] Last Admin: 07/28/18 17:08 Dose: 40 mg Metoprolol Tartrate (Lopressor) 25 mg PO Q12H [facility] Last Admin: 07/29/18 00:45 Dose: 25 mg Pantoprazole Sodium (Protonix Inj) 40 mg IVP DAILY [facility] Last Admin: 07/28/18 09:24 Dose: 40 mg Roflumilast (Daliresp) 500 mcg PO DAILY [facility] Last Admin: 07/28/18 09:25 Dose: 500 mcg Rosuvastatin Calcium (Crestor) 10 mg PO HS [facility] Last Admin: 07/28/18 22:04 Dose: 10 mg Tamsulosin HCl (Flomax) 0.4 mg PO BID [facility] Last Admin: 07/28/18 17:08 Dose: 0.4 mg - Labs Labs: 07/29/18 06:30 07/29/18 06:30
--- NOTE | 2018-07-29 07:37 | CP.PCM.PN ---
Subjective - Date & Time of Evaluation Date of Evaluation: 07/29/18 Time of Evaluation: 07:37 - Subjective Subjective: Patient is morning awake and responding. He claims that he did not sleep well this morning. No fever today. Still congested lungs noted. Rales present. Vital signs otherwise stable. Chest bilateral diffuse rhonchi and wheezing noted Heart sounds are regular Abdomen soft Nontender. No pedal edema Labs reviewed The sputum culture bronchoscopic evidence showing Klebsiella pneumonia and Pseudomonas. Assessment and recommendation: 82-year-old male with a history of CAD, COPD, status post CABG and AICD. Patient now having multi-organisms in the bronchial tree. Klebsiella and Pseudomonas. But unfortunately patient has multiple allergies including penicillin and Cipro. Currently he is on doxycycline. Will get infectious disease evaluation for appropriate antibiotic choice. We will repeat the chest x-ray labs and will follow the patient Objective - Vital Signs/Intake and Output Vital Signs (last 24 hours): Temp Pulse Resp BP Pulse Ox 98.5 F 85 14 124/53 L 96 07/29/18 04:00 07/29/18 06:00 07/29/18 06:00 07/29/18 04:52 07/29/18 06:00 Intake and Output: 07/29/18 07/29/18 06:59 18:59 Intake Total 1025 75 Output Total 350 Balance 1025 -275 - Medications Medications: Current Medications Acetylcysteine (Acetylcysteine 20%) 4 ml INH RQ6 [facility] Last Admin: 07/29/18 07:34 Dose: 4 ml Albuterol/Ipratropium (Duoneb 3 Mg/0.5 Mg (3 Ml) Ud) 3 ml INH RQ4 [facility] Last Admin: 07/29/18 07:33 Dose: 3 ml Aspirin (Ecotrin) 81 mg PO DAILY [facility] Last Admin: 07/28/18 09:25 Dose: 81 mg Docusate Sodium (Colace) 100 mg PO BID [facility] Last Admin: 07/28/18 17:08 Dose: Not Given Doxycycline Hyclate 100 mg/ (Sodium Chloride) 100 mls @ 100 mls/hr IVPB Q12H [facility]; Protocol Last Admin: 07/28/18 22:00 Dose: 100 mls/hr Vancomycin HCl 500 mg/ Sodium (Chloride) 100 mls @ 67 mls/hr IVPB Q12H [facility]; Protocol Last Admin: 07/28/18 22:00 Dose: 67 mls/hr Dextrose/Sodium Chloride (Dextrose 5%/0.9% Ns 1000 Ml) 1,000 mls @ 75 mls/hr IV .[id number] [facility] Last Admin: 07/29/18 01:06 Dose: Not Given Losartan Potassium (Cozaar) 25 mg PO DAILY [facility] Last Admin: 07/24/18 09:29 Dose: 25 mg Methylprednisolone (Solu-Medrol) 40 mg IVP BID [facility] Last Admin: 07/28/18 17:08 Dose: 40 mg Metoprolol Tartrate (Lopressor) 25 mg PO Q12H [facility] Last Admin: 07/29/18 00:45 Dose: 25 mg Pantoprazole Sodium (Protonix Inj) 40 mg IVP DAILY [facility] Last Admin: 07/28/18 09:24 Dose: 40 mg Roflumilast (Daliresp) 500 mcg PO DAILY [facility] Last Admin: 07/28/18 09:25 Dose: 500 mcg Rosuvastatin Calcium (Crestor) 10 mg PO HS [facility] Last Admin: 07/28/18 22:04 Dose: 10 mg Tamsulosin HCl (Flomax) 0.4 mg PO BID [facility] Last Admin: 07/28/18 17:08 Dose: 0.4 mg - Labs Labs: 07/29/18 06:30 07/29/18 06:30
--- NOTE | 2018-07-29 07:37 | CP.PCM.PN ---
Subjective - Date & Time of Evaluation Date of Evaluation: 07/27/18 Time of Evaluation: 07:37 - Subjective Subjective: Patient is not this morning more awake and responding. He is currently on low-dose sedation. Once he is cleared at this time. Will attempt for the CPAP trial. And will do the CPAP off: 04/06 if tolerates possible extubation Objective - Vital Signs/Intake and Output Vital Signs (last 24 hours): Temp Pulse Resp BP Pulse Ox 98.5 F 85 14 124/53 L 96 07/29/18 04:00 07/29/18 06:00 07/29/18 06:00 07/29/18 04:52 07/29/18 06:00 Intake and Output: 07/29/18 07/29/18 06:59 18:59 Intake Total 1025 75 Output Total 350 Balance 1025 -275 - Medications Medications: Current Medications Acetylcysteine (Acetylcysteine 20%) 4 ml INH RQ6 [facility] Last Admin: 07/29/18 07:34 Dose: 4 ml Albuterol/Ipratropium (Duoneb 3 Mg/0.5 Mg (3 Ml) Ud) 3 ml INH RQ4 [facility] Last Admin: 07/29/18 07:33 Dose: 3 ml Aspirin (Ecotrin) 81 mg PO DAILY [facility] Last Admin: 07/28/18 09:25 Dose: 81 mg Docusate Sodium (Colace) 100 mg PO BID [facility] Last Admin: 07/28/18 17:08 Dose: Not Given Doxycycline Hyclate 100 mg/ (Sodium Chloride) 100 mls @ 100 mls/hr IVPB Q12H [facility]; Protocol Last Admin: 07/28/18 22:00 Dose: 100 mls/hr Vancomycin HCl 500 mg/ Sodium (Chloride) 100 mls @ 67 mls/hr IVPB Q12H [facility]; Protocol Last Admin: 07/28/18 22:00 Dose: 67 mls/hr Dextrose/Sodium Chloride (Dextrose 5%/0.9% Ns 1000 Ml) 1,000 mls @ 75 mls/hr IV .[id number] [facility] Last Admin: 07/29/18 01:06 Dose: Not Given Losartan Potassium (Cozaar) 25 mg PO DAILY [facility] Last Admin: 07/24/18 09:29 Dose: 25 mg Methylprednisolone (Solu-Medrol) 40 mg IVP BID [facility] Last Admin: 07/28/18 17:08 Dose: 40 mg Metoprolol Tartrate (Lopressor) 25 mg PO Q12H [facility] Last Admin: 07/29/18 00:45 Dose: 25 mg Pantoprazole Sodium (Protonix Inj) 40 mg IVP DAILY [facility] Last Admin: 07/28/18 09:24 Dose: 40 mg Roflumilast (Daliresp) 500 mcg PO DAILY [facility] Last Admin: 07/28/18 09:25 Dose: 500 mcg Rosuvastatin Calcium (Crestor) 10 mg PO HS [facility] Last Admin: 07/28/18 22:04 Dose: 10 mg Tamsulosin HCl (Flomax) 0.4 mg PO BID [facility] Last Admin: 07/28/18 17:08 Dose: 0.4 mg - Labs Labs: 07/29/18 06:30 07/29/18 06:30
--- NOTE | 2018-07-29 07:37 | CP.PCM.PN ---
Subjective - Date & Time of Evaluation Date of Evaluation: 07/28/18 Time of Evaluation: 07:37 - Subjective Subjective: Patient extubated day 1 now Patient is more awake and responding Pain family at bedside. But still started showing secretions at this time. Cough present. Wheezing noted. Vital signs are stable. We will continue to monitor the respiratory status. Antibiotic and will follow the patient Objective - Vital Signs/Intake and Output Vital Signs (last 24 hours): Temp Pulse Resp BP Pulse Ox 98.5 F 85 14 124/53 L 96 07/29/18 04:00 07/29/18 06:00 07/29/18 06:00 07/29/18 04:52 07/29/18 06:00 Intake and Output: 07/29/18 07/29/18 06:59 18:59 Intake Total 1025 75 Output Total 350 Balance 1025 -275 - Medications Medications: Current Medications Acetylcysteine (Acetylcysteine 20%) 4 ml INH RQ6 [facility] Last Admin: 07/29/18 07:34 Dose: 4 ml Albuterol/Ipratropium (Duoneb 3 Mg/0.5 Mg (3 Ml) Ud) 3 ml INH RQ4 [facility] Last Admin: 07/29/18 07:33 Dose: 3 ml Aspirin (Ecotrin) 81 mg PO DAILY [facility] Last Admin: 07/28/18 09:25 Dose: 81 mg Docusate Sodium (Colace) 100 mg PO BID [facility] Last Admin: 07/28/18 17:08 Dose: Not Given Doxycycline Hyclate 100 mg/ (Sodium Chloride) 100 mls @ 100 mls/hr IVPB Q12H [facility]; Protocol Last Admin: 07/28/18 22:00 Dose: 100 mls/hr Vancomycin HCl 500 mg/ Sodium (Chloride) 100 mls @ 67 mls/hr IVPB Q12H [facility]; Protocol Last Admin: 07/28/18 22:00 Dose: 67 mls/hr Dextrose/Sodium Chloride (Dextrose 5%/0.9% Ns 1000 Ml) 1,000 mls @ 75 mls/hr IV .[id number] [facility] Last Admin: 07/29/18 01:06 Dose: Not Given Losartan Potassium (Cozaar) 25 mg PO DAILY [facility] Last Admin: 07/24/18 09:29 Dose: 25 mg Methylprednisolone (Solu-Medrol) 40 mg IVP BID [facility] Last Admin: 07/28/18 17:08 Dose: 40 mg Metoprolol Tartrate (Lopressor) 25 mg PO Q12H [facility] Last Admin: 07/29/18 00:45 Dose: 25 mg Pantoprazole Sodium (Protonix Inj) 40 mg IVP DAILY [facility] Last Admin: 07/28/18 09:24 Dose: 40 mg Roflumilast (Daliresp) 500 mcg PO DAILY [facility] Last Admin: 07/28/18 09:25 Dose: 500 mcg Rosuvastatin Calcium (Crestor) 10 mg PO HS [facility] Last Admin: 07/28/18 22:04 Dose: 10 mg Tamsulosin HCl (Flomax) 0.4 mg PO BID [facility] Last Admin: 07/28/18 17:08 Dose: 0.4 mg - Labs Labs: 07/29/18 06:30 07/29/18 06:30
[2018-07-29] MEDS ORDERED: Potassium Chloride 20 mEq/15 ml LIQ UD PO ONE ×2 (07:44→09:30)
[2018-07-29] MEDS: MethylPREDNISolone 40 mg Vial IVP SCH (09:28)
--- NOTE | 2018-07-29 10:06 | CP.PCM.PN ---
Subjective - Date & Time of Evaluation Date of Evaluation: 07/27/18 Time of Evaluation: 10:20 - Subjective Subjective: Patient seen and evaluated Improved breathing Physical Exam - Constitutional Appears: In Acute Distress Additional comments: Demonstrating accessory muscle use and labored breathing on exam with venti mask - Head Exam Head Exam: ATRAUMATIC, NORMOCEPHALIC - Eye Exam Eye Exam: EOMI, Normal appearance, PERRL - ENT Exam ENT Exam: Mucous Membranes Moist - Respiratory Exam Respiratory Exam: Rales, Respiratory Distress - Cardiovascular Exam Cardiovascular Exam: Tachycardia, +S1, +S2. absent: Gallop, Rubs, Systolic Murmur - GI/Abdominal Exam GI & Abdominal Exam: Normal Bowel Sounds, Soft. absent: Distended, Or ganomegaly, Tenderness - Extremities Exam Extremities exam: Positive for: normal capillary refill, normal inspection, pedal pulses present. Negative for: tenderness - Neurological Exam Neurological exam: Altered - Skin Skin Exam: Dry, Intact, Warm Assessment & Plan - Assessment and Plan (Free Text) Assessment: This is an 82 y o male with PMhx COPD, HTN, HLD, CAD, s/p AICD implantation, TIA, who presented to the ED brought in by his s/p fall and with c/o fever. As per chart review, pt was trying to reach something at home, slipped and fell on floor. Pt at time was unable to get up, and EMS was called. Pt has reported hx of multiple recent falls prior to fall that led to this current admission. Currently being treated for aspiration PNA with Vanco/Doxycycline/Aztreonam. 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 Accepted to ICU service for further monitoring. Acute respiratory distress likely 2/2 aspiration PNA. Currently intubated and sedated in ICU at this time. Plan: Neuro: -Intubated and sedated on Propofol drip -Cont to monitor -Head CT on admission 07/23: No intracranial mass, hemorrhage or evidence of acute infarct. Atrophy and chronic white matter ischemic change. 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 -Hip/pelvis/shoulder XRs neg for acute fx Cardio: -Hx HTN, HLD, CAD, s/p AICD implantation -Cardiology (Dr. Bains) consulted, recs appreciated -ASA -Cozaar 25 mg PO daily -Toprol XL 50 mg PO daily -Crestor daily Pulm: -Acute respiratory distress likely 2/2 aspiration PNA -On Doxycycline/Vanco, s/p Aztreonam x1 during SURVEY WORKERS SUPERVISOR -Intubated and sedated on Propofol -Hx COPD, TIA -Duonebs q4h -S/p Solu-Medrol 40 mg IVP x1 during SURVEY WORKERS SUPERVISOR -On Mucomyst q6h -Recent CXR today: Cardiomegaly and worsening pulmonary venous congestion compatible with CHF. Interval increase L pleural effusion. -Daliresp -Cont to monitor GI: -NPO -IVF at 75 cc/hr -CT abd/pelvis on admission: Multiple pelvic fractures, likely nonacute. Compression fxs of T11 and L1 vertebral bodies, indeterminate age. L lower lobe consolidation. No other acute abnormalities. -Protonix -Colace bid -No acute issues at this time Heme: -H/H 10.2/31.6, cont to trend ID: -Aspiration PNA -Anbx as noted above -CXR findings as noted above -febrile to 100.4 -Blood and urine cxs NGTD Renal: -Bun/Cr wnl -Trend I's/O's PPX: -Protonix, Heparin Acute Chronic systolic CHF will optimize CHF therapy Objective - Vital Signs/Intake and Output Vital Signs (last 24 hours): Temp Pulse Resp BP Pulse Ox 98.5 F 85 14 124/53 L 96 07/29/18 04:00 07/29/18 06:00 07/29/18 06:00 07/29/18 04:52 07/29/18 06:00 Intake and Output: 07/29/18 07/29/18 06:59 18:59 Intake Total 1025 75 Output Total 350 Balance 1025 -275 - Medications Medications: Current Medications Acetylcysteine (Acetylcysteine 20%) 4 ml INH RQ6 [facility] Last Admin: 07/29/18 07:34 Dose: 4 ml Albuterol/Ipratropium (Duoneb 3 Mg/0.5 Mg (3 Ml) Ud) 3 ml INH RQ4 [facility] Last Admin: 07/29/18 07:33 Dose: 3 ml Aspirin (Ecotrin) 81 mg PO DAILY [facility] Last Admin: 07/29/18 09:30 Dose: 81 mg Docusate Sodium (Colace) 100 mg PO BID [facility] Last Admin: 07/29/18 09:30 Dose: 100 mg Doxycycline Hyclate 100 mg/ (Sodium Chloride) 100 mls @ 100 mls/hr IVPB Q12H [facility]; Protocol Last Admin: 07/29/18 09:27 Dose: 100 mls/hr Losartan Potassium (Cozaar) 25 mg PO DAILY [facility] Last Admin: 07/29/18 09:31 Dose: 25 mg Methylprednisolone (Solu-Medrol) 40 mg IVP DAILY [facility] Stop: 07/31/18 10:01 Last Admin: 07/29/18 09:28 Dose: 40 mg Metoprolol Tartrate (Lopressor) 25 mg PO Q12H [facility] Last Admin: 07/29/18 00:45 Dose: 25 mg Pantoprazole Sodium (Protonix Inj) 40 mg IVP DAILY [facility] Last Admin: 07/29/18 09:28 Dose: 40 mg Roflumilast (Daliresp) 500 mcg PO DAILY [facility] Last Admin: 07/28/18 09:25 Dose: 500 mcg Rosuvastatin Calcium (Crestor) 10 mg PO HS [facility] Last Admin: 07/28/18 22:04 Dose: 10 mg Tamsulosin HCl (Flomax) 0.4 mg PO BID [facility] Last Admin: 07/29/18 09:30 Dose: 0.4 mg - Labs Labs: 07/29/18 06:30 07/29/18 06:30
--- NOTE | 2018-07-29 10:07 | CP.PCM.PN ---
Subjective - Date & Time of Evaluation Date of Evaluation: 07/28/18 Time of Evaluation: 08:35 - Subjective Subjective: Patient seen and evaluated ICD checked Device status good Physical Exam - Constitutional Appears: In Acute Distress Additional comments: Demonstrating accessory muscle use and labored breathing on exam with venti mask - Head Exam Head Exam: ATRAUMATIC, NORMOCEPHALIC - Eye Exam Eye Exam: EOMI, Normal appearance, PERRL - ENT Exam ENT Exam: Mucous Membranes Moist - Respiratory Exam Respiratory Exam: Rales, Respiratory Distress - Cardiovascular Exam Cardiovascular Exam: Tachycardia, +S1, +S2. absent: Gallop, Rubs, Systolic Murmur - GI/Abdominal Exam GI & Abdominal Exam: Normal Bowel Sounds, Soft. absent: Distended, Organomegaly, Tenderness - Extremities Exam Extremities exam: Positive for: normal capillary refill, normal inspection, pedal pulses present. Negative for: tenderness - Neurological Exam Neurological exam: Altered - Skin Skin Exam: Dry, Intact, Warm Assessment & Plan - Assessment and Plan (Free Text) Assessment: This is an 82 y o male with PMhx COPD, HTN, HLD, CAD, s/p AICD implantation, TIA, who presented to the ED brought in by his s/p fall and with c/o fever. As per chart review, pt was trying to reach something at home, slipped and fell on floor. Pt at time was unable to get up, and EMS was called. Pt has reported hx of multiple recent falls prior to fall that led to this current admission. Currently being treated for aspiration PNA with Vanco/Doxycycline/Aztreonam. 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 Accepted to ICU service for further monitoring. Acute respiratory distress likely 2/2 aspiration PNA. Currently intubated and sedated in ICU at this time. Plan: Neuro: -Intubated and sedated on Propofol drip -Cont to monitor -Head CT on admission 07/23: No intracranial mass, hemorrhage or evidence of acute infarct. Atrophy and chronic white matter ischemic change. 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 -Hip/pelvis/shoulder XRs neg for acute fx Cardio: -Hx HTN, HLD, CAD, s/p AICD implantation -Cardiology (Dr. Bains) consulted, recs appreciated -ASA -Cozaar 25 mg PO daily -Toprol XL 50 mg PO daily -Crestor daily Pulm: -Acute respiratory distress likely 2/2 aspiration PNA -On Doxycycline/Vanco, s/p Aztreonam x1 during PARAMEDIC SUPERVISOR -Intubated and sedated on Propofol -Hx COPD, TIA -Duonebs q4h -S/p Solu-Medrol 40 mg IVP x1 during PARAMEDIC SUPERVISOR -On Mucomyst q6h -Recent CXR today: Cardiomegaly and worsening pulmonary venous congestion compatible with CHF. Interval increase L pleural effusion. -Daliresp -Cont to monitor GI: -NPO -IVF at 75 cc/hr -CT abd/pelvis on admission: Multiple pelvic fractures, likely nonacute. Compression fxs of T11 and L1 vertebral bodies, indeterminate age. L lower lobe consolidation. No other acute abnormalities. -Protonix -Colace bid -No acute issues at this time Heme: -H/H 10.2/31.6, cont to trend ID: -Aspiration PNA -Anbx as noted above -CXR findings as noted above -febrile to 100.4 -Blood and urine cxs NGTD Renal: -Bun/Cr wnl -Trend I's/O's PPX: -Protonix, Heparin Acute Chronic systolic CHF will optimize CHF therapy Objective - Vital Signs/Intake and Output Vital Signs (last 24 hours): Temp Pulse Resp BP Pulse Ox 98.5 F 85 14 124/53 L 96 07/29/18 04:00 07/29/18 06:00 07/29/18 06:00 07/29/18 04:52 07/29/18 06:00 Intake and Output: 07/29/18 07/29/18 06:59 18:59 Intake Total 1025 75 Output Total 350 Balance 1025 -275 - Medications Medications: Current Medications Acetylcysteine (Acetylcysteine 20%) 4 ml INH RQ6 [facility] Last Admin: 07/29/18 07:34 Dose: 4 ml Albuterol/Ipratropium (Duoneb 3 Mg/0.5 Mg (3 Ml) Ud) 3 ml INH RQ4 [facility] Last Admin: 07/29/18 07:33 Dose: 3 ml Aspirin (Ecotrin) 81 mg PO DAILY [facility] Last Admin: 07/29/18 09:30 Dose: 81 mg Docusate Sodium (Colace) 100 mg PO BID [facility] Last Admin: 07/29/18 09:30 Dose: 100 mg Doxycycline Hyclate 100 mg/ (Sodium Chloride) 100 mls @ 100 mls/hr IVPB Q12H [facility]; Protocol Last Admin: 07/29/18 09:27 Dose: 100 mls/hr Losartan Potassium (Cozaar) 25 mg PO DAILY [facility] Last Admin: 07/29/18 09:31 Dose: 25 mg Methylprednisolone (Solu-Medrol) 40 mg IVP DAILY [facility] Stop: 07/31/18 10:01 Last Admin: 07/29/18 09:28 Dose: 40 mg Metoprolol Tartrate (Lopressor) 25 mg PO Q12H [facility] Last Admin: 07/29/18 00:45 Dose: 25 mg Pantoprazole Sodium (Protonix Inj) 40 mg IVP DAILY [facility] Last Admin: 07/29/18 09:28 Dose: 40 mg Roflumilast (Daliresp) 500 mcg PO DAILY [facility] Last Admin: 07/28/18 09:25 Dose: 500 mcg Rosuvastatin Calcium (Crestor) 10 mg PO HS [facility] Last Admin: 07/28/18 22:04 Dose: 10 mg Tamsulosin HCl (Flomax) 0.4 mg PO BID [facility] Last Admin: 07/29/18 09:30 Dose: 0.4 mg - Labs Labs: 07/29/18 06:30 07/29/18 06:30
--- NOTE | 2018-07-29 12:24 | CP.PCM.CON ---
History of Present Illness - History of Present Illness History of Present Illness: INFECTIOUS DISEASE CONSULT; REASON FOR CONSULT; S/P FOB 07/27/18 +VE BRONCHIAL WASHINGS kLEBSIELLA PNEUMONIAE/PSEUDOMONAS AERUGINOSA pATIENT WITH MULTIPLE ALLERGIES-PCN/CIPRO HPI; HISTORY OBTAINED FROM THE STAFF/CHART. Patient is a 82 yo male WITH HISTORY OF COPD, HTN, CAD, AICD ,BIBA ON 07/23/18 with fever, decreased appetite X 5 days. Patient with history of fall, injured his right shoulder and right leg. Patient has not been ambulating ever since. CXR showed LLL Pneumonia. Patient treated with Vanco and Vibramycin. XRay of right hip and right shoulder negative fractures. 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 Patient did not respond to face mask, was intubated and transferred to ICU. S/P bronchoscope 07/27/18 FOR ASPIRATION AND CORN KERNAL WAS REMOVED. BRONCHIAL WASHINGS CAME BACK POSITIVE FOR PSEUDOMONAS AERUGINOSA/AND kLEBSIELLA PNEUMONIAE. INFECTIOUS DISEASE CONSULT REQUESTED BY pmd PATIENT HAS MANY ALLERGIES. PATIENT KNOWN TO ME FROM PREVIOUS ADMISSIONS AND HAS TOLERATED iv mAXIPEME IN june 2016, WELL april 2017. PSurgHx: s/p AICD placement, hx frequent bronchoscopies Allergies: Cipro, PCN, tetanus and diphtheria toxoids. PATIENT HAS TOLERATED IV CEPHALOSPORINS-MAXIPEME IN PAST IN APR 2017. Current meds: reviewed as per BELINDA Simmons hx: unknown Soc hx: former heavy smoker; no drug use; uses brace at home Hx: lives at home with , has 22 +6 stairs to climb at home, lives on [address] PMH: COPD,HTN,CAD,AICD Review of Systems - Review of Systems Systems not reviewed;Unavailable: Dementia 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) Hx Difficulty Chewing: No - RENAL Hx Chronic Kidney Disease: Yes Hx Kidney Stones: Yes - ENDOCRINE/METABOLIC Hx Hypothyroidism: Yes - HEMATOLOGICAL/ONCOLOGICAL Hx Blood Disorders: Yes Other/Comment: polycythemia vera - INTEGUMENTARY Hx Dermatological Problems: Yes Other/Comment: PRURITIS - MUSCULOSKELETAL/RHEUMATOLOGICAL Hx Arthritis: Yes - GASTROINTESTINAL Hx Diverticulitis: Yes (HX PARTIAL COLECTOMY) Hx Gastritis: Yes - GENITOURINARY/GYNECOLOGICAL Hx Genitourinary Disorders: Yes Hx Incontinence: Yes Hx Prostate Problems: Yes - PSYCHIATRIC Hx Anxiety: Yes Hx Substance Use: No - SURGICAL HISTORY Hx Cholecystectomy: Yes (1974) Hx Coronary Artery Bypass Graft: Yes (1986) Hx Coronary Stent: Yes - ANESTHESIA Hx Anesthesia: Yes Hx Anesthesia Reactions: No Hx Malignant Hyperthermia: No Meds Allergies/Adverse Reactions: Allergies Allergy/AdvReac Type Severity Reaction Status Date / Time ciprofloxacin HCl Allergy Severe ITCHING Verified 04/11/17 17:31 [From Cipro] Penicillins Allergy Severe ITCHING Verified 04/11/17 17:31 tetanus and diphtheria Allergy Severe hives Verified 04/11/17 17:31 toxoids - Medications Medications: Current Medications Acetylcysteine (Acetylcysteine 20%) 4 ml INH RQ6 [facility] Last Admin: 07/29/18 07:34 Dose: 4 ml Albuterol/Ipratropium (Duoneb 3 Mg/0.5 Mg (3 Ml) Ud) 3 ml INH RQ4 [facility] Last Admin: 07/29/18 11:18 Dose: 3 ml Aspirin (Ecotrin) 81 mg PO DAILY [facility] Last Admin: 07/29/18 09:30 Dose: 81 mg Docusate Sodium (Colace) 100 mg PO BID [facility] Last Admin: 07/29/18 09:30 Dose: 100 mg Doxycycline Hyclate 100 mg/ (Sodium Chloride) 100 mls @ 100 mls/hr IVPB Q12H [facility]; Protocol Last Admin: 07/29/18 09:27 Dose: 100 mls/hr Losartan Potassium (Cozaar) 25 mg PO DAILY [facility] Last Admin: 07/29/18 09:31 Dose: 25 mg Methylprednisolone (Solu-Medrol) 40 mg IVP DAILY [facility] Stop: 07/31/18 10:01 Last Admin: 07/29/18 09:28 Dose: 40 mg Metoprolol Tartrate (Lopressor) 25 mg PO Q12H [facility] Last Admin: 07/29/18 00:45 Dose: 25 mg Pantoprazole Sodium (Protonix Inj) 40 mg IVP DAILY [facility] Last Admin: 07/29/18 09:28 Dose: 40 mg Roflumilast (Daliresp) 500 mcg PO DAILY [facility] Last Admin: 07/28/18 09:25 Dose: 500 mcg Rosuvastatin Calcium (Crestor) 10 mg PO HS [facility] Last Admin: 07/28/18 22:04 Dose: 10 mg Tamsulosin HCl (Flomax) 0.4 mg PO BID [facility] Last Admin: 07/29/18 09:30 Dose: 0.4 mg Physical Exam - Constitutional Appears: No Acute Distress - Head Exam Head Exam: NORMAL INSPECTION - Eye Exam Eye Exam: EOMI, PERRL - ENT Exam ENT Exam: Normal Oropharynx - Neck Exam Neck exam: Positive for: Normal Inspection. Negative for: Meningismus - Respiratory Exam Respiratory Exam: Rhonchi, NORMAL BREATHING PATTERN - Cardiovascular Exam Cardiovascular Exam: Tachycardia, REGULAR RHYTHM, +S1, +S2 - GI/Abdominal Exam GI & Abdominal Exam: Normal Bowel Sounds, Soft. absent: Guarding - Extremities Exam Extremities exam: Positive for: pedal edema, pedal pulses present. Negative for: calf tenderness - Neurological Exam Neurological exam: Altered, CN II-XII Intact - Psychiatric Exam Psychiatric exam: Flat Affect - Skin Skin Exam: Normal Color, Warm Results - Vital Signs Recent Vital Signs: Last Vital Signs Temp 98.5 F 07/29/18 04:00 Pulse 93 H 07/29/18 08:00 Resp 14 07/29/18 06:00 BP 124/53 L 07/29/18 04:52 Pulse Ox 96 07/29/18 06:00 - Labs Result Diagrams: 07/29/18 06:30 07/29/18 06:30 Labs: Laboratory Results - last 24 hr 07/28/18 07/29/18 07/29/18 17:43 00:08 06:24 WBC RBC Hgb Hct MCV MCH MCHC RDW Plt Count MPV Neut % (Auto) Lymph % (Auto) [place] % (Auto) Eos % (Auto) Baso % (Auto) Neut # (Auto) Lymph # (Auto) [place] # (Auto) Eos # (Auto) Baso # (Auto) Sodium Potassium Chloride Carbon Dioxide Anion Gap BUN Creatinine Est GFR ( Amer) Est GFR (Non-Af Amer) POC Glucose (mg/dL) 137 H 123 H 103 Random Glucose Calcium Phosphorus Magnesium Total Bilirubin AST ALT Alkaline Phosphatase Total Protein Albumin Globulin Albumin/Globulin Ratio 07/29/18 07/29/18 07/29/18 06:30 06:30 11:37 WBC 6.3 RBC 3.49 L Hgb 9.9 L Hct 30.9 L MCV 88.6 MCH 28.5 MCHC 32.1 L RDW 14.6 H Plt Count 280 MPV 7.7 Neut % (Auto) 82.4 H Lymph % (Auto) 13.0 L [place] % (Auto) 4.3 Eos % (Auto) 0.0 Baso % (Auto) 0.3 Neut # (Auto) 5.2 Lymph # (Auto) 0.8 L [place] # (Auto) 0.3 Eos # (Auto) 0.0 Baso # (Auto) 0.0 Sodium 138 Potassium 3.4 L Chloride 111 H Carbon Dioxide 24 Anion Gap 6 L BUN 21 H Creatinine 0.5 L Est GFR ( Amer) > 60 Est GFR (Non-Af Amer) > 60 POC Glucose (mg/dL) 195 H Random Glucose 100 Calcium 8.1 L Phosphorus 3.7 Magnesium 2.0 Total Bilirubin 0.3 AST 25 ALT 14 L D Alkaline Phosphatase 83 Total Protein 5.1 L Albumin 2.4 L Globulin 2.8 Albumin/Globulin Ratio 0.9 L - Imaging and Cardiology Chest x-ray Status: Report reviewed by me (CXR 07/28/18-PATCHY OPACITY RIGHT BASE-PNEUMONIA. +AICD/ STERNOTOMY WIRES.) Assessment & Plan (1) Respiratory distress Assessment and Plan: S/P EXTUBATION +VE BRONCHIAL WASHINGS KLEBSIELLA PNEUMONIAE/PSEUDOMONAS AERUGINOSA. ASK MICRO TO CHECK FOR JOSH FOR AZACTAM / COLISTIN Status: Acute (2) Altered mental status Status: Acute (3) Pneumonia Status: Acute (4) Chronic bronchitis Status: Chronic (5) Systolic CHF Status: Acute - Assessment and Plan (Free Text) Plan: PLAN; DC IV DOXYCYCLINE. START IV AZACTAM 1GM IVPB Q 8HRLY 07/29. WATCH FOR ANY REACTONS CLOSELY . CASE DISCUSSED WITH STAFF. WILL FOLLOW ALONG WITH YOU AND MAKE FURTHER RECOMENDATIONS NEEDED
[2018-07-29] MEDS: Aztreonam 1 GM in Sodium Chloride 0.9% 100 ML IVPB SCH ×2 (14:19→20:23)
--- NOTE | 2018-07-29 22:09 | CP.PCM.PN ---
Subjective - Date & Time of Evaluation Date of Evaluation: 07/29/18 Time of Evaluation: 09:30 - Subjective Subjective: Patient seen and evaluated Feels better Denies chest pain and dyspnea Physical Exam - Constitutional Appears: In Acute Distress Additional comments: Demonstrating accessory muscle use and labored breathing on exam with venti mask - Head Exam Head Exam: ATRAUMATIC, NORMOCEPHALIC - Eye Exam Eye Exam: EOMI, Normal appearance, PERRL - ENT Exam ENT Exam: Mucous Membranes Moist - Respiratory Exam Respiratory Exam: Rales, Respiratory Distress - Cardiovascular Exam Cardiovascular Exam: Tachycardia, +S1, +S2. absent: Gallop, Rubs, Systolic Murmur - GI/Abdominal Exam GI & Abdominal Exam: Normal Bowel Sounds, Soft. absent: Distended, Organomegaly, Tenderness - Extremities Exam Extremities exam: Positive for: normal capillary refill, normal inspection, pedal pulses present. Negative for: tenderness - Neurological Exam Neurological exam: Altered - Skin Skin Exam: Dry, Intact, Warm Assessment & Plan - Assessment and Plan (Free Text) Assessment: This is an 82 y o male with PMhx COPD, HTN, HLD, CAD, s/p AICD implantation, TIA, who presented to the ED brought in by his s/p fall and with c/o fever. As per chart review, pt was trying to reach something at home, slipped and fell on floor. Pt at time was unable to get up, and EMS was called. Pt has reported hx of multiple recent falls prior to fall that led to this current admission. Currently being treated for aspiration PNA with Vanco/Doxycycline/Aztreonam. Reason for ICU consult was for WATCH DIAL STONER for respiratory distress. Accepted to ICU service for further monitoring. Acute respiratory distress likely 2/2 aspiration PNA. Currently intubated and sedated in ICU at this time. Plan: Neuro: -Intubated and sedated on Propofol drip -Cont to monitor -Head CT on admission 07/23: No intracranial mass, hemorrhage or evidence of acute infarct. Atrophy and chronic white matter ischemic change. 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 -Hip/pelvis/shoulder XRs neg for acute fx Cardio: -Hx HTN, HLD, CAD, s/p AICD implantation -Cardiology (Dr. Bains) consulted, recs appreciated -ASA -Cozaar 25 mg PO daily -Toprol XL 50 mg PO daily -Crestor daily Pulm: -Acute respiratory distress likely 2/2 aspiration PNA -On Doxycycline/Vanco, s/p Aztreonam x1 during WATCH DIAL STONER -Intubated and sedated on Propofol -Hx COPD, TIA -Duonebs q4h -S/p Solu-Medrol 40 mg IVP x1 during WATCH DIAL STONER -On Mucomyst q6h -Recent CXR today: Cardiomegaly and worsening pulmonary venous congestion c ompatible with CHF. Interval increase L pleural effusion. -Daliresp -Cont to monitor GI: -NPO -IVF at 75 cc/hr -CT abd/pelvis on admission: Multiple pelvic fractures, likely nonacute. Compression fxs of T11 and L1 vertebral bodies, indeterminate age. L lower lobe consolidation. No other acute abnormalities. -Protonix -Colace bid -No acute issues at this time Heme: -H/H 10.2/31.6, cont to trend ID: -Aspiration PNA -Anbx as noted above -CXR findings as noted above -febrile to 100.4 -Blood and urine cxs NGTD Renal: -Bun/Cr wnl -Trend I's/O's PPX: -Protonix, Heparin Objective - Vital Signs/Intake and Output Vital Signs (last 24 hours): Temp Pulse Resp BP Pulse Ox 98 F 102 H 25 H 128/66 93 L 07/29/18 20:00 07/29/18 20:00 07/29/18 16:52 07/29/18 17:20 07/29/18 20:00 Intake and Output: 07/29/18 07/30/18 18:59 06:59 Intake Total 350 0 Output Total 650 Balance -300 0 - Medications Medications: Current Medications Acetylcysteine (Acetylcysteine 20%) 4 ml INH RQ6 [facility] Last Admin: 07/29/18 19:32 Dose: 4 ml Albuterol/Ipratropium (Duoneb 3 Mg/0.5 Mg (3 Ml) Ud) 3 ml INH RQ4 [facility] Last Admin: 07/29/18 19:32 Dose: 3 ml Aspirin (Ecotrin) 81 mg PO DAILY [facility] Last Admin: 07/29/18 09:30 Dose: 81 mg Docusate Sodium (Colace) 100 mg PO BID [facility] Last Admin: 07/29/18 17:20 Dose: 100 mg Furosemide (Lasix) 20 mg IVP BID [facility] Last Admin: 07/29/18 17:20 Dose: 20 mg Aztreonam 1 gm/ Sodium (Chloride) 100 mls @ 100 mls/hr IVPB Q8H [facility]; Protocol Last Admin: 07/29/18 20:23 Dose: 100 mls/hr Losartan Potassium (Cozaar) 25 mg PO DAILY [facility] Last Admin: 07/29/18 09:31 Dose: 25 mg Methylprednisolone (Solu-Medrol) 40 mg IVP DAILY [facility] Stop: 07/31/18 10:01 Last Admin: 07/29/18 09:28 Dose: 40 mg Metoprolol Tartrate (Lopressor) 2.5 mg IVP Q12H [facility] Pantoprazole Sodium (Protonix Inj) 40 mg IVP DAILY [facility] Last Admin: 07/29/18 09:28 Dose: 40 mg Roflumilast (Daliresp) 500 mcg PO DAILY [facility] Last Admin: 07/29/18 09:31 Dose: 500 mcg Rosuvastatin Calcium (Crestor) 10 mg PO HS [facility] Last Admin: 07/28/18 22:04 Dose: 10 mg Tamsulosin HCl (Flomax) 0.4 mg PO BID [facility] Last Admin: 07/29/18 17:20 Dose: 0.4 mg - Labs Labs: 07/29/18 06:30 07/29/18 06:30
[2018-07-29] MEDS: Metoprolol 1 mg/ml Inj IVP SCH (22:12)
[2018-07-30] MEDS: Albuterol-Ipratrop 3 mg / 0.5 (3 ml) UD INH SCH ×6 (00:34→19:30)
[2018-07-30] MEDS: Acetylcysteine 20% Inhal Soln (4ml) INH SCH ×3 (03:13→19:30)
[2018-07-30] MEDS: Aztreonam 1 GM in Sodium Chloride 0.9% 100 ML IVPB SCH ×3 (04:08→20:32)
[2018-07-30 10:01] LABS: BASO % 0.4 % (0.0-2.0); EOS % 0.3 % (0.0-4.0); HEMOGLOBIN 10.4 g/dL (12.0-18.0); LYMPH # 0.8 K/uL (1.0-4.3); LYMPH % 15.3 % (20.0-40.0); MEAN CORPUSCULAR HEMOGLOBIN 28.4 pg (27.0-31.0); MEAN CORPUSCULAR HGB CONC 32.7 g/dL (33.0-37.0); MEAN PLATELET VOLUME 7.1 fL (7.2-11.7); MONO # 0.3 K/uL (0.0-0.8); MONO % 5.7 % (0.0-10.0); NEUT # 4.3 K/uL (1.8-7.0); NEUT % 78.3 % (50.0-75.0); RBC 3.64 Mil/uL (4.40-5.90); RED CELL DISTRIBUTION WIDTH 14.7 % (11.5-14.5); WHITE BLOOD COUNT 5.5 K/uL (4.8-10.8)
[2018-07-30] MEDS: Metoprolol 1 mg/ml Inj IVP SCH ×2 (10:02→21:30)
[2018-07-30] MEDS: MethylPREDNISolone 40 mg Vial IVP SCH (10:02)
[2018-07-30 10:27] LABS: ALB/GLOB RATIO 0.9 (1.0-2.1); ALBUMIN 2.5 g/dL (3.5-5.0); ALT/SGPT 16 U/L (21-72); AST/SGOT 22 U/L (17-59); BLOOD UREA NITROGEN 20 mg/dL (9-20); CALCIUM 8.5 mg/dl (8.6-10.4); GFR NON-AFRICAN AMERICAN > 60
--- NOTE | 2018-07-30 20:09 | CP.PCM.PCO ---
Physician Communication Note - Physician Communication Note Physician Communication Note: Patient appears stable. electrolytes reviewed; labs ordered for tomorrow
--- NOTE | 2018-07-30 21:53 | CP.PCM.PN ---
Subjective - Date & Time of Evaluation Date of Evaluation: 07/30/18 Time of Evaluation: 08:40 - Subjective Subjective: Patient seen and evaluated No cardiac events noted Physical Exam - Constitutional Appears: In Acute Distress Additional comments: Demonstrating accessory muscle use and labored breathing on exam with venti mask - Head Exam Head Exam: ATRAUMATIC, NORMOCEPHALIC - Eye Exam Eye Exam: EOMI, Normal appearance, PERRL - ENT Exam ENT Exam: Mucous Membranes Moist - Respiratory Exam Respiratory Exam: Rales, Respiratory Distress - Cardiovascular Exam Cardiovascular Exam: Tachycardia, +S1, +S2. absent: Gallop, Rubs, Systolic Murmur - GI/Abdominal Exam GI & Abdominal Exam: Normal Bowel Sounds, Soft. absent: Distended, Organomegaly, Tenderness - Extremities Exam Extremities exam: Positive for: normal capillary refill, normal inspection, pedal pulses present. Negative for: tenderness - Neurological Exam Neurological exam: Altered - Skin Skin Exam: Dry, Intact, Warm Assessment & Plan - Assessment and Plan (Free Text) Assessment: This is an 82 y o male with PMhx COPD, HTN, HLD, CAD, s/p AICD implantation, TIA, who presented to the ED brought in by his s/p fall and with c/o fever. As per chart review, pt was trying to reach something at home, slipped and fell on floor. Pt at time was unable to get up, and EMS was called. Pt has reported hx of multiple recent falls prior to fall that led to this current admission. C urrently being treated for aspiration PNA with Vanco/Doxycycline/Aztreonam. Reason for ICU consult was for [employer] for respiratory distress. Accepted to ICU service for further monitoring. Acute respiratory distress likely 2/2 aspiration PNA. Currently intubated and sedated in ICU at this time. Plan: Neuro: -Intubated and sedated on Propofol drip -Cont to monitor -Head CT on admission 07/23: No intracranial mass, hemorrhage or evidence of acute infarct. Atrophy and chronic white matter ischemic change. 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 -Hip/pelvis/shoulder XRs neg for acute fx Cardio: -Hx HTN, HLD, CAD, s/p AICD implantation -Cardiology (Dr. Bains) consulted, recs appreciated -ASA -Cozaar 25 mg PO daily -Toprol XL 50 mg PO daily -Crestor daily Pulm: -Acute respiratory distress likely 2/2 aspiration PNA -On Doxycycline/Vanco, s/p Aztreonam x1 during [employer] -Intubated and sedated on Propofol -Hx COPD, TIA -Duonebs q4h -S/p Solu-Medrol 40 mg IVP x1 during [employer] -On Mucomyst q6h -Recent CXR today: Cardiomegaly and worsening pulmonary venous congestion compatible with CHF. Interval increase L pleural effusion. -Daliresp -Cont to monitor GI: -NPO -IVF at 75 cc/hr -CT abd/pelvis on admission: Multiple pelvic fractures, likely nonacute. Compression fxs of T11 and L1 vertebral bodies, indeterminate age. L lower lobe consolidation. No other acute abnormalities. -Protonix -Colace bid -No acute issues at this time Heme: -H/H 10.2/31.6, cont to trend ID: -Aspiration PNA -Anbx as noted above -CXR findings as noted above -febrile to 100.4 -Blood and urine cxs NGTD Renal: -Bun/Cr wnl -Trend I's/O's PPX: -Protonix, Heparin Objective - Vital Signs/Intake and Output Vital Signs (last 24 hours): Temp Pulse Resp BP Pulse Ox 98.9 F 95 H 21 132/54 L 95 07/30/18 20:00 07/30/18 17:17 07/30/18 17:17 07/30/18 17:23 07/30/18 16:00 - Medications Medications: Current Medications Acetylcysteine (Acetylcysteine 20%) 4 ml INH RQ6 [facility] Last Admin: 07/30/18 19:30 Dose: 4 ml Aspirin (Ecotrin) 81 mg PO DAILY [facility] Last Admin: 07/30/18 10:01 Dose: 81 mg Docusate Sodium (Colace) 100 mg PO BID [facility] Last Admin: 07/30/18 17:18 Dose: 100 mg Furosemide (Lasix) 20 mg IVP BID [facility] Last Admin: 07/30/18 17:23 Dose: 20 mg Heparin Sodium (Porcine) (Heparin) 5,000 units SC Q8 [facility] Last Admin: 07/30/18 21:31 Dose: 5,000 units Aztreonam 1 gm/ Sodium (Chloride) 100 mls @ 100 mls/hr IVPB Q8H [facility]; Protocol Last Admin: 07/30/18 20:32 Dose: 100 mls/hr Losartan Potassium (Cozaar) 25 mg PO DAILY [facility] Last Admin: 07/30/18 10:03 Dose: 25 mg Methylprednisolone (Solu-Medrol) 40 mg IVP DAILY [facility] Stop: 07/31/18 10:01 Last Admin: 07/30/18 10:02 Dose: 40 mg Metoprolol Tartrate (Lopressor) 2.5 mg IVP Q12H [facility] Last Admin: 07/30/18 21:30 Dose: 2.5 mg Pantoprazole Sodium (Protonix Inj) 40 mg IVP DAILY [facility] Last Admin: 07/30/18 10:02 Dose: 40 mg Potassium Chloride (Potassium Chloride Oral Soln) 40 meq PO Q4H [facility] Stop: 07/31/18 04:01 Roflumilast (Daliresp) 500 mcg PO DAILY [facility] Last Admin: 07/30/18 10:01 Dose: 500 mcg Rosuvastatin Calcium (Crestor) 10 mg PO HS [facility] Last Admin: 07/30/18 21:35 Dose: 10 mg Tamsulosin HCl (Flomax) 0.4 mg PO BID [facility] Last Admin: 07/30/18 17:22 Dose: 0.4 mg - Labs Labs: 07/30/18 09:51 07/30/18 09:51
--- NOTE | 2018-07-30 21:56 | CARD ---
APPROVED REPORT Date of service: 07/26/2018 EKG Measurement Heart [id number] <Conclusion> Atrial fibrillation with occasional ventricular-paced complexes Left bundle branch block Abnormal ECG
[2018-07-31] MEDS ORDERED: (Novolin R) Insulin Human Regular 100 units/ml vial SC ONE (00:35)
[2018-07-31] MEDS: Potassium Chloride 20 mEq/15 ml LIQ UD PO SCH ×2 (00:43→03:37)
[2018-07-31] MEDS: Acetylcysteine 20% Inhal Soln (4ml) INH SCH ×4 (02:45→19:03)
[2018-07-31] MEDS: Aztreonam 1 GM in Sodium Chloride 0.9% 100 ML IVPB SCH ×3 (05:12→20:28)
[2018-07-31 06:23] LABS: BASO % 0.1 % (0.0-2.0); EOS % 0.4 % (0.0-4.0); HEMOGLOBIN 10.5 g/dL (12.0-18.0); LYMPH % 18.8 % (20.0-40.0); MEAN CELL VOLUME 86.5 fL (80.0-94.0); MEAN CORPUSCULAR HEMOGLOBIN 28.9 pg (27.0-31.0); MEAN CORPUSCULAR HGB CONC 33.5 g/dL (33.0-37.0); MEAN PLATELET VOLUME 7.3 fL (7.2-11.7); MONO # 0.3 K/uL (0.0-0.8); MONO % 5.1 % (0.0-10.0); NEUT # 4.1 K/uL (1.8-7.0); NEUT % 75.6 % (50.0-75.0); NRBC % 0.1 % (0.0-2.0); RBC 3.61 Mil/uL (4.40-5.90); RED CELL DISTRIBUTION WIDTH 14.3 % (11.5-14.5); WHITE BLOOD COUNT 5.4 K/uL (4.8-10.8)
[2018-07-31 06:32] LABS: ALB/GLOB RATIO 0.9 (1.0-2.1); ALBUMIN 2.6 g/dL (3.5-5.0); ALT/SGPT 18 U/L (21-72); AST/SGOT 18 U/L (17-59); BLOOD UREA NITROGEN 21 mg/dL (9-20); CALCIUM 8.4 mg/dl (8.6-10.4); GFR NON-AFRICAN AMERICAN > 60
[2018-07-31 06:37] LABS: INR 1.5; PROTHROMBIN TIME 16.6 SECONDS (9.7-12.2)
[2018-07-31] MEDS: Metoprolol 1 mg/ml Inj IVP SCH ×2 (10:00→21:06)
[2018-07-31] MEDS: MethylPREDNISolone 40 mg Vial IVP SCH (10:00)
[2018-07-31] MEDS: Albuterol-Ipratrop 3 mg / 0.5 (3 ml) UD INH SCH ×3 (13:38→19:03)
--- NOTE | 2018-07-31 21:51 | CP.PCM.PN ---
Subjective - Date & Time of Evaluation Date of Evaluation: 07/31/18 Time of Evaluation: 21:50 - Subjective Subjective: This morning he is more awake. But he has a poor appetite and poor oral intake noted. Minimal cough noted. Still having rales in the lungs noted. Chest good air entry Significant wheezing or rales noted Heart sounds are regular Abdomen soft nontender no pedal edema Patient is currently on aztreonam. Patient has a difficult time in getting antibiotic choice because of the multiple allergies. Klebsiella bronchitis and pneumonia. We will continue to monitor. Subacute rehab evaluation I spoke to the patient's Objective - Vital Signs/Intake and Output Vital Signs (last 24 hours): Temp Pulse Resp BP Pulse Ox 97.6 F 110 H 21 125/53 L 93 L 07/31/18 20:00 07/31/18 20:00 07/31/18 20:00 07/31/18 20:36 07/31/18 20:00 Intake and Output: 07/31/18 08/01/18 18:59 06:59 Intake Total 1340 Output Total 1500 Balance -160 - Medications Medications: Current Medications Acetylcysteine (Acetylcysteine 20%) 4 ml INH RQ6 [facility] Last Admin: 07/31/18 19:03 Dose: 4 ml Albuterol/Ipratropium (Duoneb 3 Mg/0.5 Mg (3 Ml) Ud) 3 ml INH RQ4 [facility] Last Admin: 07/31/18 19:03 Dose: 3 ml Aspirin (Ecotrin) 81 mg PO DAILY [facility] Last Admin: 07/31/18 10:00 Dose: 81 mg Docusate Sodium (Colace) 100 mg PO BID [facility] Last Admin: 07/31/18 17:24 Dose: 100 mg Furosemide (Lasix) 20 mg IVP BID [facility] Last Admin: 07/31/18 17:24 Dose: 20 mg Heparin Sodium (Porcine) (Heparin) 5,000 units SC Q8 [facility] Last Admin: 07/31/18 21:06 Dose: 5,000 units Aztreonam 1 gm/ Sodium (Chloride) 100 mls @ 100 mls/hr IVPB Q8H [facility]; Protocol Last Admin: 07/31/18 20:28 Dose: 100 mls/hr Losartan Potassium (Cozaar) 25 mg PO DAILY [facility] Last Admin: 07/31/18 10:00 Dose: 25 mg Metoprolol Tartrate (Lopressor) 2.5 mg IVP Q12H [facility] Last Admin: 07/31/18 21:06 Dose: 2.5 mg Pantoprazole Sodium (Protonix Inj) 40 mg IVP DAILY [facility] Last Admin: 07/31/18 10:00 Dose: 40 mg Roflumilast (Daliresp) 500 mcg PO DAILY [facility] Last Admin: 07/31/18 10:00 Dose: 500 mcg Rosuvastatin Calcium (Crestor) 10 mg PO HS [facility] Last Admin: 07/31/18 21:06 Dose: 10 mg Tamsulosin HCl (Flomax) 0.4 mg PO BID [facility] Last Admin: 07/31/18 17:24 Dose: 0.4 mg - Labs Labs: 07/31/18 06:13 07/31/18 06:12 PT 16.6 SECONDS (9.7-12.2) H 07/31/18 06:13 INR 1.5 07/31/18 06:13
[2018-08-01] MEDS: Albuterol-Ipratrop 3 mg / 0.5 (3 ml) UD INH SCH ×6 (00:15→19:50)
[2018-08-01] MEDS: Acetylcysteine 20% Inhal Soln (4ml) INH SCH ×5 (03:26→21:02)
[2018-08-01] MEDS: Aztreonam 1 GM in Sodium Chloride 0.9% 100 ML IVPB SCH ×3 (03:31→21:01)
[2018-08-01 06:08] LABS: BASO % 0.2 % (0.0-2.0); EOS % 0.8 % (0.0-4.0); HEMOGLOBIN 11.2 g/dL (12.0-18.0); LYMPH # 1.6 K/uL (1.0-4.3); LYMPH % 25.4 % (20.0-40.0); MEAN CELL VOLUME 87.2 fL (80.0-94.0); MEAN CORPUSCULAR HEMOGLOBIN 28.2 pg (27.0-31.0); MEAN CORPUSCULAR HGB CONC 32.4 g/dL (33.0-37.0); MEAN PLATELET VOLUME 7.1 fL (7.2-11.7); MONO # 0.4 K/uL (0.0-0.8); NEUT # 4.3 K/uL (1.8-7.0); NEUT % 67.6 % (50.0-75.0); RBC 3.98 Mil/uL (4.40-5.90); RED CELL DISTRIBUTION WIDTH 14.8 % (11.5-14.5); WHITE BLOOD COUNT 6.4 K/uL (4.8-10.8)
[2018-08-01 06:41] LABS: ALB/GLOB RATIO 1.1 (1.0-2.1); ALBUMIN 2.8 g/dL (3.5-5.0); ALT/SGPT 17 U/L (21-72); AST/SGOT 18 U/L (17-59); BLOOD UREA NITROGEN 20 mg/dL (9-20); CALCIUM 8.3 mg/dl (8.6-10.4); GFR NON-AFRICAN AMERICAN > 60
[2018-08-01] MEDS: Metoprolol 1 mg/ml Inj IVP SCH ×2 (09:47→21:58)
[2018-08-01] MEDS: Potassium Chloride 20 mEq ER Tab PO SCH ×2 (11:05→14:13)
--- NOTE | 2018-08-01 14:33 | CP.PCM.PN ---
Subjective - Date & Time of Evaluation Date of Evaluation: 08/01/18 Time of Evaluation: 14:32 - Subjective Subjective: AFEBRILE, VSS ON VENTIMASK. MORE RESPONSIVE. STILL CONGESTED S/P FOB LABS REVIEWED. BRONCHIAL WASHINGS +VE KLEBSIELLA-PNEUMONIA/ PSEUDOMONAS AERUGINOSA S -AZACTAM. CEFEPIME BROCHIAL WASHING CYTOLOGY -VE FOR MALIGNANT CELLS. Objective - Vital Signs/Intake and Output Vital Signs (last 24 hours): Temp Pulse Resp BP Pulse Ox 97.8 F 98 H 20 101/50 L 99 08/01/18 12:00 08/01/18 09:47 08/01/18 09:47 08/01/18 09:47 08/01/18 09:47 Intake and Output: 08/01/18 08/01/18 06:59 18:59 Intake Total 440 340 Output Total 600 300 Balance -160 40 - Medications Medications: Current Medications Acetylcysteine (Acetylcysteine 20%) 4 ml INH RQ6 [facility] Last Admin: 08/01/18 13:00 Dose: 4 ml Albuterol/Ipratropium (Duoneb 3 Mg/0.5 Mg (3 Ml) Ud) 3 ml INH RQ4 [facility] Last Admin: 08/01/18 13:00 Dose: 3 ml Aspirin (Ecotrin) 81 mg PO DAILY [facility] Last Admin: 08/01/18 09:47 Dose: 81 mg Docusate Sodium (Colace) 100 mg PO BID [facility] Last Admin: 08/01/18 09:46 Dose: 100 mg Furosemide (Lasix) 20 mg IVP BID [facility] Last Admin: 08/01/18 09:47 Dose: 20 mg Heparin Sodium (Porcine) (Heparin) 5,000 units SC Q8 [facility] Last Admin: 08/01/18 14:13 Dose: 5,000 units Aztreonam 1 gm/ Sodium (Chloride) 100 mls @ 100 mls/hr IVPB Q8H [facility]; Protocol Last Admin: 08/01/18 11:29 Dose: 100 mls/hr Losartan Potassium (Cozaar) 25 mg PO DAILY [facility] Last Admin: 08/01/18 10:04 Dose: Not Given Metoprolol Tartrate (Lopressor) 2.5 mg IVP Q12H [facility] Last Admin: 08/01/18 09:47 Dose: 2.5 mg Pantoprazole Sodium (Protonix Ec Tab) 40 mg PO DAILY [facility] Potassium Chloride (K-Dur 20 Meq Er Tab) 40 meq PO Q4H [facility] Stop: 08/01/18 15:01 Last Admin: 08/01/18 14:13 Dose: 40 meq Roflumilast (Daliresp) 500 mcg PO DAILY [facility] Last Admin: 08/01/18 09:49 Dose: 500 mcg Rosuvastatin Calcium (Crestor) 10 mg PO HS [facility] Last Admin: 07/31/18 21:06 Dose: 10 mg Tamsulosin HCl (Flomax) 0.4 mg PO BID [facility] Last Admin: 08/01/18 09:47 Dose: 0.4 mg - Labs Labs: 08/01/18 06:00 08/01/18 05:55 PT 16.6 SECONDS (9.7-12.2) H 07/31/18 06:13 INR 1.5 07/31/18 06:13 - Constitutional Appears: No Acute Distress - Head Exam Head Exam: NORMAL INSPECTION - Eye Exam Eye Exam: EOMI, PERRL - ENT Exam ENT Exam: Normal Exam, Normal Oropharynx - Neck Exam Neck Exam: Normal Inspection. absent: Meningismus - Respiratory Exam Respiratory Exam: Rhonchi, Wheezes, NORMAL BREATHING PATTERN - GI/Abdominal Exam GI & Abdominal Exam: Soft, Normal Bowel Sounds - Extremities Exam Extremities Exam: Normal Capillary Refill. absent: Calf Tenderness, Pedal Edema - Neurological Exam Neurological Exam: Alert, Awake, CN II-XII Intact, Oriented x3 - Psychiatric Exam Psychiatric exam: Normal Mood - Skin Skin Exam: Normal Color, Warm Assessment and Plan (1) Respiratory distress Status: Acute (2) Altered mental status Status: Acute (3) Pneumonia Status: Acute (4) Chronic bronchitis Status: Chronic (5) Systolic CHF Status: Acute - Assessment and Plan (Free Text) Plan: CONTINUE IV AZACTAM 1GM IVPB Q 8HRLY 07/29. PATIENT TOLERATING iv AZACTAM WITH NO REACTIONS. PULMONARY TOILET. fOLLOW-UP REPEAT CHEST X-RAY IN A.M. CASE DISCUSSED WITH STAFF.
[2018-08-01] MEDS ORDERED: Acetaminophen 650mg/20.3ml solution UD PO STA (17:37)
--- NOTE | 2018-08-01 23:03 | CP.PCM.PN ---
Subjective - Date & Time of Evaluation Date of Evaluation: 07/31/18 Time of Evaluation: 07:20 - Subjective Subjective: Patient seen and evaluated Improved breathing Tachycardia No cardiac complaints Physical Exam - Constitutional Appears: In Acute Distress Additional comments: Demonstrating accessory muscle use and labored breathing on exam with venti mask - Head Exam Head Exam: ATRAUMATIC, NORMOCEPHALIC - Eye Exam Eye Exam: EOMI, Normal appearance, PERRL - ENT Exam ENT Exam: Mucous Membranes Moist - Respiratory Exam Respiratory Exam: Rales, Respiratory Distress - Cardiovascular Exam Cardiovascular Exam: Tachycardia, +S1, +S2. absent: Gallop, Rubs, Systolic M urmur - GI/Abdominal Exam GI & Abdominal Exam: Normal Bowel Sounds, Soft. absent: Distended, Organomegaly, Tenderness - Extremities Exam Extremities exam: Positive for: normal capillary refill, normal inspection, pedal pulses present. Negative for: tenderness - Neurological Exam Neurological exam: Altered - Skin Skin Exam: Dry, Intact, Warm Assessment & Plan - Assessment and Plan (Free Text) Assessment: This is an 82 y o male with PMhx COPD, HTN, HLD, CAD, s/p AICD implantation, TIA, who presented to the ED brought in by his s/p fall and with c/o fever. As per chart review, pt was trying to reach something at home, slipped and fell on floor. Pt at time was unable to get up, and EMS was called. Pt has reported hx of multiple recent falls prior to fall that led to this current admission. Currently being treated for aspiration PNA with Vanco/Doxycycline/Aztreonam. Reason for ICU consult was for [employer] for respiratory distress. Accepted to ICU service for further monitoring. Acute respiratory distress likely 2/2 aspiration PNA. Currently intubated and sedated in ICU at this time. Plan: Neuro: -Intubated and sedated on Propofol drip -Cont to monitor -Head CT on admission 07/23: No intracranial mass, hemorrhage or evidence of acute infarct. Atrophy and chronic white matter ischemic change. 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 -Hip/pelvis/shoulder XRs neg for acute fx Cardio: -Hx HTN, HLD, CAD, s/p AICD implantation -Cardiology (Dr. Bains) consulted, recs appreciated -ASA -Cozaar 25 mg PO daily -Toprol XL 50 mg PO daily -Crestor daily Pulm: -Acute respiratory distress likely 2/2 aspiration PNA -On Doxycycline/Vanco, s/p Aztreonam x1 during [employer] -Intubated and sedated on Propofol -Hx COPD, TIA -Duonebs q4h -S/p Solu-Medrol 40 mg IVP x1 during [employer] -On Mucomyst q6h -Recent CXR today: Cardiomegaly and worsening pulmonary venous congestion compatible with CHF. Interval increase L pleural effusion. -Daliresp -Cont to monitor GI: -NPO -IVF at 75 cc/hr -CT abd/pelvis on admission: Multiple pelvic fractures, likely nonacute. Comp ression fxs of T11 and L1 vertebral bodies, indeterminate age. L lower lobe consolidation. No other acute abnormalities. -Protonix -Colace bid -No acute issues at this time Heme: -H/H 10.2/31.6, cont to trend ID: -Aspiration PNA -Anbx as noted above -CXR findings as noted above -febrile to 100.4 -Blood and urine cxs NGTD Renal: -Bun/Cr wnl -Trend I's/O's PPX: -Protonix, Heparin Objective - Vital Signs/Intake and Output Vital Signs (last 24 hours): Temp Pulse Resp BP Pulse Ox 97.2 F L 110 H 16 100/49 L 95 08/01/18 20:00 08/01/18 20:00 08/01/18 20:00 08/01/18 20:00 08/01/18 20:00 Intake and Output: 08/01/18 08/02/18 18:59 06:59 Intake Total 820 Output Total 700 Balance 120 - Medications Medications: Current Medications Acetylcysteine (Acetylcysteine 20%) 4 ml INH RQ6 [facility] Last Admin: 08/01/18 21:02 Dose: Not Given Albuterol/Ipratropium (Duoneb 3 Mg/0.5 Mg (3 Ml) Ud) 3 ml INH RQ4 [facility] Last Admin: 08/01/18 19:50 Dose: 3 ml Aspirin (Ecotrin) 81 mg PO DAILY [facility] Last Admin: 08/01/18 09:47 Dose: 81 mg Docusate Sodium (Colace) 100 mg PO BID [facility] Last Admin: 08/01/18 17:39 Dose: 100 mg Furosemide (Lasix) 20 mg IVP BID [facility] Last Admin: 08/01/18 17:43 Dose: 20 mg Heparin Sodium (Porcine) (Heparin) 5,000 units SC Q8 [facility] Last Admin: 08/01/18 21:58 Dose: 5,000 units Aztreonam 1 gm/ Sodium (Chloride) 100 mls @ 100 mls/hr IVPB Q8H [facility]; Protocol Last Admin: 08/01/18 21:01 Dose: 100 mls/hr Losartan Potassium (Cozaar) 25 mg PO DAILY [facility] Last Admin: 08/01/18 10:04 Dose: Not Given Metoprolol Tartrate (Lopressor) 2.5 mg IVP Q12H [facility] Last Admin: 08/01/18 21:58 Dose: 2.5 mg Pantoprazole Sodium (Protonix Ec Tab) 40 mg PO DAILY [facility] Roflumilast (Daliresp) 500 mcg PO DAILY [facility] Last Admin: 08/01/18 09:49 Dose: 500 mcg Rosuvastatin Calcium (Crestor) 10 mg PO HS [facility] Last Admin: 08/01/18 21:57 Dose: 10 mg Tamsulosin HCl (Flomax) 0.4 mg PO BID [facility] Last Admin: 08/01/18 17:40 Dose: 0.4 mg - Labs Labs: 08/01/18 06:00 08/01/18 05:55 PT 16.6 SECONDS (9.7-12.2) H 07/31/18 06:13 INR 1.5 07/31/18 06:13
--- NOTE | 2018-08-01 23:04 | CP.PCM.PN ---
Subjective - Date & Time of Evaluation Date of Evaluation: 08/01/18 Time of Evaluation: 07:45 - Subjective Subjective: Patient seen and evaluated Improved breathing No cardiac complaints Physical Exam - Constitutional Appears: In Acute Distress Additional comments: Demonstrating accessory muscle use and labored breathing on exam with venti mask - Head Exam Head Exam: ATRAUMATIC, NORMOCEPHALIC - Eye Exam Eye Exam: EOMI, Normal appearance, PERRL - ENT Exam ENT Exam: Mucous Membranes Moist - Respiratory Exam Respiratory Exam: Rales, Respiratory Distress - Cardiovascular Exam Cardiovascular Exam: Tachycardia, +S1, +S2. absent: Gallop, Rubs, Systolic Murmur - GI/Abdominal Exam GI & Abdominal Exam: Normal Bowel Sounds, Soft. absent: Distended, Organomegaly, Tenderness - Extremities Exam Extremities exam: Positive for: normal capillary refill, normal inspection, pedal pulses present. Negative for: tenderness - Neurological Exam Neurological exam: Altered - Skin Skin Exam: Dry, Intact, Warm Assessment & Plan - Assessment and Plan (Free Text) Assessment: This is an 82 y o male with PMhx COPD, HTN, HLD, CAD, s/p AICD implantation, OS A, who presented to the ED brought in by his s/p fall and with c/o fever. As per chart review, pt was trying to reach something at home, slipped and fell on floor. Pt at time was unable to get up, and EMS was called. Pt has reported hx of multiple recent falls prior to fall that led to this current admission. Currently being treated for aspiration PNA with Vanco/Doxycycline/Aztreonam. 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 Accepted to ICU service for further monitoring. Acute respiratory distress likely 2/2 aspiration PNA. Currently intubated and sedated in ICU at this time. Plan: Neuro: -Intubated and sedated on Propofol drip -Cont to monitor -Head CT on admission 07/23: No intracranial mass, hemorrhage or evidence of acute infarct. Atrophy and chronic white matter ischemic change. 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 -Hip/pelvis/shoulder XRs neg for acute fx Cardio: -Hx HTN, HLD, CAD, s/p AICD implantation -Cardiology (Dr. 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 Interval increase L pleural effusion. -Daliresp -Cont to monitor GI: -NPO -IVF at 75 cc/hr -CT abd/pelvis on admission: Multiple pelvic fractures, likely nonacute. Compression fxs of T11 and L1 vertebral bodies, indeterminate age. L lower lobe consolidation. No other acute abnormalities. -Protonix -Colace bid -No acute issues at this time Heme: -H/H 10.2/31.6, cont to trend ID: -Aspiration PNA -Anbx as noted above -CXR findings as noted above -febrile to 100.4 -Blood and urine cxs NGTD Renal: -Bun/Cr wnl -Trend I's/O's PPX: -Protonix, Heparin Objective - Vital Signs/Intake and Output Vital Signs (last 24 hours): Temp Pulse Resp BP Pulse Ox 97.2 F L 110 H 16 100/49 L 95 08/01/18 20:00 08/01/18 20:00 08/01/18 20:00 08/01/18 20:00 08/01/18 20:00 Intake and Output: 08/01/18 08/02/18 18:59 06:59 Intake Total 820 Output Total 700 Balance 120 - Medications Medications: Current Medications Acetylcysteine (Acetylcysteine 20%) 4 ml INH RQ6 [facility] Last Admin: 08/01/18 21:02 Dose: Not Given Albuterol/Ipratropium (Duoneb 3 Mg/0.5 Mg (3 Ml) Ud) 3 ml INH RQ4 [facility] Last Admin: 08/01/18 19:50 Dose: 3 ml Aspirin (Ecotrin) 81 mg PO DAILY [facility] Last Admin: 08/01/18 09:47 Dose: 81 mg Docusate Sodium (Colace) 100 mg PO BID [facility] Last Admin: 08/01/18 17:39 Dose: 100 mg Furosemide (Lasix) 20 mg IVP BID [facility] Last Admin: 08/01/18 17:43 Dose: 20 mg Heparin Sodium (Porcine) (Heparin) 5,000 units SC Q8 [facility] Last Admin: 08/01/18 21:58 Dose: 5,000 units Aztreonam 1 gm/ Sodium (Chloride) 100 mls @ 100 mls/hr IVPB Q8H [facility]; Protocol Last Admin: 08/01/18 21:01 Dose: 100 mls/hr Losartan Potassium (Cozaar) 25 mg PO DAILY [facility] Last Admin: 08/01/18 10:04 Dose: Not Given Metoprolol Tartrate (Lopressor) 2.5 mg IVP Q12H [facility] Last Admin: 08/01/18 21:58 Dose: 2.5 mg Pantoprazole Sodium (Protonix Ec Tab) 40 mg PO DAILY [facility] Roflumilast (Daliresp) 500 mcg PO DAILY [facility] Last Admin: 08/01/18 09:49 Dose: 500 mcg Rosuvastatin Calcium (Crestor) 10 mg PO HS [facility] Last Admin: 08/01/18 21:57 Dose: 10 mg Tamsulosin HCl (Flomax) 0.4 mg PO BID [facility] Last Admin: 08/01/18 17:40 Dose: 0.4 mg - Labs Labs: 08/01/18 06:00 08/01/18 05:55 PT 16.6 SECONDS (9.7-12.2) H 07/31/18 06:13 INR 1.5 07/31/18 06:13
[2018-08-02] MEDS: Aztreonam 1 GM in Sodium Chloride 0.9% 100 ML IVPB SCH ×3 (04:54→21:00)
[2018-08-02] MEDS: Albuterol-Ipratrop 3 mg / 0.5 (3 ml) UD INH SCH ×4 (07:35→19:58)
[2018-08-02] MEDS: Acetylcysteine 20% Inhal Soln (4ml) INH SCH ×3 (07:35→19:59)
[2018-08-02 08:04] LABS: BASO % 0.6 % (0.0-2.0); EOS # 0.1 K/uL (0.0-0.7); EOS % 1.3 % (0.0-4.0); HEMOGLOBIN 11.7 g/dL (12.0-18.0); LYMPH # 1.4 K/uL (1.0-4.3); LYMPH % 22.6 % (20.0-40.0); MEAN CELL VOLUME 88.1 fL (80.0-94.0); MEAN CORPUSCULAR HEMOGLOBIN 28.6 pg (27.0-31.0); MEAN CORPUSCULAR HGB CONC 32.4 g/dL (33.0-37.0); MEAN PLATELET VOLUME 7.4 fL (7.2-11.7); MONO # 0.3 K/uL (0.0-0.8); MONO % 4.2 % (0.0-10.0); NEUT # 4.3 K/uL (1.8-7.0); NEUT % 71.3 % (50.0-75.0); NRBC % 0.1 % (0.0-2.0); RBC 4.09 Mil/uL (4.40-5.90); RED CELL DISTRIBUTION WIDTH 14.8 % (11.5-14.5)
[2018-08-02 08:21] LABS: ALB/GLOB RATIO 1.2 (1.0-2.1); ALBUMIN 2.8 g/dL (3.5-5.0); ALT/SGPT 27 U/L (21-72); AST/SGOT 36 U/L (17-59); BLOOD UREA NITROGEN 23 mg/dL (9-20); CALCIUM 8.4 mg/dl (8.6-10.4); GFR NON-AFRICAN AMERICAN > 60
[2018-08-02] MEDS: Metoprolol 1 mg/ml Inj IVP SCH ×2 (10:03→21:51)
[2018-08-02] MEDS: Pantoprazole 40 mg EC Tab PO SCH (10:05)
--- NOTE | 2018-08-02 11:34 | RAD ---
Date of service: 08/02/2018 HISTORY: RLL-PNEUMONIA COMPARISON: 07/28/2018 TECHNIQUE: 1 view obtained. FINDINGS: LUNGS: No active pulmonary disease. PLEURA: No significant pleural effusion identified, no pneumothorax apparent. CARDIOVASCULAR: There is atherosclerotic calcification of the thoracic aorta. Normal heart size. AICD. Sternotomy wires. No congestive change. OSSEOUS STRUCTURES: No significant abnormalities. VISUALIZED UPPER ABDOMEN: Normal. OTHER FINDINGS: None. IMPRESSION: No active disease.
--- NOTE | 2018-08-02 16:10 | CP.PCM.PN ---
Subjective - Date & Time of Evaluation Date of Evaluation: 08/02/18 Time of Evaluation: 16:10 - Subjective Subjective: TRANSFERRED TO FLOOR AFEBRILE, VSS MORE RESPONSIVE. LESS CONGESTED S/P FOB LABS REVIEWED. BRONCHIAL WASHINGS +VE KLEBSIELLA-PNEUMONIA/ PSEUDOMONAS AERUGINOSA S -AZACTAM. CEFEPIME BROCHIAL WASHING CYTOLOGY -VE FOR MALIGNANT CELLS. Objective - Vital Signs/Intake and Output Vital Signs (last 24 hours): Temp Pulse Resp BP Pulse Ox 98 F 69 20 132/74 96 08/02/18 07:00 08/02/18 08:00 08/02/18 07:00 08/02/18 10:03 08/02/18 07:00 - Medications Medications: Current Medications Acetylcysteine (Acetylcysteine 20%) 4 ml INH RQ6 [facility] Last Admin: 08/02/18 13:00 Dose: 4 ml Albuterol/Ipratropium (Duoneb 3 Mg/0.5 Mg (3 Ml) Ud) 3 ml INH RQ4 [facility] Last Admin: 08/02/18 12:52 Dose: 3 ml Aspirin (Ecotrin) 81 mg PO DAILY [facility] Last Admin: 08/02/18 10:02 Dose: 81 mg Docusate Sodium (Colace) 100 mg PO BID [facility] Last Admin: 08/02/18 10:02 Dose: 100 mg Furosemide (Lasix) 20 mg IVP BID [facility] Last Admin: 08/02/18 10:03 Dose: 20 mg Heparin Sodium (Porcine) (Heparin) 5,000 units SC Q8 [facility] Last Admin: 08/02/18 13:57 Dose: 5,000 units Aztreonam 1 gm/ Sodium (Chloride) 100 mls @ 100 mls/hr IVPB Q8H [facility]; Protocol Last Admin: 08/02/18 11:49 Dose: 100 mls/hr Losartan Potassium (Cozaar) 25 mg PO DAILY [facility] Last Admin: 08/02/18 10:02 Dose: 25 mg Metoprolol Tartrate (Lopressor) 2.5 mg IVP Q12H [facility] Last Admin: 08/02/18 10:03 Dose: 2.5 mg Pantoprazole Sodium (Protonix Ec Tab) 40 mg PO DAILY [facility] Last Admin: 08/02/18 10:05 Dose: 40 mg Roflumilast (Daliresp) 500 mcg PO DAILY [facility] Last Admin: 08/02/18 10:02 Dose: 500 mcg Rosuvastatin Calcium (Crestor) 10 mg PO HS [facility] Last Admin: 08/01/18 21:57 Dose: 10 mg Tamsulosin HCl (Flomax) 0.4 mg PO BID [facility] Last Admin: 08/02/18 10:02 Dose: 0.4 mg - Labs Labs: 08/02/18 07:59 08/02/18 07:50 PT 16.6 SECONDS (9.7-12.2) H 07/31/18 06:13 INR 1.5 07/31/18 06:13 - Constitutional Appears: No Acute Distress - Head Exam Head Exam: NORMAL INSPECTION - Eye Exam Eye Exam: EOMI, PERRL - ENT Exam ENT Exam: Normal Oropharynx - Neck Exam Neck Exam: Normal Inspection - Respiratory Exam Respiratory Exam: Rhonchi (FEW RHONCHI.), NORMAL BREATHING PATTERN - Cardiovascular Exam Cardiovascular Exam: REGULAR RHYTHM, +S1, +S2 - GI/Abdominal Exam GI & Abdominal Exam: Soft, Normal Bowel Sounds - Extremities Exam Extremities Exam: Normal Capillary Refill, Pedal Edema. absent: Calf Tenderness - Neurological Exam Neurological Exam: Alert, Awake, CN II-XII Intact - Psychiatric Exam Psychiatric exam: Normal Mood - Skin Skin Exam: Normal Color, Warm Assessment and Plan (1) Respiratory distress Status: Acute (2) Altered mental status Status: Acute (3) Pneumonia Status: Acute (4) Chronic bronchitis Status: Chronic (5) Systolic CHF Status: Acute - Assessment and Plan (Free Text) Plan: Plan: CONTINUE IV AZACTAM 1GM IVPB Q 8HRLY 07/29. PATIENT TOLERATING iv AZACTAM WITH NO REACTIONS. PULMONARY TOILET. F/U SPUTUM CULTURE REPEAT fOLLOW-UP REPEAT CHEST X-RAY. CASE DISCUSSED WITH STAFF.
[2018-08-03] MEDS: Albuterol-Ipratrop 3 mg / 0.5 (3 ml) UD INH SCH ×6 (00:57→19:24)
[2018-08-03] MEDS: Acetylcysteine 20% Inhal Soln (4ml) INH SCH ×5 (00:57→19:24)
[2018-08-03] MEDS: Aztreonam 1 GM in Sodium Chloride 0.9% 100 ML IVPB SCH ×3 (05:22→20:49)
[2018-08-03] MEDS: Metoprolol 1 mg/ml Inj IVP SCH ×2 (10:37→22:22)
[2018-08-03] MEDS: Pantoprazole 40 mg EC Tab PO SCH (10:37)
--- NOTE | 2018-08-03 22:43 | CP.PCM.PN ---
Subjective - Date & Time of Evaluation Date of Evaluation: 08/03/18 Time of Evaluation: 22:42 - Subjective Subjective: Patient has no fever, still having some cough. Patient is not eating well because of the poor intake. Poor appetite noted. No fever today. Vital signs are stable. Chest good air entry, expiratory wheezing and rales noted regular heart sounds, nontender abdomen EKG rhythm showing evidence of bundle branch block pattern. Patient has a AICD Sputum cultures showing evidence of Pseudomonas. ID consultation to be continued. We will wait for the appropriate antibiotic. Spoke to the patient's , possible discharge plan once cleared by the ID and will follow the patient We will advance her diet also Objective - Vital Signs/Intake and Output Vital Signs (last 24 hours): Temp Pulse Resp BP Pulse Ox 97.5 F L 89 18 105/60 97 08/03/18 15:10 08/03/18 15:10 08/03/18 15:10 08/03/18 19:00 08/03/18 15:10 - Medications Medications: Current Medications Acetylcysteine (Acetylcysteine 20%) 4 ml INH RQ6 [facility] Last Admin: 08/03/18 19:24 Dose: 4 ml Albuterol/Ipratropium (Duoneb 3 Mg/0.5 Mg (3 Ml) Ud) 3 ml INH RQ4 [facility] Last Admin: 08/03/18 19:24 Dose: 3 ml Aspirin (Ecotrin) 81 mg PO DAILY [facility] Last Admin: 08/03/18 10:37 Dose: 81 mg Docusate Sodium (Colace) 100 mg PO BID [facility] Last Admin: 08/03/18 19:00 Dose: 100 mg Furosemide (Lasix) 20 mg IVP BID [facility] Last Admin: 08/03/18 19:00 Dose: 20 mg Heparin Sodium (Porcine) (Heparin) 5,000 units SC Q8 [facility] Last Admin: 08/03/18 22:14 Dose: 5,000 units Aztreonam 1 gm/ Sodium (Chloride) 100 mls @ 100 mls/hr IVPB Q8H [facility]; Protocol Last Admin: 08/03/18 20:49 Dose: 100 mls/hr Losartan Potassium (Cozaar) 25 mg PO DAILY [facility] Last Admin: 08/03/18 10:37 Dose: 25 mg Metoprolol Tartrate (Lopressor) 2.5 mg IVP Q12H [facility] Last Admin: 08/03/18 22:22 Dose: Not Given Pantoprazole Sodium (Protonix Ec Tab) 40 mg PO DAILY [facility] Last Admin: 08/03/18 10:37 Dose: 40 mg Roflumilast (Daliresp) 500 mcg PO DAILY [facility] Last Admin: 08/03/18 10:46 Dose: 500 mcg Rosuvastatin Calcium (Crestor) 10 mg PO HS [facility] Last Admin: 08/03/18 22:13 Dose: 10 mg Tamsulosin HCl (Flomax) 0.4 mg PO BID [facility] Last Admin: 08/03/18 19:00 Dose: 0.4 mg - Labs Labs: 08/02/18 07:59 08/02/18 07:50 PT 16.6 SECONDS (9.7-12.2) H 07/31/18 06:13 INR 1.5 07/31/18 06:13
--- NOTE | 2018-08-03 23:40 | CP.PCM.PN ---
Subjective - Date & Time of Evaluation Date of Evaluation: 08/02/18 Time of Evaluation: 11:10 - Subjective Subjective: Patient seen and evaluated HR better. No chest pain or dyspnea No cardiac events noted Physical Exam - Constitutional Appears: In Acute Distress Additional comments: Demonstrating accessory muscle use and labored breathing on exam with venti mask - Head Exam Head Exam: ATRAUMATIC, NORMOCEPHALIC - Eye Exam Eye Exam: EOMI, Normal appearance, PERRL - ENT Exam ENT Exam: Mucous Membranes Moist - Respiratory Exam Respiratory Exam: Rales, Respiratory Distress - Cardiovascular Exam Cardiovascular Exam: Tachycardia, +S1, +S2. absent: Gallop, Rubs, Systolic Murmur - GI/Abdominal Exam GI & Abdominal Exam: Normal Bowel Sounds, Soft. absent: Distended, Organomegaly, Tenderness - Extremities Exam Extremities exam: Positive for: normal capillary refill, normal inspection, p edal pulses present. Negative for: tenderness - Neurological Exam Neurological exam: Altered - Skin Skin Exam: Dry, Intact, Warm Assessment & Plan - Assessment and Plan (Free Text) Assessment: This is an 82 y o male with PMhx COPD, HTN, HLD, CAD, s/p AICD implantation, TIA, who presented to the ED brought in by his s/p fall and with c/o fever. As per chart review, pt was trying to reach something at home, slipped and fell on floor. Pt at time was unable to get up, and EMS was called. Pt has reported hx of multiple recent falls prior to fall that led to this current admission. Currently being treated for aspiration PNA with Vanco/Doxycycline/Aztreonam. 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 Accepted to ICU service for further monitoring. Acute respiratory distress likely 2/2 aspiration PNA. Currently intubated and sedated in ICU at this time. Plan: Neuro: -Intubated and sedated on Propofol drip -Cont to monitor -Head CT on admission 07/23: No intracranial mass, hemorrhage or evidence of acute infarct. Atrophy and chronic white matter ischemic change. 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 -Hip/pelvis/shoulder XRs neg for acute fx Cardio: -Hx HTN, HLD, CAD, s/p AICD implantation -Cardiology (Dr. Bains) consulted, recs appreciated -ASA -Cozaar 25 mg PO daily -Toprol XL 50 mg PO daily -Crestor daily Pulm: -Acute respiratory distress likely 2/2 aspiration PNA -On Doxycycline/Vanco, s/p Aztreonam x1 during SERVICE TECHNICIAN COPIER -Intubated and sedated on Propofol -Hx COPD, TIA -Duonebs q4h -S/p Solu-Medrol 40 mg IVP x1 during SERVICE TECHNICIAN COPIER -On Mucomyst q6h -Recent CXR today: Cardiomegaly and worsening pulmonary venous congestion compatible with CHF. Interval increase L pleural effusion. -Daliresp -Cont to monitor GI: -NPO -IVF at 75 cc/hr -CT abd/pelvis on admission: Multiple pelvic fractures, likely nonacute. Compression fxs of T11 and L1 vertebral bodies, indeterminate age. L lower lobe consolidation. No other acute abnormalities. -Protonix -Colace bid -No acute issues at this time Heme: -H/H 10.2/31.6, cont to trend ID: -Aspiration PNA -Anbx as noted above -CXR findings as noted above -febrile to 100.4 -Blood and urine cxs NGTD Renal: -Bun/Cr wnl -Trend I's/O's PPX: -Protonix, Heparin Objective - Vital Signs/Intake and Output Vital Signs (last 24 hours): Temp Pulse Resp BP Pulse Ox 97.5 F L 89 18 105/60 97 08/03/18 15:10 08/03/18 15:10 08/03/18 15:10 08/03/18 19:00 08/03/18 15:10 - Medications Medications: Current Medications Acetylcysteine (Acetylcysteine 20%) 4 ml INH RQ6 [facility] Last Admin: 08/03/18 19:24 Dose: 4 ml Albuterol/Ipratropium (Duoneb 3 Mg/0.5 Mg (3 Ml) Ud) 3 ml INH RQ4 [facility] Last Admin: 08/03/18 19:24 Dose: 3 ml Aspirin (Ecotrin) 81 mg PO DAILY [facility] Last Admin: 08/03/18 10:37 Dose: 81 mg Docusate Sodium (Colace) 100 mg PO BID [facility] Last Admin: 08/03/18 19:00 Dose: 100 mg Furosemide (Lasix) 20 mg IVP BID [facility] Last Admin: 08/03/18 19:00 Dose: 20 mg Heparin Sodium (Porcine) (Heparin) 5,000 units SC Q8 [facility] Last Admin: 08/03/18 22:14 Dose: 5,000 units Aztreonam 1 gm/ Sodium (Chloride) 100 mls @ 100 mls/hr IVPB Q8H [facility]; Protocol Last Admin: 08/03/18 20:49 Dose: 100 mls/hr Losartan Potassium (Cozaar) 25 mg PO DAILY [facility] Last Admin: 08/03/18 10:37 Dose: 25 mg Metoprolol Tartrate (Lopressor) 12.5 mg PO BID [facility] Pantoprazole Sodium (Protonix Ec Tab) 40 mg PO DAILY [facility] Last Admin: 08/03/18 10:37 Dose: 40 mg Roflumilast (Daliresp) 500 mcg PO DAILY [facility] Last Admin: 08/03/18 10:46 Dose: 500 mcg Rosuvastatin Calcium (Crestor) 10 mg PO HS [facility] Last Admin: 08/03/18 22:13 Dose: 10 mg Tamsulosin HCl (Flomax) 0.4 mg PO BID [facility] Last Admin: 08/03/18 19:00 Dose: 0.4 mg - Labs Labs: 08/02/18 07:59 08/02/18 07:50 PT 16.6 SECONDS (9.7-12.2) H 07/31/18 06:13 INR 1.5 07/31/18 06:13
--- NOTE | 2018-08-03 23:41 | CP.PCM.PN ---
Subjective - Date & Time of Evaluation Date of Evaluation: 08/03/18 Time of Evaluation: 17:40 - Subjective Subjective: Patient seen and evaluated Improved breathing No cardiac complaints Physical Exam - Constitutional Appears: In Acute Distress Additional comments: Demonstrating accessory muscle use and labored breathing on exam with venti mask - Head Exam Head Exam: ATRAUMATIC, NORMOCEPHALIC - Eye Exam Eye Exam: EOMI, Normal appearance, PERRL - ENT Exam ENT Exam: Mucous Membranes Moist - Respiratory Exam Respiratory Exam: Rales, Respiratory Distress - Cardiovascular Exam Cardiovascular Exam: Tachycardia, +S1, +S2. absent: Gallop, Rubs, Systolic Murmur - GI/Abdominal Exam GI & Abdominal Exam: Normal Bowel Sounds, Soft. absent: Distended, Organomegaly, Tenderness - Extremities Exam Extremities exam: Positive for: normal capillary refill, normal inspection, pedal pulses present. Negative for: tenderness - Neurological Exam Neurological exam: Altered - Skin Skin Exam: Dry, Intact, Warm Assessment & Plan - Assessment and Plan (Free Text) Assessment: This is an 82 y o male with PMhx COPD, HTN, HLD, CAD, s/p AICD implantation, OS A, who presented to the ED brought in by his s/p fall and with c/o fever. As per chart review, pt was trying to reach something at home, slipped and fell on floor. Pt at time was unable to get up, and EMS was called. Pt has reported hx of multiple recent falls prior to fall that led to this current admission. Currently being treated for aspiration PNA with Vanco/Doxycycline/Aztreonam. 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 Accepted to ICU service for further monitoring. Acute respiratory distress likely 2/2 aspiration PNA. Currently intubated and sedated in ICU at this time. Plan: Neuro: -Intubated and sedated on Propofol drip -Cont to monitor -Head CT on admission 07/23: No intracranial mass, hemorrhage or evidence of acute infarct. Atrophy and chronic white matter ischemic change. 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 -Hip/pelvis/shoulder XRs neg for acute fx Cardio: -Hx HTN, HLD, CAD, s/p AICD implantation -Cardiology (Dr. Bains) consulted, recs appreciated -ASA -Cozaar 25 mg PO daily -Toprol XL 50 mg PO daily -Crestor daily Pulm: -Acute respiratory distress likely 2/2 aspiration PNA -On Doxycycline/Vanco, s/p Aztreonam x1 during SPOON MAKER -Intubated and sedated on Propofol -Hx COPD, TIA -Duonebs q4h -S/p Solu-Medrol 40 mg IVP x1 during SPOON MAKER -On Mucomyst q6h -Recent CXR today: Cardiomegaly and worsening pulmonary venous congestion com patible with CHF. Interval increase L pleural effusion. -Daliresp -Cont to monitor GI: -NPO -IVF at 75 cc/hr -CT abd/pelvis on admission: Multiple pelvic fractures, likely nonacute. Compression fxs of T11 and L1 vertebral bodies, indeterminate age. L lower lobe consolidation. No other acute abnormalities. -Protonix -Colace bid -No acute issues at this time Heme: -H/H 10.2/31.6, cont to trend ID: -Aspiration PNA -Anbx as noted above -CXR findings as noted above -febrile to 100.4 -Blood and urine cxs NGTD Renal: -Bun/Cr wnl -Trend I's/O's PPX: -Protonix, Heparin Objective - Vital Signs/Intake and Output Vital Signs (last 24 hours): Temp Pulse Resp BP Pulse Ox 97.5 F L 89 18 105/60 97 08/03/18 15:10 08/03/18 15:10 08/03/18 15:10 08/03/18 19:00 08/03/18 15:10 - Medications Medications: Current Medications Acetylcysteine (Acetylcysteine 20%) 4 ml INH RQ6 [facility] Last Admin: 08/03/18 19:24 Dose: 4 ml Albuterol/Ipratropium (Duoneb 3 Mg/0.5 Mg (3 Ml) Ud) 3 ml INH RQ4 [facility] Last Admin: 08/03/18 19:24 Dose: 3 ml Aspirin (Ecotrin) 81 mg PO DAILY [facility] Last Admin: 08/03/18 10:37 Dose: 81 mg Docusate Sodium (Colace) 100 mg PO BID [facility] Last Admin: 08/03/18 19:00 Dose: 100 mg Furosemide (Lasix) 20 mg IVP BID [facility] Last Admin: 08/03/18 19:00 Dose: 20 mg Heparin Sodium (Porcine) (Heparin) 5,000 units SC Q8 [facility] Last Admin: 08/03/18 22:14 Dose: 5,000 units Aztreonam 1 gm/ Sodium (Chloride) 100 mls @ 100 mls/hr IVPB Q8H [facility]; Protocol Last Admin: 08/03/18 20:49 Dose: 100 mls/hr Losartan Potassium (Cozaar) 25 mg PO DAILY [facility] Last Admin: 08/03/18 10:37 Dose: 25 mg Metoprolol Tartrate (Lopressor) 12.5 mg PO BID [facility] Pantoprazole Sodium (Protonix Ec Tab) 40 mg PO DAILY [facility] Last Admin: 08/03/18 10:37 Dose: 40 mg Roflumilast (Daliresp) 500 mcg PO DAILY [facility] Last Admin: 08/03/18 10:46 Dose: 500 mcg Rosuvastatin Calcium (Crestor) 10 mg PO HS [facility] Last Admin: 08/03/18 22:13 Dose: 10 mg Tamsulosin HCl (Flomax) 0.4 mg PO BID [facility] Last Admin: 08/03/18 19:00 Dose: 0.4 mg - Labs Labs: 08/02/18 07:59 08/02/18 07:50 PT 16.6 SECONDS (9.7-12.2) H 07/31/18 06:13 INR 1.5 07/31/18 06:13
--- NOTE | 2018-08-03 23:52 | CP.PCM.PN ---
Subjective - Date & Time of Evaluation Date of Evaluation: 08/03/18 Time of Evaluation: 23:52 - Subjective Subjective: AFEBRILE, VSS MORE RESPONSIVE. LESS CONGESTED LESS COUGH FEELING BETTER S/P FOB LABS REVIEWED. CXR -NOTED -IMPROVED SPUTUM 08/01/18 +VE PSEUDOMONAS AERUGINOSA BRONCHIAL WASHINGS +VE KLEBSIELLA-PNEUMONIA/ PSEUDOMONAS AERUGINOSA S -AZACTAM. CEFEPIME BROCHIAL WASHING CYTOLOGY -VE FOR MALIGNANT CELLS. Objective - Vital Signs/Intake and Output Vital Signs (last 24 hours): Temp Pulse Resp BP Pulse Ox 97.5 F L 89 18 105/60 97 08/03/18 15:10 08/03/18 15:10 08/03/18 15:10 08/03/18 19:00 08/03/18 15:10 - Medications Medications: Current Medications Acetylcysteine (Acetylcysteine 20%) 4 ml INH RQ6 [facility] Last Admin: 08/03/18 19:24 Dose: 4 ml Albuterol/Ipratropium (Duoneb 3 Mg/0.5 Mg (3 Ml) Ud) 3 ml INH RQ4 [facility] Last Admin: 08/03/18 19:24 Dose: 3 ml Aspirin (Ecotrin) 81 mg PO DAILY [facility] Last Admin: 08/03/18 10:37 Dose: 81 mg Docusate Sodium (Colace) 100 mg PO BID [facility] Last Admin: 08/03/18 19:00 Dose: 100 mg Furosemide (Lasix) 20 mg IVP BID [facility] Last Admin: 08/03/18 19:00 Dose: 20 mg Heparin Sodium (Porcine) (Heparin) 5,000 units SC Q8 [facility] Last Admin: 08/03/18 22:14 Dose: 5,000 units Aztreonam 1 gm/ Sodium (Chloride) 100 mls @ 100 mls/hr IVPB Q8H [facility]; Protocol Last Admin: 08/03/18 20:49 Dose: 100 mls/hr Losartan Potassium (Cozaar) 25 mg PO DAILY [facility] Last Admin: 08/03/18 10:37 Dose: 25 mg Metoprolol Tartrate (Lopressor) 12.5 mg PO BID [facility] Pantoprazole Sodium (Protonix Ec Tab) 40 mg PO DAILY [facility] Last Admin: 08/03/18 10:37 Dose: 40 mg Roflumilast (Daliresp) 500 mcg PO DAILY [facility] Last Admin: 08/03/18 10:46 Dose: 500 mcg Rosuvastatin Calcium (Crestor) 10 mg PO HS [facility] Last Admin: 08/03/18 22:13 Dose: 10 mg Tamsulosin HCl (Flomax) 0.4 mg PO BID [facility] Last Admin: 08/03/18 19:00 Dose: 0.4 mg - Labs Labs: 08/02/18 07:59 08/02/18 07:50 PT 16.6 SECONDS (9.7-12.2) H 07/31/18 06:13 INR 1.5 07/31/18 06:13 - Constitutional Appears: No Acute Distress - Head Exam Head Exam: NORMAL INSPECTION - Eye Exam Eye Exam: EOMI, PERRL - ENT Exam ENT Exam: Normal Oropharynx - Neck Exam Neck Exam: Normal Inspection - Respiratory Exam Respiratory Exam: Prolonged Expiratory Phase (FEW RHONCHI), NORMAL BREATHING PATTERN - Cardiovascular Exam Cardiovascular Exam: REGULAR RHYTHM, +S1, +S2 - GI/Abdominal Exam GI & Abdominal Exam: Soft, Normal Bowel Sounds - Extremities Exam Extremities Exam: Normal Capillary Refill. absent: Calf Tenderness, Pedal Edema - Neurological Exam Neurological Exam: Alert, Awake, CN II-XII Intact, Oriented x3 - Psychiatric Exam Psychiatric exam: Normal Mood - Skin Skin Exam: Normal Color, Warm Assessment and Plan (1) Respiratory distress Status: Acute (2) Altered mental status Status: Acute (3) Pneumonia Status: Acute (4) Chronic bronchitis Status: Chronic (5) Systolic CHF Status: Acute - Assessment and Plan (Free Text) Plan: CONTINUE IV AZACTAM 1GM IVPB Q 8HRLY 07/29.-DAY 6 FOR TOTAL OF 10 DAYS SPUTUM STILL POSITIVE FOR pSEUDOMONAS. PATIENT HAS MANY ALLERGIES TO SWITCH TO ORAL ANTIBIOTICS. wILL DISCUSS WITH pmd. ENCOURAGE EATING. PT WEAK . PATIENT TOLERATING iv AZACTAM WITH NO REACTIONS. PULMONARY TOILET.
[2018-08-04] MEDS: Albuterol-Ipratrop 3 mg / 0.5 (3 ml) UD INH SCH ×6 (00:59→19:57)
[2018-08-04] MEDS: Acetylcysteine 20% Inhal Soln (4ml) INH SCH ×5 (01:00→19:56)
[2018-08-04] MEDS: Aztreonam 1 GM in Sodium Chloride 0.9% 100 ML IVPB SCH ×3 (04:35→20:41)
[2018-08-04] MEDS: Pantoprazole 40 mg EC Tab PO SCH (10:06)
--- NOTE | 2018-08-05 00:24 | CP.PCM.PN ---
Subjective - Date & Time of Evaluation Date of Evaluation: 08/04/18 Time of Evaluation: 20:00 - Subjective Subjective: LATE ENTRY 08/04/18 PT SEEN AND CHART REVIEWED. AFEBRILE, VSS MORE RESPONSIVE. LESS CONGESTED STILL WITH PRODUCTIVE COUGH ON IV AZACTAM. SPUTUM REPEAT AAAAA=VE PSEUDOMONAS AERUGINOSA. CXR - NOTED -IMPROVED. CASE DISCUSSED WITH THE STAFF/ AND DR DE ELON pATIENT FOR SUBACUTE REHAB FOR FEW DAYS pATIENT TO CONTINUE iv AZACTAM 1 G EVERY 12HRLY X 5 DAYS MORE ON DISCHARGE. pATIENT ALSO NEEDS NIKKI FOR PT /AND GAIT STABILITY. Objective - Vital Signs/Intake and Output Vital Signs (last 24 hours): Temp Pulse Resp BP Pulse Ox 97.9 F 109 H 20 125/53 L 96 08/04/18 15:00 08/04/18 17:54 08/04/18 17:54 08/04/18 17:56 08/04/18 15:00 - Medications Medications: Current Medications Acetylcysteine (Acetylcysteine 20%) 4 ml INH RQ6 [facility] Last Admin: 08/04/18 19:56 Dose: 4 ml Albuterol/Ipratropium (Duoneb 3 Mg/0.5 Mg (3 Ml) Ud) 3 ml INH RQ4 [facility] Last Admin: 08/04/18 19:57 Dose: 3 ml Aspirin (Ecotrin) 81 mg PO DAILY [facility] Last Admin: 08/04/18 10:05 Dose: 81 mg Docusate Sodium (Colace) 100 mg PO BID [facility] Last Admin: 08/04/18 17:57 Dose: 100 mg Furosemide (Lasix) 20 mg IVP BID [facility] Last Admin: 08/04/18 17:56 Dose: 20 mg Heparin Sodium (Porcine) (Heparin) 5,000 units SC Q8 [facility] Last Admin: 08/04/18 22:07 Dose: 5,000 units Aztreonam 1 gm/ Sodium (Chloride) 100 mls @ 100 mls/hr IVPB Q8H [facility]; Protocol Last Admin: 08/04/18 20:41 Dose: 100 mls/hr Losartan Potassium (Cozaar) 25 mg PO DAILY [facility] Last Admin: 08/04/18 10:00 Dose: 25 mg Metoprolol Tartrate (Lopressor) 12.5 mg PO BID [facility] Last Admin: 08/04/18 17:57 Dose: 12.5 mg Pantoprazole Sodium (Protonix Ec Tab) 40 mg PO DAILY [facility] Last Admin: 08/04/18 10:06 Dose: 40 mg Roflumilast (Daliresp) 500 mcg PO DAILY [facility] Last Admin: 08/04/18 10:00 Dose: 500 mcg Rosuvastatin Calcium (Crestor) 10 mg PO HS [facility] Last Admin: 08/04/18 22:07 Dose: 10 mg Tamsulosin HCl (Flomax) 0.4 mg PO BID [facility] Last Admin: 08/04/18 17:57 Dose: 0.4 mg - Labs Labs: 08/02/18 07:59 08/02/18 07:50 PT 16.6 SECONDS (9.7-12.2) H 07/31/18 06:13 INR 1.5 07/31/18 06:13 - Constitutional Appears: No Acute Distress, Chronically Ill - Head Exam Head Exam: NORMAL INSPECTION - Eye Exam Eye Exam: EOMI, PERRL - ENT Exam ENT Exam: Normal Oropharynx - Neck Exam Neck Exam: Normal Inspection - Respiratory Exam Respiratory Exam: Prolonged Expiratory Phase, NORMAL BREATHING PATTERN - Cardiovascular Exam Cardiovascular Exam: REGULAR RHYTHM, +S1, +S2 - GI/Abdominal Exam GI & Abdominal Exam: Soft, Normal Bowel Sounds - Extremities Exam Extremities Exam: Normal Capillary Refill. absent: Calf Tenderness, Pedal Edema - Neurological Exam Neurological Exam: Alert, Awake, CN II-XII Intact, Oriented x3 - Psychiatric Exam Psychiatric exam: Normal Mood - Skin Skin Exam: Normal Color, Warm Assessment and Plan (1) Respiratory distress Status: Acute (2) Altered mental status Status: Acute (3) Pneumonia Status: Acute (4) Chronic bronchitis Status: Chronic (5) Systolic CHF Status: Acute - Assessment and Plan (Free Text) Plan: CONTINUE IV AZACTAM 1GM IVPB Q 12HRLY 07/29.-DAY 7 X 5 DAYS MORE SPUTUM STILL POSITIVE FOR pSEUDOMONAS. PATIENT HAS MANY ALLERGIES TO SWITCH TO ORAL ANTIBIOTICS. DISCUSSED WITH pmd. PER PMD PT FOR NIKKI ENCOURAGE EATING. PT WEAK . PATIENT TOLERATING iv AZACTAM WITH NO REACTIONS. PULMONARY TOILET.
[2018-08-05] MEDS: Albuterol-Ipratrop 3 mg / 0.5 (3 ml) UD INH SCH ×5 (01:07→14:00)
[2018-08-05] MEDS: Acetylcysteine 20% Inhal Soln (4ml) INH SCH ×4 (01:07→19:16)
[2018-08-05] MEDS: Aztreonam 1 GM in Sodium Chloride 0.9% 100 ML IVPB SCH ×3 (03:40→21:51)
--- NOTE | 2018-08-05 08:53 | CP.PCM.PN ---
Subjective - Date & Time of Evaluation Date of Evaluation: 08/04/18 Time of Evaluation: 16:25 - Subjective Subjective: Patient seen and evaluated No cardiac events noted Physical Exam - Constitutional Appears: In Acute Distress Additional comments: Demonstrating accessory muscle use and labored breathing on exam with venti mask - Head Exam Head Exam: ATRAUMATIC, NORMOCEPHALIC - Eye Exam Eye Exam: EOMI, Normal appearance, PERRL - ENT Exam ENT Exam: Mucous Membranes Moist - Respiratory Exam Respiratory Exam: Rales, Respiratory Distress - Cardiovascular Exam Cardiovascular Exam: Tachycardia, +S1, +S2. absent: Gallop, Rubs, Systolic Murmur - GI/Abdominal Exam GI & Abdominal Exam: Normal Bowel Sounds, Soft. absent: Distended, Organomegaly, Tenderness - Extremities Exam Extremities exam: Positive for: normal capillary refill, normal inspection, pedal pulses present. Negative for: tenderness - Neurological Exam Neurological exam: Altered - Skin Skin Exam: Dry, Intact, Warm Objective - Vital Signs/Intake and Output Vital Signs (last 24 hours): Temp Pulse Resp BP Pulse Ox 98.1 F 104 H 18 116/62 97 08/05/18 07:20 08/05/18 07:20 08/05/18 07:20 08/05/18 07:20 08/05/18 07:20 - Medications Medications: Current Medications Acetylcysteine (Acetylcysteine 20%) 4 ml INH RQ6 [facility] Last Admin: 08/05/18 07:41 Dose: 4 ml Albuterol/Ipratropium (Duoneb 3 Mg/0.5 Mg (3 Ml) Ud) 3 ml INH RQ4 [facility] Last Admin: 08/05/18 07:41 Dose: 3 ml Aspirin (Ecotrin) 81 mg PO DAILY [facility] Last Admin: 08/04/18 10:05 Dose: 81 mg Docusate Sodium (Colace) 100 mg PO BID [facility] Last Admin: 08/04/18 17:57 Dose: 100 mg Furosemide (Lasix) 20 mg IVP BID [facility] Last Admin: 08/04/18 17:56 Dose: 20 mg Heparin Sodium (Porcine) (Heparin) 5,000 units SC Q8 [facility] Last Admin: 08/05/18 05:12 Dose: 5,000 units Aztreonam 1 gm/ Sodium (Chloride) 100 mls @ 100 mls/hr IVPB Q8H [facility]; Protocol Last Admin: 08/05/18 03:40 Dose: 100 mls/hr Losartan Potassium (Cozaar) 25 mg PO DAILY [facility] Last Admin: 08/04/18 10:00 Dose: 25 mg Metoprolol Tartrate (Lopressor) 12.5 mg PO BID [facility] Last Admin: 08/04/18 17:57 Dose: 12.5 mg Pantoprazole Sodium (Protonix Ec Tab) 40 mg PO DAILY [facility] Last Admin: 08/04/18 10:06 Dose: 40 mg Roflumilast (Daliresp) 500 mcg PO DAILY [facility] Last Admin: 08/04/18 10:00 Dose: 500 mcg Rosuvastatin Calcium (Crestor) 10 mg PO HS [facility] Last Admin: 08/04/18 22:07 Dose: 10 mg Tamsulosin HCl (Flomax) 0.4 mg PO BID [facility] Last Admin: 08/04/18 17:57 Dose: 0.4 mg - Labs Labs: 08/02/18 07:59 08/02/18 07:50 PT 16.6 SECONDS (9.7-12.2) H 07/31/18 06:13 INR 1.5 07/31/18 06:13 Assessment and Plan - Assessment and Plan (Free Text) Assessment: Assessment & Plan - Assessment and Plan (Free Text) Assessment: This is an 82 y o male with PMhx COPD, HTN, HLD, CAD, s/p AICD implantation, TIA, Cardio: -Hx HTN, HLD, CAD, s/p AICD implantation -AICD with normal function -ASA -Cozaar 25 mg PO daily -Toprol XL 50 mg PO daily -Crestor daily Pulm: -Mgt as per PMD/Pulm -Hx COPD, TIA -Duonebs q4h -S/p Solu-Medrol 40 mg IVP x1 during [employer] -On Mucomyst q6h -Recent CXR today: Cardiomegaly and worsening pulmonary venous congestion compatible with CHF. Interval increase L pleural effusion. -Daliresp -Cont to monitor GI: -IVF at 75 cc/hr -CT abd/pelvis on admission: Multiple pelvic fractures, likely nonacute. Compression fxs of T11 and L1 vertebral bodies, indeterminate age. L lower lobe consolidation. No other acute abnormalities. -Protonix -Colace bid -No acute issues at this time ID: -Aspiration PNA mgt as per ID -Anbx as noted above -CXR findings as noted above Renal: -Bun/Cr wnl -Trend I's/O's PPX: -Protonix, Heparin
[2018-08-05] MEDS: Pantoprazole 40 mg EC Tab PO SCH (10:34)
[2018-08-05 15:50] VITALS: RESP 20
--- NOTE | 2018-08-05 23:58 | CP.PCM.PN ---
Subjective - Date & Time of Evaluation Date of Evaluation: 08/05/18 Time of Evaluation: 23:57 - Subjective Subjective: AFEBRILE , AAO LESS COUGH . DENIES SOB /CHEST PAIN ON IV ABX. Objective - Vital Signs/Intake and Output Vital Signs (last 24 hours): Temp Pulse Resp BP Pulse Ox 97.6 F 98 H 20 116/64 95 08/05/18 15:00 08/05/18 17:22 08/05/18 17:22 08/05/18 18:18 08/05/18 17:22 Intake and Output: 08/05/18 08/06/18 18:59 06:59 Intake Total 350 Balance 350 - Medications Medications: Current Medications Acetylcysteine (Acetylcysteine 20%) 4 ml INH RQ6 [facility] Last Admin: 08/05/18 19:16 Dose: Not Given Aspirin (Ecotrin) 81 mg PO DAILY [facility] Last Admin: 08/05/18 10:34 Dose: 81 mg Docusate Sodium (Colace) 100 mg PO BID [facility] Last Admin: 08/05/18 18:18 Dose: 100 mg Furosemide (Lasix) 20 mg IVP BID [facility] Last Admin: 08/05/18 18:18 Dose: 20 mg Heparin Sodium (Porcine) (Heparin) 5,000 units SC Q8 [facility] Last Admin: 08/05/18 21:51 Dose: 5,000 units Aztreonam 1 gm/ Sodium (Chloride) 100 mls @ 100 mls/hr IVPB Q8H [facility]; Protocol Last Admin: 08/05/18 21:51 Dose: 100 mls/hr Losartan Potassium (Cozaar) 25 mg PO DAILY [facility] Last Admin: 08/05/18 10:34 Dose: 25 mg Metoprolol Tartrate (Lopressor) 12.5 mg PO BID [facility] Last Admin: 08/05/18 18:18 Dose: 12.5 mg Pantoprazole Sodium (Protonix Ec Tab) 40 mg PO DAILY [facility] Last Admin: 08/05/18 10:34 Dose: 40 mg Roflumilast (Daliresp) 500 mcg PO DAILY [facility] Last Admin: 08/05/18 10:39 Dose: 500 mcg Rosuvastatin Calcium (Crestor) 10 mg PO HS [facility] Last Admin: 08/05/18 21:51 Dose: 10 mg Tamsulosin HCl (Flomax) 0.4 mg PO BID [facility] Last Admin: 08/05/18 18:18 Dose: 0.4 mg - Labs Labs: 08/02/18 07:59 08/02/18 07:50 PT 16.6 SECONDS (9.7-12.2) H 07/31/18 06:13 INR 1.5 07/31/18 06:13 - Constitutional Appears: No Acute Distress - Head Exam Head Exam: NORMAL INSPECTION - Eye Exam Eye Exam: EOMI, PERRL - ENT Exam ENT Exam: Normal Oropharynx - Neck Exam Neck Exam: Normal Inspection - Respiratory Exam Respiratory Exam: Decreased Breath Sounds, Rhonchi - Cardiovascular Exam Cardiovascular Exam: REGULAR RHYTHM, +S1, +S2 - GI/Abdominal Exam GI & Abdominal Exam: Soft, Normal Bowel Sounds - Extremities Exam Extremities Exam: Normal Capillary Refill. absent: Calf Tenderness, Pedal Edema - Neurological Exam Neurological Exam: Alert, Awake, CN II-XII Intact, Oriented x3 - Psychiatric Exam Psychiatric exam: Normal Mood - Skin Skin Exam: Normal Color, Warm Assessment and Plan (1) Respiratory distress Status: Acute (2) Altered mental status Status: Acute (3) Pneumonia Status: Acute (4) Chronic bronchitis Status: Chronic (5) Systolic CHF Status: Acute - Assessment and Plan (Free Text) Plan: CASE DISCUSSED WITH THE STAFF/ AND DR DE LEON pATIENT FOR SUBACUTE REHAB FOR FEW DAYS pATIENT TO CONTINUE iv AZACTAM 1 G EVERY 12HRLY X 5 DAYS MORE ON DISCHARGE. pATIENT ALSO NEEDS NIKKI FOR PT /AND GAIT STABILITY.
[2018-08-06] MEDS: Acetylcysteine 20% Inhal Soln (4ml) INH SCH ×3 (01:14→13:21)
[2018-08-06] MEDS: Aztreonam 1 GM in Sodium Chloride 0.9% 100 ML IVPB SCH ×3 (04:20→20:41)
--- NOTE | 2018-08-06 09:34 | CP.PCM.PN ---
Subjective - Date & Time of Evaluation Date of Evaluation: 08/05/18 Time of Evaluation: 08:10 - Subjective Subjective: Patient seen and evaluated denies chest pain and dyspnea Awaiting Rehab Patient seen and evaluated No cardiac events noted Physical Exam - Constitutional Appears: In Acute Distress Additional comments: Demonstrating accessory muscle use and labored breathing on exam with venti mask - Head Exam Head Exam: ATRAUMATIC, NORMOCEPHALIC - Eye Exam Eye Exam: EOMI, Normal appearance, PERRL - ENT Exam ENT Exam: Mucous Membranes Moist - Respiratory Exam Respiratory Exam: Rales, Respiratory Distress - Cardiovascular Exam Cardiovascular Exam: Tachycardia, +S1, +S2. absent: Gallop, Rubs, Systolic Murmur - GI/Abdominal Exam GI & Abdominal Exam: Normal Bowel Sounds, Soft. absent: Distended, Organomegaly, Tenderness - Extremities Exam Extremities exam: Positive for: normal capillary refill, normal inspection, pedal pulses present. Negative for: tenderness - Neurological Exam Neurological exam: Altered - Skin Skin Exam: Dry, Intact, Warm Assessment & Plan - Assessment and Plan (Free Text) Assessment: This is an 82 y o male with PMhx COPD, HTN, HLD, CAD, s/p AICD implantation, TIA, Cardio: -Hx HTN, HLD, CAD, s/p AICD implantation -AICD with normal function -ASA -Cozaar 25 mg PO daily -Toprol XL 50 mg PO daily -Crestor daily Pulm: -Mgt as per PMD/Pulm -Hx COPD, TIA -Duonebs q4h -S/p Solu-Medrol 40 mg IVP x1 during [employer] -On Mucomyst q6h -Recent CXR today: Cardiomegaly and worsening pulmonary venous congestion compatible with CHF. Interval increase L pleural effusion. -Daliresp -Cont to monitor GI: -IVF at 75 cc/hr -CT abd/pelvis on admission: Multiple pelvic fractures, likely nonacute. Compression fxs of T11 and L1 vertebral bodies, indeterminate age. L lower lobe consolidation. No other acute abnormalities. -Protonix -Colace bid -No acute issues at this time ID: -Aspiration PNA mgt as per ID -Anbx as noted above -CXR findings as noted above Renal: -Bun/Cr wnl -Trend I's/O's PPX: -Protonix, Heparin Objective - Vital Signs/Intake and Output Vital Signs (last 24 hours): Temp Pulse Resp BP Pulse Ox 97.8 F 98 H 20 106/59 L 96 08/06/18 06:22 08/06/18 06:22 08/06/18 06:22 08/06/18 06:22 08/06/18 06:22 Intake and Output: 08/06/18 08/06/18 06:59 18:59 Intake Total 350 Balance 350 - Medications Medications: Current Medications Acetylcysteine (Acetylcysteine 20%) 4 ml INH RQ6 [facility] Last Admin: 08/06/18 07:49 Dose: Not Given Aspirin (Ecotrin) 81 mg PO DAILY [facility] Last Admin: 08/05/18 10:34 Dose: 81 mg Docusate Sodium (Colace) 100 mg PO BID [facility] Last Admin: 08/05/18 18:18 Dose: 100 mg Furosemide (Lasix) 20 mg IVP BID [facility] Last Admin: 08/05/18 18:18 Dose: 20 mg Heparin Sodium (Porcine) (Heparin) 5,000 units SC Q8 [facility] Last Admin: 08/06/18 06:16 Dose: 5,000 units Aztreonam 1 gm/ Sodium (Chloride) 100 mls @ 100 mls/hr IVPB Q8H [facility]; Protocol Last Admin: 08/06/18 04:20 Dose: 100 mls/hr Losartan Potassium (Cozaar) 25 mg PO DAILY [facility] Last Admin: 08/05/18 10:34 Dose: 25 mg Metoprolol Tartrate (Lopressor) 12.5 mg PO BID [facility] Last Admin: 08/05/18 18:18 Dose: 12.5 mg Pantoprazole Sodium (Protonix Ec Tab) 40 mg PO DAILY [facility] Last Admin: 08/05/18 10:34 Dose: 40 mg Roflumilast (Daliresp) 500 mcg PO DAILY [facility] Last Admin: 08/05/18 10:39 Dose: 500 mcg Rosuvastatin Calcium (Crestor) 10 mg PO HS [facility] Last Admin: 08/05/18 21:51 Dose: 10 mg Tamsulosin HCl (Flomax) 0.4 mg PO BID [facility] Last Admin: 08/05/18 18:18 Dose: 0.4 mg - Labs Labs: 08/02/18 07:59 08/02/18 07:50 PT 16.6 SECONDS (9.7-12.2) H 07/31/18 06:13 INR 1.5 07/31/18 06:13
[2018-08-06] MEDS: Pantoprazole 40 mg EC Tab PO SCH (09:39)
--- NOTE | 2018-08-06 18:30 | CP.PCM.PN ---
Subjective - Date & Time of Evaluation Date of Evaluation: 08/04/18 Time of Evaluation: 18:30 - Subjective Subjective: Patient continues to have increasing coughing episodes. The sputum culture showing evidence of Klebsiella, Pseudomonas. I spoke to the ID. Currently on aztreonam to be continued. Patient has a multiple allergies. I discussed with infectious disease. We will possibly discharge to rehab once a bed is available Objective - Vital Signs/Intake and Output Vital Signs (last 24 hours): Temp Pulse Resp BP Pulse Ox 98.2 F 107 H 20 105/60 95 08/06/18 16:13 08/06/18 16:13 08/06/18 16:13 08/06/18 16:13 08/06/18 16:13 Intake and Output: 08/06/18 08/06/18 06:59 18:59 Intake Total 350 Balance 350 - Medications Medications: Current Medications Acetylcysteine (Acetylcysteine 20%) 4 ml INH RQ6 [facility] Last Admin: 08/06/18 13:21 Dose: Not Given Aspirin (Ecotrin) 81 mg PO DAILY [facility] Last Admin: 08/06/18 09:39 Dose: 81 mg Docusate Sodium (Colace) 100 mg PO BID [facility] Last Admin: 08/06/18 09:55 Dose: 100 mg Furosemide (Lasix) 20 mg IVP BID [facility] Last Admin: 08/06/18 09:56 Dose: 20 mg Heparin Sodium (Porcine) (Heparin) 5,000 units SC Q8 [facility] Last Admin: 08/06/18 06:16 Dose: 5,000 units Aztreonam 1 gm/ Sodium (Chloride) 100 mls @ 100 mls/hr IVPB Q8H [facility]; Protocol Last Admin: 08/06/18 12:37 Dose: 100 mls/hr Losartan Potassium (Cozaar) 25 mg PO DAILY [facility] Last Admin: 08/06/18 09:40 Dose: 25 mg Metoprolol Tartrate (Lopressor) 12.5 mg PO BID [facility] Last Admin: 08/06/18 09:40 Dose: 12.5 mg Pantoprazole Sodium (Protonix Ec Tab) 40 mg PO DAILY [facility] Last Admin: 08/06/18 09:39 Dose: 40 mg Roflumilast (Daliresp) 500 mcg PO DAILY [facility] Last Admin: 08/06/18 09:44 Dose: 500 mcg Rosuvastatin Calcium (Crestor) 10 mg PO HS [facility] Last Admin: 08/05/18 21:51 Dose: 10 mg Tamsulosin HCl (Flomax) 0.4 mg PO BID [facility] Last Admin: 08/06/18 09:55 Dose: 0.4 mg - Labs Labs: 08/02/18 07:59 08/02/18 07:50 PT 16.6 SECONDS (9.7-12.2) H 07/31/18 06:13 INR 1.5 07/31/18 06:13
--- NOTE | 2018-08-06 18:30 | CP.PCM.PN ---
Subjective - Date & Time of Evaluation Date of Evaluation: 08/06/18 Time of Evaluation: 18:30 - Subjective Subjective: Patient is clinically stable. He is able to eat slightly better. But he is having some difficult time in swallowing or occasionally. Denies any chest pain or shortness of breath. Patient is is at bedside Clinical examination is unremarkable except a mild bilateral diffuse wheezing and rales Heart sounds are regular Nontender abdomen. No pedal edema Patient is a 82-year-old male with a history of pneumonia. Respiratory failure. On antibiotic. Multi-organisms sepsis, also pneumonia. Improving. Once the bed is available patient will be transferred to rehab Continue the current antibiotic treatment. Possible discharge plan tomorrow once the bed is available Objective - Vital Signs/Intake and Output Vital Signs (last 24 hours): Temp Pulse Resp BP Pulse Ox 98.2 F 107 H 20 105/60 95 08/06/18 16:13 08/06/18 16:13 08/06/18 16:13 08/06/18 16:13 08/06/18 16:13 Intake and Output: 08/06/18 08/06/18 06:59 18:59 Intake Total 350 Balance 350 - Medications Medications: Current Medications Acetylcysteine (Acetylcysteine 20%) 4 ml INH RQ6 [facility] Last Admin: 08/06/18 13:21 Dose: Not Given Aspirin (Ecotrin) 81 mg PO DAILY [facility] Last Admin: 08/06/18 09:39 Dose: 81 mg Docusate Sodium (Colace) 100 mg PO BID [facility] Last Admin: 08/06/18 09:55 Dose: 100 mg Furosemide (Lasix) 20 mg IVP BID [facility] Last Admin: 08/06/18 09:56 Dose: 20 mg Heparin Sodium (Porcine) (Heparin) 5,000 units SC Q8 [facility] Last Admin: 08/06/18 06:16 Dose: 5,000 units Aztreonam 1 gm/ Sodium (Chloride) 100 mls @ 100 mls/hr IVPB Q8H [facility]; Protocol Last Admin: 08/06/18 12:37 Dose: 100 mls/hr Losartan Potassium (Cozaar) 25 mg PO DAILY [facility] Last Admin: 08/06/18 09:40 Dose: 25 mg Metoprolol Tartrate (Lopressor) 12.5 mg PO BID [facility] Last Admin: 08/06/18 09:40 Dose: 12.5 mg Pantoprazole Sodium (Protonix Ec Tab) 40 mg PO DAILY [facility] Last Admin: 08/06/18 09:39 Dose: 40 mg Roflumilast (Daliresp) 500 mcg PO DAILY [facility] Last Admin: 08/06/18 09:44 Dose: 500 mcg Rosuvastatin Calcium (Crestor) 10 mg PO HS [facility] Last Admin: 08/05/18 21:51 Dose: 10 mg Tamsulosin HCl (Flomax) 0.4 mg PO BID [facility] Last Admin: 08/06/18 09:55 Dose: 0.4 mg - Labs Labs: 08/02/18 07:59 08/02/18 07:50 PT 16.6 SECONDS (9.7-12.2) H 07/31/18 06:13 INR 1.5 07/31/18 06:13
--- NOTE | 2018-08-06 18:30 | CP.PCM.PN ---
Subjective - Date & Time of Evaluation Date of Evaluation: 08/05/18 Time of Evaluation: 18:30 - Subjective Subjective: Patient is clinically stable. He is able to eat slightly better. But he is having some difficult time in swallowing or occasionally. Denies any chest pain or shortness of breath. Patient is is at bedside Clinical examination is unremarkable except a mild bilateral diffuse wheezing and rales Heart sounds are regular Nontender abdomen. No pedal edema Patient is a 82-year-old male with a history of pneumonia. Respiratory failure. On antibiotic. Multi-organisms sepsis, also pneumonia. Improving. Once the bed is available patient will be transferred to rehab Objective - Vital Signs/Intake and Output Vital Signs (last 24 hours): Temp Pulse Resp BP Pulse Ox 98.2 F 107 H 20 105/60 95 08/06/18 16:13 08/06/18 16:13 08/06/18 16:13 08/06/18 16:13 08/06/18 16:13 Intake and Output: 08/06/18 08/06/18 06:59 18:59 Intake Total 350 Balance 350 - Medications Medications: Current Medications Acetylcysteine (Acetylcysteine 20%) 4 ml INH RQ6 [facility] Last Admin: 08/06/18 13:21 Dose: Not Given Aspirin (Ecotrin) 81 mg PO DAILY [facility] Last Admin: 08/06/18 09:39 Dose: 81 mg Docusate Sodium (Colace) 100 mg PO BID [facility] Last Admin: 08/06/18 09:55 Dose: 100 mg Furosemide (Lasix) 20 mg IVP BID [facility] Last Admin: 08/06/18 09:56 Dose: 20 mg Heparin Sodium (Porcine) (Heparin) 5,000 units SC Q8 [facility] Last Admin: 08/06/18 06:16 Dose: 5,000 units Aztreonam 1 gm/ Sodium (Chloride) 100 mls @ 100 mls/hr IVPB Q8H [facility]; Protocol Last Admin: 08/06/18 12:37 Dose: 100 mls/hr Losartan Potassium (Cozaar) 25 mg PO DAILY [facility] Last Admin: 08/06/18 09:40 Dose: 25 mg Metoprolol Tartrate (Lopressor) 12.5 mg PO BID [facility] Last Admin: 08/06/18 09:40 Dose: 12.5 mg Pantoprazole Sodium (Protonix Ec Tab) 40 mg PO DAILY [facility] Last Admin: 08/06/18 09:39 Dose: 40 mg Roflumilast (Daliresp) 500 mcg PO DAILY [facility] Last Admin: 08/06/18 09:44 Dose: 500 mcg Rosuvastatin Calcium (Crestor) 10 mg PO HS [facility] Last Admin: 08/05/18 21:51 Dose: 10 mg Tamsulosin HCl (Flomax) 0.4 mg PO BID [facility] Last Admin: 08/06/18 09:55 Dose: 0.4 mg - Labs Labs: 08/02/18 07:59 08/02/18 07:50 PT 16.6 SECONDS (9.7-12.2) H 07/31/18 06:13 INR 1.5 07/31/18 06:13
--- NOTE | 2018-08-06 23:53 | CP.PCM.PN ---
Subjective - Date & Time of Evaluation Date of Evaluation: 08/06/18 Time of Evaluation: 17:45 - Subjective Subjective: Patient seen and evaluated Comfortable Denies chest pain and dyspnea Objective - Vital Signs/Intake and Output Vital Signs (last 24 hours): Temp Pulse Resp BP Pulse Ox 98.2 F 107 H 20 100/57 L 95 08/06/18 16:13 08/06/18 16:13 08/06/18 16:13 08/06/18 19:00 08/06/18 16:13 - Medications Medications: Current Medications Acetylcysteine (Acetylcysteine 20%) 4 ml INH RQ6 [facility] Last Admin: 08/06/18 13:21 Dose: Not Given Aspirin (Ecotrin) 81 mg PO DAILY [facility] Last Admin: 08/06/18 09:39 Dose: 81 mg Docusate Sodium (Colace) 100 mg PO BID [facility] Last Admin: 08/06/18 19:07 Dose: 100 mg Furosemide (Lasix) 20 mg IVP BID [facility] Last Admin: 08/06/18 19:00 Dose: Not Given Heparin Sodium (Porcine) (Heparin) 5,000 units SC Q8 [facility] Last Admin: 08/06/18 21:52 Dose: 5,000 units Aztreonam 1 gm/ Sodium (Chloride) 100 mls @ 100 mls/hr IVPB Q8H [facility]; Protocol Last Admin: 08/06/18 20:41 Dose: 100 mls/hr Losartan Potassium (Cozaar) 25 mg PO DAILY [facility] Last Admin: 08/06/18 09:40 Dose: 25 mg Metoprolol Tartrate (Lopressor) 12.5 mg PO BID [facility] Last Admin: 08/06/18 19:10 Dose: Not Given Pantoprazole Sodium (Protonix Ec Tab) 40 mg PO DAILY [facility] Last Admin: 08/06/18 09:39 Dose: 40 mg Roflumilast (Daliresp) 500 mcg PO DAILY [facility] Last Admin: 08/06/18 09:44 Dose: 500 mcg Rosuvastatin Calcium (Crestor) 10 mg PO HS [facility] Last Admin: 08/06/18 21:53 Dose: 10 mg Tamsulosin HCl (Flomax) 0.4 mg PO BID [facility] Last Admin: 08/06/18 19:07 Dose: 0.4 mg - Labs Labs: 08/02/18 07:59 08/02/18 07:50 PT 16.6 SECONDS (9.7-12.2) H 07/31/18 06:13 INR 1.5 07/31/18 06:13
[2018-08-07] MEDS: Acetylcysteine 20% Inhal Soln (4ml) INH SCH ×2 (01:12→09:33)
[2018-08-07 01:53] VITALS: PULSE 91
[2018-08-07] MEDS: Aztreonam 1 GM in Sodium Chloride 0.9% 100 ML IVPB SCH (04:46)
[2018-08-07 07:31] LABS: BASO % 0.9 % (0.0-2.0); EOS # 0.1 K/uL (0.0-0.7); EOS % 2.2 % (0.0-4.0); LYMPH % 24.9 % (20.0-40.0); MEAN CELL VOLUME 87.6 fL (80.0-94.0); MEAN CORPUSCULAR HEMOGLOBIN 28.8 pg (27.0-31.0); MEAN CORPUSCULAR HGB CONC 32.9 g/dL (33.0-37.0); MEAN PLATELET VOLUME 6.9 fL (7.2-11.7); MONO # 0.3 K/uL (0.0-0.8); MONO % 6.8 % (0.0-10.0); NEUT # 2.6 K/uL (1.8-7.0); NEUT % 65.2 % (50.0-75.0); RBC 3.82 Mil/uL (4.40-5.90)
[2018-08-07 07:50] LABS: ALB/GLOB RATIO 1.1 (1.0-2.1); ALT/SGPT 43 U/L (21-72); AST/SGOT 33 U/L (17-59); BLOOD UREA NITROGEN 21 mg/dL (9-20); CALCIUM 8.8 mg/dl (8.6-10.4); GFR NON-AFRICAN AMERICAN > 60
[2018-08-07 08:06] VITALS: TEMP 98; O2SAT 90
[2018-08-07] MEDS: Pantoprazole 40 mg EC Tab PO SCH (09:39)
[2018-08-07 10:16] VITALS: BP 121/66
--- NOTE | 2018-09-01 09:15 | CP.PCM.DIS ---
Provider - Provider Date of Admission: 07/23/18 06:02 Attending physician: Johan Jamison MD Consults: 07/23/18 08:13 Nursing Referral for Wound Care Routine Comment: Physician Instructions: Reason For Exam: sacral tear 07/24/18 23:04 Cardiology Consult Routine Comment: Consulting Provider: Filippo Bains Consulting Physician: Filippo Bains Reason for Consult: sob 07/27/18 08:55 Palliative Care Consult Routine Comment: Consulting Provider: Cecille Garcia Physician Instructions: Reason For Exam: discuss goals of care/code status 07/29/18 07:42 Infectious Disease Consult Routine Comment: Consulting Provider: Francesco Connolly Consulting Physician: Francesco Connolly Reason for Consult: klebsiella pneumonia and pcn allergy Time Spent in preparation of Discharge (in minutes): 45 Hospital Course - Lab Results Lab Results: Micro Results 07/26/18 18:08 Lung Fungal Culture - Final NO FUNGUS GROWTH IN 4 WEEKS. 07/26/18 18:08 Other: Please Indicate Mycobacterial Culture - Preliminary 08/02/18 05:47 Naris MRSA Culture - Final MRSA NOT DETECTED 08/01/18 11:56 Trachasp Gram Stain - Final 08/01/18 11:56 Trachasp Sputum Culture - Final Pseudomonas Aeruginosa 07/26/18 18:08 Bronchial Washings Bronchial Culture - Final Klebsiella Pneumoniae Ssp Pneu Pseudomonas Aeruginosa 07/23/18 08:28 Blood Blood Culture - Final NO GROWTH AFTER 5 DAYS 07/23/18 08:28 Blood Gram Stain - Final TEST NOT PERFORMED 07/23/18 08:28 Blood Blood Culture - Final NO GROWTH AFTER 5 DAYS 07/23/18 08:28 Blood Gram Stain - Final TEST NOT PERFORMED 07/23/18 03:57 Urine Random Urine Culture - Final No Growth (<1,000 CFU/ML) Most Recent Lab Values WBC 4.0 K/uL (4.8-10.8) L 08/07/18 07:14 RBC 3.82 Mil/uL (4.40-5.90) L 08/07/18 07:14 Hgb 11.0 g/dL (12.0-18.0) L 08/07/18 07:14 Hct 33.5 % (35.0-51.0) L 08/07/18 07:14 MCV 87.6 fL (80.0-94.0) 08/07/18 07:14 MCH 28.8 pg (27.0-31.0) 08/07/18 07:14 MCHC 32.9 g/dL (33.0-37.0) L 08/07/18 07:14 RDW 15.0 % (11.5-14.5) H 08/07/18 07:14 Plt Count 249 K/uL (130-400) 08/07/18 07:14 MPV 6.9 fL (7.2-11.7) L 08/07/18 07:14 Neut % (Auto) 65.2 % (50.0-75.0) 08/07/18 07:14 Lymph % (Auto) 24.9 % (20.0-40.0) 08/07/18 07:14 Josephine % (Auto) 6.8 % (0.0-10.0) 08/07/18 07:14 Eos % (Auto) 2.2 % (0.0-4.0) 08/07/18 07:14 Baso % (Auto) 0.9 % (0.0-2.0) 08/07/18 07:14 Neut # (Auto) 2.6 K/uL (1.8-7.0) 08/07/18 07:14 Lymph # (Auto) 1.0 K/uL (1.0-4.3) 08/07/18 07:14 Josephine # (Auto) 0.3 K/uL (0.0-0.8) 08/07/18 07:14 Eos # (Auto) 0.1 K/uL (0.0-0.7) 08/07/18 07:14 Baso # (Auto) 0.0 K/uL (0.0-0.2) 08/07/18 07:14 Neutrophils % (Manual) 91 % (50-75) H 07/28/18 06:02 Band Neutrophils % 1 % (0-2) 07/25/18 16:11 Lymphocytes % (Manual) 6 % (20-40) L 07/28/18 06:02 Reactive Lymphs % 1 % (0-0) H 07/23/18 02:16 Monocytes % (Manual) 3 % (0-10) 07/28/18 06:02 Platelet Estimate Normal (NORMAL) 07/28/18 06:02 Large Platelets Present 07/28/18 06:02 RBC Morphology Normal 07/28/18 06:02 Polychromasia Slight 07/26/18 06:24 Hypochromasia (manual) Slight 07/26/18 06:24 Anisocytosis (manual) Slight 07/27/18 05:37 Microcytosis (manual) Slight 07/25/18 16:11 Rouleaux Slight 07/25/18 16:11 PT 16.6 SECONDS (9.7-12.2) H 07/31/18 06:13 INR 1.5 07/31/18 06:13 Puncture Site Rr 07/27/18 20:29 pCO2 26 mm/Hg (35-45) L 07/27/18 20:29 pO2 122 mm/Hg (80-100) H 07/27/18 20:29 HCO3 23.3 mmol/L (21-28) 07/27/18 20:29 ABG pH 7.49 (7.35-7.45) H 07/27/18 20:29 ABG Total CO2 20.6 mmol/L (22-28) L 07/27/18 20:29 ABG O2 Saturation 99.1 % (95-98) H 07/27/18 20:29 ABG Base Excess -2.1 mmol/L (-2.0-3.0) L 07/27/18 20:29 ABG Hemoglobin 8.7 g/dL (11.7-17.4) L 07/26/18 05:18 ABG Carboxyhemoglobin 1.5 % (0.5-1.5) 07/26/18 05:18 POC ABG HHb (Measured) 0.6 % (0.0-5.0) 07/26/18 05:18 ABG Methemoglobin 0.7 % (0.0-3.0) 07/26/18 05:18 Hua Test Po 07/27/18 20:29 ABG Potassium 2.7 mmol/L (3.6-5.2) L 07/27/18 20:29 VBG pH 7.41 (7.32-7.43) 07/23/18 02:59 VBG pCO2 43 mmHg (40-60) 07/23/18 02:59 VBG HCO3 26.4 mmol/L 07/23/18 02:59 VBG Total CO2 28.6 mmol/L (22-28) H 07/23/18 02:59 VBG O2 Sat (Calc) 91.0 % (40-65) H 07/23/18 02:59 VBG Base Excess 2.2 mmol/L (0.0-2.0) H 07/23/18 02:59 VBG Potassium 3.6 mmol/L (3.6-5.2) 07/23/18 02:59 A-a O2 Difference 95.0 mm/Hg 07/27/18 20:29 Respiratory Index 0.8 07/27/18 20:29 Hgb O2 Saturation 97.2 % (95.0-98.0) 07/26/18 05:18 Sodium 144.0 mmol/l (132-148) 07/27/18 20:29 Chloride 118.0 mmol/L (98-107) H 07/27/18 20:29 Glucose 114 mg/dl (75-110) H 07/27/18 20:29 Lactate 0.8 mmol/L (0.7-2.1) 07/27/18 20:29 Liter Flow 15.0 07/25/18 16:10 Vent Mode Prvc 07/27/18 05:38 Mechanical Rate 16 07/27/18 05:38 FiO2 35.0 % 07/27/18 20:29 Tidal Volume 500 07/27/18 05:38 PEEP 5 07/27/18 05:38 Sodium 137 mmol/L (132-148) 08/07/18 07:14 Potassium 3.2 mmol/L (3.6-5.2) L 08/07/18 07:14 Chloride 102 mmol/L (98-107) 08/07/18 07:14 Carbon Dioxide 32 mmol/L (22-30) H 08/07/18 07:14 Anion Gap 6 (10-20) L 08/07/18 07:14 BUN 21 mg/dL (9-20) H 08/07/18 07:14 Creatinine 0.7 mg/dL (0.8-1.5) L 08/07/18 07:14 Est GFR ( Amer) > 60 08/07/18 07:14 Est GFR (Non-Af Amer) > 60 08/07/18 07:14 POC Glucose (mg/dL) 166 mg/dL (65-110) H 08/07/18 06:28 Random Glucose 103 mg/dL (75-110) 08/07/18 07:14 Lactic Acid 1.6 mmol/L (0.7-2.1) 07/25/18 16:11 Calcium 8.8 mg/dl (8.6-10.4) 08/07/18 07:14 Phosphorus 3.0 mg/dL (2.5-4.5) 08/07/18 07:14 Magnesium 2.0 mg/dL (1.6-2.3) 08/07/18 07:14 Total Bilirubin 0.3 mg/dL (0.2-1.3) 08/07/18 07:14 AST 33 U/L (17-59) 08/07/18 07:14 ALT 43 U/L (21-72) 08/07/18 07:14 Alkaline Phosphatase 128 U/L (38-126) H 08/07/18 07:14 Ammonia 10 umol/L (9-33) 07/23/18 02:16 Troponin I 0.0810 ng/mL (0.00-0.120) 07/23/18 02:16 NT-Pro-B Natriuret Pep 1430 pg/mL (0-900) H 07/23/18 02:16 Total Protein 5.6 g/dL (6.3-8.3) L 08/07/18 07:14 Albumin 3.0 g/dL (3.5-5.0) L 08/07/18 07:14 Globulin 2.6 gm/dL (2.2-3.9) 08/07/18 07:14 Albumin/Globulin Ratio 1.1 (1.0-2.1) 08/07/18 07:14 Lipase 37 U/L (23-300) 07/23/18 02:16 Procalcitonin 0.23 NG/ML (0.19-0.49) 07/25/18 16:11 Arterial Blood Potassium 2.7 mmol/L (3.6-5.2) L 07/27/18 20:29 Venous Blood Potassium 3.6 mmol/L (3.6-5.2) 07/23/18 02:59 Urine Color Kathy (YELLOW) 07/23/18 03:57 Urine Clarity Hazy (Clear) 07/23/18 03:57 Urine pH 5.0 (5.0-8.0) 07/23/18 03:57 Ur Specific [place]ell 1.023 (1.003-1.030) 07/23/18 03:57 Urine Protein 2+ mg/dL (NEGATIVE) H 07/23/18 03:57 Urine Glucose (UA) Normal mg/dL (Normal) 07/23/18 03:57 Urine Ketones Negative mg/dL (NEGATIVE) 07/23/18 03:57 Urine Blood 1+ (NEGATIVE) H 07/23/18 03:57 Urine Nitrate Negative (NEGATIVE) 07/23/18 03:57 Urine Bilirubin Negative (NEGATIVE) 07/23/18 03:57 Urine Urobilinogen 4.0 mg/dL (0.2-1.0) 07/23/18 03:57 Ur Leukocyte Esterase Neg Giovanna/uL (Negative) 07/23/18 03:57 Urine WBC (Auto) 2 /hpf (0-5) 07/23/18 03:57 Urine RBC (Auto) 22 /hpf (0-3) H 07/23/18 03:57 Ur Squamous Epith Cells < 1 /hpf (0-5) 07/23/18 03:57 Urine Bacteria Many (<OCC) H 07/23/18 03:57 - Hospital Course Hospital Course: Chief complaint: fall and has fever History of present illness: 82 year-old male with history of severe COPD, hypertension, hypercholesterolemia, CAD, status post AICD implantation, history of possible COPD with the obstructive sleep apnea brought by the today with the fever and fall. Pt was trying to reach something at home slipped and fell on the fl oor. He was unable to get up and called EMS. Patient had many episodes of fall prior to this fall. He was also c/o cough for 10 days, with scanty mucous, rales with cough. 2 days he has intermittant fever, with recent high grade fever on arrival to ER. IN ER evaluated for lactate with normal leve. according to the , he was not feeling well, he was not able to walk, incontinence, and also frequent falls. He has not eating well. And he was not by him self so patient's brought him to the emergency room. Recently patient was also not able to walk and not able to get up from the bed. Is also complaining of some constipation. He does have chills with the fever, according to the patient's he is having worsening cough, recently, congested lungs. Past medical history: CAD, hypertension, stent, ACD, COPD and obstructive sleep apnea Past surgical history: Patient has a AICD implantation and also had a frequent bronchoscopy Allergies: Allergic to ciprofloxacin and penicillin tetanus antitoxin Personal history patient is to be heavy smoker, denies any drugs, currently not a smoker. Using a brace at home Review of system: no appetite Patient is currently having increasing headache, episodes of anxiety, episodes of confusion, and also sometimes disorientation present, according to the patient's he is having progressively worsening cough, wheezing, associated with shortness of breath. Also had a fever. On examination: Vital signs reviewed, fever now better No neck vein distention noted diffuse bilateral decreased air entry noted CVS regular heart sound, no murmur noted Abdomen soft, nontender. Extremities no pedal edema patient is alert,oriented. CAT scan of the head no evidence of any bleeding. Chest x-ray rt LL pna noted pelvic CT negative no fractures noted Labs nonspecific. Assessment/recommendation: 81 year-old male with a history of CAD hypertension hypercholesterolemia ACD implantation COPD possible obstructive sleep apnea recurrent chronic bronchitis now came to the emergency room fall and new PNeumonia non specific with copd exacerbation. We'll place the patient onbronchodilators antibiotic. DVT and GI prophylaxis will follow the patient. we'll rule out any fractures get the official report Pain control. DVT and GI prophylaxis. Physical therapy. I will follow the patient fall precautions, ambulation training Course in the hospital: Patient was initially admitted to the hospital with a diagnosis of acute pneumonia. COPD exacerbation. He was started on intravenous antibiotic bronchodilators. But the next 2 days the patient condition got worse. Respiratory status got compromised. He was needing ventilatory support, he was intubated and brought to the intensive care unit. Bronchoscopy was done. Patient had a very thick mucus plugging was noted, and he underwent bronchoscopy lavage. Patient was successfully extubated following the. He was doing well. Still having some trouble and eating and a possible high risk of aspiration noted. Pured diet was started the patient was doing well continue the antibiotic he is clinically stable he will be discharged to rehab. Patient family agreed to send him to rehab he will be discharged to rehab we will continue rest of the medications medications reconciled Final diagnosis: Acute aspiration pneumonia Acute respiratory failure hypercapnic respiratory insufficiency status post ventilatory support CAD CABG heart disease AICD. We will continue the current treatment follow-up as an outpatient Discharge Exam - Head Exam Head Exam: NORMAL INSPECTION Discharge Plan - Follow Up Plan Condition: STABLE Disposition: REHAB FACILITY/REHAB UNIT Instructions: Bronchoscopy, Diagnostic, Heart Failure, Adult (DC), Dehydration, Adult (DC), Pneumonia, Adult (DC), Altered Mental Status (DC), Pureed Diet, Failure to Thrive, Adult (DC) Referrals: Johan Jamison MD [Staff Provider] -
== END 2018-08-07 16:17 | DRG 163 ==
LOC: C.ER 01:11 → C.9E 06:02 → C.5S 06:42 → C.9I 07-25 16:37 → C.6T 08-02 00:45
PROVIDERS: ADMIT Internal Medicine; ATTEND Internal Medicine
PROC: 5A1945Z Respiratory Ventilation, 24-96 Consecutive Hours (ICD-10-PCS; 2018-07-25)
PROC: 0BH17EZ Insertion of Endotracheal Airway into Trachea, Via Natural or Artificial Opening (ICD-10-PCS; 2018-07-25)
PROC: 0B9L8ZX Drainage of Left Lung, Via Natural or Artificial Opening Endoscopic, Diagnostic (ICD-10-PCS; 2018-07-26)
PROC: 0BCL8ZZ Extirpation of Matter from Left Lung, Via Natural or Artificial Opening Endoscopic (ICD-10-PCS; principal; 2018-07-26 12:00)
DX: J69.0 Pneumonitis due to inhalation of food and vomit (principal); I50.23 Acute on chronic systolic (congestive) heart failure; A41.9 Sepsis, unspecified organism; J96.02 Acute respiratory failure with hypercapnia; J44.0 Chronic obstructive pulmonary disease with (acute) lower respiratory infection; I13.0 Hypertensive heart and chronic kidney disease with heart failure and stage 1 through stage 4 chronic kidney disease, or unspecified chronic kidney disease; J44.1 Chronic obstructive pulmonary disease with (acute) exacerbation; J96.11 Chronic respiratory failure with hypoxia; T17.828A Food in other parts of respiratory tract causing other injury, initial encounter; J15.1 Pneumonia due to Pseudomonas; D45 Polycythemia vera; G47.33 Obstructive sleep apnea (adult) (pediatric); E03.9 Hypothyroidism, unspecified; N18.9 Chronic kidney disease, unspecified; Z95.0 Presence of cardiac pacemaker; Z95.5 Presence of coronary angioplasty implant and graft; M17.0 Bilateral primary osteoarthritis of knee; I25.10 Atherosclerotic heart disease of native coronary artery without angina pectoris; E78.5 Hyperlipidemia, unspecified; K59.00 Constipation, unspecified; Z95.1 Presence of aortocoronary bypass graft; Z88.0 Allergy status to penicillin; F17.210 Nicotine dependence, cigarettes, uncomplicated; W01.0XXA Fall on same level from slipping, tripping and stumbling without subsequent striking against object, initial encounter; Z91.81 History of falling; Z51.5 Encounter for palliative care; R62.7 Adult failure to thrive; E86.0 Dehydration